=== PATIENT | female | born 1955 | race Caucasian/White ===

== ENCOUNTER → 2018-06-17 | Outpatient (CLI) | payer MEDICARE ==
[~2018-06-17] MED LIST: CHOL10007 PO; ESCI20TA45 PO; HYDR-3820 PO; LITH300T3 PO; PANT40TA3 PO; ROPI2TAB4 PO; TOPI100T11 PO
== END ==
LOC: CARD 09:31
PROVIDERS: ATTEND Internal Medicine Cardiovascular Disease
DX: R00.2 Palpitations (principal); J44.9 Chronic obstructive pulmonary disease, unspecified; G47.33 Obstructive sleep apnea (adult) (pediatric); I25.10 Atherosclerotic heart disease of native coronary artery without angina pectoris; R51 Headache; Z72.0 Tobacco use
CPT/HCPCS: 93225; 93226

== ENCOUNTER 2018-06-29 19:08 | Outpatient (CLI) | payer MEDICARE | END 2018-06-30 06:55 | disposition home or self-care (01) | LOC: SLEEP 19:08 | PROVIDERS: ATTEND Nurse Practitioner Family | DX: G47.33 Obstructive sleep apnea (adult) (pediatric) (principal); G47.10 Hypersomnia, unspecified; J44.9 Chronic obstructive pulmonary disease, unspecified; Z72.0 Tobacco use | CPT/HCPCS: 95810 ==

== ENCOUNTER → 2018-06-30 | Outpatient (CLI) | payer MEDICARE ==
[~2018-06-30] MED LIST changes: +RT-ALBUTEROL SULF 2.5 MG/3 ML PRE-MIX VIAL INH ONE; +RT-ALBUTEROL SULF 2.5 MG/3 ML PRE-MIX VIAL ONE
== END ==
LOC: RT 07:10
PROVIDERS: ATTEND Nurse Practitioner Family
DX: J44.9 Chronic obstructive pulmonary disease, unspecified (principal); G47.33 Obstructive sleep apnea (adult) (pediatric); Z72.0 Tobacco use
CPT/HCPCS: 94060; 94726; 94729

== ENCOUNTER 2018-08-01 21:51 | Emergency (ER) | payer MEDICARE ==
[~2018-08-01] VITALS: Ht 165.1 cm; Wt 60.8 kg
[~2018-08-01 21:51] MED LIST changes: -RT-ALBUTEROL SULF 2.5 MG/3 ML PRE-MIX VIAL INH ONE; -RT-ALBUTEROL SULF 2.5 MG/3 ML PRE-MIX VIAL ONE
--- OUTSIDE RECORDS SUMMARY | 2018-08-01 22:04 | XMS REPORT | Continuity of Care Document ---
Author Author [facility] Organization [facility] Address Unknown Phone Unavailable Allergies Active Description Code Type Severity Reaction Onset Reported/Identified Relationship to Patient Clinical Status Yes aspirin Drug N/A [id number] Yes Chantix Drug N/A [id number] Yes morphine Drug N/A [id number] Yes Ultram Drug N/A [id number] Yes TAPE TAPE Mild N/ A 09/22/2005 Yes aspirin [id number] Drug Allergy Unknown N/A 09/22/2005 Yes tramadol [id number] Drug Allergy Unknown N/A 09/22/2005 Medications There is no data. Problems Date Dx Coded Attending Type Code Diagnosis Diagnosed By 05/14/2018 AGUSTIN RAZA MD, Ot E78.00 PURE HYPERCHOLESTEROLEMIA, UNSPECIFIED 05/14/2018 AGUSTIN RAZA MD Ot E87.2 ACIDOSIS 05/14/2018 AGUSTIN RAZA MD Ot F03.90 UNSPECIFIED DEMENTIA WITHOUT BEHAVIORAL 05/14/2018 AGUSTIN RAZA MD Ot F17.210 NICOTINE DEPENDENCE, CIGARETTES, UNCOMPL 05/14/2018 AGUSTIN RAZA MD Ot F32.9 MAJOR DEPRESSIVE DISORDER, SINGLE EPISOD 05/14/2018 AGUSTIN RAZA MD, Ot F41.9 ANXIETY DISORDER, UNSPECIFIED 05/14/2018 AGUSTIN RAZA MD Ot F79 UNSPECIFIED INTELLECTUAL DISABILITIES 05/14/2018 AGUSTIN RAZA MD Ot G47.33 OBSTRUCTIVE SLEEP APNEA (ADULT) (PEDIATR 05/14/2018 AGUSTIN RAZA MD Ot I10 ESSENTIAL (PRIMARY) HYPERTENSION 05/14/2018 AGUSTIN RAZA MD, Ot I25.10 ATHSCL HEART DISEASE OF [place] CORONARY 05/14/2018 AGUSTIN RAZA MD, Ot J44.9 CHRONIC OBSTRUCTIVE PULMONARY DISEASE, U 05/14/2018 AGUSTIN RAZA MD Ot J98.11 ATELECTASIS 05/14/2018 AGUSTIN RAZA MD Ot K21.9 GASTRO-ESOPHAGEAL REFLUX DISEASE WITHOUT 05/14/2018 AGUSTIN RAZA MD Ot M79.661 PAIN IN RIGHT LOWER LEG 05/14/2018 AGUSTIN RAZA MD Ot M79.662 PAIN IN LEFT LOWER LEG 05/14/2018 AGUSTIN RAZA MD Ot R00.1 BRADYCARDIA, UNSPECIFIED 05/14/2018 AGUSTIN RAZA MD Ot R07.89 OTHER CHEST PAIN 05/14/2018 AGUSTIN RAZA MD Ot Z82.49 FAMILY HX OF ISCHEM HEART DIS AND OTH DI 05/14/2018 AGUSTIN RAZA MD Ot Z85.3 PERSONAL HISTORY OF MALIGNANT NEOPLASM O 05/14/2018 AGUSTIN RAZA MD Ot Z85.41 PERSONAL HISTORY OF MALIGNANT NEOPLASM O 05/14/2018 AGUSTIN RAZA MD Ot Z87.19 PERSONAL HISTORY OF OTHER DISEASES OF TH 05/14/2018 AGUSTIN RAZA MD Ot Z92.21 PERSONAL HISTORY OF ANTINEOPLASTIC CHEMO 06/04/2018 SABI HAN APRN Ot G47.33 OBSTRUCTIVE SLEEP APNEA (ADULT) (PEDIATR 06/16/2018 AGUSTIN RAZA MD Ot J44.9 CHRONIC OBSTRUCTIVE PULMONARY DISEASE, U 06/16/2018 SABI HAN APRN Ot G47.33 OBSTRUCTIVE SLEEP APNEA (ADULT) (PEDIATR 06/16/2018 AGUSTIN RAZA MD Ot J44.9 CHRONIC OBSTRUCTIVE PULMONARY DISEASE, U 06/16/2018 AGUSTIN RAZA MD, Ot J44.9 CHRONIC OBSTRUCTIVE PULMONARY DISEASE, U 06/17/2018 SABI HAN APRN Ot G47.33 OBSTRUCTIVE SLEEP APNEA (ADULT) (PEDIATR 06/17/2018 AGUSTIN RAZA MD Ot R00.2 PALPITATIONS 06/18/2018 AGUSTIN RAZA MD Ot G47.33 OBSTRUCTIVE SLEEP APNEA (ADULT) (PEDIATR 06/18/2018 AGUSTIN RAZA MD Ot I25.10 ATHSCL HEART DISEASE OF [place] CORONARY 06/18/2018 AGUSTIN RAZA MD Ot J44.9 CHRONIC OBSTRUCTIVE PULMONARY DISEASE, U 06/18/2018 AGUSTIN RAZA MD Ot R00.2 PALPITATIONS 06/18/2018 AGUSTIN RAZA MD Ot R51 HEADACHE 06/18/2018 AGUSTIN RAZA MD Ot Z72.0 TOBACCO USE 06/28/2018 SABI HAN APRN Ot G47.33 OBSTRUCTIVE SLEEP APNEA (ADULT) (PEDIATR 06/29/2018 SABI HAN AUDIO EXPERIENCE EXPERT Ot G47.33 OBSTRUCTIVE SLEEP AP[place]A (ADULT) (PEDIATR 06/29/2018 AGUSTIN RAZA MD Ot G47.33 OBSTRUCTIVE SLEEP APNEA (ADULT) (PEDIATR 06/29/2018 AGUSTIN RAZA MD Ot I25.10 ATHSCL HEART DISEASE OF [place] CORONARY 06/29/2018 AGUSTIN RAZA MD Ot J44.9 CHRONIC OBSTRUCTIVE PULMONARY DISEASE, U 06/29/2018 AGUSTIN RAZA MD Ot R00.2 PALPITATIONS 06/29/2018 AGUSTIN RAZA MD Ot R51 HEADACHE 06/29/2018 AGUSTIN RAZA MD Ot Z72.0 TOBACCO USE 06/29/2018 SABI HAN AUDIO EXPERIENCE EXPERT Ot G47.33 OBSTRUCTIVE SLEEP APNEA (ADULT) (PEDIATR 06/29/2018 SABI HAN AUDIO EXPERIENCE EXPERT Ot G47.33 OBSTRUCTIVE SLEEP APNEA (ADULT) (PEDIATR 06/29/2018 SABI HAN AUDIO EXPERIENCE EXPERT Ot G47.33 OBSTRUCTIVE SLEEP APNEA (ADULT) (PEDIATR 06/30/2018 SABI HAN AUDIO EXPERIENCE EXPERT Ot G47.10 HYPERSOMNIA, UNSPECIFIED 06/30/2018 SABI HAN AUDIO EXPERIENCE EXPERT Ot G47.33 OBSTRUCTIVE SLEEP AP[place] (ADULT) (PEDIATR 06/30/2018 SABI HAN AUDIO EXPERIENCE EXPERT Ot J44.9 CHRONIC OBSTRUCTIVE PULMONARY DISEASE, U 06/30/2018 SABI HAN AUDIO EXPERIENCE EXPERT Ot Z72.0 TOBACCO USE 06/30/2018 AGUSTIN RAZA MD Ot G47.33 OBSTRUCTIVE SLEEP APNEA (ADULT) (PEDIATR 06/30/2018 AGUSTIN RAZA MD Ot I25.10 ATHSCL HEART DISEASE OF [place] CORONARY 06/30/2018 AGUSTIN RAZA MD Ot J44.9 CHRONIC OBSTRUCTIVE PULMONARY DISEASE, U 06/30/2018 AGUSTIN RAZA MD Ot R00.2 PALPITATIONS 06/30/2018 AGUSTIN RAZA MD Ot R51 HEADACHE 06/30/2018 AGUSTIN RAZA MD Ot Z72.0 TOBACCO USE 06/30/2018 SABI HAN AUDIO EXPERIENCE EXPERT Ot G47.10 HYPERSOMNIA, UNSPECIFIED 06/30/2018 SABI HAN AUDIO EXPERIENCE EXPERT Ot G47.33 OBSTRUCTIVE SLEEP APNEA (ADULT) (PEDIATR 06/30/2018 SABI HAN AUDIO EXPERIENCE EXPERT Ot J44.9 CHRONIC OBSTRUCTIVE PULMONARY DISEASE, U 06/30/2018 SABI HAN AUDIO EXPERIENCE EXPERT Ot Z72.0 TOBACCO USE 07/01/2018 SABI HAN AUDIO EXPERIENCE EXPERT Ot G47.33 OBSTRUCTIVE SLEEP APNEA (ADULT) (PEDIATR 07/01/2018 SABI HAN AUDIO EXPERIENCE EXPERT Ot J44.9 CHRONIC OBSTRUCTIVE PULMONARY DISEASE, U 07/01/2018 SABI HAN AUDIO EXPERIENCE EXPERT Ot Z72.0 TOBACCO USE 07/06/2018 SABI HAN AUDIO EXPERIENCE EXPERT Ot G47.33 OBSTRUCTIVE SLEEP [place] (ADULT) (PEDIATR 07/06/2018 SABI HAN AUDIO EXPERIENCE EXPERT Ot J44.9 CHRONIC OBSTRUCTIVE PULMONARY DISEASE, U 07/06/2018 SABI HAN AUDIO EXPERIENCE EXPERT Ot Z72.0 TOBACCO USE 07/07/2018 AGUSTIN RAZA MD Ot G47.33 OBSTRUCTIVE SLEEP APNEA (ADULT) (PEDIATR 07/07/2018 AGUSTIN RAZA MD Ot I25.10 ATHSCL HEART DISEASE OF [place] CORONARY 07/07/2018 AGUSTIN RAZA MD Ot J44.9 CHRONIC OBSTRUCTIVE PULMONARY DISEASE, U 07/07/2018 AGUSTIN RAZA MD Ot R00.2 PALPITATIONS 07/07/2018 AGUSTIN RAZA MD Ot R51 HEADACHE 07/07/2018 AGUSTIN RAZA MD Ot Z72.0 TOBACCO USE 07/20/2018 SABI HAN AUDIO EXPERIENCE EXPERT Ot G47.33 OBSTRUCTIVE SLEEP [place]A (ADULT) (PEDIATR 07/20/2018 SABI HAN APRN Ot J44.9 CHRONIC OBSTRUCTIVE PULMONARY DISEASE, U 07/20/2018 SABI HAN APRN Ot Z72.0 TOBACCO USE Procedures Code Description Performed By Performed On [id number] MEASURE OF CARDIAC SAMPL PRESSURE, L H 05/14/2018 [id number] FLUOROSCOPY OF MULT COR ART USING L OSM 05/14/2018 [id number] FLUOROSCOPY OF LEFT HEART USING LOW OSMO 05/14/2018 Results Test Result Range Methicillin resistant Staphylococcus aureus (MRSA) screening culture - 00:00 Methicillin resistant Staphylococcus aureus (MRSA) screening culture NEG NR Automated blood complete blood count (hemogram) panel - 05/14/18 04:11 Blood leukocytes automated count (number/volume) 5.3 10*3/uL 4.3-11.0 Blood erythrocytes automated count (number/volume) 3.68 10*6/uL 4.35-5.85 Venous blood hemoglobin measurement (mass/volume) 11.2 g/dL 11.5-16.0 Blood hematocrit (volume fraction) 35 % 35-52 Automated erythrocyte mean corpuscular volume 95 [foz_us] 80-99 Automated erythrocyte mean corpuscular hemoglobin (mass per erythrocyte) 30 pg 25-34 Automated erythrocyte mean corpuscular hemoglobin concentration measurement ( mass/volume) 32 g/dL 32-36 Automated erythrocyte distribution width ratio 14.3 % 10.0-14.5 Automated blood platelet count (count/volume) 158 10*3/uL 130-400 Automated blood platelet mean volume measurement 10.9 [foz_us] 7.4-10.4 PT panel in platelet poor plasma by coagulation assay - 05/14/18 04:11 Prothrombin time (PT) in platelet poor plasma by coagulation assay 13.8 s 12.2-14.7 INR in platelet poor plasma or blood by coagulation assay 1.1 0.8-1.4 Activated partial thromboplastin time (aPTT) in platelet poor plasma bycoagulation assay - 05/14/18 04:11 Activated partial thromboplastin time (aPTT) in platelet poor plasma bycoagulation assay 34 s 24-35 Comprehensive metabolic panel - 05/14/18 04:11 Serum or plasma sodium measurement (moles/volume) 140 mmol/L 135-145 Serum or plasma potassium measurement (moles/volume) 4.2 mmol/L 3.6-5.0 Serum or plasma chloride measurement (moles/volume) 112 mmol/L 98-107 Carbon dioxide 19 mmol/L 21-32 Serum or plasma anion gap determination (moles/volume) 9 mmol/L 5-14 Serum or plasma urea nitrogen measurement (mass/volume) 21 mg/dL 7-18 Serum or plasma creatinine measurement (mass/volume) 0.78 mg/dL 0.60-1.30 Serum or plasma urea nitrogen/creatinine mass ratio 27 NRG Serum or plasma creatinine measurement with calculation of estimated glomerular filtration rate > NRG Serum or plasma glucose measurement (mass/volume) 92 mg/dL 70-105 Serum or plasma calcium measurement (mass/volume) 8.7 mg/dL 8.5-10.1 Serum or plasma total bilirubin measurement (mass/volume) 0.3 mg/dL 0.1-1.0 Serum or plasma alkaline phosphatase measurement (enzymatic activity/volume) 81 U/L 40-136 Serum or plasma aspartate aminotransferase measurement (enzymatic activity/ volume) 13 U/L 5-34 Serum or plasma alanine aminotransferase measurement (enzymatic activity/volume ) 12 U/L 0-55 Serum or plasma protein measurement (mass/volume) 5.9 g/dL 6.4-8.2 Serum or plasma albumin measurement (mass/volume) 3.7 g/dL 3.2-4.5 CALCIUM CORRECTED 8.9 mg/dL 8.5-10.1 Serum or plasma phosphate measurement (mass/volume) - 05/14/18 04:11 Serum or plasma phosphate measurement (mass/volume) 3.8 mg/dL 2.3-4.7 Magnesium - 05/14/18 04:11 Magnesium 2.4 mg/dL 1.8-2.4 Serum or plasma troponin i.cardiac measurement (mass/volume) - 05/14/18 04:11 Serum or plasma troponin i.cardiac measurement (mass/volume) < ng/ mL <0.30 Serum or plasma lithium measurement (moles/volume) - 05/14/18 04:11 BNP level 22.3 pg/mL <100.0 Lipid 1996 panel - 05/14/18 04:11 Serum or plasma triglyceride measurement (mass/volume) 108 mg/dL <150 Serum or plasma cholesterol measurement (mass/volume) 161 mg/dL < 200 Serum or plasma cholesterol in HDL measurement (mass/volume) 42 mg/ dL 40-60 Cholesterol in LDL [mass/volume] in serum or plasma by direct assay 110 mg/dL 1-129 Serum or plasma cholesterol in VLDL measurement (mass/volume) 22 mg/ dL 5-40 Arterial blood gas measurement - 05/14/18 09:10 Blood pCO2 35 mm[Hg] 35-45 Blood pO2 81 mm[Hg] 79-93 Arterial blood bicarbonate measurement (moles/volume) 21 mmol/L 23-27 Arterial blood base excess by calculation -3.7 mmol/L - 2.5-2.5 Arterial blood oxygen saturation measurement 98 % 94-100 * Inhaled oxygen flow rate RA NRG Arterial blood pH measurement with patient temperature correction 7.38 7.37-7.43 Arterial blood carbon dioxide, total measurement (moles/volume) 21.6 mmol/L 21.0-31.0 Body site RRAD NRG Assessment of wrist artery patency prior to arterial puncture YES- POS NRG Setting of ventilation mode NO NRG Measurement of body temperature 98 NRG Encounters ACCT No. Visit Date/Time Discharge Status Pt. Type Provider Facility Loc./Unit Complaint [id number] 07/28/2017 10:45:01 ACT Unknown [id number] 06/30/2018 07:10:00 06/30/2018 23:59:59 CLS Outpatient SABI HAN APRN [facility] RT COPD [id number] 06/29/2018 19:08:00 06/30/2018 06:55:00 DIS Outpatient SABI HAN APRN [facility] SLEEP EVELYNE G47.33 [id number] 06/17/2018 09:31:00 06/17/2018 23:59:59 CLS Outpatient AGUSTIN RAZA MD [facility] CARD COPD, TOBACCO USER, EVELYNE , CAD, HEADACHE,PALPITATION [id number] 06/15/2018 16:15:00 06/15/2018 23:59:59 CLS Preadmit AGUSTIN RAZA MD [facility] CARD COPD, TOBACCO USER, EVELYNE , CAD [id number] 05/14/2018 01:05:00 05/14/2018 15:45:00 DIS Inpatient AGUSTIN RAZA MD [facility] ICU CHEST PAIN [id number] 10/14/2016 10:34:44 10/14/2016 14:55:00 DIS Outpatient ADRIANE ZHOU [facility] in [facility] 08/08/2017 17:12:55 ACT Document Registration
--- NOTE | 2018-08-01 22:27 | ED Abdominal Pain ---
General Chief Complaint: Abdominal/GI Problems Stated Complaint: NAUSEA--VOMITTING Source of Information: Patient Exam Limitations: No Limitations History of Present Illness Date Seen by Provider: Aug 01, 2018 Time Seen by Provider: 22:24 Initial Comments Patient has bilateral ear infections and is on antibiotics pills and drops. She complains of sinus congestion and pressure type headache for the past 24 hours. She has had dry heaves. PO intake has been decreased. No fevers or chills. She is not wearing her hearing aids and is very hard of hearing. No diarrhea. No abdominal pain. Took hydrocodone without relief. Allergies and Home Medications Allergies Coded Allergies: aspirin (Verified Allergy, Unknown, 09/22/05) morphine (Verified Allergy, Unknown, 08/01/18) tramadol (Verified Allergy, Unknown, 09/22/05) Uncoded Allergies: TAPE (Allergy, Mild, 09/22/05) Home Medications Cholecalciferol (Vitamin D3) 1,000 Unit Capsule, 1,000 UNIT PO DAILY, (Reported) Escitalopram Oxalate 20 Mg Tablet, 20 MG PO HS, (Reported) Hydrocodone/Acetaminophen 1 Each Tablet, 1 TAB PO DAILY PRN for PAIN-MODERATE, ( Reported) [place] Carbonate 300 Mg Tablet, 300 MG PO BID, (Reported) Pantoprazole Sodium 40 Mg Tablet.dr, 40 MG PO BID, (Reported) Ropinirole HCl 2 Mg Tablet, 2 MG PO HS PRN for RESTLESS LEGS, (Reported) Topiramate 100 Mg Tablet, 100 MG PO BID, (Reported) Patient Home Medication List Home Medication List Reviewed: Yes Review of Systems Review of Systems Constitutional: No fever; malaise EENTM: Ear Pain, Nose Congestion Respiratory: Denies Shortness of Air Cardiovascular: No Symptoms Reported Gastrointestinal: Nausea Musculoskeletal: no symptoms reported Psychiatric/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: Headache All Other Systems Reviewed Negative Unless Noted: Yes Past Vgvbass-Fuchvb-Utpskm Hx Patient Social History Alcohol Beverage of Choice: Rum Type Used: Cigarettes Recent Foreign Travel: No Contact w/Someone Who Travel: No Recent Hopitalizations: No Immunizations Up To Date PED Vaccines UTD: No Date of Influenza Vaccine: Jan 19, 2018 Seasonal Allergies Seasonal Allergies: No Past Medical History Surgeries: Yes Respiratory: Yes Chronic Bronchitis, COPD Currently Using CPAP: No Currently Using BIPAP: No Cardiac: Yes High Cholesterol 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: Yes Dementia Genitourinary: Yes Bladder Infection, Renal Failure, UTI-Chronic Gastrointestinal: Yes (1/3 of stomach removed d/t gastritis ) Abdominal Hernia Musculoskeletal: No Endocrine: No HEENT: Yes Cataract Loss of Vision: Denies Hearing Impairment: Bilateral Hearing Aide Cancer: Yes Breast, Cervical What Type of Treatment Did You: Chemotherapy, Surgical Intervention Psychosocial: Yes Anxiety, Depression Integumentary: No Blood Disorders: No Adverse Reaction/Blood Tranf: No Physical Exam Vital Signs Vital Signs - First Documented 08/01/18 22:14 Temp 97.6 Pulse 63 Resp 20 B/P (MAP) 111/94 (100) Pulse Ox 98 O2 Delivery Room Air Capillary Refill : Height/Weight/BMI Height: 5'5.00" Weight: 140lbs. 5.0oz. 63.795302ux; 23.4 BMI Method: General Appearance: WD/WN, no apparent distress HEENT: PERRL/EOMI, pharynx normal, other (very hard of hearing) Neck: supple Respiratory: lungs clear, normal breath sounds, no respiratory distress Cardiovascular: regular rate, rhythm, no edema Gastrointestinal: non tender, soft Extremities: normal inspection Neurologic/Psychiatric: alert, normal mood/affect Skin: normal color, warm/dry Progress/Results/Core Measures Results/Orders Lab Results Laboratory Tests Test 08/01/18 23:32 Range/Units White Blood Count 6.2 4.3-11.0 10^3/uL Red Blood Count 3.92 L 4.35-5.85 10^6/uL Hemoglobin 12.0 11.5-16.0 G/DL Hematocrit 37 35-52 % Mean Corpuscular Volume 94 80-99 FL Mean Corpuscular Hemoglobin 31 25-34 PG Mean Corpuscular Hemoglobin Concent 33 32-36 G/DL Red Cell Distribution Width 13.8 10.0-14.5 % Platelet Count 183 130-400 10^3/uL Mean Platelet Volume 11.0 H 7.4-10.4 FL Neutrophils (%) (Auto) 74 42-75 % Lymphocytes (%) (Auto) 14 12-44 % Monocytes (%) (Auto) 8 0-12 % Eosinophils (%) (Auto) 3 0-10 % Basophils (%) (Auto) 1 0-10 % Neutrophils # (Auto) 4.6 1.8-7.8 X 10^3 Lymphocytes # (Auto) 0.9 L 1.0-4.0 X 10^3 Monocytes # (Auto) 0.5 0.0-1.0 X 10^3 Eosinophils # (Auto) 0.2 0.0-0.3 10^3/uL Basophils # (Auto) 0.0 0.0-0.1 10^3/uL Sodium Level 145 135-145 MMOL/L Potassium Level 3.9 3.6-5.0 MMOL/L Chloride Level 108 H 98-107 MMOL/L Carbon Dioxide Level 28 21-32 MMOL/L Anion Gap 9 5-14 MMOL/L Blood Urea Nitrogen 20 H 7-18 MG/DL Creatinine 0.78 0.60-1.30 MG/DL Estimat Glomerular Filtration Rate > 60 BUN/Creatinine Ratio 26 Glucose Level 112 H 70-105 MG/DL Calcium Level 9.2 8.5-10.1 MG/DL Corrected Calcium 9.2 8.5-10.1 MG/DL Total Bilirubin 0.3 0.1-1.0 MG/DL Aspartate Amino Transf (AST/SGOT) 12 5-34 U/L Alanine Aminotransferase (ALT/SGPT) 8 0-55 U/L Alkaline Phosphatase 97 40-136 U/L Total Protein 6.5 6.4-8.2 GM/DL Albumin 4.0 3.2-4.5 GM/DL My Orders Orders - REYNOLD CORBETT MD Ketorolac Injection (Toradol Injection) (08/01/18 22:30) Ondansetron Oral Dissolve Tab (Zofran (08/01/18 22:28) Ct Head Wo (08/01/18 23:13) Oxycodone/Apap 5/325mg Tablet (Percocet (08/01/18 23:15) Cbc With Automated Diff (08/01/18 23:14) Comprehensive Metabolic Panel (08/01/18 23:14) Medications Given in ED Current Medications Medications Dose Ordered Sig/Renay Route Start Time Stop Time Status Last Admin Dose Admin Ketorolac Tromethamine 60 mg ONCE ONCE IM 08/01/18 22:30 08/01/18 22:31 DC 08/01/18 22:40 60 MG Oxycodone/ Acetaminophen 2 tab ONCE ONCE PO 08/01/18 23:15 08/01/18 23:16 DC 08/01/18 23:40 2 TAB Vital Signs/I&O 08/01/18 22:14 Temp 97.6 Pulse 63 Resp 20 B/P (MAP) 111/94 (100) Pulse Ox 98 O2 Delivery Room Air Progress Progress Note : Time: 23:17 Progress Note No improvement after Toradol. Complains of feeling heart pounding in her head. No vomiting in the ER. Departure Communication (Admissions) CT scan head shows bilateral partial mastoid effusion. Her hair loss and headache may be related to chronic mastoiditis. She is on cefuroxime which is acceptable antibiotic for this. She needs follow-up with ear nose and throat. Impression Primary Impression: Headache Additional Impression: Nausea alone Disposition: HOME, SELF-CARE Condition: Stable Departure-Patient Inst. Decision time for Depature: 00:14 Referrals: SELFCHIQUI MD (PCP) Primary Care Physician NO,LOCAL PHYSICIAN (Family) Primary Care Physician Patient Instructions: Headache, Adult Add. Discharge Instructions: Call your doctor Thursday because you need referral to a ear nose and throat doctor regarding the fluid in your mastoids. All discharge instructions reviewed with patient and/or family. Voiced understanding. Lab results and brain CT were normal. Calm and resting echocardiogram. Take hydrocodone as needed for pain. Continue antibiotics. REYNOLD CORBETT MD Aug 01, 2018 22:26
[2018-08-01] MEDS ORDERED: ONDANSETRON 4 MG (ZOFRAN) ORAL DISSOLVE TAB PO STA (22:28)
[2018-08-01] MEDS ORDERED: KETOROLAC 60 MG/2 ML VIAL IM ONE (22:30)
[2018-08-01] MEDS ORDERED: oxyCODONE/APAP 5/325MG (PERCOCET 5) TABLET PO ONE (23:15)
[2018-08-01 23:48] LABS: BASOPHILS % (AUTO) 1 % (0-10); EOSINOPHILS % (AUTO) 3 % (0-10); HEMATOCRIT 37 % (35-52); LYMPHOCYTES % (AUTO) 14 % (12-44); MEAN CORPUSCULAR HEMOGLOBIN 31 PG (25-34); MEAN CORPUSCULAR HGB CONC 33 G/DL (32-36); MEAN CORPUSCULAR VOLUME 94 FL (80-99); MONOCYTES % (AUTO) 8 % (0-12); NEUTROPHILS % (AUTO) 74 % (42-75); PLATELET COUNT 183 10^3/uL (130-400); RED CELL DISTRIBUTION WIDTH 13.8 % (10.0-14.5); WHITE BLOOD COUNT 6.2 10^3/uL (4.3-11.0)
[2018-08-01 23:49] LABS: EOSINOPHILS # (AUTO) 0.2 10^3/uL (0.0-0.3); LYMPHOCYTES # (AUTO) 0.9 X 10^3 (1.0-4.0); MONOCYTES # (AUTO) 0.5 X 10^3 (0.0-1.0); NEUTROPHILS # (AUTO) 4.6 X 10^3 (1.8-7.8)
[2018-08-02 00:07] LABS: BUN/CREATININE RATIO 26; CARBON DIOXIDE 28 MMOL/L (21-32); CHLORIDE 108 MMOL/L (98-107); CREATININE SERUM 0.78 MG/DL (0.60-1.30); GFR ESTIMATED > 60; POTASSIUM 3.9 MMOL/L (3.6-5.0); SODIUM 145 MMOL/L (135-145)
[2018-08-02 00:08] LABS: ALANINE AMINOTRANSFERASE 8 U/L (0-55); ALKALINE PHOSPHATASE 97 U/L (40-136); BILIRUBIN,TOTAL 0.3 MG/DL (0.1-1.0); CALCIUM 9.2 MG/DL (8.5-10.1); GLUCOSE 112 MG/DL (70-105); TOTAL PROTEIN 6.5 GM/DL (6.4-8.2)
[2018-08-02] MEDS ORDERED: PROMETHAZINE INJ 25 MG/ML (PHENERGAN) AMP IM ONE (00:15)
[2018-08-02 00:30] VITALS: BP 122/51
--- NOTE | 2018-08-02 07:04 | Diagnostic Imaging Report ---
PROCEDURE: CT head without contrast. TECHNIQUE: Multiple contiguous axial images were obtained through the brain without the use of intravenous contrast. INDICATION: Nausea, dizziness and ear infections. CT HEAD: Multiple contiguous axial CT images of the head were obtained. FINDINGS: Ventricles and sulci are within normal limits for size. There is no intracranial hemorrhage identified. There is no abnormal mass effect or shift of midline structures. There is opacification of mastoid air cells, bilaterally. IMPRESSION: Bilateral mastoid opacification could be related to chronic mastoiditis. Otherwise, there is no evidence of acute abnormality in the head. Dictated by: Dictated on workstation # [id number]
== END 2018-08-02 00:30 | disposition home or self-care (01) ==
LOC: EDUNIT# 21:51 → ER FS 21:54
DX: R51 Headache (principal); R11.0 Nausea; E78.00 Pure hypercholesterolemia, unspecified; F03.90 Unspecified dementia, unspecified severity, without behavioral disturbance, psychotic disturbance, mood disturbance, and anxiety; J44.9 Chronic obstructive pulmonary disease, unspecified; F41.9 Anxiety disorder, unspecified; F32.9 Major depressive disorder, single episode, unspecified; Z92.21 Personal history of antineoplastic chemotherapy; Z85.41 Personal history of malignant neoplasm of cervix uteri; Z85.3 Personal history of malignant neoplasm of breast; Z88.6 Allergy status to analgesic agent; Z88.5 Allergy status to narcotic agent; Z87.440 Personal history of urinary (tract) infections; Z87.19 Personal history of other diseases of the digestive system; Z91.048 Other nonmedicinal substance allergy status
CPT/HCPCS: 36415; 70450; 80053; 85025

== ENCOUNTER 2018-11-25 05:51 | Outpatient (CLI) | payer MEDICARE ==
[~2018-11-25] VITALS: Ht 165.1 cm; Wt 63.5 kg
[2018-11-25] MEDS ORDERED: LEVO25TA5 PO (16:23)
[2018-11-25] MEDS ORDERED: ACHD5005 PO (16:23)
[2018-11-25] MEDS ORDERED: METO-387 PO (16:23)
== END 2018-11-25 16:27 | disposition home or self-care (01) ==
LOC: PREOP 05:51
PROVIDERS: ATTEND Otolaryngology Otolaryngology/Facial Plastic Surgery
DX: Z01.818 Encounter for other preprocedural examination (principal)

== ENCOUNTER 2018-12-03 06:55 | Day surgery (SDC) | payer MEDICARE, MEDICAID ==
[2018-12-03] VITALS (11 sets, daily range): BP systolic 117–145; BP diastolic 49–71
[~2018-12-03] VITALS: Ht 165.1 cm; Wt 62.6 kg
[~2018-12-03 06:55] MED LIST changes: +ACHD5005 PO; +LEVO25TA5 PO; +METO-387 PO
--- NOTE | 2018-12-03 07:15 | Progress Note-Pre Operative ---
Pre-Operative Progress Note H&P Reviewed The H&P was reviewed, patient examined and no changes noted. Date Seen by Provider: Dec 03, 2018 Time Seen by Provider: 07:00 Date H&P Reviewed: Dec 03, 2018 Time H&P Reviewed: 07:00 Pre-Operative Diagnosis: ROSINA Cota MD Dec 03, 2018 07:15
[2018-12-03] MEDS ORDERED: LACTATED RINGERS 1,000 ML IV PRN (08:01)
[2018-12-03] MEDS ORDERED: FAMOTIDINE 20MG/2ML IV (PEPCID) ONE (08:05)
[2018-12-03] MEDS ORDERED: FAMOTIDINE 20MG/2ML IV (PEPCID) IVP ONE (08:15)
[2018-12-03] MEDS ORDERED: SEVOFLURANE (ULTANE) 15 ML INHAL SOLN ONE (08:58)
[2018-12-03] MEDS ORDERED: proPOfol 200 MG/20 ML (DIPRIVAN) VIAL IV ONE (08:58)
--- NOTE | 2018-12-03 09:55 | Progress Note-Post Operative ---
Post-Operative Progess Note Surgeon (s)/Coal Drier Operator (s) Surgeon ROSINA KENT MD Coal Drier Operator n/a Pre-Operative Diagnosis Bilat FANNY Post-Operative Diagnosis same Post-Op Procedure Note Date of Procedure: Dec 03, 2018 Name of Procedure Performed: bmt Description & Findings Description and Findings: n/a Anesthesia Type mask Estimated Blood Loss minimal Packing none. Specimen(s) collected/removed none ROSINA KENT MD Dec 03, 2018 09:55
[2018-12-03] MEDS ORDERED: ONDANSETRON 4 MG/2 ML (SDV) Z0FRAN IVP PRN (10:00)
[2018-12-03] MEDS ORDERED: APAP 325 MG/10.15 ML LIQ (TYLENOL) UDC PO PRN (10:00)
[2018-12-03] MEDS ORDERED: MEPERIDINE (DEMEROL) INJ 50 MG/ML IVP ONE (10:00)
[2018-12-03] MEDS ORDERED: OFLO5DRO7 EACH EAR (10:56)
[2018-12-03] MEDS ORDERED: ACETAMINOPHEN 500 MG TAB (TYLENOL) PO PRN (11:15)
--- NOTE | 2018-12-03 12:47 | Anesthesia-General Post-Op ---
General Patient Condition Mental Status/LOC: Same as Preop Cardiovascular: Satisfactory Nausea/Vomiting: Absent Respiratory: Satisfactory Pain: Controlled Complications: Absent Post Op Complications Complications None Follow Up Care/Instructions Patient Instructions None needed. Anesthesia/Patient Condition Patient Condition Patient is doing well, no complaints, stable vital signs, no apparent adverse anesthesia problems. No complications reported per nursing. SULTANA BARRAGAN CRNA Dec 03, 2018 12:46
--- OUTSIDE RECORDS SUMMARY | 2018-12-03 17:53 | XMS REPORT | Continuity of Care Document ---
Author Organization Unknown Address Unknown Allergies Active Description Code Type Severity Reaction Onset Reported/Identified Relationship to Patient Clinical Status Yes aspirin Drug N/A [id number] Yes Chantix Drug N/A [id number] Yes morphine Drug N/A [id number] Yes Ultram Drug N/A [id number] Yes TAPE TAPE Mild N/A 09/22/2005 Yes aspirin [id number] Drug Allergy Unknown N/A 09/22/2005 Yes tramadol [id number] Drug Allergy Unknown N/A 09/22/2005 Yes morphine [id number] Drug Allergy Unknown N/A 08/01/2018 Yes ibuprofen [id number] Drug Allergy Unknown N/A 11/25/2018 Yes varenicline [id number] Drug Allergy Unknown N/A 11/25/2018 Medications There is no data. Problems Date Dx Coded Attending Type Code Diagnosis Diagnosed By 05/14/2018 AGUSTIN RAZA MD Ot E78.00 PURE HYPERCHOLESTEROLEMIA, UNSPECIFIED 05/14/2018 AGUSTIN RAZA MD Ot E87.2 ACIDOSIS 05/14/2018 AGUSTIN RAZA MD Ot F03.90 UNSPECIFIED DEMENTIA WITHOUT BEHAVIORAL 05/14/2018 AGUSTIN RAZA MD Ot F17.210 NICOTINE DEPENDENCE, CIGARETTES, UNCOMPL 05/14/2018 AGUSTIN RAZA MD Ot F32.9 MAJOR DEPRESSIVE DISORDER, SINGLE EPISOD 05/14/2018 AGUSTIN RAZA MD, Ot F41.9 ANXIETY DISORDER, UNSPECIFIED 05/14/2018 AGUSTIN RAZA MD, Ot F79 UNSPECIFIED INTELLECTUAL DISABILITIES 05/14/2018 AGUSTIN RAZA MD, Ot G47.33 OBSTRUCTIVE SLEEP APNEA (ADULT) (PEDIATR 05/14/2018 LUZ MARINA MD, BASHAR J Ot I10 ESSENTIAL (PRIMARY) HYPERTENSION 05/14/2018 AGUSTIN RAZA MD Ot I25.10 ATHSCL HEART DISEASE OF [place] CORONARY 05/14/2018 AGUSTIN RAZA MD Ot J44.9 CHRONIC OBSTRUCTIVE PULMONARY DISEASE, U 05/14/2018 AGUSTIN RAZA MD Ot J98.11 ATELECTASIS 05/14/2018 AGUSTIN RAZA MD Ot K21.9 GASTRO-ESOPHAGEAL REFLUX DISEASE WITHOUT 05/14/2018 AGUSTIN RAZA MD Ot M79.661 PAIN IN RIGHT LOWER LEG 05/14/2018 AGUSTIN RAZA MD, Ot M79.662 PAIN IN LEFT LOWER LEG [...] OTHER DISEASES OF TH 05/14/2018 AGUSTIN RAZA MD, Ot Z92.21 PERSONAL HISTORY OF ANTINEOPLASTIC CHEMO 06/04/2018 SABI HAN APRN Ot G47.33 OBSTRUCTIVE SLEEP APNEA (ADULT) (PEDIATR 06/16/2018 AGUSTIN RAZA MD, Ot J44.9 CHRONIC OBSTRUCTIVE PULMONARY DISEASE, U 06/16/2018 SABI HAN APRN Ot G47.33 OBSTRUCTIVE SLEEP APNEA (ADULT) (PEDIATR 06/16/2018 AGUSTIN RAZA MD, Ot J44.9 CHRONIC OBSTRUCTIVE PULMONARY DISEASE, U 06/16/2018 AGUSTIN RAZA MD, Ot J44.9 CHRONIC OBSTRUCTIVE PULMONARY DISEASE, U 06/17/2018 SABI HAN APRN Ot G47.33 OBSTRUCTIVE SLEEP APNEA (ADULT) (PEDIATR 06/17/2018 AGUSTIN RAZA MD Ot R00.2 PALPITATIONS 06/18/2018 AGUSTIN RAZA MD Ot G47.33 OBSTRUCTIVE SLEEP APNEA (ADULT) (PEDIATR 06/18/2018 LUZ MARINA JUNIOR, AGUSTIN Mai Ot I25.10 ATHSCL HEART DISEASE OF [place] CORONARY 06/18/2018 AGUSTIN RAZA MD Ot J44.9 CHRONIC OBSTRUCTIVE PULMONARY DISEASE, U 06/18/2018 LUZ MARINA JUNIOR, AGUSTIN Mai Ot R00.2 PALPITATIONS 06/18/2018 AGUSTIN RAZA MD J Ot R51 HEADACHE 06/18/2018 AGUSTIN RAZA MD Ot Z72.0 TOBACCO USE 06/28/2018 SABI HAN APRN Ot G47.33 OBSTRUCTIVE SLEEP APNEA (ADULT) (PEDIATR 06/29/2018 SABI HAN APRN Ot G47.33 OBSTRUCTIVE SLEEP APNEA (ADULT) (PEDIATR 06/29/2018 AGUSTIN RAZA MD Ot G47.33 OBSTRUCTIVE SLEEP APNEA (ADULT) (PEDIATR 06/29/2018 LUZ MARINA JUNIOR, AGUSTIN Mai Ot I25.10 ATHSCL HEART DISEASE OF [place] CORONARY 06/29/2018 AGUSTIN RAZA MD Ot J44.9 CHRONIC OBSTRUCTIVE PULMONARY DISEASE, U 06/29/2018 AGUSTIN RAZA MD Ot R00.2 PALPITATIONS 06/29/2018 AGUSTIN RAZA MD Ot R51 HEADACHE 06/29/2018 AGUSTIN RAZA MD Ot Z72.0 TOBACCO USE 06/29/2018 SABI HAN APRN Ot G47.33 OBSTRUCTIVE SLEEP APNEA (ADULT) (PEDIATR 06/29/2018 SABI HAN PUBLIC OPINION SURVEY TAKER Ot G47.33 OBSTRUCTIVE SLEEP APNEA (ADULT) (PEDIATR 06/29/2018 SABI HAN PUBLIC OPINION SURVEY TAKER Ot G47.33 OBSTRUCTIVE SLEEP APNEA (ADULT) (PEDIATR 06/30/2018 SABI HAN PUBLIC OPINION SURVEY TAKER Ot G47.10 HYPERSOMNIA, UNSPECIFIED 06/30/2018 SABI HAN PUBLIC OPINION SURVEY TAKER Ot G47.33 OBSTRUCTIVE SLEEP APNEA (ADULT) (PEDIATR 06/30/2018 SABI HAN APRN Ot J44.9 CHRONIC OBSTRUCTIVE PULMONARY DISEASE, U 06/30/2018 SABI HAN PUBLIC OPINION SURVEY TAKER Ot Z72.0 TOBACCO USE 06/30/2018 AGUSTIN RAZA MD Ot G47.33 OBSTRUCTIVE SLEEP APNEA (ADULT) (PEDIATR 06/30/2018 AGUSTIN RAZA MD Ot I25.10 ATHSCL HEART DISEASE OF [place] CORONARY 06/30/2018 AGUSTIN RAZA MD Ot J44.9 CHRONIC OBSTRUCTIVE PULMONARY DISEASE, U 06/30/2018 AGUSTIN RAZA MD Ot R00.2 PALPITATIONS 06/30/2018 AGUSTIN RAZA MD Ot R51 HEADACHE 06/30/2018 AGUSTIN RAZA MD Ot Z72.0 TOBACCO USE 06/30/2018 GUILLEEMILIA PHILLIPSINE E PUBLIC OPINION SURVEY TAKER Ot G47.10 HYPERSOMNIA, UNSPECIFIED 06/30/2018 GUILLEEMILIA PHILLIPSINE E PUBLIC OPINION SURVEY TAKER Ot G47.33 OBSTRUCTIVE SLEEP APNEA (ADULT) (PEDIATR 06/30/2018 GUILLEEMILIA PHILLIPSINE E PUBLIC OPINION SURVEY TAKER Ot J44.9 CHRONIC OBSTRUCTIVE PULMONARY DISEASE, U 06/30/2018 GUILLEEMILIA PHILLIPSINE E PUBLIC OPINION SURVEY TAKER Ot Z72.0 TOBACCO USE 07/01/2018 GUILLEEMILIA PHILLIPSINE E PUBLIC OPINION SURVEY TAKER Ot G47.33 OBSTRUCTIVE SLEEP APNEA (ADULT) (PEDIATR 07/01/2018 GUILLESABI PHILLIPS E PUBLIC OPINION SURVEY TAKER Ot J44.9 CHRONIC OBSTRUCTIVE PULMONARY DISEASE, U 07/01/2018 GUILLEEMILIA PHILLIPSINE E PUBLIC OPINION SURVEY TAKER Ot Z72.0 TOBACCO USE 07/06/2018 GUILLEEMILIA PHILLIPSINE E PUBLIC OPINION SURVEY TAKER Ot G47.33 OBSTRUCTIVE SLEEP APNEA (ADULT) (PEDIATR 07/06/2018 SABI HAN PUBLIC OPINION SURVEY TAKER Ot J44.9 CHRONIC OBSTRUCTIVE PULMONARY DISEASE, U 07/06/2018 SABI HAN PUBLIC OPINION SURVEY TAKER Ot Z72.0 TOBACCO USE 07/07/2018 AGUSTIN RAZA MD Ot G47.33 OBSTRUCTIVE SLEEP APNEA (ADULT) (PEDIATR 07/07/2018 AGUSTIN RAZA MD Ot I25.10 ATHSCL HEART DISEASE OF [place] CORONARY 07/07/2018 AGUSTIN RAZA MD Ot J44.9 CHRONIC OBSTRUCTIVE PULMONARY DISEASE, U 07/07/2018 AGUSTIN RAZA MD Ot R00.2 PALPITATIONS 07/07/2018 AGUSTIN RAZA MD Ot R51 HEADACHE 07/07/2018 AGUSTIN RAZA MD Ot Z72.0 TOBACCO USE 07/20/2018 SABI HAN PUBLIC OPINION SURVEY TAKER Ot G47.33 OBSTRUCTIVE SLEEP APNEA (ADULT) (PEDIATR 07/20/2018 SABI HAN PUBLIC OPINION SURVEY TAKER Ot J44.9 CHRONIC OBSTRUCTIVE PULMONARY DISEASE, U 07/20/2018 GUILLESABI PHILLIPS APRN Ot Z72.0 TOBACCO USE 08/02/2018 AQUILES CORBETT MDNT A Ot E78.00 PURE HYPERCHOLESTEROLEMIA, UNSPECIFIED 08/02/2018 ARIC JUNIOR ERYNOLD A Ot F03.90 UNSPECIFIED DEMENTIA WITHOUT BEHAVIORAL 08/02/2018 REYNOLD CORBETT MD A Ot F32.9 MAJOR DEPRESSIVE DISORDER, SINGLE EPISOD 08/02/2018 REYNOLD CORBETT MD A Ot F41.9 ANXIETY DISORDER, UNSPECIFIED 08/02/2018 REYNOLD CORBETT MD A Ot J44.9 CHRONIC OBSTRUCTIVE PULMONARY DISEASE, U 08/02/2018 AQUILES CORBETT MDNT A Ot R11.0 NAUSEA 08/02/2018 ARIC JUNIOR REYNOLD A Ot R51 HEADACHE 08/02/2018 AQUILES CORBETT MDNT A Ot Z85.3 PERSONAL HISTORY OF MALIGNANT NEOPLASM O 08/02/2018 AQUILES CORBETT MDNT A Ot Z85.41 PERSONAL HISTORY OF MALIGNANT NEOPLASM O 08/02/2018 AQUILES CORBETT MDNT A Ot Z87.19 PERSONAL HISTORY OF OTHER DISEASES OF TH 08/02/2018 AQUILES CORBETT MDNT A Ot Z87.440 PERSONAL HISTORY OF URINARY (TRACT) INFE 08/02/2018 AQUILES CORBETT MDNT A Ot Z88.5 ALLERGY STATUS TO NARCOTIC AGENT STATUS 08/02/2018 AQUILES CORBETT MDNT A Ot Z88.6 ALLERGY STATUS TO ANALGESIC AGENT STATUS 08/02/2018 AQUILES CORBETT MDNT A Ot Z91.048 OTHER NONMEDICINAL SUBSTANCE ALLERGY STA 08/02/2018 AQUILES CORBETT MDNT A Ot Z92.21 PERSONAL HISTORY OF ANTINEOPLASTIC CHEMO 08/03/2018 REYNOLD CORBETT MD A Ot E78.00 PURE HYPERCHOLESTEROLEMIA, UNSPECIFIED 08/03/2018 REYNOLD CORBETT MD A Ot F03.90 UNSPECIFIED DEMENTIA WITHOUT BEHAVIORAL 08/03/2018 REYNOLD CORBETT MD A Ot F32.9 MAJOR DEPRESSIVE DISORDER, SINGLE EPISOD 08/03/2018 REYNOLD CORBETT MD A Ot F41.9 ANXIETY DISORDER, UNSPECIFIED 08/03/2018 REYNOLD CORBETT MD A Ot J44.9 CHRONIC OBSTRUCTIVE PULMONARY DISEASE, U 08/03/2018 AQUILES CORBETT MDNT A Ot R11.0 NAUSEA 08/03/2018 ARIC JUNIOR REYNOLD A Ot R51 HEADACHE 08/03/2018 AQUILES CORBETT MDNT A Ot Z85.3 PERSONAL HISTORY OF MALIGNANT NEOPLASM O 08/03/2018 REYNOLD CORBETT MD Ot Z85.41 PERSONAL HISTORY OF MALIGNANT NEOPLASM O 08/03/2018 REYNOLD CORBETT MD Ot Z87.19 PERSONAL HISTORY OF OTHER DISEASES OF TH 08/03/2018 REYNOLD CORBETT MD Ot Z87.440 PERSONAL HISTORY OF URINARY (TRACT) INFE 08/03/2018 REYNOLD CORBETT MD Ot Z88.5 ALLERGY STATUS TO NARCOTIC AGENT STATUS 08/03/2018 REYNOLD CORBETT MD Ot Z88.6 ALLERGY STATUS TO ANALGESIC AGENT STATUS 08/03/2018 REYNOLD CORBETT MD Ot Z91.048 OTHER NONMEDICINAL SUBSTANCE ALLERGY STA 08/03/2018 REYNOLD CORBETT MD Ot Z92.21 PERSONAL HISTORY OF ANTINEOPLASTIC CHEMO 11/25/2018 DONTE JUNIOR, ROSINA Vernon Ot Z01.818 ENCOUNTER FOR OTHER PREPROCEDURAL EXAMIN Procedures Code Description Performed By Performed On [id number] MEASURE OF CARDIAC SAMPL PRESSURE, L H 05/14/2018 [id number] FLUOROSCOPY OF MULT COR ART USING L OSM 05/14/2018 [id number] FLUOROSCOPY OF LEFT HEART USING LOW OSMO 05/14/2018 Results Test Result Range Methicillin resistant Staphylococcus aureus (MRSA) screening culture - 05/14/18 00:00 Methicillin resistant Staphylococcus aureus (MRSA) screening culture NEG NRG Automated blood complete blood count (hemogram) panel [...] Automated erythrocyte mean corpuscular hemoglobin concentration measurement (mass/volume) 32 g/dL 32-36 Automated erythrocyte distribution width ratio 14.3 % 10.0- 14.5 Automated blood platelet count (count/volume) 158 10*3/uL [...] Serum or plasma aspartate aminotransferase measurement (enzymatic activity/volume) 13 U/L 5-34 Serum or plasma alanine aminotransferase measurement (enzymatic activity/volume) 12 U/L 0-55 Serum or plasma protein [...] or plasma troponin i.cardiac measurement (mass/volume) < ng/mL <0.30 Serum or plasma lithium measurement (moles/volume) - 05/14/18 04:11 BNP level 22.3 pg/mL <100.0 Lipid 1996 panel - 05/14/18 04:11 Serum or plasma triglyceride measurement (mass/volume) 108 mg/dL <150 Serum or plasma cholesterol measurement (mass/volume) 161 mg/dL < 200 Serum or plasma cholesterol in HDL measurement (mass/volume) 42 mg/dL 40-60 Cholesterol in LDL [mass/volume] in serum or plasma by direct assay 110 mg/dL 1-129 Serum or plasma cholesterol in VLDL measurement (mass/volume) 22 mg/dL 5-40 Arterial blood gas measurement - 05/14/18 09:10 Blood pCO2 35 mm[Hg] 35-45 Blood pO2 81 mm[Hg] 79-93 Arterial blood bicarbonate measurement (moles/volume) 21 mmol/L 23-27 Arterial blood base excess by calculation -3.7 mmol/L -2.5-2.5 Arterial blood oxygen saturation measurement 98 % 94-100 * Inhaled oxygen flow rate RA NRG Arterial blood pH measurement with patient temperature correction 7.38 7.37-7.43 Arterial blood carbon dioxide, total measurement (moles/volume) 21.6 mmol/L 21.0-31.0 Body site RRAD NRG Assessment of wrist artery patency prior to arterial puncture YES-POS NRG Setting of ventilation mode NO NRG Measurement of body temperature 98 NRG Complete blood count (CBC) with automated white blood cell (WBC) differential - 08/01/18 23:32 Blood leukocytes automated count (number/volume) 6.2 10*3/uL 4.3-11.0 Blood erythrocytes automated count (number/volume) 3.92 10*6/uL 4.35-5.85 Venous blood hemoglobin measurement (mass/volume) 12.0 g/dL 11.5-16.0 Blood hematocrit (volume fraction) 37 % 35-52 Automated erythrocyte mean corpuscular volume 94 [foz_us] 80-99 Automated erythrocyte mean corpuscular hemoglobin (mass per erythrocyte) 31 pg 25-34 Automated erythrocyte mean corpuscular hemoglobin concentration measurement (mass/volume) 33 g/dL 32-36 Automated erythrocyte distribution width ratio 13.8 % 10.0- 14.5 Automated blood platelet count (count/volume) 183 10*3/uL 130-400 Automated blood platelet mean volume measurement 11.0 [foz_us] 7.4-10.4 Automated blood neutrophils/100 leukocytes 74 % 42-75 Automated blood lymphocytes/100 leukocytes 14 % 12-44 Blood monocytes/100 leukocytes 8 % 0-12 Automated blood eosinophils/100 leukocytes 3 % 0-10 Automated blood basophils/100 leukocytes 1 % 0-10 Blood neutrophils automated count (number/volume) 4.6 10*3 1.8-7.8 Blood lymphocytes automated count (number/volume) 0.9 10*3 1.0-4.0 Blood monocytes automated count (number/volume) 0.5 10*3 0.0- 1.0 Automated eosinophil count 0.2 10*3/uL 0.0-0.3 Automated blood basophil count (count/volume) 0.0 10*3/uL 0.0-0.1 Comprehensive metabolic panel - 08/01/18 23:32 Serum or plasma sodium measurement (moles/volume) 145 mmol/L 135-145 Serum or plasma potassium measurement (moles/volume) 3.9 mmol/L 3.6-5.0 Serum or plasma chloride measurement (moles/volume) 108 mmol/L 98-107 Carbon dioxide 28 mmol/L 21-32 Serum or plasma anion gap determination (moles/volume) 9 mmol/L 5-14 Serum or plasma urea nitrogen measurement (mass/volume) 20 mg/dL 7-18 Serum or plasma creatinine measurement (mass/volume) 0.78 mg/dL 0.60-1.30 Serum or plasma urea nitrogen/creatinine mass ratio 26 NRG Serum or plasma creatinine measurement with calculation of estimated glomerular filtration rate > NRG Serum or plasma glucose measurement (mass/volume) 112 mg/dL 70-105 Serum or plasma calcium measurement (mass/volume) 9.2 mg/dL 8.5-10.1 Serum or plasma total bilirubin measurement (mass/volume) 0.3 mg/dL 0.1-1.0 Serum or plasma alkaline phosphatase measurement (enzymatic activity/volume) 97 U/L 40-136 Serum or plasma aspartate aminotransferase measurement (enzymatic activity/volume) 12 U/L 5-34 Serum or plasma alanine aminotransferase measurement (enzymatic activity/volume) 8 U/L 0-55 Serum or plasma protein measurement (mass/volume) 6.5 g/dL 6.4-8.2 Serum or plasma albumin measurement (mass/volume) 4.0 g/dL 3.2-4.5 CALCIUM CORRECTED 9.2 mg/dL 8.5-10.1 Encounters ACCT No. Visit Date/Time Discharge Status Pt. Type Provider Facility Loc./Unit Complaint [id number] 07/28/2017 10:45:01 ACT Unknown [id number] 11/25/2018 05:51:00 11/25/2018 16:27:00 DIS Outpatient ROSINA KENT MD [facility] PREOP CHRONIC OTITIS MEDIA [id number] 08/01/2018 21:54:00 08/02/2018 00:30:00 DIS Emergency REYNOLD CORBETT MD [facility] ER FS NAUSEA--VOMITTING [id number] 06/30/2018 07:10:00 06/30/2018 23:59:59 CLS Outpatient SABI HAN APRN [facility] RT COPD [id number] 06/29/2018 19:08:00 06/30/2018 06:55:00 DIS Outpatient SABI HAN APRN [facility] SLEEP EVELYNE G47.33 [id number] 06/17/2018 09:31:00 06/17/2018 23:59:59 CLS Outpatient AGUSTIN RAZA MD [facility] CARD COPD, TOBACCO USER, EVELYNE, CAD, HEADACHE,PALPITATION [id number] 06/15/2018 16:15:00 06/15/2018 23:59:59 CLS Preadmit AGUSTIN RAZA MD [facility] CARD COPD, TOBACCO USER, EVELYNE, CAD [id number] 05/14/2018 01:05:00 05/14/2018 15:45:00 DIS Inpatient AGUSTIN RAZA MD [facility] ICU CHEST PAIN [id number] 12/03/2018 10:15:00 PEN Preadmit ROSINA KENT MD [facility] SDC CHRONIC OTITIS MIEDIA [id number] 10/14/2016 10:34:44 10/14/2016 14:55:00 DIS Outpatient ADRIANE ZHOU [facility] in [facility] 08/08/2017 17:12:55 ACT Document Registration
== END 2018-12-03 11:50 | disposition home or self-care (01) ==
LOC: SDC 06:55
PROVIDERS: ATTEND Otolaryngology Otolaryngology/Facial Plastic Surgery
DX: H65.23 Chronic serous otitis media, bilateral (principal); H90.8 Mixed conductive and sensorineural hearing loss, unspecified; H69.90 Unspecified Eustachian tube disorder, unspecified ear; I11.0 Hypertensive heart disease with heart failure; I50.9 Heart failure, unspecified; J44.9 Chronic obstructive pulmonary disease, unspecified; F32.9 Major depressive disorder, single episode, unspecified; K21.9 Gastro-esophageal reflux disease without esophagitis; G89.29 Other chronic pain; M54.9 Dorsalgia, unspecified; F17.210 Nicotine dependence, cigarettes, uncomplicated; N39.0 Urinary tract infection, site not specified; Z99.81 Dependence on supplemental oxygen; Z85.3 Personal history of malignant neoplasm of breast; Z88.5 Allergy status to narcotic agent; Z88.6 Allergy status to analgesic agent; Z91.048 Other nonmedicinal substance allergy status; Z88.8 Allergy status to other drugs, medicaments and biological substances; Z85.41 Personal history of malignant neoplasm of cervix uteri; Z90.710 Acquired absence of both cervix and uterus; Z90.49 Acquired absence of other specified parts of digestive tract; Z79.899 Other long term (current) drug therapy

== ENCOUNTER 2019-01-06 20:21 | Emergency (ER) | payer MEDICARE, MEDICAID ==
[~2019-01-06] VITALS: Ht 165.1 cm; Wt 60.8 kg
[~2019-01-06 20:21] MED LIST changes: +OFLO5DRO7 EACH EAR
--- NOTE | 2019-01-06 20:40 | ED General ---
General Chief Complaint: Chest Wall Stated Complaint: LT SIDE RIB PAIN Source of Information: Patient Exam Limitations: No Limitations History of Present Illness Date Seen by Provider: Jan 06, 2019 Time Seen by Provider: 20:30 Initial Comments The patient is a 63-year-old female complaining of left chest wall pain. She states that movement of her torso/chest, breathing, and palpation make the pain worse. She states the pain started 3 days ago after she had been moving some trees. She states that a tree fell on her house and they had to cut the tree and move the pieces. She states that after helping her to do this she became sore on the left side of her chest wall. Since that time the pain has continued. She is alert and oriented 4, calm, and appears to be in no distress this time. She denies any shortness of breath, hemoptysis, productive cough, back pain, dizziness, syncope, or any other complaints. Timing/Duration: 2-3 Days Severity: Moderate Modifying Factors: improves with Movement (makes it worse), improves with Rest (makes it better) Allergies and Home Medications Allergies Coded Allergies: aspirin (Verified Allergy, Unknown, 12/03/18) ibuprofen (Verified Allergy, Unknown, 12/03/18) morphine (Verified Allergy, Unknown, 12/03/18) tramadol (Verified Allergy, Unknown, 12/03/18) varenicline (Verified Allergy, Unknown, 12/03/18) Uncoded Allergies: TAPE (Allergy, Mild, 09/22/05) Home Medications Cholecalciferol (Vitamin D3) 1,000 Unit Capsule, 1,000 UNIT PO DAILY, (Reported) Escitalopram Oxalate 20 Mg Tablet, 20 MG PO HS, (Reported) Hydrocodone Bit/Acetaminophen 1 Tab Tab, 1-2 TAB PO BID PRN for PAIN-MODERATE, (Reported) Levothyroxine Sodium 25 Mcg Tablet, 25 MCG PO DAILY, (Reported) [place] Carbonate 300 Mg Tablet, 300 MG PO TID, (Reported) Metoprolol Succinate 25 Mg Tab.er.24h, 12.5 MG PO DAILY, (Reported) take 1/2 of 25mg tab Ofloxacin 5 Ml Drops, 3 DROPS EACH EAR BID Prescribed by: MAC SCOTT on 12/03/18 1056 Pantoprazole Sodium 40 Mg Tablet.dr, 40 MG PO BID, (Reported) Topiramate 100 Mg Tablet, 100 MG PO BID, (Reported) Patient Home Medication List Home Medication List Reviewed: Yes Review of Systems Review of Systems Constitutional: no symptoms reported EENTM: no symptoms reported Respiratory: other (left lateral chest wall pain) Cardiovascular: no symptoms reported Gastrointestinal: no symptoms reported Genitourinary: no symptoms reported Musculoskeletal: no symptoms reported Skin: no symptoms reported Psychiatric/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: No Symptoms Reported Hematologic/Lymphatic: No Symptoms Reported Immunological/Allergic: no symptoms reported All Other Systems Reviewed Negative Unless Noted: Yes Past Bjerwpu-Rxwpdb-Sqdwcu Hx Past Med/Social Hx: Reviewed Nursing Past Med/Soc Hx Patient Social History Alcohol Use: Denies Use Number of Drinks Today: DD Alcohol Beverage of Choice: Rum Recreational Drug Use: No Smoking Status: Current Everyday Smoker Type Used: Cigarettes 2nd Hand Smoke Exposure: Yes Recent Foreign Travel: No Contact w/Someone Who Travel: No Recent Hopitalizations: No Immunizations Up To Date Tetanus Booster (TDap): Unknown PED Vaccines UTD: No Date of Influenza Vaccine: Feb 15, 2018 Seasonal Allergies Seasonal Allergies: No Past Medical History Surgeries: Yes (Gastrectomy, bladder sling, bilat arthroscopy UE, Nerve stimulator removal) Section Respiratory: Yes (wears oxygen at hs) COPD Currently Using CPAP: No Currently Using BIPAP: No Cardiac: Yes (CHF) High Cholesterol 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: No Dementia 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 Genitourinary: Yes (stress incontinence ) Bladder Infection, Renal Failure, UTI-Chronic Gastrointestinal: Yes (1/3 of stomach removed d/t gastritis ) Gastrointestinal Bleed Musculoskeletal: Yes Chronic Back Pain Endocrine: No HEENT: Yes Cataract Loss of Vision: Denies Hearing Impairment: Hard of Hearing, Bilateral Hearing Aide Cancer: No Breast, Cervical What Type of Treatment Did You: Chemotherapy, Surgical Intervention Psychosocial: Yes Depression Integumentary: No Blood Disorders: No Adverse Reaction/Blood Tranf: No Physical Exam Vital Signs Vital Signs - First Documented 01/06/19 20:33 Temp 99.6 Pulse 78 Resp 20 B/P (MAP) 137/50 (79) Pulse Ox 95 O2 Delivery Room Air Capillary Refill : Height, Weight, BMI Height: 5'5.00" Weight: 138lbs. 0.0oz. 62.555669up; 23.0 BMI Method:Stated General Appearance: No Apparent Distress, WD/WN HEENT: PERRL/EOMI, Pharynx Normal Neck: Full Range of Motion, Non Tender Respiratory: Lungs Clear, Normal Breath Sounds, No Accessory Muscle Use, Other (left lateral chest wall ttp at approx rib 5) Cardiovascular: Regular Rate, Rhythm, No Edema Gastrointestinal: Normal Bowel Sounds, No Pulsatile Mass, Soft Back: Normal Inspection, No CVA Tenderness, No Vertebral Tenderness Extremity: Normal Capillary Refill, Normal Inspection, Non Tender Neurologic/Psychiatric: Alert, Oriented x3, No Motor/Sensory Deficits, Normal Mood/Affect, 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 Advised patient to take Tylenol at home for pain relief is needed. Advised patient to follow up with her PCP in the next 2-3 days. Departure Impression Primary Impression: Chest wall pain Disposition: 01 HOME, SELF-CARE Condition: Improved Departure-Patient Inst. Decision time for Depature: 20:58 Referrals: SELFCHIQUI MD (PCP) Primary Care Physician Patient Instructions: Bruised Rib (DC), Muscle Strain Add. Discharge Instructions: Disposition as instructed. Follow-up with your doctor in the next 2-3 days. Return to ER for new or worsening symptoms. Scripts Cyclobenzaprine HCl (Cyclobenzaprine HCl) 10 Mg Tablet 10 MG PO Q8H, #15 TAB Prov: SALVADOR MARAVILLA DO 01/06/19 SALVADOR MARAVILLA DO Jan 06, 2019 20:40
--- NOTE | 2019-01-06 20:51 | Diagnostic Imaging Report ---
INDICATION: Left rib pain COMPARISON: None FINDINGS: 3 views of the left ribs demonstrate a small effusion and atelectasis in the left base. There is no underlying fracture or osseous lesion. There is no pneumothorax. IMPRESSION: 1. Atelectasis, effusion and infiltrate in the left base. 2. No rib injury identified. Dictated by: Dictated on workstation # [id number]
[2019-01-06] MEDS ORDERED: CYCLOBENZAPRINE 10 MG (FLEXERIL) TAB PO PRN (21:00)
[2019-01-06] MEDS ORDERED: ACETAMINOPHEN 500 MG TAB (TYLENOL) PO ONE (21:00)
[2019-01-06] MEDS ORDERED: CYCL10TA9 PO (21:02)
[2019-01-06 21:12] VITALS: BP 137/50
== END 2019-01-06 21:09 | disposition home or self-care (01) ==
LOC: EDUNIT# 20:21 → ER FS 20:23
DX: R07.89 Other chest pain (principal); J44.9 Chronic obstructive pulmonary disease, unspecified; E78.00 Pure hypercholesterolemia, unspecified; F03.90 Unspecified dementia, unspecified severity, without behavioral disturbance, psychotic disturbance, mood disturbance, and anxiety; F32.9 Major depressive disorder, single episode, unspecified; F17.210 Nicotine dependence, cigarettes, uncomplicated; Z85.3 Personal history of malignant neoplasm of breast; Z85.41 Personal history of malignant neoplasm of cervix uteri; Z90.710 Acquired absence of both cervix and uterus; Z87.440 Personal history of urinary (tract) infections; Z99.81 Dependence on supplemental oxygen; Z88.6 Allergy status to analgesic agent; Z88.5 Allergy status to narcotic agent; Z88.8 Allergy status to other drugs, medicaments and biological substances
CPT/HCPCS: 71100

== ENCOUNTER → 2019-02-16 | Outpatient (CLI) | payer MEDICARE, MEDICAID ==
[~2019-02-16] MED LIST changes: +CYCL10TA9 PO
--- NOTE | 2019-02-16 16:04 | Diagnostic Imaging Report ---
INDICATION: Acute pain COMPARISON: Radiograph of the left-sided ribs dated 01/06/2019 TECHNIQUE: Two radiographs of the left shoulder dated 02/16/2019 FINDINGS: The acromioclavicular joint is unremarkable. No acute fracture or dislocation. No destructive osseous process. Subacromial space is well-maintained. The visualized left lung is clear. IMPRESSION: No acute osseous abnormality. Dictated by: Dictated on workstation # [id number]
== END ==
LOC: RAD FS 15:30
PROVIDERS: ATTEND Nurse Practitioner Family
DX: M25.512 Pain in left shoulder (principal)
CPT/HCPCS: 73030

== ENCOUNTER → 2019-04-25 | Outpatient (CLI) | payer MEDICARE, MEDICAID ==
[~2019-04-25] MED LIST changes: +CHOL400T PO; +CLON0.5T PO; +LACT1TAB25 PO; +LEVO5TAB12 PO; -METO-387 PO; +MTP25TSR PO; +MULT-974 PO; +OFLO5DRO33 EACH EAR; -OFLO5DRO7 EACH EAR
== END ==
LOC: CARD 10:21
PROVIDERS: ATTEND Physician Assistant
DX: I25.10 Atherosclerotic heart disease of native coronary artery without angina pectoris (principal); J44.9 Chronic obstructive pulmonary disease, unspecified; K21.9 Gastro-esophageal reflux disease without esophagitis
CPT/HCPCS: 93351

== ENCOUNTER → 2019-05-03 | Outpatient (CLI) | payer MEDICARE, MEDICAID ==
[~2019-05-03] MED LIST changes: +CATHETER FLUSH 10 ML SYR IV PRN; -CHOL400T PO; -CLON0.5T PO; +HOLD METFORMIN - RECEIVED CONTRAST 20 ML VIAL IV SCH; +IOHEXOL 350 MG/ML 100 ML (OMNIPAQUE 350) VIAL IV ONE; -LACT1TAB25 PO; -LEVO5TAB12 PO; +METO-387 PO; -MTP25TSR PO; -MULT-974 PO; +NS 100 ML (IVPB) BAG IV ONE; -OFLO5DRO33 EACH EAR; +OFLO5DRO7 EACH EAR
[2019-05-03 09:23] LABS: BASOPHILS # (AUTO) 0.1 10^3/uL (0.0-0.1); BASOPHILS % (AUTO) 1 % (0-10); EOSINOPHILS # (AUTO) 0.3 10^3/uL (0.0-0.3); EOSINOPHILS % (AUTO) 5 % (0-10); HEMATOCRIT 39 % (35-52); HEMOGLOBIN 12.6 G/DL (11.5-16.0); LYMPHOCYTES # (AUTO) 0.6 X 10^3 (1.0-4.0); LYMPHOCYTES % (AUTO) 10 % (12-44); MEAN CORPUSCULAR HEMOGLOBIN 32 PG (25-34); MEAN CORPUSCULAR HGB CONC 33 G/DL (32-36); MEAN CORPUSCULAR VOLUME 97 FL (80-99); MEAN PLATELET VOLUME 10.7 FL (7.4-10.4); MONOCYTES # (AUTO) 0.4 X 10^3 (0.0-1.0); MONOCYTES % (AUTO) 7 % (0-12); NEUTROPHILS # (AUTO) 4.4 X 10^3 (1.8-7.8); NEUTROPHILS % (AUTO) 76 % (42-75); PLATELET COUNT 169 10^3/uL (130-400); RED CELL DISTRIBUTION WIDTH 13.7 % (10.0-14.5); WHITE BLOOD COUNT 5.8 10^3/uL (4.3-11.0)
[2019-05-03 09:42] LABS: CREATININE SERUM 0.95 MG/DL (0.60-1.30); POTASSIUM 4.4 MMOL/L (3.6-5.0)
[2019-05-03 09:43] LABS: BILIRUBIN,TOTAL 0.3 MG/DL (0.1-1.0); CALCIUM 9.6 MG/DL (8.5-10.1); TOTAL PROTEIN 6.8 GM/DL (6.4-8.2)
--- NOTE | 2019-05-03 10:50 | Diagnostic Imaging Report ---
Clinical indication: Patient with shaking hands and feet. Patient has headache and dizziness and history of falls. Exam: Axial CT scan of the brain performed without and with Omnipaque 300 IV contrast. Comparison: Head CT without contrast dated 08/01/2018. Findings: There is no evidence of acute cerebral infarct, intracranial hemorrhage, or gross mass effect. There is no abnormal IV contrast enhancement. The brain parenchymal volume appears appropriate for patient's age. There is normal lopez-white matter distinction. There is no significant midline shift or herniation. The [place] vascular structures show no gross abnormality as visualized. There is no evidence of hydrocephalus. The basal cisterns are unremarkable. The skull, extracranial soft tissue, and orbits are unremarkable. There is minimal ethmoid sinus mucosal thickening. Temporal bones show no significant abnormality. Impression: There is minimal ethmoid sinus mucosal thickening. Otherwise, unremarkable CT scan of the brain. Dictated by: Dictated on workstation # [id number]
== END ==
LOC: RAD FS 09:06
PROVIDERS: ATTEND Family Medicine
DX: J44.9 Chronic obstructive pulmonary disease, unspecified (principal); R51 Headache; R26.89 Other abnormalities of gait and mobility; Z91.81 History of falling
CPT/HCPCS: 36415; 70470; 80053; 85025

== ENCOUNTER → 2019-05-04 | Outpatient (CLI) | payer MEDICARE, MEDICAID ==
[~2019-05-04] VITALS: Ht 165 cm; Wt 66.0 kg
[~2019-05-04] MED LIST changes: -HOLD METFORMIN - RECEIVED CONTRAST 20 ML VIAL IV SCH; -IOHEXOL 350 MG/ML 100 ML (OMNIPAQUE 350) VIAL IV ONE; -NS 100 ML (IVPB) BAG IV ONE; +REGADENOSON 0.4 MG/5 ML SYR (LEXISCAN) IV ONE
[2019-05-04 12:52] VITALS: BP 136/68
[2019-05-04 12:55] VITALS: BP 134/64
--- NOTE | 2019-05-04 21:09 | STRESS TEST ---
DATE OF SERVICE: 05/04/2019 LEXISCAN MYOVIEW STRESS TEST REFERRING PHYSICIAN: Dr. Ghulam Neal. Baseline heart rate is 50, baseline blood pressure 136/68. Baseline EKG is sinus rhythm with no ischemic changes. In summary, the patient was injected with 10.22 mCi of technetium-99 Myoview and the resting images were obtained. Then, the patient received 0.4 mg of Lexiscan followed by 27.7 mCi of technetium-99 Myoview. The patient tolerated the test well. The resting and stress images were reviewed and compared in the short axis, horizontal long axis, and vertical long axis views. Review of the images showed reversible ischemia involving the whole anterior wall and anterolateral wall. SSS is 16, SDS 15, TID value 1.01. On the gated images, the left ventricle appeared to be in normal size with normal contractility. Calculated ejection fraction 65%. CONCLUSION: 1. The patient tolerated Lexiscan well. 2. Reversible ischemia involving the whole anterior wall and anterolateral wall. 3. Normal left ventricular size with normal contractility. Calculated ejection fraction 65%. Job ID: [id number] DocumentID: [id number] Dictated Date: 05/04/2019 15:46:13 Resident Assistant Date: 05/04/2019 21:08:30 Dictated By: AGUSTIN RAZA MD
== END ==
LOC: CARD 10:09
PROVIDERS: ATTEND Physician Assistant
DX: I25.10 Atherosclerotic heart disease of native coronary artery without angina pectoris (principal); I25.89 Other forms of chronic ischemic heart disease; J44.9 Chronic obstructive pulmonary disease, unspecified; G47.33 Obstructive sleep apnea (adult) (pediatric); Z72.0 Tobacco use
CPT/HCPCS: 78452; 93017

== ENCOUNTER 2019-05-25 08:38 | Day surgery (SDC) | payer MEDICARE, MEDICAID ==
[~2019-05-25] VITALS: Ht 165 cm; Wt 64.5 kg
[2019-05-25] VITALS (9 sets, daily range): BP systolic 103–149; BP diastolic 47–60
[~2019-05-25 08:38] MED LIST changes: -CATHETER FLUSH 10 ML SYR IV PRN; -REGADENOSON 0.4 MG/5 ML SYR (LEXISCAN) IV ONE
[2019-05-25] MEDS ORDERED: LIDOCAINE 1% INJ 20 ML 20 ML VIAL ONE (08:41)
[2019-05-25] MEDS ORDERED: NS IV 1000 ML 3,000 ML ONE (08:41)
[2019-05-25] MEDS ORDERED: HEParin 1000 UNIT/ML (10ML VIAL) FOR BOLUS ONE (08:41)
[2019-05-25] MEDS ORDERED: NS IV 1000 ML 1,000 ML IV SCH ×2 (08:44→13:27)
[2019-05-25 09:16] LABS: HEMOGLOBIN 12.5 G/DL (11.5-16.0); MEAN PLATELET VOLUME 10.5 FL (7.4-10.4); RED CELL DISTRIBUTION WIDTH 14.1 % (10.0-14.5); WHITE BLOOD COUNT 5.2 10^3/uL (4.3-11.0)
[2019-05-25 09:26] LABS: PROTHROMBIN TIME PATIENT 14.1 SEC (12.2-14.7)
--- NOTE | 2019-05-25 09:29 | Diagnostic Imaging Report ---
INDICATION: Coronary artery disease. PA chest dated at 0913 a.m. is compared to 05/14/2018. Heart is top normal in size. There is mild central vascular prominence without beatriz edema. There is no consolidation or pneumothorax or pleural fluid. IMPRESSION: Borderline heart size with mild central vascular prominence. No consolidation or pleural fluid. Dictated by: Dictated on workstation # [id number]
[2019-05-25 09:39] LABS: ALANINE AMINOTRANSFERASE 9 U/L (0-55); ALBUMIN 4.1 GM/DL (3.2-4.5); ALKALINE PHOSPHATASE 82 U/L (40-136); BILIRUBIN,TOTAL 0.3 MG/DL (0.1-1.0); BUN/CREATININE RATIO 15; CALCIUM 9.4 MG/DL (8.5-10.1); CARBON DIOXIDE 25 MMOL/L (21-32); CHLORIDE 110 MMOL/L (98-107); CHOLESTEROL 178 MG/DL (< 200); CREATININE SERUM 0.87 MG/DL (0.60-1.30); GFR ESTIMATED > 60; GLUCOSE 94 MG/DL (70-105); HDL CHOLESTEROL 51 MG/DL (40-60); POTASSIUM 4.1 MMOL/L (3.6-5.0); SODIUM 140 MMOL/L (135-145); TOTAL PROTEIN 6.6 GM/DL (6.4-8.2); TRIGLYCERIDES 120 MG/DL (<150); VLDL CHOLESTEROL 24 MG/DL (5-40)
[2019-05-25] MEDS ORDERED: LEVO5TAB12 PO (09:58)
[2019-05-25] MEDS ORDERED: CHOL400T PO (09:58)
[2019-05-25] MEDS ORDERED: MULT-974 PO (09:59)
[2019-05-25] MEDS ORDERED: LACT1TAB25 PO (10:00)
[2019-05-25] MEDS ORDERED: CLON0.5T PO (10:00)
[2019-05-25] MEDS ORDERED: fentaNYL INJECTION 100 MCG/2 ML AMP ONE (12:59)
[2019-05-25] MEDS ORDERED: MIDAZOLAM 5 MG/5 ML (VERSED) VIAL ONE (12:59)
[2019-05-25] MEDS ORDERED: PATIENT MAY USE OWN MEDS, ALL PO SCH (13:30)
--- NOTE | 2019-05-25 13:30 | Discharge Inst-Post CATH ---
Discharge Inst-CATH/EP Problems Reviewed?: Yes Post Cardiac Cath/EP D/C Inst Follow Up/Plan Appointment with Dr Grijalva in 2-4 weeks <b>CARDIAC CATH/EP PROCEDURE DISCHARGE INSTRUCTIONS</b> ACTIVITY * Go Home directly and rest. * Limit activity of the leg (or wrist if it was used) for 7 days including aerobics, swimming, jogging, bicycling, etc. * Restrict stair-climbing for 7 days if possible, if not, climb up with your non-cath leg, then bring together on the same step. * Avoid lifting, pushing, pulling or excessive movement of the affected extremity for 7 days. * Customary sexual activity may be resumed after 2 days-use caution not to use a position that strains or causes pain to the affected extremity. * No driving for 24 hours. * NO SMOKING. * Avoid straining for bowel movements for 7 days. * Gentle walking on level ground is allowed. * Returning to work will depend on the type of procedure and the results. Your doctor will discuss this with you. CALL YOUR DOCTOR FOR ANY OF THE FOLLOWING: *If bleeding from the puncture site occurs- Apply gentle pressure to site with clean cloth and call your doctor or EMS. * If a knot or lump forms under the skin, increases in size, or causes pain. * If bruising appears to be worsening or moving further down your leg instead of disappearing. * Temperature above 101 F. CARE OF YOUR GROIN INCISION; * Bruising or purple discoloration of the skin near the puncture site is common. * You may shower only, no bathtub bathing for 5 days. Be careful to avoid slipping as your leg may feel stiff. * If a closure device was used on your femoral artery, please see the attached guide regarding care of the device and your leg. * Leave dressing on FOR 24 hours. CARE OF YOUR WRIST INCISION; * Bruising or purple discoloration of the skin near the puncture site is common. * You may shower. * DO NOT submerge wrist. * Leave dressing on FOR 24 hours. AGUSTIN GRIJALVA MD May 25, 2019 13:30
--- NOTE | 2019-05-25 13:35 | Cardiac Cath Report ---
Cardiac Cath Report Physician (s)/Electron Beam Photo Mask Maker (s) Physician AGUSTIN RAZA MD Pre-Procedure Diagnosis Pre-Procedure Diagnosis: coronary artery disease Post-Procedure Note Procedure Start Date: May 25, 2019 Name of Procedure: left heart catheterization Left ventriculogram Aortic arch angiogram Findings/Procedure Note PROCEDURE NOTE: 64-year-old lady with history of hypertension, hyperlipidemia, had an abnormal stress test, underwent cardiac catheterization, during the procedure the aortic arch and ascending aorta appear to be prominent. I decided to evaluate aortic arch angiogram, portion of the ascending aorta were seen during left ventriculogram. After explaining the procedure to the patient, all pros and cons were explained, all questions were answered. The patient signed the consent and then she was placed on the cardiac catheterization laboratory. Groin was prepped SL fashion local anesthesia was used. Sheath placed in the right femoral artery. Félix right and left catheter were used to access the coronary system. Pigtail was used to access the left ventricular cavity. Left ventriculogram was done Aortic arch angiogram was done At the end of the procedure the sheath was removed. Closure device was used FINDINGS: Hemodynamics LV 127/12, end-diastolic pressure of 12 Aorta 131/55 mean of 80 ANATOMY: Left Main is free of obstructive disease Left Anterior Descending is slightly tortuous with mild disease nonobstructive disease Left Circumflex has mild disease nonobstructive disease, dominant artery Right Coronory Artery , small nondominant artery with mild disease LV Gram was done showing normal left ventricular size and systolic function estimated ejection fraction 60 percent Aorta evaluation done with aortic arch angiogram which showed slightly prominent aortic arch, no dissection or aneurysm, normal origin with slight tortuosity at the left subclavian artery, left carotid artery and right innominate artery CONCLUSION: 1. Slightly tortuous coronary system with mild disease nonobstructive disease 2. Normal left ventricular size and systolic function estimated ejection fracti on 60 percent, normal left ventricular end-diastolic pressure 3. Slightly prominent aortic arch, no dissection or aneurysm, normal great vessels of the neck DISCUSSION AND RECOMMENDATION: medical therapy is recommended no intervention is needed Anesthesia Type: Conscious Sedation Estimated blood loss (mL): 15 ml Contrast Amount: 50 ml Total Radiation Dose: 283 mGy Post-Procedure Diagnosis Post-operative diagnosis: Chest pain Coronary artery disease Hypertension Hyperlipidemia AGUSTIN RAZA MD May 25, 2019 13:35
--- NOTE | 2019-05-25 13:58 | NUR ---
SPOKE WITH THE PT (SHE HAD A MEDS LIST) AND CALLED [facility] TO COMPLETE THE MED REC. THE PT WAS ABLE TO TELL ME HOW/WHEN SHE TAKES EACH MED. LITHIUM 300MG: THE DIRECTIONS ARE " 1 TID" HOWEVER THE PT SAYS SHE TAKES 1 BID. THE FOLLOWING ARE FILL DATES: 12-13-2018 LEVOTHYROXINE #90/90DS 03-10-2019 METOPROLOL #45/90DS 03-15-2019 PROTONIX #180/90DS 03-17-2019 LITHIUM #270 03-17-2019 XYZAL #90/90DS 04-13-2019 TOPAMAX #180/90DS 04-22-2019 NORCO #96/28DS 05-02-2019 LEXAPRO#90/90DS OTC MEDS: MTV PROBIOTIC ASPIRIN Addendum: 05/25/19 at 1406 by FELICITAS FISHER stna MERVIN #90 PT SAYS SHE ONLY TAKES 1 TAB EVERY COUPLE MONTHS
== END 2019-05-25 16:05 | disposition home or self-care (01) ==
LOC: CATH 08:38 → SDC 13:49 → CATH 16:05
PROVIDERS: ATTEND Internal Medicine Cardiovascular Disease
DX: I25.10 Atherosclerotic heart disease of native coronary artery without angina pectoris (principal); I10 Essential (primary) hypertension; E78.5 Hyperlipidemia, unspecified; R94.39 Abnormal result of other cardiovascular function study; F17.210 Nicotine dependence, cigarettes, uncomplicated; G47.33 Obstructive sleep apnea (adult) (pediatric); K21.9 Gastro-esophageal reflux disease without esophagitis; Z88.8 Allergy status to other drugs, medicaments and biological substances; Z88.6 Allergy status to analgesic agent; Z91.048 Other nonmedicinal substance allergy status; Z88.5 Allergy status to narcotic agent; Z79.899 Other long term (current) drug therapy; Z83.3 Family history of diabetes mellitus; Z82.49 Family history of ischemic heart disease and other diseases of the circulatory system; Z82.3 Family history of stroke; Z80.9 Family history of malignant neoplasm, unspecified; Z90.710 Acquired absence of both cervix and uterus; Z90.49 Acquired absence of other specified parts of digestive tract
CPT/HCPCS: 36221; 36415; 71045; 80053; 80061; 85027; 85610; 85730; 87081; 93458

== ENCOUNTER → 2019-06-15 | Outpatient (CLI) | payer MEDICARE, MEDICAID ==
[~2019-06-15] MED LIST changes: +CHOL400T PO; +CLON0.5T PO; +LACT1TAB25 PO; +LEVO5TAB12 PO; -METO-387 PO; +MTP25TSR PO; +MULT-974 PO; +OFLO5DRO33 EACH EAR; -OFLO5DRO7 EACH EAR
--- NOTE | 2019-06-15 15:40 | Diagnostic Imaging Report ---
EXAMINATION: CT low-dose lung cancer screening exam. INDICATION: [id number] smoking history. TECHNIQUE: Routine images of the thorax were obtained using the CT low-dose lung cancer screening protocol. All CT scans use one or more of the following dose optimizing techniques: Automated exposure control, MA and/or KvP adjustment based on a patient size and exam type, or iterative reconstruction. FINDINGS: There are no prior CT low-dose lung cancer screening exams available for comparison. The CTA chest exam of 05/14/2018 noted bibasilar subsegmental atelectasis. There was also dilatation of the pulmonary arteries, and this raised the question of pulmonary arterial hypertension. In the interval since the prior exam, the atelectasis/infiltrate involving the lung bases seen previously has essentially cleared. However, there is a small 8.6 x 11.2 mm parenchymal density in this region (Image 174/238). This may be a sequela of the previous atelectasis/infiltrate as opposed to a neoplastic nodule. There is also a 4.8 x 10.3 mm pleural-based nodular density along the periphery of the left lower lobe (image 152/238). I suspect that this is a benign process as well. Even so, a short-term (three-month) follow-up CT low-dose lung cancer screening exam would be recommended for further study. There is no other parenchymal lung mass identified. There is no sign of failure, pneumonia, or pleural effusion to indicate an acute abnormality. The heart is borderline enlarged, and there are coronary artery calcifications evident. The ascending aorta is not abnormally dilated. The pulmonary arteries are prominent and similar in appearance to the prior exam. There is no obvious mediastinal or hilar adenopathy. The thyroid gland is generally unremarkable. There is no definite breast mass noted. The sections through the upper abdomen show that both the liver and spleen are prominent or mildly enlarged. The liver and spleen seem stable when compared to the prior exam, however. The bone windows are unremarkable for a fracture or for a destructive lesion. IMPRESSION: 1. The nodular density in the right lung base and the pleural-based nodule in the left lower lobe are most likely benign. Even so, a short-term (three-month) follow-up CT low-dose screening exam would be recommended for further study. 2. There is no acute cardiopulmonary abnormality. 3. There is borderline cardiomegaly and coronary artery disease. The pulmonary arteries remain prominent. 4. There is mild hepatosplenomegaly. This is of uncertain etiology. Dictated by: Dictated on workstation # [id number]
== END ==
LOC: RAD 13:50
PROVIDERS: ATTEND Nurse Practitioner Family
DX: Z12.2 Encounter for screening for malignant neoplasm of respiratory organs (principal); J44.9 Chronic obstructive pulmonary disease, unspecified; R91.8 Other nonspecific abnormal finding of lung field; I51.7 Cardiomegaly; I25.10 Atherosclerotic heart disease of native coronary artery without angina pectoris; R16.2 Hepatomegaly with splenomegaly, not elsewhere classified; F17.210 Nicotine dependence, cigarettes, uncomplicated

== ENCOUNTER → 2019-08-23 | Outpatient (CLI) | payer MEDICARE, MEDICAID ==
[~2019-08-23] MED LIST changes: +ACHYD1T PO; -HYDR-3820 PO; -ROPI2TAB4 PO; +ROPI2TAB6 PO
--- NOTE | 2019-08-23 15:09 | Diagnostic Imaging Report ---
INDICATION: Right shoulder pain. TIME OF EXAM: 2:51 PM. FINDINGS: Two views of the right shoulder were obtained. The glenohumeral and acromioclavicular alignment is normal. The acromiohumeral space is normal. No fracture or dislocation is identified. IMPRESSION: No acute abnormality is detected. Dictated by: Dictated on workstation # [id number]
== END ==
LOC: RAD FS 14:34
PROVIDERS: ATTEND Family Medicine
DX: M25.511 Pain in right shoulder (principal)
CPT/HCPCS: 73030

== ENCOUNTER → 2019-08-25 | Outpatient (CLI) | payer MEDICARE, MEDICAID | LOC: WOUNDCARE 08:11 | PROVIDERS: ATTEND Surgery | DX: I70.261 Atherosclerosis of native arteries of extremities with gangrene, right leg (principal); I87.331 Chronic venous hypertension (idiopathic) with ulcer and inflammation of right lower extremity; L97.212 Non-pressure chronic ulcer of right calf with fat layer exposed; T65.222A Toxic effect of tobacco cigarettes, intentional self-harm, initial encounter; F17.218 Nicotine dependence, cigarettes, with other nicotine-induced disorders | CPT/HCPCS: 99213 ==

== ENCOUNTER → 2019-09-01 | Outpatient (CLI) | payer MEDICARE, MEDICAID | LOC: WOUNDCARE 10:35 | PROVIDERS: ATTEND Surgery | DX: L97.212 Non-pressure chronic ulcer of right calf with fat layer exposed (principal); I87.331 Chronic venous hypertension (idiopathic) with ulcer and inflammation of right lower extremity; I70.232 Atherosclerosis of native arteries of right leg with ulceration of calf; T65.222A Toxic effect of tobacco cigarettes, intentional self-harm, initial encounter; F17.218 Nicotine dependence, cigarettes, with other nicotine-induced disorders | CPT/HCPCS: 99213 ==

== ENCOUNTER → 2019-09-08 | Outpatient (CLI) | payer MEDICARE, MEDICAID | LOC: WOUNDCARE 09:57 | PROVIDERS: ATTEND Surgery | DX: L97.212 Non-pressure chronic ulcer of right calf with fat layer exposed (principal); I87.331 Chronic venous hypertension (idiopathic) with ulcer and inflammation of right lower extremity; T65.222A Toxic effect of tobacco cigarettes, intentional self-harm, initial encounter; F17.218 Nicotine dependence, cigarettes, with other nicotine-induced disorders | CPT/HCPCS: 11042 ==

== ENCOUNTER → 2019-09-12 | Outpatient (CLI) | payer MEDICARE, MEDICAID ==
[~2019-09-12] MED LIST changes: +CATHETER FLUSH 10 ML SYR IV PRN; +HOLD METFORMIN - RECEIVED CONTRAST 20 ML VIAL IV SCH; +IOHEXOL 350 MG/ML 100 ML (OMNIPAQUE 350) VIAL IV ONE; +NS 100 ML (IVPB) BAG IV ONE
[2019-09-12 09:52] LABS: BUN/CREATININE RATIO 15; CREATININE SERUM 0.84 MG/DL (0.60-1.30); GFR ESTIMATED > 60
--- NOTE | 2019-09-12 10:36 | Diagnostic Imaging Report ---
EXAMINATION: CT Chest with intravenous contrast. TECHNIQUE: Multiple contiguous axial images were obtained through the chest after the uneventful administration of intravenous contrast. All CT scans use one or more of the following dose optimizing techniques: automated exposure control, MA and/or KvP adjustment based on a patient size and exam type, or iterative reconstruction. HISTORY: Dyspnea on exertion. COMPARISON: 05/14/2018. FINDINGS: There is no edema or pneumonia. No pleural effusion. No pneumothorax. There is a near 12 mm ill-defined right lower lobe nodule. There is a pneumatocele in the left lower lobe. Heart size is normal. There are mild coronary artery calcifications. No pericardial effusion. Aorta is normal in caliber. Pulmonary artery is dilated, suggestive of pulmonary hypertension. There is no axillary or supraclavicular lymphadenopathy. There is no mediastinal lymphadenopathy. Limited views of the upper abdomen show the gallbladder to be absent. There is a small left adrenal adenoma measuring 11 mm. There are no suspicious osseus lesions. IMPRESSION: 1. New ill-defined 12 mm right lower lobe pulmonary nodule. According to the Fleischner Society guidelines: Recommend CT at 3 months. 2. Dilated pulmonary artery suggestive of pulmonary hypertension. Dictated by: Dictated on workstation # [id number]
== END ==
LOC: RAD FS 09:03
PROVIDERS: ATTEND Nurse Practitioner Family
DX: J98.4 Other disorders of lung (principal); R91.1 Solitary pulmonary nodule; R06.09 Other forms of dyspnea; G47.36 Sleep related hypoventilation in conditions classified elsewhere; G47.50 Parasomnia, unspecified; J44.9 Chronic obstructive pulmonary disease, unspecified; R09.02 Hypoxemia; Z72.0 Tobacco use
CPT/HCPCS: 36415; 71260; 82565; 84520

== ENCOUNTER 2019-09-21 21:03 | Emergency (ER) | payer MEDICARE, MEDICAID ==
[~2019-09-21] VITALS: Ht 165.1 cm; Wt 73.6 kg
[~2019-09-21 21:03] MED LIST changes: -CATHETER FLUSH 10 ML SYR IV PRN; -HOLD METFORMIN - RECEIVED CONTRAST 20 ML VIAL IV SCH; -IOHEXOL 350 MG/ML 100 ML (OMNIPAQUE 350) VIAL IV ONE; -NS 100 ML (IVPB) BAG IV ONE
[2019-09-21 21:10] VITALS: BP 135/75
--- NOTE | 2019-09-21 21:13 | ED Abdominal Pain ---
General Chief Complaint: Abdominal/GI Problems Stated Complaint: ABD BLOATING Source of Information: Patient, RN/MD, RN Notes Reviewed Exam Limitations: No Limitations History of Present Illness Date Seen by Provider: September 21, 2019 Time Seen by Provider: 21:00 Initial Comments This patient is a 62-year-old female presents to the emergency department for abdominal bloating. Patient denies any pain. Patient states this is logical gas. Patient has normal bowel movements normal breath bowel sounds. States she does have a local physician but what did not follow-up with him yesterday or today today. Patient has no other complaints. Patient does not appear to be acutely in any discomfort or half an acute emergency. Timing/Duration: Intermittent Severity/Quality: Mild Modifying Factors: Worsens With Analgesics, Worsens With Antacids, Worsens With Breathing, Worsens With Coughing, Worsens With Defecating, Worsens With Eating, Worsens With Exercise, Worsens With Lying down, Worsens With Movement, Worsens With Palpation, Worsens With Resting, Worsens With Urinating, Worsens With Vomiting, Worsens With Other Associated Symptoms: No Denies Symptoms, No Back Pain, No Chest Pain, No Diaphoresis, No Fever/Chills, No Fatigue, No Headache, No Heartburn, No Nausea/Vomiting, No Rash, No Shortness of Air, No Swelling/Mass in Abdomen, No Syncope, No Weakness, No Other Allergies and Home Medications Allergies Coded Allergies: aspirin (Verified Allergy, Unknown, 12/03/18) ibuprofen (Verified Allergy, Unknown, 12/03/18) morphine (Verified Allergy, Unknown, 12/03/18) tramadol (Verified Allergy, Unknown, 12/03/18) varenicline (Verified Allergy, Unknown, 12/03/18) Uncoded Allergies: TAPE (Allergy, Mild, 09/22/05) Home Medications Cholecalciferol (Vitamin D3) 1,000 Unit Capsule, 1,000 UNIT PO DAILY, (Reported) Clonazepam 0.5 Mg Tablet, 0.5 MG PO BID PRN for ANXIETY, (Reported) Escitalopram Oxalate 20 Mg Tablet, 20 MG PO HS, (Reported) Hydrocodone Bit/Acetaminophen 1 Tab Tab, 1-2 TAB PO BID PRN for PAIN-MODERATE, (Reported) Lactobacillus Acidophilus 1 Each Tablet, 1 EACH PO DAILY, (Reported) Levocetirizine Dihydrochloride 5 Mg Tablet, 5 MG PO HS, (Reported) Levothyroxine Sodium 25 Mcg Tablet, 25 MCG PO DAILY, (Reported) LAST FILLED 12-13-2018 #90/90 DAY SUPPLY Peconic Carbonate 300 Mg Tablet, 300 MG PO BID, (Reported) Metoprolol Succinate 25 Mg Tab.er.24h, 12.5 MG PO DAILY, (Reported) take 1/2 of 25mg tab Multivitamin 1 Each Tablet, 1 EACH PO DAILY, (Reported) Pantoprazole Sodium 40 Mg Tablet.dr, 40 MG PO BID, (Reported) Topiramate 100 Mg Tablet, 100 MG PO BID, (Reported) Patient Home Medication List Home Medication List Reviewed: Yes Review of Systems Review of Systems Constitutional: No no symptoms reported; see HPI; No chills, No diaphoresis, No dizziness, No fever, No malaise, No weakness, No weight gain, No weight loss, No other EENTM: No No Symptoms Reported, No See HPI, No Blurred Vision, No Double Vision, No Eye Pain, No Eye Tearing, No Ear Drainage, No Ear Pain, No Mouth Pain, No Mouth Swelling, No Nose Congestion, No Nose Pain, No Throat Pain, No Throat Swelling, No Other Respiratory: Denies No Symptoms Reported, Denies See HPI, Denies Cough, Denies Orthopnea, Denies Shortness of Air, Denies SOA With Exertion, Denies SOA at Rest, Denies Stridor, Denies Wheezing, Denies Other Cardiovascular: Denies No Symptoms Reported, Denies See HPI, Denies Chest Pain, Denies Edema, Denies Irregular Heart Rate, Denies Lightheadedness, Denies Palpitations, Denies Syncope, Denies Other Gastrointestinal: Denies No Symptoms Reported; See HPI; Denies Abdomen Distended, Denies Abdominal Pain, Denies Blood Streaked Stools, Denies Constipated, Denies Diarrhea, Denies Difficulty Swallowing, Denies Nausea, Denies Poor Appetite, Denies Poor Fluid Intake, Denies Rectal Bleeding, Denies Vomiting, Denies Other Genitourinary: Denies No Symptoms Reported, Denies See HPI, Denies Burning, De nies Discharge, Denies Drainage, Denies Frequency, Denies Flank Pain, Denies Hematuria, Denies Incontinence, Denies Pain, Denies Urgency, Denies Other Musculoskeletal: No no symptoms reported, No see HPI, No back pain, No gout, No joint pain, No joint swelling, No muscle pain, No muscle stiffness, No muscle cramps, No muscle twitching, No muscle weakness, No neck pain, No other Skin: No no symptoms reported, No see HPI, No change in color, No change in hair/nails, No dryness, No hx of skin cancer, No lesions, No lumps, No pruritus, No rash, No other Psychiatric/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: Denies No Symptoms Reported, Denies See HPI, Denies Anxiety, Denies Depressed, Denies Emotional Problems, Denies Headache, Denies Numbness, Denies Paresthesia, Denies Pre-Existing Deficit, Denies Seizure, Denies Tingling, Denies Tremors, Denies Weakness, Denies Other All Other Systems Reviewed Negative Unless Noted: Yes Past Gvfspth-Nfboww-Yixtdt Hx Patient Social History Alcohol Beverage of Choice: Rum Type Used: Cigarettes 2nd Hand Smoke Exposure: Yes Recent Foreign Travel: No Contact w/Someone Who Travel: No Recent Hopitalizations: No Immunizations Up To Date Tetanus Booster (TDap): Unknown PED Vaccines UTD: No Date of Pneumonia Vaccine: Feb 22, 2019 Date of Influenza Vaccine: Feb 22, 2019 Seasonal Allergies Seasonal Allergies: No Past Medical History Surgeries: Yes (Gastrectomy, bladder sling, bilat arthroscopy UE, Nerve stimulator removal) Bladder Surgery, Section, Gallbladder, Hysterectomy, Orthopedic Respiratory: Yes COPD Currently Using CPAP: No Currently Using BIPAP: No Cardiac: No High Cholesterol 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: 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 Genitourinary: No Bladder Infection, Renal Failure, UTI-Chronic Gastrointestinal: Yes Gastroesophageal Reflux Musculoskeletal: Yes Chronic Back Pain Endocrine: No HEENT: Yes Cataract Loss of Vision: Denies Hearing Impairment: Hard of Hearing, Bilateral Hearing Aide Cancer: No ("PRECANCEROUS CELLS" ON PAP) Breast, Cervical Did You Recieve Any Treatments: No What Type of Treatment Did You: Chemotherapy, Surgical Intervention Psychosocial: Yes Depression Integumentary: No Blood Disorders: No Adverse Reaction/Blood Tranf: No Physical Exam Vital Signs Capillary Refill : Height/Weight/BMI Height: 5'5.00" Weight: 134lbs. 0.0oz. [id number]; 23.69 BMI Method:Stated General Appearance: WD/WN, no apparent distress HEENT: PERRL/EOMI, normal ENT inspection, TMs normal, pharynx normal Neck: non-tender, full range of motion, supple, normal inspection Respiratory: chest non-tender, lungs clear, normal breath sounds, no respiratory distress, no accessory muscle use Cardiovascular: normal peripheral pulses, regular rate, rhythm, no edema, no gallop, no JVD, no murmur Gastrointestinal: normal bowel sounds, non tender, soft, no organomegaly, no pulsatile mass Progress/Results/Core Measures Progress Progress Note : Progress Note Encourage by mouth fluids. Advance diet as tolerated. Follow-up with PCP in 2-3 days as needed. Departure Impression Primary Impression: Encounter for medical screening examination Additional Impression: Abdominal bloating Disposition: HOME, SELF-CARE Condition: Stable Departure-Patient Inst. Referrals: SELF,CHIQUI JUNIOR (PCP/Family) Primary Care Physician Patient Instructions: No Instuctions Given Add. Discharge Instructions: Encourage by mouth fluids. Advance diet as tolerated. Follow-up with PCP in 2-3 days as needed. All discharge instructions reviewed with patient and/or family. Voiced understanding. CHACHO LOPES MD September 21, 2019 21:12
== END 2019-09-21 21:14 | disposition home or self-care (01) ==
LOC: EDUNIT# 21:03 → ER FS 21:04
DX: R14.0 Abdominal distension (gaseous) (principal); J44.9 Chronic obstructive pulmonary disease, unspecified; E78.00 Pure hypercholesterolemia, unspecified; G40.909 Epilepsy, unspecified, not intractable, without status epilepticus; N19 Unspecified kidney failure; K21.9 Gastro-esophageal reflux disease without esophagitis; M54.9 Dorsalgia, unspecified; G89.29 Other chronic pain; F32.9 Major depressive disorder, single episode, unspecified; Z85.3 Personal history of malignant neoplasm of breast; Z92.21 Personal history of antineoplastic chemotherapy; Z85.41 Personal history of malignant neoplasm of cervix uteri; Z79.899 Other long term (current) drug therapy; Z88.5 Allergy status to narcotic agent; Z88.8 Allergy status to other drugs, medicaments and biological substances
CPT/HCPCS: 99282

== ENCOUNTER → 2019-09-22 | Outpatient (CLI) | payer MEDICARE, MEDICAID | LOC: WOUNDCARE 10:12 | PROVIDERS: ATTEND Surgery | DX: L97.212 Non-pressure chronic ulcer of right calf with fat layer exposed (principal); I87.331 Chronic venous hypertension (idiopathic) with ulcer and inflammation of right lower extremity; T65.222A Toxic effect of tobacco cigarettes, intentional self-harm, initial encounter; F17.218 Nicotine dependence, cigarettes, with other nicotine-induced disorders | CPT/HCPCS: 99212 ==

== ENCOUNTER → 2019-09-23 | Outpatient (CLI) | payer MEDICARE, MEDICAID ==
[~2019-09-23] MED LIST changes: +ASPI-999 PO; +CHOL500049 PO; +OMG1KC PO
--- NOTE | 2019-09-23 13:29 | Diagnostic Imaging Report ---
INDICATION: Abdominal pain. COMPARISON: None available. TECHNIQUE: Two radiographs of the abdomen dated September 23, 2019. FINDINGS: Minimally visualized lung bases are grossly clear. Surgical clips are present within the right upper quadrant of the abdomen. Chain sutures are noted within the right upper quadrant in the abdomen. Small amount of gas and stool within the colon. No dilated loops of small bowel. No differential air-fluid levels. Probable chain suture overlying the left upper abdomen. No free air. No acute osseous abnormality. IMPRESSION: Postsurgical changes without acute abnormality. Dictated by: Dictated on workstation # [id number]
== END ==
LOC: RAD FS 12:33
PROVIDERS: ATTEND Nurse Practitioner
DX: R10.9 Unspecified abdominal pain (principal); Z98.890 Other specified postprocedural states
CPT/HCPCS: 74018

== ENCOUNTER 2019-09-26 08:33 | Outpatient (RCR) | payer MEDICARE, MEDICAID ==
[~2019-09-26] VITALS: Ht 165 cm; Wt 70.0 kg
[~2019-09-26 08:33] MED LIST changes: -ASPI-999 PO; -CHOL500049 PO; -OMG1KC PO
[2019-09-26] MEDS ORDERED: ASPI-999 PO (15:17)
[2019-09-26] MEDS ORDERED: CHOL500049 PO (15:17)
[2019-09-26] MEDS ORDERED: OMG1KC PO (15:17)
== END 2019-09-26 16:07 | disposition home or self-care (01) ==
LOC: PREOP 08:33
PROVIDERS: ATTEND Otolaryngology Otolaryngology/Facial Plastic Surgery
DX: Z01.818 Encounter for other preprocedural examination (principal); Z11.59 Encounter for screening for other viral diseases
CPT/HCPCS: 87635

== ENCOUNTER 2019-09-29 06:21 | Day surgery (SDC) | payer MEDICARE, MEDICAID ==
[2019-09-29] VITALS (12 sets, daily range): BP systolic 98–136; BP diastolic 51–87
[~2019-09-29] VITALS: Ht 165 cm; Wt 70.0 kg
[~2019-09-29 06:21] MED LIST changes: +ASPI-999 PO; +CHOL500049 PO; +OMG1KC PO
[2019-09-29] MEDS ORDERED: LACTATED RINGERS 1,000 ML IV PRN (06:30)
--- NOTE | 2019-09-29 07:09 | Progress Note-Pre Operative ---
Pre-Operative Progress Note H&P Reviewed The H&P was reviewed, patient examined and no changes noted. Date Seen by Provider: September 29, 2019 Time Seen by Provider: 06:45 Date H&P Reviewed: September 29, 2019 Time H&P Reviewed: 06:45 Pre-Operative Diagnosis: Left FANNY, Possible Right ROSINA KENT MD September 29, 2019 07:09
[2019-09-29] MEDS ORDERED: SEVOFLURANE (ULTANE) 15 ML INHAL SOLN ONE (07:41)
[2019-09-29] MEDS ORDERED: proPOfol 200 MG/20 ML (DIPRIVAN) VIAL IV ONE (07:41)
[2019-09-29] MEDS ORDERED: ONDANSETRON 4 MG/2 ML (SDV) Z0FRAN ONE (07:41)
[2019-09-29] MEDS ORDERED: DEXAMETHASONE 10 MG/ML (DECADRON) 1 ML VIAL ONE (07:41)
[2019-09-29] MEDS ORDERED: LIDOCAINE PF 2% 5 ML (XYLOCAINE) VIAL ONE (07:41)
[2019-09-29] MEDS ORDERED: fentaNYL INJECTION 100 MCG/2 ML AMP ONE (07:42)
[2019-09-29] MEDS ORDERED: MIDAZOLAM 2 MG/2 ML (VERSED) VIAL ONE (07:42)
[2019-09-29] MEDS ORDERED: ONDANSETRON 4 MG/2 ML (SDV) Z0FRAN IVP PRN (08:45)
[2019-09-29] MEDS ORDERED: HYDROmorphone 2 MG/ML VIAL (DILAUDID) IV ONE (08:45)
[2019-09-29] MEDS ORDERED: OFLO5DRO33 EACH EAR (09:37)
--- NOTE | 2019-09-30 14:51 | Anesthesia-General Post-Op ---
General Patient Condition Mental Status/LOC: Same as Preop Cardiovascular: Satisfactory Nausea/Vomiting: Absent Respiratory: Satisfactory Pain: Controlled Complications: Absent Post Op Complications Complications None Follow Up Care/Instructions Patient Instructions None needed. Anesthesia/Patient Condition Patient Condition Patient is doing well, no complaints, stable vital signs, no apparent adverse anesthesia problems. No complications reported per nursing. D/C home per [facility] [place] Criteria: Yes RALEIGH FISH CRNA September 30, 2019 14:51
== END 2019-09-29 10:35 | disposition home or self-care (01) ==
LOC: SDC 06:21
PROVIDERS: ATTEND Otolaryngology Otolaryngology/Facial Plastic Surgery
DX: H66.93 Otitis media, unspecified, bilateral (principal); H69.90 Unspecified Eustachian tube disorder, unspecified ear; T85.698A Other mechanical complication of other specified internal prosthetic devices, implants and grafts, initial encounter; I10 Essential (primary) hypertension; E78.5 Hyperlipidemia, unspecified; K21.9 Gastro-esophageal reflux disease without esophagitis; F32.9 Major depressive disorder, single episode, unspecified; Z88.6 Allergy status to analgesic agent; Z88.8 Allergy status to other drugs, medicaments and biological substances; Z79.899 Other long term (current) drug therapy; Z88.5 Allergy status to narcotic agent; Z88.0 Allergy status to penicillin; Z88.1 Allergy status to other antibiotic agents; Z91.048 Other nonmedicinal substance allergy status; Z90.710 Acquired absence of both cervix and uterus; Z99.89 Dependence on other enabling machines and devices; Z90.49 Acquired absence of other specified parts of digestive tract
CPT/HCPCS: 87081

== ENCOUNTER → 2019-10-24 | Outpatient (CLI) | payer MEDICARE, MEDICAID ==
--- NOTE | 2019-10-24 14:54 | Diagnostic Imaging Report ---
PROCEDURE: MRI right joint upper extremity without contrast. TECHNIQUE: Multiplanar, multisequence non contrast-enhanced MRI of the right upper extremity was accomplished. INDICATION: Right shoulder pain and paresthesias. COMPARISON: Radiographs from 08/23/2019. FINDINGS: There is motion artifact on multiple sequences, resulting in suboptimal evaluation. No acute fracture is seen. Alignment appears normal. There is a small right shoulder joint effusion. There are moderate degenerative changes in the right acromioclavicular joint. The supraspinatus tendon demonstrates low-grade partial-thickness tears distally with mild tendinosis. The infraspinatus tendon also demonstrates mild tendinosis with low-grade partial-thickness tears at the insertion. Teres minor tendon is intact. The subscapularis tendon is intact. The long head of the biceps tendon is normal in course and signal. The right glenoid labrum is suboptimally evaluated without intra-articular contrast but no paralabral cyst or displacement is seen. The acromion has a curved undersurface without hooking. The coracoclavicular and coracoacromial ligaments are intact. The soft tissues about the right shoulder are otherwise unremarkable. IMPRESSION: 1. Mild tendinosis and low-grade partial-thickness tearing in the right rotator cuff with no full-thickness tears seen. 2. Small right shoulder joint effusion. Dictated by: Dictated on workstation # [id number]
== END ==
LOC: RAD 13:02
PROVIDERS: ATTEND Nurse Practitioner
DX: M75.101 Unspecified rotator cuff tear or rupture of right shoulder, not specified as traumatic (principal); M67.813 Other specified disorders of tendon, right shoulder
CPT/HCPCS: 73221

== ENCOUNTER 2019-11-10 05:36 | Outpatient (RCR) | payer MEDICARE, MEDICAID ==
[~2019-11-10] VITALS: Ht 165.1 cm; Wt 70.9 kg
== END 2019-11-10 11:36 | disposition home or self-care (01) ==
LOC: PREOP 05:36
PROVIDERS: ATTEND Surgery
DX: Z01.812 Encounter for preprocedural laboratory examination (principal); R10.33 Periumbilical pain; Z20.828 Contact with and (suspected) exposure to other viral communicable diseases; Z87.11 Personal history of peptic ulcer disease
CPT/HCPCS: 87635

== ENCOUNTER 2019-11-14 09:03 | Day surgery (SDC) | payer MEDICARE, MEDICAID ==
[~2019-11-14] VITALS: Ht 165 cm; Wt 70.9 kg
[2019-11-14] MEDS ORDERED: LACTATED RINGERS 1,000 ML IV STA (09:13)
[2019-11-14] MEDS ORDERED: HURRICAINE EXT TUBE (BENZOCAINE) XX PRN (09:15)
[2019-11-14] MEDS ORDERED: LACTATED RINGERS 0 ML IV ONE (09:22)
[2019-11-14 09:25] VITALS: BP 126/74
[2019-11-14] MEDS ORDERED: FAMOTIDINE 20MG/2ML IV (PEPCID) ONE (10:47)
[2019-11-14] MEDS ORDERED: PROPOFOL INJECTION 50 ML IV ONE (11:52)
--- NOTE | 2019-11-14 12:07 | Progress Note-Pre Operative ---
Pre-Operative Progress Note H&P Reviewed The H&P was reviewed, patient examined and no changes noted. Date Seen by Provider: Nov 14, 2019 Time Seen by Provider: 12:07 Date H&P Reviewed: Nov 14, 2019 Time H&P Reviewed: 12:07 Pre-Operative Diagnosis: epigastric abd pain, hx ulcers CHARLOTTE VELÁZQUEZ DO Nov 14, 2019 12:07
[2019-11-14] MEDS ORDERED: LACTATED RINGERS 1,000 ML IV ONE (12:09)
[2019-11-14 13:05] VITALS: BP 142/60
[2019-11-14 13:10] VITALS: BP 142/60
[2019-11-14 13:38] VITALS: BP 138/62
--- NOTE | 2019-11-14 14:26 | Anesthesia-General Post-Op ---
MAC Patient Condition Mental Status/LOC: Same as Preop Cardiovascular: Satisfactory Nausea/Vomiting: Absent Respiratory: Satisfactory Pain: Controlled Complications: Absent Post Op Complications Complications None Follow Up Care/Instructions Patient Instructions None needed. Anesthesiology Discharge Order Discharge Order Patient is doing well, no complaints, stable vital signs, no apparent adverse anesthesia problems. No complications reported per nursing. SULTANA BARRAGAN CRNA Nov 14, 2019 14:26
--- NOTE | 2019-11-14 22:00 | Progress Note-Post Operative ---
Post-Operative Progess Note Surgeon (s)/Seasonal Sales Associate (s) Surgeon CHARLOTTE VELÁZQUEZ DO Seasonal Sales Associate: na Pre-Operative Diagnosis epigastric abd pain, hx ulcers Post-Operative Diagnosis questionable healing ulcer transverse colon polyp Procedure & Operative Findings Date of Procedure 11/14/19 Procedure Performed/Findings egd c biopsies colonoscopy with hot bx polypectomy Anesthesia Type per commercial lines manager Estimated Blood Loss Estimated blood loss (mL): na Specimens/Packing Specimens Removed antrum, body at ? healing ulcer, ge, transverse colon polyp CHARLOTTE VELÁZQUEZ DO Nov 14, 2019 22:00
--- NOTE | 2019-11-15 05:14 | OPERATIVE REPORT ---
DATE OF SERVICE: 11/14/2019 PREOPERATIVE DIAGNOSES: Epigastric abdominal pain, history of ulcers. POSTOPERATIVE DIAGNOSES: Questionable healing ulcer in the body of the stomach, transverse colon polyp. PROCEDURE: EGD with biopsies, colonoscopy with hot biopsy polypectomy x1. SURGEON: Charlotte Grimaldo DO ANESTHESIA: Per AUTOMOTIVE SALESPERSON. ESTIMATED BLOOD LOSS: None. COMPLICATIONS: None. SPECIMENS: Antrum and body, a questionable healing ulcer at GE junction and transverse colon polyp. INDICATIONS: The patient is a 64-year-old who has been having epigastric abdominal pain, has history of ulcers. She understands risks and benefits of procedure and wished to proceed with procedures. Consent was signed in the chart. DESCRIPTION OF PROCEDURE: The patient was taken to the endoscopy suite, placed in left lateral recumbent position. Timeout was performed. Scope was inserted in mouth, down the esophagus, stomach and into the duodenum without difficulty. There were no polyps, masses or ulcerations in the duodenum. Scope was slowly retracted back into the stomach where it was further insufflated. Evidence of previous gastrectomy was present at the suture line, evidence of a questionable healing ulcer. Biopsy of this area was obtained. Biopsy of the antrum was obtained. No other polyps, masses or ulcerations. Scope was retroflexed noting no other pathology. Scope was returned to its normal position, slowly withdrawn to distal esophagus. Biopsy of the GE junction was obtained. Scope was then slowly retracted back until completely removed. Digital rectal exam was performed. There were no palpable polyps, masses or ulcerations. Scope was inserted into the rectum as well as cecum with minimal difficulty. The prep was adequate with irrigation and suction. Scope was then slowly retracted back. There were no polyps, masses or ulcerations. Within the cecum, ascending colon and transverse colon, a small polyp was present, which hot biopsy polypectomy was performed. Scope was then continuously retracted back. There were no other polyps, masses or ulcerations within the remainder of the transverse, descending and sigmoid colon. Once in the rectum, scope was retroflexed noting no other pathology. Scope was returned to its normal position, slowly withdrawn until completely removed. The patient tolerated procedure well without any complications and was taken to recovery room in stable condition. RECOMMENDATIONS: The patient to continue on current medications. Depending on pathology, I will consider repeat EGD if symptoms persist with possible biopsy. We would recommend repeat colonoscopy in 3 years due to polyp, but if any issues before that. We would recommend reevaluating at that time. Job ID: [id number] DocumentID: [id number] Dictated Date: 11/14/2019 22:04:19 Service Station Helper Date: 11/15/2019 05:13:54 Dictated By: CHARLOTTE GRIMALDO DO
== END 2019-11-14 13:45 | disposition home or self-care (01) ==
LOC: ENDO 09:03
PROVIDERS: ATTEND Surgery
DX: D12.3 Benign neoplasm of transverse colon (principal); K21.0 Gastro-esophageal reflux disease with esophagitis; G47.33 Obstructive sleep apnea (adult) (pediatric); I25.10 Atherosclerotic heart disease of native coronary artery without angina pectoris; R09.02 Hypoxemia; G25.81 Restless legs syndrome; F41.9 Anxiety disorder, unspecified; F32.9 Major depressive disorder, single episode, unspecified; J44.9 Chronic obstructive pulmonary disease, unspecified; E03.9 Hypothyroidism, unspecified; G89.29 Other chronic pain; I10 Essential (primary) hypertension; Z90.710 Acquired absence of both cervix and uterus; Z88.0 Allergy status to penicillin; Z88.2 Allergy status to sulfonamides; Z88.6 Allergy status to analgesic agent; Z88.5 Allergy status to narcotic agent; Z88.1 Allergy status to other antibiotic agents; Z91.048 Other nonmedicinal substance allergy status; Z79.82 Long term (current) use of aspirin; Z87.891 Personal history of nicotine dependence
CPT/HCPCS: 88305

== ENCOUNTER → 2019-12-12 | Outpatient (CLI) | payer MEDICARE, MEDICAID | LOC: RAD 08:03 | PROVIDERS: ATTEND Surgery | DX: R10.9 Unspecified abdominal pain (principal); Z53.8 Procedure and treatment not carried out for other reasons ==

== ENCOUNTER → 2019-12-12 | Outpatient (CLI) | payer MEDICARE, MEDICAID ==
[~2019-12-12] MED LIST changes: +HOLD METFORMIN - RECEIVED CONTRAST 20 ML VIAL IV SCH; +IOHEXOL 350 MG/ML 100 ML (OMNIPAQUE 350) VIAL IV ONE; +NS 100 ML (IVPB) BAG IV ONE
[2019-12-12 08:38] LABS: CREATININE SERUM 0.91 MG/DL (0.60-1.30); GFR ESTIMATED > 60
[2019-12-12 08:39] LABS: BUN/CREATININE RATIO 18
--- NOTE | 2019-12-12 10:16 | Diagnostic Imaging Report ---
PROCEDURE: CT chest, abdomen, and pelvis with contrast. TECHNIQUE: Multiple contiguous axial images were obtained through the chest, abdomen, and pelvis after the administration of intravenous contrast. Auto Exposure Controls were utilized during the CT exam to meet ALARA standards for radiation dose reduction. INDICATION: Difficulty breathing with anterior chest pain as well as mid abdominal pain and diarrhea. Comparison is made with prior CT chest from 09/12/2019. CT CHEST: No axillary lymphadenopathy is detected. No definite mediastinal or hilar lymphadenopathy is detected. No pericardial or pleural fluid is identified. Pulmonary arterial dilatation is similar to prior exam and again raises question of pulmonary hypertension. A small air cyst in the left lower lobe is stable. Nodular density in the right lower lobe posteriorly is similar at 11 mm compared with 12 mm on prior. Continued close follow-up would be recommended. The remainder of the lung harvey are clear. IMPRESSION: Stable right lower lobe nodular density when compared with 3 months earlier. Continued close follow-up with repeat CT in 3-6 months is recommended to show continued stability. No thoracic lymphadenopathy is detected. CT abdomen and pelvis: Small circumscribed low densities in the liver are noted, too small to characterize but most likely cysts. The largest is in the left lobe measuring 12 mm. The gallbladder is surgically absent. No biliary ductal dilatation is seen. The pancreas is unremarkable. Spleen is enlarged at 15.2 cm. Low-density enlargement left adrenal gland is stable and likely owing to an adenoma. Right adrenal gland is unremarkable. Kidneys are unremarkable. No hydronephrosis is seen. Aorta is calcified but non-aneurysmal. No central retroperitoneal or mesenteric lymphadenopathy is detected. The small and large bowel loops are normal caliber. No free fluid or fluid collection is identified. The bladder is unremarkable. Uterus appears to be surgically absent. No definite pelvic lymphadenopathy is seen. IMPRESSION: 1. Probable hepatic cysts. 2. Stable left adrenal adenoma. 6. Splenomegaly. 4. No other significant abnormality is detected. Dictated by: Dictated on workstation # [id number]
== END ==
LOC: RAD 08:01
PROVIDERS: ATTEND Nurse Practitioner Family
DX: J98.4 Other disorders of lung (principal); K76.89 Other specified diseases of liver; D35.02 Benign neoplasm of left adrenal gland; G47.36 Sleep related hypoventilation in conditions classified elsewhere; J44.9 Chronic obstructive pulmonary disease, unspecified; R16.1 Splenomegaly, not elsewhere classified; R91.8 Other nonspecific abnormal finding of lung field; Z72.0 Tobacco use
CPT/HCPCS: 36415; 71260; 74177; 82565; 84520

== ENCOUNTER 2019-12-30 20:27 | Emergency (ER) | payer MEDICARE, MEDICAID ==
[~2019-12-30 20:27] MED LIST changes: -HOLD METFORMIN - RECEIVED CONTRAST 20 ML VIAL IV SCH; -IOHEXOL 350 MG/ML 100 ML (OMNIPAQUE 350) VIAL IV ONE; -NS 100 ML (IVPB) BAG IV ONE
--- OUTSIDE RECORDS SUMMARY | 2019-12-30 20:38 | XMS REPORT | Continuity of Care Document ---
Author Author [employer] Organization [employer] Address Unknown Phone Unavailable Allergies Active Description Code Type Severity Reaction Onset Reported/Identified Relationship to Patient Clinical Status Yes TAPE TAPE Mild N/A 09/22/2005 Yes aspirin [id number] Drug Allergy Unknown N/A 12/03/2018 Yes ibuprofen [id number] Drug Allergy Unknown N/A 12/03/2018 Yes morphine [id number] Drug Allergy Unknown N/A 12/03/2018 Yes tramadol [id number] Drug Allergy Unknown N/A 12/03/2018 Yes varenicline [id number] Drug Aller gy Unknown N/A 12/03/2018 Yes morphine [id number] Drug Allergy Severe CONFUSION 09/26/2019 Yes tramadol [id number] Drug Allergy Severe CONFUSION 09/26/2019 Yes varenicline [id number] Drug Aller gy Moderate NAUSEA/VOMITTIN 09/26/2019 Yes ibuprofen [id number] Drug Allergy Unknown gi upset 09/29/2019 Yes oseltamivir [id number] Drug Aller gy Unknown N/A 09/29/2019 Yes Sulfa (Sulfonamide Antibiotics) [id number] Drug Allergy Unknown N/A 020 Yes sumatriptan [id number] Drug Aller gy Unknown N/A 09/29/2019 Medications Medication Packaging Start Date St op Date Route Dosage Sig fentaNYL VIAL, 100 MCG/2 ML (SUBLIMAZE) 12/06/2018 12/06/2018 IV PUSH 1 fentaNYL VIAL, 100 MCG/2 ML (SUBLIMAZE) 12/06/2018 12/06/2018 IV PUSH 1 KETOROLAC INJ, 30 MG/ML (TORADOL) 12/06/2018 12/06/2018 IV PUSH 1 Problems Date Dx Coded Attending Type Code Diagnosis Diagnosed By 04/16/1135 CHARLOTTE VELÁZQUEZ DO Ot R10. 33 PERIUMBILICAL PAIN 04/16/1135 CHALROTTE VELÁZQUEZ DO Ot Z01.812 ENCOUNTER FOR PREPROCEDURAL LABORATORY E 04/16/1135 MELANIA KHAN CHARLOTTE Joyce Ot Z20.828 CONTACT W AND EXPOSURE TO OTH VIRAL COMM 04/16/1135 CHARLOTTE VELÁZQUEZ DO Joyce Ot Z87. 11 PERSONAL HISTORY OF PEPTIC ULCER DISEASE 05/14/2018 AGUSTIN RAZA MD Ot E78. 00 PURE HYPERCHOLESTEROLEMIA, UNSPECIFIED 05/14/2018 AGUSTIN RAZA MD Ot E87. 2 ACIDOSIS 05/14/2018 AGUSTIN RAZA MD Ot F03. 90 UNSPECIFIED DEMENTIA WITHOUT BEHAVIORAL 05/14/2018 AGUSTIN RAZA MD Ot F17.210 NICOTINE DEPENDENCE, CIGARETTES, UNCOMPL 05/14/2018 AGUSTIN RAZA MD Ot F32. 9 MAJOR DEPRESSIVE DISORDER, SINGLE EPISOD 05/14/2018 AGUSTIN RAZA MD Ot F41. 9 ANXIETY DISORDER, UNSPECIFIED 05/14/2018 AGUSTIN RAZA MD Ot F79 UNSPECIFIED INTELLECTUAL DISABILITIES 05/14/2018 AGUSTIN RAZA MD Ot G47. 33 OBSTRUCTIVE SLEEP APNEA (ADULT) (PEDIATR 05/14/2018 AGUSTIN RAZA MD Ot I10 ESSENTIAL (PRIMARY) HYPERTENSION 05/14/2018 AGUSTIN RAZA MD Ot I25. 10 ATHSCL HEART DISEASE OF [place] CORONARY 05/14/2018 AGUSTIN RAZA MD Ot J44. 9 CHRONIC OBSTRUCTIVE PULMONARY DISEASE, U 05/14/2018 AGUSTIN RAZA MD Ot J98. 11 ATELECTASIS 05/14/2018 AGUSTIN RAZA MD Ot K21. 9 GASTRO-ESOPHAGEAL REFLUX DISEASE WITHOUT 05/14/2018 AGUSTIN RAZA MD Ot M79.661 PAIN IN RIGHT LOWER LEG 05/14/2018 AGUSTIN RAZA MD Ot M79.662 PAIN IN LEFT LOWER LEG 05/14/2018 AGUSTIN RAZA MD Ot R00. 1 BRADYCARDIA, UNSPECIFIED 05/14/2018 AGUSTIN RAZA MD Ot R07. 89 OTHER CHEST PAIN 05/14/2018 AGUSTIN RAZA MD Ot Z82. 49 FAMILY HX OF ISCHEM HEART DIS AND OTH DI 05/14/2018 AGUSTIN RAZA MD Ot Z85. 3 PERSONAL HISTORY OF MALIGNANT NEOPLASM O 05/14/2018 AGUSTIN RAZA MD Ot Z85. 41 PERSONAL HISTORY OF MALIGNANT NEOPLASM O 05/14/2018 AGUSTIN RAZA MD Ot Z87. 19 PERSONAL HISTORY OF OTHER DISEASES OF TH 05/14/2018 AGUSTIN RAZA MD Ot Z92. 21 PERSONAL HISTORY OF ANTINEOPLASTIC CHEMO 06/04/2018 SABI HAN APRN Ot G47.33 OBSTRUCTIVE SLEEP APNEA (ADULT) (PEDIATR 06/16/2018 AGUSTIN RAZA MD Ot J44. 9 CHRONIC OBSTRUCTIVE PULMONARY DISEASE, U 06/16/2018 SABI HAN APRN Ot G47.33 OBSTRUCTIVE SLEEP APNEA (ADULT) (PEDIATR 06/16/2018 AGUSTIN RAZA MD Ot J44. 9 CHRONIC OBSTRUCTIVE PULMONARY DISEASE, U 06/16/2018 AGUSTIN RAZA MD Ot J44. 9 CHRONIC OBSTRUCTIVE PULMONARY DISEASE, U 06/17/2018 SABI HAN APRN Ot G47.33 OBSTRUCTIVE SLEEP APNEA (ADULT) (PEDIATR 06/17/2018 AGUSTIN RAZA MD Ot R00. 2 PALPITATIONS 06/18/2018 AGUSTIN RAZA MD Ot G47. 33 OBSTRUCTIVE SLEEP APNEA (ADULT) (PEDIATR 06/18/2018 AGUSTIN RAZA MD Ot I25. 10 ATHSCL HEART DISEASE OF [place] CORONARY 06/18/2018 AGUSTIN RAZA MD Ot J44. 9 CHRONIC OBSTRUCTIVE PULMONARY DISEASE, U 06/18/2018 AGUSTIN RAZA MD Ot R00. 2 PALPITATIONS 06/18/2018 AGUSTIN RAZA MD Ot R51 HEADACHE 06/18/2018 AGUSTIN RAZA MD Ot Z72. 0 TOBACCO USE 06/28/2018 SABI HAN APRN Ot G47.33 OBSTRUCTIVE SLEEP APNEA (ADULT) (PEDIATR 06/29/2018 SABI HAN APRN Ot G47.33 OBSTRUCTIVE SLEEP APNEA (ADULT) (PEDIATR 06/29/2018 AGUSTIN RAZA MD Ot G47. 33 OBSTRUCTIVE SLEEP APNEA (ADULT) (PEDIATR 06/29/2018 AGUSTIN RAZA MD Ot I25. 10 ATHSCL HEART DISEASE OF [place] CORONARY 06/29/2018 AGUSTIN RAZA MD Ot J44. 9 CHRONIC OBSTRUCTIVE PULMONARY DISEASE, U 06/29/2018 AGUTSIN RAZA MD Ot R00. 2 PALPITATIONS 06/29/2018 AGUSTIN RAZA MD J Ot R51 HEADACHE 06/29/2018 LUZ MARINA JUNIOR, AGUSTIN J Ot Z72. 0 TOBACCO USE 06/29/2018 EMILIA HANINE E ROOM CLERK Ot G47.33 OBSTRUCTIVE SLEEP APNEA (ADULT) (PEDIATR 06/29/2018 GUILLEEMILIA PHILLIPSINE E ROOM CLERK Ot G47.33 OBSTRUCTIVE SLEEP APNEA (ADULT) (PEDIATR 06/29/2018 GUILLEEMILIA PHILLIPSINE E ROOM CLERK Ot G47.33 OBSTRUCTIVE SLEEP APNEA (ADULT) (PEDIATR 06/30/2018 GUILLEEMILIA PHILLIPSINE E ROOM CLERK Ot G47.10 HYPERSOMNIA, UNSPECIFIED 06/30/2018 GUILLEEMILIASABI E ROOM CLERK Ot G47.33 OBSTRUCTIVE SLEEP APNEA (ADULT) (PEDIATR 06/30/2018 EMILIA HANINE E ROOM CLERK Ot J44.9 CHRONIC OBSTRUCTIVE PULMONARY DISEASE, U 06/30/2018 SABI HAN ROOM CLERK Ot Z72.0 TOBACCO USE 06/30/2018 LUZ MARINA JUNIOR, AGUSTIN J Ot G47. 33 OBSTRUCTIVE SLEEP APNEA (ADULT) (PEDIATR 06/30/2018 LUZ MARINA JUNIOR, AGUSTIN J Ot I25. 10 ATHSCL HEART DISEASE OF [place] CORONARY 06/30/2018 LUZ MARINA JUNIOR, AGUSTIN J Ot J44. 9 CHRONIC OBSTRUCTIVE PULMONARY DISEASE, U 06/30/2018 LUZ MARINA JUNIOR, AGUSTIN J Ot R00. 2 PALPITATIONS 06/30/2018 LUZ MARINA JUNIOR, AGUSTIN J Ot R51 HEADACHE 06/30/2018 AGUSTIN RAZA MD J Ot Z72. 0 TOBACCO USE 06/30/2018 SABI HAN ROOM CLERK Ot G47.10 HYPERSOMNIA, UNSPECIFIED 06/30/2018 EMILIA HANINE E ROOM CLERK Ot G47.33 OBSTRUCTIVE SLEEP APNEA (ADULT) (PEDIATR 06/30/2018 EMILIA HANINE E ROOM CLERK Ot J44.9 CHRONIC OBSTRUCTIVE PULMONARY DISEASE, U 06/30/2018 EMILIA HANINE E ROOM CLERK Ot Z72.0 TOBACCO USE 07/01/2018 EMILIA HANINE E ROOM CLERK Ot G47.33 OBSTRUCTIVE SLEEP APNEA (ADULT) (PEDIATR 07/01/2018 EMILIA HANINE E ROOM CLERK Ot J44.9 CHRONIC OBSTRUCTIVE PULMONARY DISEASE, U 07/01/2018 EMILIA HANINE E ROOM CLERK Ot Z72.0 TOBACCO USE 07/06/2018 GUILLEEMILIA PHILLIPSINE E ROOM CLERK Ot G47.33 OBSTRUCTIVE SLEEP APNEA (ADULT) (PEDIATR 07/06/2018 SABI HAN APRN Ot J44.9 CHRONIC OBSTRUCTIVE PULMONARY DISEASE, U 07/06/2018 SABI HAN APRN Ot Z72.0 TOBACCO USE 07/07/2018 AGUSTIN RAZA MD Ot G47. 33 OBSTRUCTIVE SLEEP APNEA (ADULT) (PEDIATR 07/07/2018 AGUSTIN RAZA MD Ot I25. 10 ATHSCL HEART DISEASE OF [place] CORONARY 07/07/2018 AGUSTIN RAZA MD Ot J44. 9 CHRONIC OBSTRUCTIVE PULMONARY DISEASE, U 07/07/2018 AGUSTIN RAZA MD Ot R00. 2 PALPITATIONS 07/07/2018 AGUSTIN RAZA MD Ot R51 HEADACHE 07/07/2018 AGUSTIN RAZA MD Ot Z72. 0 TOBACCO USE 07/20/2018 SABI HAN APRN Ot G47.33 OBSTRUCTIVE SLEEP APNEA (ADULT) (PEDIATR 07/20/2018 SABI HAN APRN Ot J44.9 CHRONIC OBSTRUCTIVE PULMONARY DISEASE, U 07/20/2018 SABI HAN APRN Ot Z72.0 TOBACCO USE 08/02/2018 REYNOLD CORBETT MD Ot E78. 00 PURE HYPERCHOLESTEROLEMIA, UNSPECIFIED 08/02/2018 REYNOLD CORBETT MD A Ot F03. 90 UNSPECIFIED DEMENTIA WITHOUT BEHAVIORAL 08/02/2018 REYNOLD CORBETT MD Ot F32. 9 MAJOR DEPRESSIVE DISORDER, SINGLE EPISOD 08/02/2018 REYNOLD CORBETT MD A Ot F41. 9 ANXIETY DISORDER, UNSPECIFIED 08/02/2018 REYNOLD CORBETT MD Ot J44. 9 CHRONIC OBSTRUCTIVE PULMONARY DISEASE, U 08/02/2018 REYNOLD CORBETT MD A Ot R11. 0 NAUSEA 08/02/2018 REYNOLD CORBETT MD A Ot R51 HEADACHE 08/02/2018 REYNOLD CORBETT MD A Ot Z85. 3 PERSONAL HISTORY OF MALIGNANT NEOPLASM O 08/02/2018 REYNOLD CORBETT MD A Ot Z85. 41 PERSONAL HISTORY OF MALIGNANT NEOPLASM O 08/02/2018 REYNOLD CORBETT MD A Ot Z87. 19 PERSONAL HISTORY OF OTHER DISEASES OF TH 08/02/2018 REYNOLD CORBETT MD A Ot Z87.440 PERSONAL HISTORY OF URINARY (TRACT) INFE 08/02/2018 REYNOLD CORBETT MD A Ot Z88. 5 ALLERGY STATUS TO NARCOTIC AGENT STATUS 08/02/2018 AQUILES CORBETT MDNT A Ot Z88. 6 ALLERGY STATUS TO ANALGESIC AGENT STATUS 08/02/2018 AQUILES CORBETT MDNT A Ot Z91.048 OTHER NONMEDICINAL SUBSTANCE ALLERGY STA 08/02/2018 AQUILES CORBETT MDNT A Ot Z92. 21 PERSONAL HISTORY OF ANTINEOPLASTIC CHEMO 08/03/2018 REYNOLD CORBETT MD A Ot E78. 00 PURE HYPERCHOLESTEROLEMIA, UNSPECIFIED 08/03/2018 REYNOLD CORBETT MD A Ot F03. 90 UNSPECIFIED DEMENTIA WITHOUT BEHAVIORAL 08/03/2018 REYNOLD CORBETT MD A Ot F32. 9 MAJOR DEPRESSIVE DISORDER, SINGLE EPISOD 08/03/2018 AQUILES CORBETT MDNT A Ot F41. 9 ANXIETY DISORDER, UNSPECIFIED 08/03/2018 REYNOLD CORBETT MD A Ot J44. 9 CHRONIC OBSTRUCTIVE PULMONARY DISEASE, U 08/03/2018 AQUILES CORBETT MDNT A Ot R11. 0 NAUSEA 08/03/2018 REYNOLD CORBETT MD A Ot R51 HEADACHE 08/03/2018 REYNOLD CORBETT MD A Ot Z85. 3 PERSONAL HISTORY OF MALIGNANT NEOPLASM O 08/03/2018 AQUILES CORBETT MDNT A Ot Z85. 41 PERSONAL HISTORY OF MALIGNANT NEOPLASM O 08/03/2018 AQUILES CORBETT MDNT A Ot Z87. 19 PERSONAL HISTORY OF OTHER DISEASES OF TH 08/03/2018 AQUILES CORBETT MDNT A Ot Z87.440 PERSONAL HISTORY OF URINARY (TRACT) INFE 08/03/2018 AQUILES CORBETT MDNT A Ot Z88. 5 ALLERGY STATUS TO NARCOTIC AGENT STATUS 08/03/2018 REYNOLD CORBETT MD A Ot Z88. 6 ALLERGY STATUS TO ANALGESIC AGENT STATUS 08/03/2018 AQUILES CORBETT MDNT A Ot Z91.048 OTHER NONMEDICINAL SUBSTANCE ALLERGY STA 08/03/2018 AQUILES CORBETT MDNT A Ot Z92. 21 PERSONAL HISTORY OF ANTINEOPLASTIC CHEMO 11/25/2018 ROSINA KENT MD P Ot Z01.818 ENCOUNTER FOR OTHER PREPROCEDURAL EXAMIN 12/03/2018 ROSINA KENT MD Ot F17.210 NICOTINE DEPENDENCE, CIGARETTES, UNCOMPL 12/03/2018 ROSINA KENT MD Ot F32 .9 MAJOR DEPRESSIVE DISORDER, SINGLE EPISOD 12/03/2018 ROSINA KENT MD Ot G89.29 OTHER CHRONIC PAIN 12/03/2018 ROSINA KENT MD Ot H65.23 CHRONIC SEROUS OTITIS MEDIA, BILATERAL 12/03/2018 ROSINA KENT MD, Ot H69.90 UNSPECIFIED EUSTACHIAN TUBE DISORDER, UN 12/03/2018 ROSINA KENT MD, Ot H90 .8 MIXED CONDUCTIVE AND SENSORINEURAL HEARI 12/03/2018 ROSINA KENT MD, Ot I11 .0 HYPERTENSIVE HEART DISEASE WITH HEART FA 12/03/2018 ROSINA KENT MD, Ot I50 .9 HEART FAILURE, UNSPECIFIED 12/03/2018 ROSINA KENT MD, Ot J44 .9 CHRONIC OBSTRUCTIVE PULMONARY DISEASE, U 12/03/2018 ROSINA KENT MD, Ot K21 .9 GASTRO-ESOPHAGEAL REFLUX DISEASE WITHOUT 12/03/2018 ROSINA KENT MD, Ot M54 .9 DORSALGIA, UNSPECIFIED 12/03/2018 ROSINA KENT MD, Ot N39 .0 URINARY TRACT INFECTION, SITE NOT SPECIF 12/03/2018 ROSINA KENT MD, Ot Z79.899 OTHER [facility] (CURRENT) DRUG THERAPY 12/03/2018 ROSINA KENT MD, Ot Z85 .3 PERSONAL HISTORY OF MALIGNANT NEOPLASM O 12/03/2018 ROSINA KENT MD, Ot Z85.41 PERSONAL HISTORY OF MALIGNANT NEOPLASM O 12/03/2018 ROSINA KENT MD, Ot Z88 .5 ALLERGY STATUS TO NARCOTIC AGENT STATUS 12/03/2018 ROSINA KENT MD, Ot Z88 .6 ALLERGY STATUS TO ANALGESIC AGENT STATUS 12/03/2018 ROSINA KENT MD, Ot Z88 .8 ALLERGY STATUS TO OTH DRUG/MEDS/BIOL SUB 12/03/2018 ROSINA KENT MD, Ot Z90.49 ACQUIRED ABSENCE OF OTHER SPECIFIED PART 12/03/2018 ROSINA KENT MD, Ot Z90.710 ACQUIRED ABSENCE OF BOTH CERVIX AND UTER 12/03/2018 ROSINA KENT MD Ot Z91.048 OTHER NONMEDICINAL SUBSTANCE ALLERGY STA 12/03/2018 ROSINA KENT MD, Ot Z99.81 DEPENDENCE ON SUPPLEMENTAL OXYGEN 12/06/2018 CALEB FIGUEROA M94 0 Chondrocostal junction syndrome [Tietze] 12/06/2018 CALEB FIGUEROA P R07 89 Other chest pain 12/06/2018 CALEB FIGUEROA R07 9 Chest pain, unspecified 12/13/2018 ROSINA KENT MD, Ot F17.210 NICOTINE DEPENDENCE, CIGARETTES, UNCOMPL 12/13/2018 ROSINA KENT MD, Ot F32 .9 MAJOR DEPRESSIVE DISORDER, SINGLE EPISOD 12/13/2018 ROSINA KENT MD Ot G89.29 OTHER CHRONIC PAIN 12/13/2018 ROSINA KENT MD Ot H65.193 OTHER ACUTE NONSUPPURATIVE OTITIS MEDIA, 12/13/2018 ROSINA KENT MD Ot H69.90 UNSPECIFIED EUSTACHIAN TUBE DISORDER, UN 12/13/2018 ROSINA KENT MD Ot H90 .8 MIXED CONDUCTIVE AND SENSORINEURAL HEARI 12/13/2018 ROSINA KENT MD Ot I11 .0 HYPERTENSIVE HEART DISEASE WITH HEART FA 12/13/2018 ROSINA KENT MD Ot I50 .9 HEART FAILURE, UNSPECIFIED 12/13/2018 ROSINA KENT MD, Ot J44 .9 CHRONIC OBSTRUCTIVE PULMONARY DISEASE, U 12/13/2018 ROSINA KENT MD, Ot K21 .9 GASTRO-ESOPHAGEAL REFLUX DISEASE WITHOUT 12/13/2018 ROSINA KENT MD Ot M54 .9 DORSALGIA, UNSPECIFIED 12/13/2018 ROSINA KENT MD Ot N39 .0 URINARY TRACT INFECTION, SITE NOT SPECIF 12/13/2018 ROSINA KENT MD Ot Z79.899 OTHER [facility] (CURRENT) DRUG THERAPY 12/13/2018 ROSINA KENT MD Ot Z85 .3 PERSONAL HISTORY OF MALIGNANT NEOPLASM O 12/13/2018 ROSINA KENT MD Ot Z85.41 PERSONAL HISTORY OF MALIGNANT NEOPLASM O 12/13/2018 ROSINA KENT MD Ot Z88 .5 ALLERGY STATUS TO NARCOTIC AGENT STATUS 12/13/2018 ROSINA KENT MD Ot Z88 .6 ALLERGY STATUS TO ANALGESIC AGENT STATUS 12/13/2018 ROSINA KENT MD Ot Z88 .8 ALLERGY STATUS TO OTH DRUG/MEDS/BIOL SUB 12/13/2018 ROSINA KENT MD Ot Z90.49 ACQUIRED ABSENCE OF OTHER SPECIFIED PART 12/13/2018 ROSINA KENT MD Ot Z90.710 ACQUIRED ABSENCE OF BOTH CERVIX AND UTER 12/13/2018 ROSINA KENT MD Ot Z91.048 OTHER NONMEDICINAL SUBSTANCE ALLERGY STA 12/13/2018 ROSINA KENT MD Ot Z99.81 DEPENDENCE ON SUPPLEMENTAL OXYGEN 12/13/2018 ROSINA KENT MD Ot F17.210 NICOTINE DEPENDENCE, CIGARETTES, UNCOMPL 12/13/2018 ROSINA KENT MD Ot F32 .9 MAJOR DEPRESSIVE DISORDER, SINGLE EPISOD 12/13/2018 ROSINA KENT MD Ot G89.29 OTHER CHRONIC PAIN 12/13/2018 ROSINA KENT MD Ot H65.23 CHRONIC SEROUS OTITIS MEDIA, BILATERAL 12/13/2018 ROSINA KENT MD, Ot H69.90 UNSPECIFIED EUSTACHIAN TUBE DISORDER, UN 12/13/2018 ROSINA KENT MD, Ot H90 .8 MIXED CONDUCTIVE AND SENSORINEURAL HEARI 12/13/2018 ROSINA KENT MD Ot I11 .0 HYPERTENSIVE HEART DISEASE WITH HEART FA 12/13/2018 ROSINA KENT MD Ot I50 .9 HEART FAILURE, UNSPECIFIED 12/13/2018 ROSINA KENT MD, Ot J44 .9 CHRONIC OBSTRUCTIVE PULMONARY DISEASE, U 12/13/2018 ROSINA KENT MD, Ot K21 .9 GASTRO-ESOPHAGEAL REFLUX DISEASE WITHOUT 12/13/2018 ROSINA KENT MD Ot M54 .9 DORSALGIA, UNSPECIFIED 12/13/2018 ROSINA KENT MD, Ot N39 .0 URINARY TRACT INFECTION, SITE NOT SPECIF 12/13/2018 ROSINA KENT MD Ot Z79.899 OTHER [facility] (CURRENT) DRUG THERAPY 12/13/2018 ROSINA KENT MD Ot Z85 .3 PERSONAL HISTORY OF MALIGNANT NEOPLASM O 12/13/2018 ROSINA KENT MD Ot Z85.41 PERSONAL HISTORY OF MALIGNANT NEOPLASM O 12/13/2018 ROSINA KENT MD Ot Z88 .5 ALLERGY STATUS TO NARCOTIC AGENT STATUS 12/13/2018 ROSINA KENT MD Ot Z88 .6 ALLERGY STATUS TO ANALGESIC AGENT STATUS 12/13/2018 ROSINA KENT MD Ot Z88 .8 ALLERGY STATUS TO OTH DRUG/MEDS/BIOL SUB 12/13/2018 ROSINA KENT MD Ot Z90.49 ACQUIRED ABSENCE OF OTHER SPECIFIED PART 12/13/2018 ROSINA KENT MD Ot Z90.710 ACQUIRED ABSENCE OF BOTH CERVIX AND UTER 12/13/2018 ROSINA KENT MD Ot Z91.048 OTHER NONMEDICINAL SUBSTANCE ALLERGY STA 12/13/2018 ROSINA KENT MD Ot Z99.81 DEPENDENCE ON SUPPLEMENTAL OXYGEN 01/06/2019 TAIWO FRANCO DO Ot E78. 00 PURE HYPERCHOLESTEROLEMIA, UNSPECIFIED 01/06/2019 TAIWO FRANCO DO Ot F03. 90 UNSPECIFIED DEMENTIA WITHOUT BEHAVIORAL 01/06/2019 TAIWO FRANCO DO Ot F17.210 NICOTINE DEPENDENCE, CIGARETTES, UNCOMPL 01/06/2019 TAIWO FRANCO DO Ot F32. 9 MAJOR DEPRESSIVE DISORDER, SINGLE EPISOD 01/06/2019 TAIWO FRANCO DO Ot J44. 9 CHRONIC OBSTRUCTIVE PULMONARY DISEASE, U 01/06/2019 TAIWO FRANCO DO Ot R07. 89 OTHER CHEST PAIN 01/06/2019 TAIWO FRANCO DO Ot Z85. 3 PERSONAL HISTORY OF MALIGNANT NEOPLASM O 01/06/2019 TAIWO FRANCO DO Ot Z85. 41 PERSONAL HISTORY OF MALIGNANT NEOPLASM O 01/06/2019 TAIWO FRANCO DO Ot Z87.440 PERSONAL HISTORY OF URINARY (TRACT) INFE 01/06/2019 TAIWO FRANCO DO Ot Z88. 5 ALLERGY STATUS TO NARCOTIC AGENT STATUS 01/06/2019 TAIWO FRANCO DO Ot Z88. 6 ALLERGY STATUS TO ANALGESIC AGENT STATUS 01/06/2019 TAIWO FRANCO DO Ot Z88. 8 ALLERGY STATUS TO OTH DRUG/MEDS/BIOL SUB 01/06/2019 TAIWO FRANCO DO Ot Z90.710 ACQUIRED ABSENCE OF BOTH CERVIX AND UTER 01/06/2019 TAIWO FRANCO DO Ot Z99. 81 DEPENDENCE ON SUPPLEMENTAL OXYGEN 02/18/2019 DAKOTAH KING Ot M25.51 2 PAIN IN LEFT SHOULDER 03/17/2019 DAKOTAH KING Ot M25.51 2 PAIN IN LEFT SHOULDER 04/27/2019 SIRI FLANNERY Ot I25.10 ATHSCL HEART DISEASE OF [place] CORONARY 04/27/2019 SIRI FLANNERY Ot J44.9 CHRONIC OBSTRUCTIVE PULMONARY DISEASE, U 04/27/2019 SIRI FLANNERY Ot K21.9 GASTRO-ESOPHAGEAL REFLUX DISEASE WITHOUT 05/04/2019 CHIQUI BERMAN MD Ot J44.9 CHRONIC OBSTRUCTIVE PULMONARY DISEASE, U 05/04/2019 CHIQUI BERMAN MD Ot R26.89 OTHER ABNORMALITIES OF GAIT AND MOBILITY 05/04/2019 CHIQUI BERMAN MD Ot R51 HEADACHE 05/04/2019 CHIQUI BERMAN MD Ot Z91.81 HISTORY OF FALLING 05/09/2019 SIRI FLANNERY Ot G47.33 OBSTRUCTIVE SLEEP APNEA (ADULT) (PEDIATR 05/09/2019 SIRI FLANNERY Ot I25.10 ATHSCL HEART DISEASE OF [place] CORONARY 05/09/2019 SIRI FLANNERY Ot 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 05/09/2019 SIRI FLANNERY Ot J44.9 CHRONIC OBSTRUCTIVE PULMONARY DISEASE, U 05/09/2019 SIRI FLANNERY Ot Z72.0 TOBACCO USE 05/17/2019 SIRI FLANNERY Ot I25.10 ATHSCL HEART DISEASE OF [place] CORONARY 05/17/2019 SIRI FLANNERY Ot J44.9 CHRONIC OBSTRUCTIVE PULMONARY DISEASE, U 05/17/2019 SIRI FLANNERY Ot K21.9 GASTRO-ESOPHAGEAL REFLUX DISEASE WITHOUT 05/24/2019 SELF CHIQUI JUNIOR Ot J44.9 CHRONIC OBSTRUCTIVE PULMONARY DISEASE, U 05/24/2019 SELF CHIQUI JUNIOR Ot R26.89 OTHER ABNORMALITIES OF GAIT AND MOBILITY 05/24/2019 SELF CHIQUI JUNIOR Ot R51 HEADACHE 05/24/2019 SELF CHIQUI JUNIOR Ot Z91.81 HISTORY OF FALLING 05/24/2019 SIRI FLANNERY Ot G47.33 OBSTRUCTIVE SLEEP APNEA (ADULT) (PEDIATR 05/24/2019 SIRI FLANNERY Ot I25.10 ATHSCL HEART DISEASE OF [place] CORONARY 05/24/2019 SIRI FLANNERY Ot 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 05/24/2019 SIRI FLANNERY Ot J44.9 CHRONIC OBSTRUCTIVE PULMONARY DISEASE, U 05/24/2019 SIRI FLANNERY Ot Z72.0 TOBACCO USE 05/25/2019 AGUSTIN RAZA MD Ot E78. 5 HYPERLIPIDEMIA, UNSPECIFIED 05/25/2019 AGUSTIN RAZA MD Ot F17.210 NICOTINE DEPENDENCE, CIGARETTES, UNCOMPL 05/25/2019 AGUSTIN RAZA MD Ot G47. 33 OBSTRUCTIVE SLEEP APNEA (ADULT) (PEDIATR 05/25/2019 AGUSTIN RAZA MD Ot I10 ESSENTIAL (PRIMARY) HYPERTENSION 05/25/2019 AGUSTIN RAZA MD Ot I25. 10 ATHSCL HEART DISEASE OF [place] CORONARY 05/25/2019 AGUSTIN RAZA MD Ot K21. 9 GASTRO-ESOPHAGEAL REFLUX DISEASE WITHOUT 05/25/2019 AGUSTIN RAZA MD Ot R94. 39 ABNORMAL RESULT OF OTHER CARDIOVASCULAR 05/25/2019 AGUSTIN RAZA MD Ot Z79.899 OTHER [facility] (CURRENT) DRUG THERAPY 05/25/2019 AGUSTIN RAZA MD Ot Z80. 9 FAMILY HISTORY OF MALIGNANT NEOPLASM, UN 05/25/2019 AGUSTIN RAZA MD Ot Z82. 3 FAMILY HISTORY OF STROKE 05/25/2019 AGUSTIN RAZA MD Ot Z82. 49 FAMILY HX OF ISCHEM HEART DIS AND OTH DI 05/25/2019 AGUSTIN RAZA MD Ot Z83. 3 FAMILY HISTORY OF DIABETES MELLITUS 05/25/2019 AGUSTIN RAZA MD, Ot Z88. 5 ALLERGY STATUS TO NARCOTIC AGENT STATUS 05/25/2019 AGUSTIN RAZA MD Ot Z88. 6 ALLERGY STATUS TO ANALGESIC AGENT STATUS 05/25/2019 AGUSTIN RAZA MD Ot Z88. 8 ALLERGY STATUS TO OTH DRUG/MEDS/BIOL SUB 05/25/2019 AGUSTIN RAZA MD Ot Z90. 49 ACQUIRED ABSENCE OF OTHER SPECIFIED PART 05/25/2019 AGUSTIN RAZA MD Ot Z90.710 ACQUIRED ABSENCE OF BOTH CERVIX AND UTER 05/25/2019 AGUSTIN RAZA MD Ot Z91.048 OTHER NONMEDICINAL SUBSTANCE ALLERGY STA 05/27/2019 AGUSTIN RAZA MD Ot E78. 5 HYPERLIPIDEMIA, UNSPECIFIED 05/27/2019 AGUSTIN RAZA MD Ot F17.210 NICOTINE DEPENDENCE, CIGARETTES, UNCOMPL 05/27/2019 GAUSTIN RAZA MD Ot G47. 33 OBSTRUCTIVE SLEEP APNEA (ADULT) (PEDIATR 05/27/2019 AGUSTIN RAZA MD Ot I10 ESSENTIAL (PRIMARY) HYPERTENSION 05/27/2019 AGUSTIN RAZA MD Ot I25. 10 ATHSCL HEART DISEASE OF [place] CORONARY 05/27/2019 AGUSTIN RAZA MD Ot K21. 9 GASTRO-ESOPHAGEAL REFLUX DISEASE WITHOUT 05/27/2019 AGUSTIN RAZA MD Ot R94. 39 ABNORMAL RESULT OF OTHER CARDIOVASCULAR 05/27/2019 AGUSTIN RAZA MD Ot Z79.899 OTHER [facility] (CURRENT) DRUG THERAPY 05/27/2019 AGUSTIN RAZA MD Ot Z80. 9 FAMILY HISTORY OF MALIGNANT NEOPLASM, UN 05/27/2019 AGUSTIN RAZA MD Ot Z82. 3 FAMILY HISTORY OF STROKE 05/27/2019 AGUSTIN RAZA MD Ot Z82. 49 FAMILY HX OF ISCHEM HEART DIS AND OTH DI 05/27/2019 AGUSTIN RAZA MD Ot Z83. 3 FAMILY HISTORY OF DIABETES MELLITUS 05/27/2019 AGUSTIN RAZA MD Ot Z88. 5 ALLERGY STATUS TO NARCOTIC AGENT STATUS 05/27/2019 AGUSTIN RAZA MD Ot Z88. 6 ALLERGY STATUS TO ANALGESIC AGENT STATUS 05/27/2019 AGUSTIN RAZA MD Ot Z88. 8 ALLERGY STATUS TO OTH DRUG/MEDS/BIOL SUB 05/27/2019 AGUSTIN RAZA MD Ot Z90. 49 ACQUIRED ABSENCE OF OTHER SPECIFIED PART 05/27/2019 AGUSTIN RAZA MD Ot Z90.710 ACQUIRED ABSENCE OF BOTH CERVIX AND UTER 05/27/2019 AGUSTIN RAZA MD Ot Z91.048 OTHER NONMEDICINAL SUBSTANCE ALLERGY STA 05/27/2019 AGUSTIN RAZA MD Ot E78. 5 HYPERLIPIDEMIA, UNSPECIFIED 05/27/2019 AGUSTIN RAZA MD Ot F17.210 NICOTINE DEPENDENCE, CIGARETTES, UNCOMPL 05/27/2019 AGUSTIN RAZA MD Ot G47. 33 OBSTRUCTIVE SLEEP APNEA (ADULT) (PEDIATR 05/27/2019 AGUSTIN RAZA MD Ot I10 ESSENTIAL (PRIMARY) HYPERTENSION 05/27/2019 AGUSTIN RAZA MD Ot I25. 10 ATHSCL HEART DISEASE OF [place] CORONARY 05/27/2019 AGUSTIN RAZA MD Ot K21. 9 GASTRO-ESOPHAGEAL REFLUX DISEASE WITHOUT 05/27/2019 AGUSTIN RAZA MD Ot R94. 39 ABNORMAL RESULT OF OTHER CARDIOVASCULAR 05/27/2019 AGUSTIN RAZA MD Ot Z79.899 OTHER [facility] (CURRENT) DRUG THERAPY 05/27/2019 AGUSTIN RAZA MD Ot Z80. 9 FAMILY HISTORY OF MALIGNANT NEOPLASM, UN 05/27/2019 AGUSTIN RAZA MD Ot Z82. 3 FAMILY HISTORY OF STROKE 05/27/2019 AGUSTIN RAZA MD Ot Z82. 49 FAMILY HX OF ISCHEM HEART DIS AND OTH DI 05/27/2019 AGUSTIN RAZA MD Ot Z83. 3 FAMILY HISTORY OF DIABETES MELLITUS 05/27/2019 AGUSTIN RAZA MD Ot Z88. 5 ALLERGY STATUS TO NARCOTIC AGENT STATUS 05/27/2019 AGUSTIN RAZA MD, Ot Z88. 6 ALLERGY STATUS TO ANALGESIC AGENT STATUS 05/27/2019 AGUSTIN RAZA MD, Ot Z88. 8 ALLERGY STATUS TO OTH DRUG/MEDS/BIOL SUB 05/27/2019 AGUSTIN RAZA MD, Ot Z90. 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 06/01/2019 SIRI FLANNERY Ot J44.9 CHRONIC OBSTRUCTIVE PULMONARY DISEASE, U 06/01/2019 SIRI FLANNERY Ot Z72.0 TOBACCO USE 06/08/2019 CHIQUI BERMAN MD Ot J44.9 CHRONIC OBSTRUCTIVE PULMONARY DISEASE, U 06/08/2019 CHIQUI BERMAN MD Ot R26.89 OTHER ABNORMALITIES OF GAIT AND MOBILITY 06/08/2019 CHIQUI BERMAN MD Ot R51 HEADACHE 06/08/2019 CHIQUI BERMAN MD Ot Z91.81 HISTORY OF FALLING 06/16/2019 SABI HAN APRN Ot F17.210 NICOTINE DEPENDENCE, CIGARETTES, UNCOMPL 06/16/2019 SABI HAN APRN Ot I25.10 ATHSCL HEART DISEASE OF [place] CORONARY 06/16/2019 SABI HAN APRN Ot I51.7 CARDIOMEGALY 06/16/2019 SABI HAN APRN Ot J44.9 CHRONIC OBSTRUCTIVE PULMONARY DISEASE, U 06/16/2019 SABI HAN APRN Ot R16.2 HEPATOMEGALY WITH SPLENOMEGALY, NOT ELSE 06/16/2019 SABI HAN APRN Ot R91.8 OTHER NONSPECIFIC ABNORMAL FINDING OF [place] 06/16/2019 SABI HAN APRN Ot Z12.2 ENCNTR SCREEN FOR MALIGNANT NEOPLASM OF 07/12/2019 GUILLE, SABI E ROOM CLERK Ot F17.210 NICOTINE DEPENDENCE, CIGARETTES, UNCOMPL 07/12/2019 GUILLE, SABI E ROOM CLERK Ot I25.10 ATHSCL HEART DISEASE OF [place] CORONARY 07/12/2019 GUILLE, SABI E ROOM CLERK Ot I51.7 CARDIOMEGALY 07/12/2019 GUILLE, SABI E ROOM CLERK Ot J44.9 CHRONIC OBSTRUCTIVE PULMONARY DISEASE, U 07/12/2019 GUILLE, SABI E ROOM CLERK Ot R16.2 HEPATOMEGALY WITH SPLENOMEGALY, NOT ELSE 07/12/2019 GUILLE, SABI E ROOM CLERK Ot R91.8 OTHER NONSPECIFIC ABNORMAL FINDING OF [place] 07/12/2019 GUILLE, SABI E ROOM CLERK Ot Z12.2 ENCNTR SCREEN FOR MALIGNANT NEOPLASM OF 07/25/2019 GUILLE, SABI E ROOM CLERK Ot F17.210 NICOTINE DEPENDENCE, CIGARETTES, UNCOMPL 07/25/2019 GUILLE, SABI E ROOM CLERK Ot I25.10 ATHSCL HEART DISEASE OF [place] CORONARY 07/25/2019 GUILLE, SABI E ROOM CLERK Ot I51.7 CARDIOMEGALY 07/25/2019 GUILLE, SABI E ROOM CLERK Ot J44.9 CHRONIC OBSTRUCTIVE PULMONARY DISEASE, U 07/25/2019 GUILLE, SABI E ROOM CLERK Ot R16.2 HEPATOMEGALY WITH SPLENOMEGALY, NOT ELSE 07/25/2019 GUILLE, SABI E ROOM CLERK Ot R91.8 OTHER NONSPECIFIC ABNORMAL FINDING OF [place] 07/25/2019 GUILLE, SABI E ROOM CLERK Ot Z12.2 ENCNTR SCREEN FOR MALIGNANT NEOPLASM OF 08/24/2019 CHIQUI BERMAN MD Ot M25.51 1 PAIN IN RIGHT SHOULDER 08/25/2019 GUILLE SABI E ROOM CLERK Ot G47.33 OBSTRUCTIVE SLEEP APNEA (ADULT) (PEDIATR 08/25/2019 GUILLE, SABI E ROOM CLERK Ot J44.9 CHRONIC OBSTRUCTIVE PULMONARY DISEASE, U 08/25/2019 GUILLE SABI E ROOM CLERK Ot Z72.0 TOBACCO USE 08/25/2019 AGUSTIN RAZA MD Ot G47. 33 OBSTRUCTIVE SLEEP APNEA (ADULT) (PEDIATR 08/25/2019 AGUSTIN RAZA MD Ot I25. 10 ATHSCL HEART DISEASE OF [place] CORONARY 08/25/2019 AGUSTIN RAZA MD Ot J44. 9 CHRONIC OBSTRUCTIVE PULMONARY DISEASE, U 08/25/2019 AGUSTIN RAZA MD Ot R00. 2 PALPITATIONS 08/25/2019 AGUSTIN RAZA MD Ot R51 HEADACHE 08/25/2019 AGUSTIN RAZA MD Ot Z72. 0 TOBACCO USE 08/25/2019 DAKOTAH KING SHAMEKA Ot M25.51 2 PAIN IN LEFT SHOULDER 08/25/2019 SIRI FLANNERY Ot I25.10 ATHSCL HEART DISEASE OF [place] CORONARY 08/25/2019 SIRI FLANNERY Ot J44.9 CHRONIC OBSTRUCTIVE PULMONARY DISEASE, U 08/25/2019 SIRI FLANNERY Ot K21.9 GASTRO-ESOPHAGEAL REFLUX DISEASE WITHOUT 08/25/2019 SELF CHIQUI JUNIOR Ot J44.9 CHRONIC OBSTRUCTIVE PULMONARY DISEASE, U 08/25/2019 SELF CHIQUI JUNIOR Ot R26.89 OTHER ABNORMALITIES OF GAIT AND MOBILITY 08/25/2019 SELF CHIQUI JUNIOR Ot R51 HEADACHE 08/25/2019 SELF CHIQUI JUNIOR Ot Z91.81 HISTORY OF FALLING 08/25/2019 SIRI FLANNERY Ot G47.33 OBSTRUCTIVE SLEEP APNEA (ADULT) (PEDIATR 08/25/2019 SIRI FLANNERY Ot I25.10 ATHSCL HEART DISEASE OF [place] CORONARY 08/25/2019 SIRI FLANNERY Ot 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 08/25/2019 SIRI FLANNERY Ot J44.9 CHRONIC OBSTRUCTIVE PULMONARY DISEASE, U 08/25/2019 SIRI FLANNERY Ot Z72.0 TOBACCO USE 08/25/2019 SABI HAN APRN Ot F17.210 NICOTINE DEPENDENCE, CIGARETTES, UNCOMPL 08/25/2019 SABI HAN APRN Ot I25.10 ATHSCL HEART DISEASE OF [place] CORONARY 08/25/2019 SABI HAN APRN Ot I51.7 CARDIOMEGALY 08/25/2019 SABI HAN APRN Ot J44.9 CHRONIC OBSTRUCTIVE PULMONARY DISEASE, U 08/25/2019 SABI HAN APRN Ot R16.2 HEPATOMEGALY WITH SPLENOMEGALY, NOT ELSE 08/25/2019 SABI HAN APRN Ot R91.8 OTHER NONSPECIFIC ABNORMAL FINDING OF [place] 08/25/2019 SABI HAN APRN Ot Z12.2 ENCNTR SCREEN FOR MALIGNANT NEOPLASM OF 08/25/2019 CHIQUI BERMAN MD Ot M25.51 1 PAIN IN RIGHT SHOULDER 08/29/2019 SABI HAN APRN Ot G47.33 OBSTRUCTIVE SLEEP APNEA (ADULT) (PEDIATR 08/29/2019 SABI HAN APRN Ot J44.9 CHRONIC OBSTRUCTIVE PULMONARY DISEASE, U 08/29/2019 SABI HAN ROOM CLERK Ot Z72.0 TOBACCO USE 08/29/2019 AGUSTIN RAZA MD Ot G47. 33 OBSTRUCTIVE SLEEP APNEA (ADULT) (PEDIATR 08/29/2019 AGUSTIN RAZA MD Ot I25. 10 ATHSCL HEART DISEASE OF [place] CORONARY 08/29/2019 AGUSTIN RAZA MD Ot J44. 9 CHRONIC OBSTRUCTIVE PULMONARY DISEASE, U 08/29/2019 AGUSTIN RAZA MD Ot R00. 2 PALPITATIONS 08/29/2019 AGUSTIN RAZA MD Ot R51 HEADACHE 08/29/2019 AGUSTIN RAZA MD Ot Z72. 0 TOBACCO USE 08/29/2019 DAKOTAH KING Ot M25.51 2 PAIN IN LEFT SHOULDER 08/29/2019 SIRI FLANNERY Ot I25.10 ATHSCL HEART DISEASE OF [place] CORONARY 08/29/2019 SIRI FLANNERY Ot J44.9 CHRONIC OBSTRUCTIVE PULMONARY DISEASE, U 08/29/2019 SIRI FLANNERY Ot K21.9 GASTRO-ESOPHAGEAL REFLUX DISEASE WITHOUT 08/29/2019 CHIQUI BERMAN MD Ot J44.9 CHRONIC OBSTRUCTIVE PULMONARY DISEASE, U 08/29/2019 CHIQUI BERMAN MD Ot R26.89 OTHER ABNORMALITIES OF GAIT AND MOBILITY 08/29/2019 CHIQUI BERMAN MD Ot R51 HEADACHE 08/29/2019 CHIQUI BERMAN MD Ot Z91.81 HISTORY OF FALLING 08/29/2019 SIRI FLANNERY Ot G47.33 OBSTRUCTIVE SLEEP APNEA (ADULT) (PEDIATR 08/29/2019 SIRI FLANNERY Ot I25.10 ATHSCL HEART DISEASE OF [place] CORONARY 08/29/2019 SIRI FLANNERY Ot 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 08/29/2019 SIRI FLANNERY Ot J44.9 CHRONIC OBSTRUCTIVE PULMONARY DISEASE, U 08/29/2019 SIRI FLANNERY Ot Z72.0 TOBACCO USE 08/29/2019 SABI HAN APRN Ot F17.210 NICOTINE DEPENDENCE, CIGARETTES, UNCOMPL 08/29/2019 SABI HAN APRN Ot I25.10 ATHSCL HEART DISEASE OF [place] CORONARY 08/29/2019 SABI HAN APRN Ot I51.7 CARDIOMEGALY 08/29/2019 SABI HAN APRN Ot J44.9 CHRONIC OBSTRUCTIVE PULMONARY DISEASE, U 08/29/2019 SABI HAN APRN Ot R16.2 HEPATOMEGALY WITH SPLENOMEGALY, NOT ELSE 08/29/2019 SABI HAN APRN Ot R91.8 OTHER NONSPECIFIC ABNORMAL FINDING OF [place] 08/29/2019 SABI HAN APRN Ot Z12.2 ENCNTR SCREEN FOR MALIGNANT NEOPLASM OF 08/29/2019 CHIQUI BERMAN MD Ot M25.51 1 PAIN IN RIGHT SHOULDER 08/29/2019 SABI HAN APRN Ot G47.33 OBSTRUCTIVE SLEEP APNEA (ADULT) (PEDIATR 08/29/2019 SABI HAN APRN Ot J44.9 CHRONIC OBSTRUCTIVE PULMONARY DISEASE, U 08/29/2019 SABI HAN APRN Ot Z72.0 TOBACCO USE 08/29/2019 AGUSTIN RAZA MD Ot G47. 33 OBSTRUCTIVE SLEEP APNEA (ADULT) (PEDIATR 08/29/2019 AGUSTIN RAZA MD Ot I25. 10 ATHSCL HEART DISEASE OF [place] CORONARY 08/29/2019 AGUSTIN RAZA MD Ot J44. 9 CHRONIC OBSTRUCTIVE PULMONARY DISEASE, U 08/29/2019 AGUSTIN RAZA MD Ot R00. 2 PALPITATIONS 08/29/2019 AGUSTIN RAZA MD Ot R51 HEADACHE 08/29/2019 AGUSTIN RAZA MD Ot Z72. 0 TOBACCO USE 08/29/2019 DAKOTAH KING Ot M25.51 2 PAIN IN LEFT SHOULDER 08/29/2019 SIRI FLANNERY Ot I25.10 ATHSCL HEART DISEASE OF [place] CORONARY 08/29/2019 TEODORO VAIL, SIRI Mccoy Ot J44.9 CHRONIC OBSTRUCTIVE PULMONARY DISEASE, U 08/29/2019 SIRI FLANNERY Ot K21.9 GASTRO-ESOPHAGEAL REFLUX DISEASE WITHOUT 08/29/2019 SELF CHIQUI JUNIOR Ot J44.9 CHRONIC OBSTRUCTIVE PULMONARY DISEASE, U 08/29/2019 SELF CHIQUI JUNIOR Ot R26.89 OTHER ABNORMALITIES OF GAIT AND MOBILITY 08/29/2019 SELF CHIQUI JUNIOR Ot R51 HEADACHE 08/29/2019 SELF CHIQUI JUNIOR Ot Z91.81 HISTORY OF FALLING 08/29/2019 SIRI FLANNERY Ot G47.33 OBSTRUCTIVE SLEEP APNEA (ADULT) (PEDIATR 08/29/2019 SIRI FLANNERY Ot I25.10 ATHSCL HEART DISEASE OF [place] CORONARY 08/29/2019 SIRI FLANNERY Ot 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 08/29/2019 SIRI FLANNERY Ot J44.9 CHRONIC OBSTRUCTIVE PULMONARY DISEASE, U 08/29/2019 SIRI FLANNERY Ot Z72.0 TOBACCO USE 08/29/2019 SABI HAN APRN Ot F17.210 NICOTINE DEPENDENCE, CIGARETTES, UNCOMPL 08/29/2019 SABI HAN APRN Ot I25.10 ATHSCL HEART DISEASE OF [place] CORONARY 08/29/2019 SABI HAN APRN Ot I51.7 CARDIOMEGALY 08/29/2019 SABI HAN APRN Ot J44.9 CHRONIC OBSTRUCTIVE PULMONARY DISEASE, U 08/29/2019 SABI HAN APRN Ot R16.2 HEPATOMEGALY WITH SPLENOMEGALY, NOT ELSE 08/29/2019 SABI HAN APRN Ot R91.8 OTHER NONSPECIFIC ABNORMAL FINDING OF [place] 08/29/2019 SABI HAN APRN Ot Z12.2 ENCNTR SCREEN FOR MALIGNANT NEOPLASM OF 08/29/2019 SELF CHIQUI JUNIOR Ot M25.51 1 PAIN IN RIGHT SHOULDER 08/29/2019 ROSINA ZURITA MD Ot 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, CIGARETTES, W OTH D 08/29/2019 ROSINA ZURITA MD Ot I70.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 08/29/2019 ROSINA ZURITA MD Ot 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 08/29/2019 ROSINA ZURITA MD Ot L97.212 NON-PRESSURE CHRONIC ULCER OF RIGHT CALF 08/29/2019 ROSINA ZURITA MD Ot T65.222A TOXIC EFFECT OF TOBACCO CIGARETTES, SELF 08/29/2019 SELF CHIQUI JUNIOR Ot M25.51 1 PAIN IN RIGHT SHOULDER 08/29/2019 SABI HAN APRN Ot G47.33 OBSTRUCTIVE SLEEP [place]NE[place] (ADULT) (PEDIATR 08/29/2019 SABI HAN APRN Ot J44.9 CHRONIC OBSTRUCTIVE PULMONARY DISEASE, U 08/29/2019 SABI HAN APRN Ot Z72.0 TOBACCO USE 08/29/2019 AGUSTIN RAZA MD, Ot G47. 33 OBSTRUCTIVE SLEEP APNEA (ADULT) (PEDIATR 08/29/2019 AGUSTIN RAZA MD Ot I25. 10 ATHSCL HEART DISEASE OF [place] CORONARY 08/29/2019 AGUSTIN RAZA MD, Ot J44. 9 CHRONIC OBSTRUCTIVE PULMONARY DISEASE, U 08/29/2019 AGUSTIN RAZA MD Ot R00. 2 PALPITATIONS 08/29/2019 AGUSTIN RAZA MD Ot R51 HEADACHE 08/29/2019 AGUSTIN RAZA MD Ot Z72. 0 TOBACCO USE 08/29/2019 DAKOTAH KING Ot M25.51 2 PAIN IN LEFT SHOULDER 08/29/2019 SIRI FLANNERY Ot I25.10 ATHSCL HEART DISEASE OF [place] CORONARY 08/29/2019 SIRI FLANNERY Ot J44.9 CHRONIC OBSTRUCTIVE PULMONARY DISEASE, U 08/29/2019 SIRI FLANNERY Ot K21.9 GASTRO-ESOPHAGEAL REFLUX DISEASE WITHOUT 08/29/2019 CHIQUI BERMAN MD, Ot J44.9 CHRONIC OBSTRUCTIVE PULMONARY DISEASE, U 08/29/2019 CHIQUI BERMAN MD Ot R26.89 OTHER ABNORMALITIES OF GAIT AND MOBILITY 08/29/2019 CHIQUI BERMAN MD Ot R51 HEADACHE 08/29/2019 CHIQUI BERMAN MD Ot Z91.81 HISTORY OF FALLING 08/29/2019 SIRI FLANNERY Ot G47.33 OBSTRUCTIVE SLEEP APNEA (ADULT) (PEDIATR 08/29/2019 SIRI FLANNERY Ot I25.10 ATHSCL HEART DISEASE OF [place] CORONARY 08/29/2019 SIRI FLANNERY Ot 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 08/29/2019 SIRI FLANNERY Ot J44.9 CHRONIC OBSTRUCTIVE PULMONARY DISEASE, U 08/29/2019 SIRI FLANNERY Ot Z72.0 TOBACCO USE 08/29/2019 SABI HAN APRN Ot F17.210 NICOTINE DEPENDENCE, CIGARETTES, UNCOMPL 08/29/2019 SABI HAN APRN Ot I25.10 ATHSCL HEART DISEASE OF [place] CORONARY 08/29/2019 SABI HAN APRN Ot I51.7 CARDIOMEGALY 08/29/2019 SABI HAN APRN Ot J44.9 CHRONIC OBSTRUCTIVE PULMONARY DISEASE, U 08/29/2019 SABI HAN APRN Ot R16.2 HEPATOMEGALY WITH SPLENOMEGALY, NOT ELSE 08/29/2019 SABI HAN APRN Ot R91.8 OTHER NONSPECIFIC ABNORMAL FINDING OF [place] 08/29/2019 SABI HAN APRN Ot Z12.2 ENCNTR SCREEN FOR MALIGNANT NEOPLASM OF 08/29/2019 CHIQUI BERMAN MD Ot M25.51 1 PAIN IN RIGHT SHOULDER 08/29/2019 ROSINA ZURITA MD Ot 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, CIGARETTES, W OTH D 08/29/2019 ROSINA ZURITA MD Ot I70.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 08/29/2019 ROSINA ZURITA MD Ot 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 08/29/2019 ROSINA ZURITA MD Ot L97.212 NON-PRESSURE CHRONIC ULCER OF RIGHT CALF 08/29/2019 ROSINA ZURITA MD Ot T65.222A TOXIC EFFECT OF TOBACCO CIGARETTES, SELF 08/30/2019 CHIQUI BERMAN MD Ot M25.51 1 PAIN IN RIGHT SHOULDER 08/31/2019 SABI HAN APRN Ot G47.33 OBSTRUCTIVE SLEEP [place]NE[place] (ADULT) (PEDIATR 08/31/2019 SABI HAN APRN Ot J44.9 CHRONIC OBSTRUCTIVE PULMONARY DISEASE, U 08/31/2019 SABI HAN APRN Ot Z72.0 TOBACCO USE 08/31/2019 AGUSTIN RAZA MD Ot G47. 33 OBSTRUCTIVE SLEEP APNEA (ADULT) (PEDIATR 08/31/2019 LUZ MARINA JUNIOR, AGUSTIN Mai Ot I25. 10 ATHSCL HEART DISEASE OF [place] CORONARY 08/31/2019 AGUSTIN RAZA MD Ot J44. 9 CHRONIC OBSTRUCTIVE PULMONARY DISEASE, U 08/31/2019 AGUSTIN RAZA MD Ot R00. 2 PALPITATIONS 08/31/2019 AGUSTIN RAZA MD Ot R51 HEADACHE 08/31/2019 AGUSTIN RAZA MD Ot Z72. 0 TOBACCO USE 08/31/2019 DAKOTAH KING Ot M25.51 2 PAIN IN LEFT SHOULDER 08/31/2019 SIRI FLANNERY Ot I25.10 ATHSCL HEART DISEASE OF [place] CORONARY 08/31/2019 SIRI FLANNERY Ot J44.9 CHRONIC OBSTRUCTIVE PULMONARY DISEASE, U 08/31/2019 SIRI FLANNERY Ot K21.9 GASTRO-ESOPHAGEAL REFLUX DISEASE WITHOUT 08/31/2019 CHIQUI BERMAN MD Ot J44.9 CHRONIC OBSTRUCTIVE PULMONARY DISEASE, U 08/31/2019 CHIQUI BERMAN MD Ot R26.89 OTHER ABNORMALITIES OF GAIT AND MOBILITY 08/31/2019 CHIQUI BERMAN MD Ot R51 HEADACHE 08/31/2019 CHIQUI BERMAN MD Ot Z91.81 HISTORY OF FALLING 08/31/2019 SIRI FLANNERY Ot G47.33 OBSTRUCTIVE SLEEP APNEA (ADULT) (PEDIATR 08/31/2019 TEODORO VAIL, SIRI Mccoy Ot I25.10 ATHSCL HEART DISEASE OF [place] CORONARY 08/31/2019 SIRI FLANNERY Ot 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 08/31/2019 SIRI FLANNERY Ot J44.9 CHRONIC OBSTRUCTIVE PULMONARY DISEASE, U 08/31/2019 SIRI FLANNERY Ot Z72.0 TOBACCO USE 08/31/2019 SABI HAN APRN Ot F17.210 NICOTINE DEPENDENCE, CIGARETTES, UNCOMPL 08/31/2019 SABI HAN APRN Ot I25.10 ATHSCL HEART DISEASE OF [place] CORONARY 08/31/2019 SABI HAN APRN Ot I51.7 CARDIOMEGALY 08/31/2019 SABI HAN APRN Ot J44.9 CHRONIC OBSTRUCTIVE PULMONARY DISEASE, U 08/31/2019 SABI HAN APRN Ot R16.2 HEPATOMEGALY WITH SPLENOMEGALY, NOT ELSE 08/31/2019 SABI HAN APRN Ot R91.8 OTHER NONSPECIFIC ABNORMAL FINDING OF [place] 08/31/2019 SABI HAN APRN Ot Z12.2 ENCNTR SCREEN FOR MALIGNANT NEOPLASM OF 08/31/2019 SELF CHIQUI JUNIOR Ot M25.51 1 PAIN IN RIGHT SHOULDER 08/31/2019 ROSINA ZURITA MD Ot 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, CIGARETTES, W OTH D 08/31/2019 ROSINA ZURITA MD Ot I70.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 08/31/2019 ROSINA ZURITA MD Ot 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 08/31/2019 ROSINA ZURITA MD Ot L97.212 NON-PRESSURE CHRONIC ULCER OF RIGHT CALF 08/31/2019 ROSINA ZURITA MD Ot T65.222A TOXIC EFFECT OF TOBACCO CIGARETTES, SELF 09/01/2019 SABI HAN APRN Ot G47.33 OBSTRUCTIVE SLEEP APNEA (ADULT) (PEDIATR 09/01/2019 SABI HAN APRN Ot J44.9 CHRONIC OBSTRUCTIVE PULMONARY DISEASE, U 09/01/2019 SABI HAN APRN Ot Z72.0 TOBACCO USE 09/01/2019 AGUSTIN RAZA MD Ot G47. 33 OBSTRUCTIVE SLEEP APNEA (ADULT) (PEDIATR 09/01/2019 AGUSTIN RAZA MD Ot I25. 10 ATHSCL HEART DISEASE OF [place] CORONARY 09/01/2019 AGUSTIN RAZA MD Ot J44. 9 CHRONIC OBSTRUCTIVE PULMONARY DISEASE, U 09/01/2019 AGUSTIN RAZA MD Ot R00. 2 PALPITATIONS 09/01/2019 AGUSTIN RAZA MD Ot R51 HEADACHE 09/01/2019 AGUSTIN RAZA MD Ot Z72. 0 TOBACCO USE 09/01/2019 DAKOTAH KING Ot M25.51 2 PAIN IN LEFT SHOULDER 09/01/2019 SIRI FLANNERY Ot I25.10 ATHSCL HEART DISEASE OF [place] CORONARY 09/01/2019 SIRI FLANNERY Ot J44.9 CHRONIC OBSTRUCTIVE PULMONARY DISEASE, U 09/01/2019 SIRI FLANNERY Ot K21.9 GASTRO-ESOPHAGEAL REFLUX DISEASE WITHOUT 09/01/2019 CHIQUI BERMAN MD Ot J44.9 CHRONIC OBSTRUCTIVE PULMONARY DISEASE, U 09/01/2019 SELF CHIQUI JUNIOR Ot R26.89 OTHER ABNORMALITIES OF GAIT AND MOBILITY 09/01/2019 SELF CHIQUI JUNIOR Ot R51 HEADACHE 09/01/2019 SELF CHIQUI JUNIOR Ot Z91.81 HISTORY OF FALLING 09/01/2019 SIRI FLANNERY Ot G47.33 OBSTRUCTIVE SLEEP APNEA (ADULT) (PEDIATR 09/01/2019 SIRI FLANNERY Ot I25.10 ATHSCL HEART DISEASE OF [place] CORONARY 09/01/2019 SIRI FLANNERY Ot 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 09/01/2019 SIRI FLANNERY Ot J44.9 CHRONIC OBSTRUCTIVE PULMONARY DISEASE, U 09/01/2019 SIRI FLANNERY Ot Z72.0 TOBACCO USE 09/01/2019 SABI HAN APRN Ot F17.210 NICOTINE DEPENDENCE, CIGARETTES, UNCOMPL 09/01/2019 SABI HAN APRN Ot I25.10 ATHSCL HEART DISEASE OF [place] CORONARY 09/01/2019 SABI HAN APRN Ot I51.7 CARDIOMEGALY 09/01/2019 SABI HAN APRN Ot J44.9 CHRONIC OBSTRUCTIVE PULMONARY DISEASE, U 09/01/2019 SABI HAN APRN Ot R16.2 HEPATOMEGALY WITH SPLENOMEGALY, NOT ELSE 09/01/2019 SABI HAN APRN Ot R91.8 OTHER NONSPECIFIC ABNORMAL FINDING OF [place] 09/01/2019 SABI HAN APRN Ot Z12.2 ENCNTR SCREEN FOR MALIGNANT NEOPLASM OF 09/01/2019 CHIQUI BERMAN MD Ot M25.51 1 PAIN IN RIGHT SHOULDER 09/01/2019 PARMINDER JUNIOR, ROSINA Yin Ot 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, CIGARETTES, W OTH D 09/01/2019 ROSINA ZURITA MD Ot I70.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 09/01/2019 ROSINA ZURITA MD, Ot 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 09/01/2019 ROSINA ZURITA MD, Ot L97.212 NON-PRESSURE CHRONIC ULCER OF RIGHT CALF 09/01/2019 ROSINA ZURITA MD, Ot T65.222A TOXIC EFFECT OF TOBACCO CIGARETTES, SELF 09/02/2019 ROSINA ZURITA MD, Ot 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, CIGARETTES, W OTH D 09/02/2019 ROSINA ZURITA MD, Ot 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 09/02/2019 ROSINA ZURITA MD, Ot 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 09/02/2019 ROSINA ZURITA MD, Ot L97.212 NON-PRESSURE CHRONIC ULCER OF RIGHT CALF 09/02/2019 ROSINA ZURITA MD, Ot T65.222A TOXIC EFFECT OF TOBACCO CIGARETTES, SELF 09/07/2019 SABI HAN APRN Ot G47.33 OBSTRUCTIVE SLEEP APNEA (ADULT) (PEDIATR 09/07/2019 SABI HAN APRN Ot J44.9 CHRONIC OBSTRUCTIVE PULMONARY DISEASE, U 09/07/2019 SABI HAN APRN Ot Z72.0 TOBACCO USE 09/07/2019 AGUSTIN RAZA MD Ot G47. 33 OBSTRUCTIVE SLEEP APNEA (ADULT) (PEDIATR 09/07/2019 AGUSTIN RAZA MD Ot I25. 10 ATHSCL HEART DISEASE OF [place] CORONARY 09/07/2019 AGUSTIN RAZA MD Ot J44. 9 CHRONIC OBSTRUCTIVE PULMONARY DISEASE, U 09/07/2019 AGUSTIN RAZA MD Ot R00. 2 PALPITATIONS 09/07/2019 AGUSTIN RAZA MD Ot R51 HEADACHE 09/07/2019 AGUSTIN RAZA MD Ot Z72. 0 TOBACCO USE 09/07/2019 DAKOTAH KING Ot M25.51 2 PAIN IN LEFT SHOULDER 09/07/2019 SIRI FLANNERY Ot I25.10 ATHSCL HEART DISEASE OF [place] CORONARY 09/07/2019 SIRI FLANNERY Ot J44.9 CHRONIC OBSTRUCTIVE PULMONARY DISEASE, U 09/07/2019 SIRI FLANNERY Ot K21.9 GASTRO-ESOPHAGEAL REFLUX DISEASE WITHOUT 09/07/2019 CHIQUI BERMAN MD Ot J44.9 CHRONIC OBSTRUCTIVE PULMONARY DISEASE, U 09/07/2019 CHIQUI BERMAN MD Ot R26.89 OTHER ABNORMALITIES OF GAIT AND MOBILITY 09/07/2019 CHIQUI BERMAN MD Ot R51 HEADACHE 09/07/2019 CHIQUI BERMAN MD Ot Z91.81 HISTORY OF FALLING 09/07/2019 SIRI FLANNERY Ot G47.33 OBSTRUCTIVE SLEEP APNEA (ADULT) (PEDIATR 09/07/2019 SIRI FLANNERY Ot I25.10 ATHSCL HEART DISEASE OF [place] CORONARY 09/07/2019 SIRI FLANNERY Ot 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 09/07/2019 SIRI FLANNERY Ot J44.9 CHRONIC OBSTRUCTIVE PULMONARY DISEASE, U 09/07/2019 SIRI FLANNERY Ot Z72.0 TOBACCO USE 09/07/2019 SABI HAN APRN Ot F17.210 NICOTINE DEPENDENCE, CIGARETTES, UNCOMPL 09/07/2019 SABI HAN APRN Ot I25.10 ATHSCL HEART DISEASE OF [place] CORONARY 09/07/2019 SABI HAN APRN Ot I51.7 CARDIOMEGALY 09/07/2019 SABI HAN APRN Ot J44.9 CHRONIC OBSTRUCTIVE PULMONARY DISEASE, U 09/07/2019 SABI HAN APRN Ot R16.2 HEPATOMEGALY WITH SPLENOMEGALY, NOT ELSE 09/07/2019 SABI HAN APRN Ot R91.8 OTHER NONSPECIFIC ABNORMAL FINDING OF [place] 09/07/2019 SABI HAN APRN Ot Z12.2 ENCNTR SCREEN FOR MALIGNANT NEOPLASM OF 09/07/2019 CHIQUI BERMAN MD Ot M25.51 1 PAIN IN RIGHT SHOULDER 09/07/2019 ROSINA ZURITA MD Ot 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, CIGARETTES, W OTH D 09/07/2019 ROSINA ZURITA MD Ot I70.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 09/07/2019 ROSINA ZURITA MD Ot 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 09/07/2019 ROSINA ZURITA MD Ot L97.212 NON-PRESSURE CHRONIC ULCER OF RIGHT CALF 09/07/2019 ROSINA ZURITA MD Ot T65.222A TOXIC EFFECT OF TOBACCO CIGARETTES, SELF 09/07/2019 ROSINA ZURITA MD, Ot 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, CIGARETTES, W OTH D 09/07/2019 ROSINA ZURITA MD, Ot 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 09/07/2019 ROSINA ZURITA MD, Ot 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 09/07/2019 ROSINA ZURITA MD, Ot L97.212 NON-PRESSURE CHRONIC ULCER OF RIGHT CALF 09/07/2019 ROSINA ZURITA MD, Ot T65.222A TOXIC EFFECT OF TOBACCO CIGARETTES, SELF 09/08/2019 SABI HAN APRN Ot G47.33 OBSTRUCTIVE SLEEP APNEA (ADULT) (PEDIATR 09/08/2019 SABI HAN APRN Ot J44.9 CHRONIC OBSTRUCTIVE PULMONARY DISEASE, U 09/08/2019 SABI HAN APRN Ot Z72.0 TOBACCO USE 09/08/2019 AGUSTIN RAZA MD, Ot G47. 33 OBSTRUCTIVE SLEEP APNEA (ADULT) (PEDIATR 09/08/2019 AGUSTIN RAZA MD Ot I25. 10 ATHSCL HEART DISEASE OF [place] CORONARY 09/08/2019 AGUSTIN RAZA MD, Ot J44. 9 CHRONIC OBSTRUCTIVE PULMONARY DISEASE, U 09/08/2019 AGUSTIN RAZA MD Ot R00. 2 PALPITATIONS 09/08/2019 AGUSTIN RAZA MD Ot R51 HEADACHE 09/08/2019 AGUSTIN RAZA MD Ot Z72. 0 TOBACCO USE 09/08/2019 DAKOTAH KING Ot M25.51 2 PAIN IN LEFT SHOULDER 09/08/2019 SIRI FLANNERY Ot I25.10 ATHSCL HEART DISEASE OF [place] CORONARY 09/08/2019 SIRI FLANNERY Ot J44.9 CHRONIC OBSTRUCTIVE PULMONARY DISEASE, U 09/08/2019 SIRI FLANNERY Ot K21.9 GASTRO-ESOPHAGEAL REFLUX DISEASE WITHOUT 09/08/2019 CHIQUI BERMAN MD, Ot J44.9 CHRONIC OBSTRUCTIVE PULMONARY DISEASE, U 09/08/2019 CHIQUI BERMAN MD Ot R26.89 OTHER ABNORMALITIES OF GAIT AND MOBILITY 09/08/2019 CHIQUI BERMAN MD Ot R51 HEADACHE 09/08/2019 CHIQUI BERMAN MD Ot Z91.81 HISTORY OF FALLING 09/08/2019 SIRI FLANNERY Ot G47.33 OBSTRUCTIVE SLEEP APNEA (ADULT) (PEDIATR 09/08/2019 SIRI FLANNERY Ot I25.10 ATHSCL HEART DISEASE OF [place] CORONARY 09/08/2019 SIRI FLANNERY Ot 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 09/08/2019 SIRI FLANNERY Ot J44.9 CHRONIC OBSTRUCTIVE PULMONARY DISEASE, U 09/08/2019 SIRI FLANNERY Ot Z72.0 TOBACCO USE 09/08/2019 SABI HAN APRN Ot F17.210 NICOTINE DEPENDENCE, CIGARETTES, UNCOMPL 09/08/2019 SABI HAN APRN Ot I25.10 ATHSCL HEART DISEASE OF [place] CORONARY 09/08/2019 SABI HAN APRN Ot I51.7 CARDIOMEGALY 09/08/2019 SABI HAN APRN Ot J44.9 CHRONIC OBSTRUCTIVE PULMONARY DISEASE, U 09/08/2019 SABI HAN APRN Ot R16.2 HEPATOMEGALY WITH SPLENOMEGALY, NOT ELSE 09/08/2019 SABI HAN APRN Ot R91.8 OTHER NONSPECIFIC ABNORMAL FINDING OF [place] 09/08/2019 SABI HAN APRN Ot Z12.2 ENCNTR SCREEN FOR MALIGNANT NEOPLASM OF 09/08/2019 CHIQUI BERMAN MD Ot M25.51 1 PAIN IN RIGHT SHOULDER 09/08/2019 ROSINA ZURITA MD Ot 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, CIGARETTES, W OTH D 09/08/2019 ROSINA ZURITA MD Ot I70.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 09/08/2019 ROSINA ZURITA MD Ot 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 09/08/2019 ROSINA ZURITA MD Ot L97.212 NON-PRESSURE CHRONIC ULCER OF RIGHT CALF 09/08/2019 ROSINA ZURITA MD Ot T65.222A TOXIC EFFECT OF TOBACCO CIGARETTES, SELF 09/08/2019 ROSINA ZURITA MD Ot 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, CIGARETTES, W OTH D 09/08/2019 ROSINA ZURITA MD Ot 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 09/08/2019 ROSINA ZURITA MD Ot 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 09/08/2019 ROSINA ZURITA MD Ot L97.212 NON-PRESSURE CHRONIC ULCER OF RIGHT CALF 09/08/2019 ROSINA ZURITA MD Ot T65.222A TOXIC EFFECT OF TOBACCO CIGARETTES, SELF 09/09/2019 ROSINA ZURITA MD Ot 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, CIGARETTES, W OTH D 09/09/2019 ROSINA ZURITA MD, Ot 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 09/09/2019 ROSINA ZURITA MD, Ot L97.212 NON-PRESSURE CHRONIC ULCER OF RIGHT CALF 09/09/2019 ROSINA ZURITA MD, Ot T65.222A TOXIC EFFECT OF TOBACCO CIGARETTES, SELF 09/12/2019 SABI HAN APRN Ot G47.33 OBSTRUCTIVE SLEEP APNEA (ADULT) (PEDIATR 09/12/2019 SABI HAN APRN Ot J44.9 CHRONIC OBSTRUCTIVE PULMONARY DISEASE, U 09/12/2019 SABI HNA APRN Ot Z72.0 TOBACCO USE 09/12/2019 AGUSTIN RAZA MD, Ot G47. 33 OBSTRUCTIVE SLEEP APNEA (ADULT) (PEDIATR 09/12/2019 AGUSTIN RAZA MD Ot I25. 10 ATHSCL HEART DISEASE OF [place] CORONARY 09/12/2019 AGUSTIN RAZA MD, Ot J44. 9 CHRONIC OBSTRUCTIVE PULMONARY DISEASE, U 09/12/2019 AGUSTIN RAZA MD Ot R00. 2 PALPITATIONS 09/12/2019 AGUSTIN RAZA MD Ot R51 HEADACHE 09/12/2019 AGUSTIN RAZA MD Ot Z72. 0 TOBACCO USE 09/12/2019 DAKOTAH KING Ot M25.51 2 PAIN IN LEFT SHOULDER 09/12/2019 SIRI FLANNERY Ot I25.10 ATHSCL HEART DISEASE OF [place] CORONARY 09/12/2019 SIRI FLANNERY Ot J44.9 CHRONIC OBSTRUCTIVE PULMONARY DISEASE, U 09/12/2019 SIRI FLANNERY Ot K21.9 GASTRO-ESOPHAGEAL REFLUX DISEASE WITHOUT 09/12/2019 CHIQUI BERMAN MD, Ot J44.9 CHRONIC OBSTRUCTIVE PULMONARY DISEASE, U 09/12/2019 CHIQUI BERMAN MD Ot R26.89 OTHER ABNORMALITIES OF GAIT AND MOBILITY 09/12/2019 SELF CHIQUI JUNIOR Ot R51 HEADACHE 09/12/2019 SELF CHIQUI JUNIOR Ot Z91.81 HISTORY OF FALLING 09/12/2019 SIRI FLANNERY Ot G47.33 OBSTRUCTIVE SLEEP APNEA (ADULT) (PEDIATR 09/12/2019 SIRI FLANNERY Ot I25.10 ATHSCL HEART DISEASE OF [place] CORONARY 09/12/2019 SIRI FLANNERY Ot 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 09/12/2019 SIRI FLANNERY Ot J44.9 CHRONIC OBSTRUCTIVE PULMONARY DISEASE, U 09/12/2019 SIRI FLANNERY Ot Z72.0 TOBACCO USE 09/12/2019 SABI HAN APRN Ot F17.210 NICOTINE DEPENDENCE, CIGARETTES, UNCOMPL 09/12/2019 SABI HAN APRN Ot I25.10 ATHSCL HEART DISEASE OF [place] CORONARY 09/12/2019 SABI HAN APRN Ot I51.7 CARDIOMEGALY 09/12/2019 SABI HAN APRN Ot J44.9 CHRONIC OBSTRUCTIVE PULMONARY DISEASE, U 09/12/2019 SABI HAN APRN Ot R16.2 HEPATOMEGALY WITH SPLENOMEGALY, NOT ELSE 09/12/2019 SABI HAN APRN Ot R91.8 OTHER NONSPECIFIC ABNORMAL FINDING OF [place] 09/12/2019 SABI HAN APRN Ot Z12.2 ENCNTR SCREEN FOR MALIGNANT NEOPLASM OF 09/12/2019 CHIQUI BERMAN MD Ot M25.51 1 PAIN IN RIGHT SHOULDER 09/12/2019 ROSINA ZURITA MD Ot 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, CIGARETTES, W OTH D 09/12/2019 ROSINA ZURITA MD Ot I70.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 09/12/2019 ROSINA ZURITA MD Ot 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 09/12/2019 ROSINA ZURITA MD Ot L97.212 NON-PRESSURE CHRONIC ULCER OF RIGHT CALF 09/12/2019 ROSINA ZURITA MD Ot T65.222A TOXIC EFFECT OF TOBACCO CIGARETTES, SELF 09/12/2019 ROSINA ZURITA MD Ot 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, CIGARETTES, W OTH D 09/12/2019 ROSINA ZURITA MD, Ot 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 09/12/2019 ROSINA ZURITA MD, Ot 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 09/12/2019 ROSINA ZURITA MD, Ot L97.212 NON-PRESSURE CHRONIC ULCER OF RIGHT CALF 09/12/2019 ROSINA ZURITA MD, Ot T65.222A TOXIC EFFECT OF TOBACCO CIGARETTES, SELF 09/12/2019 ROSINA ZURITA MD, Ot 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, CIGARETTES, W OTH D 09/12/2019 ROSINA ZURITA MD, Ot 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 09/12/2019 ROSINA ZURITA MD, Ot L97.212 NON-PRESSURE CHRONIC ULCER OF RIGHT CALF 09/12/2019 ROSINA ZURITA MD, Ot T65.222A TOXIC EFFECT OF TOBACCO CIGARETTES, SELF 09/12/2019 SABI HAN APRN Ot G47.33 OBSTRUCTIVE SLEEP APNEA (ADULT) (PEDIATR 09/12/2019 SABI HAN APRN Ot J44.9 CHRONIC OBSTRUCTIVE PULMONARY DISEASE, U 09/12/2019 SABI HAN APRN Ot Z72.0 TOBACCO USE 09/12/2019 AGUSTIN RAZA MD, Ot G47. 33 OBSTRUCTIVE SLEEP APNEA (ADULT) (PEDIATR 09/12/2019 AGUSTIN RAZA MD Ot I25. 10 ATHSCL HEART DISEASE OF [place] CORONARY 09/12/2019 AGUSTIN RAZA MD Ot J44. 9 CHRONIC OBSTRUCTIVE PULMONARY DISEASE, U 09/12/2019 AGUSTIN RAZA MD Ot R00. 2 PALPITATIONS 09/12/2019 AGUSTIN RAZA MD Ot R51 HEADACHE 09/12/2019 AGUSTIN RAZA MD Ot Z72. 0 TOBACCO USE 09/12/2019 DAKOTAH KING Ot M25.51 2 PAIN IN LEFT SHOULDER 09/12/2019 SIRI FLANNERY Ot I25.10 ATHSCL HEART DISEASE OF [place] CORONARY 09/12/2019 SIRI FLANNERY Ot J44.9 CHRONIC OBSTRUCTIVE PULMONARY DISEASE, U 09/12/2019 SIRI FLANNERY Ot K21.9 GASTRO-ESOPHAGEAL REFLUX DISEASE WITHOUT 09/12/2019 SELF CHIQUI JUNIOR Ot J44.9 CHRONIC OBSTRUCTIVE PULMONARY DISEASE, U 09/12/2019 SELF CHIQUI JUNIOR Ot R26.89 OTHER ABNORMALITIES OF GAIT AND MOBILITY 09/12/2019 SELF CHIQUI JUNIOR Ot R51 HEADACHE 09/12/2019 SELF CHIQUI JUNIOR Ot Z91.81 HISTORY OF FALLING 09/12/2019 SIRI FLANNERY Ot G47.33 OBSTRUCTIVE SLEEP APNEA (ADULT) (PEDIATR 09/12/2019 SIRI FLANNERY Ot I25.10 ATHSCL HEART DISEASE OF [place] CORONARY 09/12/2019 SIRI FLANNERY Ot 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 09/12/2019 SIRI FLANNERY Ot J44.9 CHRONIC OBSTRUCTIVE PULMONARY DISEASE, U 09/12/2019 SIRI FLANNERY Ot Z72.0 TOBACCO USE 09/12/2019 SABI HAN APRN Ot F17.210 NICOTINE DEPENDENCE, CIGARETTES, UNCOMPL 09/12/2019 SABI HAN APRN Ot I25.10 ATHSCL HEART DISEASE OF [place] CORONARY 09/12/2019 SABI HAN APRN Ot I51.7 CARDIOMEGALY 09/12/2019 SABI HAN APRN Ot J44.9 CHRONIC OBSTRUCTIVE PULMONARY DISEASE, U 09/12/2019 SABI HAN APRN Ot R16.2 HEPATOMEGALY WITH SPLENOMEGALY, NOT ELSE 09/12/2019 SABI HAN APRN Ot R91.8 OTHER NONSPECIFIC ABNORMAL FINDING OF [place] 09/12/2019 SABI HAN APRN Ot Z12.2 ENCNTR SCREEN FOR MALIGNANT NEOPLASM OF 09/12/2019 SELF CHIQUI JUNIOR Ot M25.51 1 PAIN IN RIGHT SHOULDER 09/12/2019 ROSINA ZURITA MD Ot 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, CIGARETTES, W OTH D 09/12/2019 ROSINA ZURITA MD Ot I70.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 09/12/2019 ROSINA ZURITA MD Ot 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 09/12/2019 ROSINA ZURITA MD Ot L97.212 NON-PRESSURE CHRONIC ULCER OF RIGHT CALF 09/12/2019 ROSINA ZURITA MD, Ot T65.222A TOXIC EFFECT OF TOBACCO CIGARETTES, SELF 09/12/2019 ROSINA ZURITA MD, Ot 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, CIGARETTES, W OTH D 09/12/2019 ROSINA ZURITA MD Ot 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 09/12/2019 ROSINA ZURITA MD Ot 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 09/12/2019 ROSINA ZURITA MD, Ot L97.212 NON-PRESSURE CHRONIC ULCER OF RIGHT CALF 09/12/2019 ROSINA ZURITA MD, Ot T65.222A TOXIC EFFECT OF TOBACCO CIGARETTES, SELF 09/12/2019 ROSINA ZURITA MD, Ot 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, CIGARETTES, W OTH D 09/12/2019 ROSINA ZURITA MD, Ot 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 09/12/2019 ROSINA ZURITA MD, Ot L97.212 NON-PRESSURE CHRONIC ULCER OF RIGHT CALF 09/12/2019 ROSINA ZURITA MD, Ot T65.222A TOXIC EFFECT OF TOBACCO CIGARETTES, SELF 09/13/2019 SABI HAN ROOM CLERK Ot G47.36 SLEEP RELATED HYPOVENTILATION IN CONDITI 09/13/2019 SABI HAN ROOM CLERK Ot G47.50 PARASOMNIA, UNSPECIFIED 09/13/2019 SABI HAN ROOM CLERK Ot J44.9 CHRONIC OBSTRUCTIVE PULMONARY DISEASE, U 09/13/2019 SABI HAN ROOM CLERK Ot J98.4 OTHER DISORDERS OF LUNG 09/13/2019 SABI HAN ROOM CLERK Ot R06.09 OTHER FORMS OF DYSPNEA 09/13/2019 SABI HAN ROOM CLERK Ot R09.02 HYPOXEMIA 09/13/2019 SABI HAN ROOM CLERK Ot R91.1 SOLITARY PULMONARY NODULE 09/13/2019 SABI HAN ROOM CLERK Ot Z72.0 TOBACCO USE 09/14/2019 ROSINA ZURITA MD, Ot 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, CIGARETTES, W OTH D 09/14/2019 ROSINA ZURITA MD Ot 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 09/14/2019 ROSINA ZURITA MD Ot L97.212 NON-PRESSURE CHRONIC ULCER OF RIGHT CALF 09/14/2019 ROSINA ZURITA MD, Ot T65.222A TOXIC EFFECT OF TOBACCO CIGARETTES, SELF 09/20/2019 CHIQUI BERMAN MD Ot M25.51 1 PAIN IN RIGHT SHOULDER 09/21/2019 SABI HAN APRN Ot G47.33 OBSTRUCTIVE SLEEP [place] (ADULT) (PEDIATR 09/21/2019 SABI HAN APRN Ot J44.9 CHRONIC OBSTRUCTIVE PULMONARY DISEASE, U 09/21/2019 SABI HAN APRN Ot Z72.0 TOBACCO USE 09/21/2019 AGUSTIN RAZA MD, Ot G47. 33 OBSTRUCTIVE SLEEP APNEA (ADULT) (PEDIATR 09/21/2019 AGUSTIN RAZA MD Ot I25. 10 ATHSCL HEART DISEASE OF [place] CORONARY 09/21/2019 AGUSTIN RAZA MD, Ot J44. 9 CHRONIC OBSTRUCTIVE PULMONARY DISEASE, U 09/21/2019 AGUSTIN RAZA MD Ot R00. 2 PALPITATIONS 09/21/2019 AGUSTIN RAZA MD Ot R51 HEADACHE 09/21/2019 AGUSTIN RAZA MD Ot Z72. 0 TOBACCO USE 09/21/2019 DAKOTAH KING Ot M25.51 2 PAIN IN LEFT SHOULDER 09/21/2019 SIRI FLANNERY Ot I25.10 ATHSCL HEART DISEASE OF [place] CORONARY 09/21/2019 SIRI FLANNERY Ot J44.9 CHRONIC OBSTRUCTIVE PULMONARY DISEASE, U 09/21/2019 SIRI FLANNERY Ot K21.9 GASTRO-ESOPHAGEAL REFLUX DISEASE WITHOUT 09/21/2019 CHIQUI BERMAN MD, Ot J44.9 CHRONIC OBSTRUCTIVE PULMONARY DISEASE, U 09/21/2019 CHIQUI BERMAN MD Ot R26.89 OTHER ABNORMALITIES OF GAIT AND MOBILITY 09/21/2019 CHIQUI BERMAN MD Ot R51 HEADACHE 09/21/2019 CHIQUI BERMAN MD Ot Z91.81 HISTORY OF FALLING 09/21/2019 SIRI FLANNERY Ot G47.33 OBSTRUCTIVE SLEEP APNEA (ADULT) (PEDIATR 09/21/2019 SIRI FLANNERY Ot I25.10 ATHSCL HEART DISEASE OF [place] CORONARY 09/21/2019 SIRI FLANNERY Ot 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 09/21/2019 SIRI FLANNERY Ot J44.9 CHRONIC OBSTRUCTIVE PULMONARY DISEASE, U 09/21/2019 SIRI FLANNERY Ot Z72.0 TOBACCO USE 09/21/2019 SABI HAN APRN Ot F17.210 NICOTINE DEPENDENCE, CIGARETTES, UNCOMPL 09/21/2019 SABI HAN APRN Ot I25.10 ATHSCL HEART DISEASE OF [place] CORONARY 09/21/2019 SABI HAN ROOM CLERK Ot I51.7 CARDIOMEGALY 09/21/2019 SABI HAN ROOM CLERK Ot J44.9 CHRONIC OBSTRUCTIVE PULMONARY DISEASE, U 09/21/2019 SABI HAN APRN Ot R16.2 HEPATOMEGALY WITH SPLENOMEGALY, NOT ELSE 09/21/2019 SABI HAN APRN Ot R91.8 OTHER NONSPECIFIC ABNORMAL FINDING OF [place] 09/21/2019 SABI HAN APRN Ot Z12.2 ENCNTR SCREEN FOR MALIGNANT NEOPLASM OF 09/21/2019 SABI HAN APRN Ot G47.36 SLEEP RELATED HYPOVENTILATION IN CONDITI 09/21/2019 SABI HAN ROOM CLERK Ot G47.50 PARASOMNIA, UNSPECIFIED 09/21/2019 SABI HAN APRN Ot J44.9 CHRONIC OBSTRUCTIVE PULMONARY DISEASE, U 09/21/2019 SABI HAN APRN Ot J98.4 OTHER DISORDERS OF LUNG 09/21/2019 SABI HAN ROOM CLERK Ot R06.09 OTHER FORMS OF DYSPNEA 09/21/2019 SABI HAN APRN Ot R09.02 HYPOXEMIA 09/21/2019 SABI HAN APRN Ot R91.1 SOLITARY PULMONARY NODULE 09/21/2019 SABI HAN APRN Ot Z72.0 TOBACCO USE 09/21/2019 CHIQUI BERMAN MD Ot M25.51 1 PAIN IN RIGHT SHOULDER 09/21/2019 ROSINA ZURITA MD Ot 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, CIGARETTES, W OTH D 09/21/2019 ROSINA ZURITA MD Ot I70.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 09/21/2019 ROSINA ZURITA MD Ot 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 09/21/2019 ROSINA ZURITA MD Ot L97.212 NON-PRESSURE CHRONIC ULCER OF RIGHT CALF 09/21/2019 ROSINA ZURITA MD, Ot T65.222A TOXIC EFFECT OF TOBACCO CIGARETTES, SELF 09/21/2019 ROSINA ZURITA MD, Ot 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, CIGARETTES, W OTH D 09/21/2019 ROSINA ZURITA MD, Ot 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 09/21/2019 ROSINA ZURITA MD, Ot 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 09/21/2019 ROSINA ZURITA MD, Ot L97.212 NON-PRESSURE CHRONIC ULCER OF RIGHT CALF 09/21/2019 ROSINA ZURITA MD, Ot T65.222A TOXIC EFFECT OF TOBACCO CIGARETTES, SELF 09/21/2019 ROSINA ZURITA MD, Ot 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, CIGARETTES, W OTH D 09/21/2019 ROSINA ZURITA MD, Ot 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 09/21/2019 ROSINA ZURITA MD, Ot L97.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 33 OBSTRUCTIVE SLEEP APNEA (ADULT) (PEDIATR 09/21/2019 AGUSTIN RAZA MD Ot I25. 10 ATHSCL HEART DISEASE OF [place] CORONARY 09/21/2019 AGUSTIN RAZA MD, Ot J44. 9 CHRONIC OBSTRUCTIVE PULMONARY DISEASE, U 09/21/2019 AGUSTIN RAZA MD Ot R00. 2 PALPITATIONS 09/21/2019 AGUSTIN RAZA MD Ot R51 HEADACHE 09/21/2019 AGUSTIN RAZA MD Ot Z72. 0 TOBACCO USE 09/21/2019 DAKOTAH KING Ot M25.51 2 PAIN IN LEFT SHOULDER 09/21/2019 SIRI FLANNERY Ot I25.10 ATHSCL HEART DISEASE OF [place] CORONARY 09/21/2019 SIRI FLANNERY Ot J44.9 CHRONIC OBSTRUCTIVE PULMONARY DISEASE, U 09/21/2019 SIRI FLANNERY Ot K21.9 GASTRO-ESOPHAGEAL REFLUX DISEASE WITHOUT 09/21/2019 SELF CHIQUI JUNIOR Ot J44.9 CHRONIC OBSTRUCTIVE PULMONARY DISEASE, U 09/21/2019 SELF CHIQUI JUNIOR Ot R26.89 OTHER ABNORMALITIES OF GAIT AND MOBILITY 09/21/2019 SELF CHIQUI JUNIOR Ot R51 HEADACHE 09/21/2019 SELF CHIQUI JUNIOR Ot Z91.81 HISTORY OF FALLING 09/21/2019 SIRI FLANNERY Ot G47.33 OBSTRUCTIVE SLEEP APNEA (ADULT) (PEDIATR 09/21/2019 SIRI FLANNERY Ot I25.10 ATHSCL HEART DISEASE OF [place] CORONARY 09/21/2019 SIRI FLANNERY Ot 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 09/21/2019 SIRI FLANNERY Ot J44.9 CHRONIC OBSTRUCTIVE PULMONARY DISEASE, U 09/21/2019 SIRI FLANNERY Ot Z72.0 TOBACCO USE 09/21/2019 SABI HAN APRN Ot F17.210 NICOTINE DEPENDENCE, CIGARETTES, UNCOMPL 09/21/2019 SABI HAN APRN Ot I25.10 ATHSCL HEART DISEASE OF [place] CORONARY 09/21/2019 SABI HAN APRN Ot I51.7 CARDIOMEGALY 09/21/2019 SABI HAN APRN Ot J44.9 CHRONIC OBSTRUCTIVE PULMONARY DISEASE, U 09/21/2019 SABI HAN APRN Ot R16.2 HEPATOMEGALY WITH SPLENOMEGALY, NOT ELSE 09/21/2019 SABI HAN APRN Ot R91.8 OTHER NONSPECIFIC ABNORMAL FINDING OF [place] 09/21/2019 SABI HAN APRN Ot Z12.2 ENCNTR SCREEN FOR MALIGNANT NEOPLASM OF 09/21/2019 SABI HAN APRN Ot G47.36 SLEEP RELATED HYPOVENTILATION IN CONDITI 09/21/2019 SABI HAN ROOM CLERK Ot G47.50 PARASOMNIA, UNSPECIFIED 09/21/2019 SABI HAN APRN Ot J44.9 CHRONIC OBSTRUCTIVE PULMONARY DISEASE, U 09/21/2019 SABI HAN APRN Ot J98.4 OTHER DISORDERS OF LUNG 09/21/2019 SABI HAN APRN Ot R06.09 OTHER FORMS OF DYSPNEA 09/21/2019 SABI HAN APRN Ot R09.02 HYPOXEMIA 09/21/2019 SABI HAN APRN Ot R91.1 SOLITARY PULMONARY NODULE 09/21/2019 SABI HAN APRN Ot Z72.0 TOBACCO USE 09/21/2019 CHIQUI BERMAN MD Ot M25.51 1 PAIN IN RIGHT SHOULDER 09/21/2019 ROSINA ZURITA MD, Ot 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, CIGARETTES, W OTH D 09/21/2019 ROSINA ZURITA MD, Ot I70.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 09/21/2019 ROSINA ZURITA MD, Ot 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 09/21/2019 ROSINA ZURITA MD, Ot L97.212 NON-PRESSURE CHRONIC ULCER OF RIGHT CALF 09/21/2019 ROSINA ZURITA MD, Ot T65.222A TOXIC EFFECT OF TOBACCO CIGARETTES, SELF 09/21/2019 ROSINA ZURITA MD, Ot 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, CIGARETTES, W OTH D 09/21/2019 ROSINA ZURITA MD Ot 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 09/21/2019 ROSINA ZURITA MD Ot 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 09/21/2019 ROSINA ZURITA MD, Ot L97.212 NON-PRESSURE CHRONIC ULCER OF RIGHT CALF 09/21/2019 ROSINA ZURITA MD, Ot T65.222A TOXIC EFFECT OF TOBACCO CIGARETTES, SELF 09/21/2019 ROSINA ZURITA MD, Ot 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, CIGARETTES, W OTH D 09/21/2019 ROSINA ZURITA MD Ot 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 09/21/2019 ROSINA ZURITA MD, Ot L97.212 NON-PRESSURE CHRONIC ULCER OF RIGHT CALF 09/21/2019 ROSINA ZURITA MD, Ot T65.222A TOXIC EFFECT OF TOBACCO CIGARETTES, SELF 09/21/2019 CHACHO LOPES MD Ot E78.00 PURE HYPERCHOLESTEROLEMIA, UNSPECIFIED 09/21/2019 CHACHO LOPES MD Ot F32.9 MAJOR DEPRESSIVE DISORDER, SINGLE EPISOD 09/21/2019 CHACHO LOPES MD, Ot G40.909 EPILEPSY, UNSP, NOT INTRACTABLE, WITHOUT 09/21/2019 CHACHO LOPES MD, Ot G89.29 OTHER CHRONIC PAIN 09/21/2019 CHACHO LOPES MD, Ot J44.9 CHRONIC OBSTRUCTIVE PULMONARY DISEASE, U 09/21/2019 CHACHO LOPES MD Ot K21.9 GASTRO-ESOPHAGEAL REFLUX DISEASE WITHOUT 09/21/2019 CHACHO LOPES MD, Ot M54.9 DORSALGIA, UNSPECIFIED 09/21/2019 CHACHO LOPES MD, Ot N1 9 UNSPECIFIED KIDNEY FAILURE 09/21/2019 CHACHO LOPES MD, Ot R14.0 ABDOMINAL DISTENSION (GASEOUS) 09/21/2019 CHACHO LOPES MD, Ot Z79.899 OTHER [facility] (CURRENT) DRUG THERAPY 09/21/2019 CHACHO LOPES MD, Ot Z85.3 PERSONAL HISTORY OF MALIGNANT NEOPLASM O 09/21/2019 CHACHO LOPES MD, Ot Z85.41 PERSONAL HISTORY OF MALIGNANT NEOPLASM O 09/21/2019 CHACHO LOPES MD, Ot Z88.5 ALLERGY STATUS TO NARCOTIC AGENT STATUS 09/21/2019 CHACHO LOPES MD, Ot Z88.8 ALLERGY STATUS TO OTH DRUG/MEDS/BIOL SUB 09/21/2019 CHACHO LOPES MD, Ot Z92.21 PERSONAL HISTORY OF ANTINEOPLASTIC CHEMO 09/21/2019 SABI HAN APRN Ot G47.33 OBSTRUCTIVE SLEEP APNEA (ADULT) (PEDIATR 09/21/2019 SABI HAN APRN Ot J44.9 CHRONIC OBSTRUCTIVE PULMONARY DISEASE, U 09/21/2019 SABI HAN APRN Ot Z72.0 TOBACCO USE 09/21/2019 AGUSTIN RAZA MD, Ot G47. 33 OBSTRUCTIVE SLEEP APNEA (ADULT) (PEDIATR 09/21/2019 AGUSTIN RAZA MD Ot I25. 10 ATHSCL HEART DISEASE OF [place] CORONARY 09/21/2019 AGUSTIN RAZA MD, Ot J44. 9 CHRONIC OBSTRUCTIVE PULMONARY DISEASE, U 09/21/2019 AGUSTIN RAZA MD Ot R00. 2 PALPITATIONS 09/21/2019 AGUSTIN RAZA MD Ot R51 HEADACHE 09/21/2019 AGUSTIN RAZA MD Ot Z72. 0 TOBACCO USE 09/21/2019 FERNANDODAKOTAH Ot M25.51 2 PAIN IN LEFT SHOULDER 09/21/2019 SIRI FLANNERY Ot I25.10 ATHSCL HEART DISEASE OF [place] CORONARY 09/21/2019 SIRI FLANNERY Ot J44.9 CHRONIC OBSTRUCTIVE PULMONARY DISEASE, U 09/21/2019 SIRI FLANNERY Ot K21.9 GASTRO-ESOPHAGEAL REFLUX DISEASE WITHOUT 09/21/2019 SELF CHIQUI JUNIOR Ot J44.9 CHRONIC OBSTRUCTIVE PULMONARY DISEASE, U 09/21/2019 SELF CHIQUI JUNIOR Ot R26.89 OTHER ABNORMALITIES OF GAIT AND MOBILITY 09/21/2019 SELF CHIQUI JUNIOR Ot R51 HEADACHE 09/21/2019 SELF CHIQUI JUNIOR Ot Z91.81 HISTORY OF FALLING 09/21/2019 SIRI FLANNERY Ot G47.33 OBSTRUCTIVE SLEEP APNEA (ADULT) (PEDIATR 09/21/2019 SIRI FLANNERY Ot I25.10 ATHSCL HEART DISEASE OF [place] CORONARY 09/21/2019 SIRI FLANNERY Ot 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 09/21/2019 SIRI FLANNERY Ot J44.9 CHRONIC OBSTRUCTIVE PULMONARY DISEASE, U 09/21/2019 SIRI FLANNERY Ot Z72.0 TOBACCO USE 09/21/2019 SABI HAN APRN Ot F17.210 NICOTINE DEPENDENCE, CIGARETTES, UNCOMPL 09/21/2019 SABI HAN APRN Ot I25.10 ATHSCL HEART DISEASE OF [place] CORONARY 09/21/2019 SABI HAN APRN Ot I51.7 CARDIOMEGALY 09/21/2019 SABI HAN APRN Ot J44.9 CHRONIC OBSTRUCTIVE PULMONARY DISEASE, U 09/21/2019 SABI HAN APRN Ot R16.2 HEPATOMEGALY WITH SPLENOMEGALY, NOT ELSE 09/21/2019 SABI HAN APRN Ot R91.8 OTHER NONSPECIFIC ABNORMAL FINDING OF [place] 09/21/2019 SABI HAN APRN Ot Z12.2 ENCNTR SCREEN FOR MALIGNANT NEOPLASM OF 09/21/2019 SABI HAN ROOM CLERK Ot G47.36 SLEEP RELATED HYPOVENTILATION IN CONDITI 09/21/2019 SABI HAN Sandra ROOM CLERK Ot G47.50 PARASOMNIA, UNSPECIFIED 09/21/2019 SABI HAN Sandra ROOM CLERK Ot J44.9 CHRONIC OBSTRUCTIVE PULMONARY DISEASE, U 09/21/2019 SABI HAN ROOM CLERK Ot J98.4 OTHER DISORDERS OF LUNG 09/21/2019 SABI HAN ROOM CLERK Ot R06.09 OTHER FORMS OF DYSPNEA 09/21/2019 SABI HAN ROOM CLERK Ot R09.02 HYPOXEMIA 09/21/2019 SABI HAN ROOM CLERK Ot R91.1 SOLITARY PULMONARY NODULE 09/21/2019 SABI HAN ROOM CLERK Ot Z72.0 TOBACCO USE 09/21/2019 CHIQUI BERMAN MD Ot M25.51 1 PAIN IN RIGHT SHOULDER 09/21/2019 ROSINA ZURITA MD Ot 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, CIGARETTES, W OTH D 09/21/2019 ROSINA ZURITA MD Ot I70.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 09/21/2019 ROSINA ZURITA MD Ot 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 09/21/2019 ROSINA ZURITA MD Ot L97.212 NON-PRESSURE CHRONIC ULCER OF RIGHT CALF 09/21/2019 ROSINA ZURITA MD Ot T65.222A TOXIC EFFECT OF TOBACCO CIGARETTES, SELF 09/21/2019 ROSINA ZURITA MD Ot 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, CIGARETTES, W OTH D 09/21/2019 ROSINA ZURITA MD Ot 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 09/21/2019 ROSINA ZURITA MD Ot 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 09/21/2019 ROSINA ZURITA MD Ot L97.212 NON-PRESSURE CHRONIC ULCER OF RIGHT CALF 09/21/2019 ROSINA ZURITA MD Ot T65.222A TOXIC EFFECT OF TOBACCO CIGARETTES, SELF 09/21/2019 ROSINA ZURITA MD Ot 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, CIGARETTES, W OTH D 09/21/2019 ROSINA ZURITA MD Ot 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 09/21/2019 ROSINA ZURITA MD Ot L97.212 NON-PRESSURE CHRONIC ULCER OF RIGHT CALF 09/21/2019 PARMINDER JUNIOR, ROSINA Yin Ot T65.222A TOXIC EFFECT OF TOBACCO CIGARETTES, SELF 09/22/2019 SABI HAN APRN Ot G47.33 OBSTRUCTIVE SLEEP APNEA (ADULT) (PEDIATR 09/22/2019 SABI HAN APRN Ot J44.9 CHRONIC OBSTRUCTIVE PULMONARY DISEASE, U 09/22/2019 SABI HAN APRN Ot Z72.0 TOBACCO USE 09/22/2019 AGUSTIN RAZA MD, Ot G47. 33 OBSTRUCTIVE SLEEP APNEA (ADULT) (PEDIATR 09/22/2019 AGUSTIN RAZA MD Ot I25. 10 ATHSCL HEART DISEASE OF [place] CORONARY 09/22/2019 AGUSTIN RAZA MD, Ot J44. 9 CHRONIC OBSTRUCTIVE PULMONARY DISEASE, U 09/22/2019 AGUSTIN RAZA MD Ot R00. 2 PALPITATIONS 09/22/2019 AGUSTIN RAZA MD Ot R51 HEADACHE 09/22/2019 AGUSTIN RAZA MD Ot Z72. 0 TOBACCO USE 09/22/2019 DAKOTAH KING Ot M25.51 2 PAIN IN LEFT SHOULDER 09/22/2019 SIRI FLANNERY Ot I25.10 ATHSCL HEART DISEASE OF [place] CORONARY 09/22/2019 SIRI FLANNERY Ot J44.9 CHRONIC OBSTRUCTIVE PULMONARY DISEASE, U 09/22/2019 SIRI FLANNERY Ot K21.9 GASTRO-ESOPHAGEAL REFLUX DISEASE WITHOUT 09/22/2019 CHIQUI BERMAN MD Ot J44.9 CHRONIC OBSTRUCTIVE PULMONARY DISEASE, U 09/22/2019 CHIQUI BERMAN MD Ot R26.89 OTHER ABNORMALITIES OF GAIT AND MOBILITY 09/22/2019 CHIQUI BERMAN MD Ot R51 HEADACHE 09/22/2019 CHIQUI BERMAN MD Ot Z91.81 HISTORY OF FALLING 09/22/2019 SIRI FLANNERY Ot G47.33 OBSTRUCTIVE SLEEP APNEA (ADULT) (PEDIATR 09/22/2019 SIRI FLANNERY Ot I25.10 ATHSCL HEART DISEASE OF [place] CORONARY 09/22/2019 SIRI FLANNERY Ot 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 09/22/2019 CASTILLO-MARCOS PA, SIRI K Ot J44.9 CHRONIC OBSTRUCTIVE PULMONARY DISEASE, U 09/22/2019 SIRI FLANNERY Ot Z72.0 TOBACCO USE 09/22/2019 SABI HAN ROOM CLERK Ot F17.210 NICOTINE DEPENDENCE, CIGARETTES, UNCOMPL 09/22/2019 SABI HAN ROOM CLERK Ot I25.10 ATHSCL HEART DISEASE OF [place] CORONARY 09/22/2019 SABI HAN ROOM CLERK Ot I51.7 CARDIOMEGALY 09/22/2019 SABI HAN ROOM CLERK Ot J44.9 CHRONIC OBSTRUCTIVE PULMONARY DISEASE, U 09/22/2019 SABI HAN ROOM CLERK Ot R16.2 HEPATOMEGALY WITH SPLENOMEGALY, NOT ELSE 09/22/2019 SABI HAN ROOM CLERK Ot R91.8 OTHER NONSPECIFIC ABNORMAL FINDING OF [place]AV[place] 09/22/2019 SABI HAN ROOM CLERK Ot Z12.2 ENCNTR SCREEN FOR MALIGNANT NEOPLASM OF 09/22/2019 SABI HAN APRN Ot G47.36 SLEEP RELATED HYPOVENTILATION IN CONDITI 09/22/2019 SABI HAN ROOM CLERK Ot G47.50 PARASOMNIA, UNSPECIFIED 09/22/2019 SABI HAN ROOM CLERK Ot J44.9 CHRONIC OBSTRUCTIVE PULMONARY DISEASE, U 09/22/2019 SABI HAN ROOM CLERK Ot J98.4 OTHER DISORDERS OF LUNG 09/22/2019 SABI HAN ROOM CLERK Ot R06.09 OTHER FORMS OF DYSPNEA 09/22/2019 SABI HAN ROOM CLERK Ot R09.02 HYPOXEMIA 09/22/2019 SABI HAN ROOM CLERK Ot R91.1 SOLITARY PULMONARY NODULE 09/22/2019 SABI HAN ROOM CLERK Ot Z72.0 TOBACCO USE 09/22/2019 CHIQUI BERMAN MD Ot M25.51 1 PAIN IN RIGHT SHOULDER 09/22/2019 ROSINA ZURITA MD Ot 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, CIGARETTES, W OTH D 09/22/2019 ROSINA ZURITA MD Ot I70.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 09/22/2019 ROSINA ZURITA MD Ot 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 09/22/2019 ROSINA ZURITA MD Ot L97.212 NON-PRESSURE CHRONIC ULCER OF RIGHT CALF 09/22/2019 ROSINA ZURITA MD, Ot T65.222A TOXIC EFFECT OF TOBACCO CIGARETTES, SELF 09/22/2019 ROSINA ZURITA MD, Ot 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, CIGARETTES, W OTH D 09/22/2019 ROSINA ZURITA MD, Ot 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 09/22/2019 ROSINA ZURITA MD, Ot 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 09/22/2019 ROSINA ZURITA MD, Ot L97.212 NON-PRESSURE CHRONIC ULCER OF RIGHT CALF 09/22/2019 ROSINA ZURITA MD, Ot T65.222A TOXIC EFFECT OF TOBACCO CIGARETTES, SELF 09/22/2019 ROSINA ZURITA MD, Ot 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, CIGARETTES, W OTH D 09/22/2019 ROSINA ZURITA MD, Ot 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 09/22/2019 ROSINA ZURITA MD, Ot L97.212 NON-PRESSURE CHRONIC ULCER OF RIGHT CALF 09/22/2019 ROSINA ZURITA MD, Ot T65.222A TOXIC EFFECT OF TOBACCO CIGARETTES, SELF 09/22/2019 CHACHO LOPES MD, Ot E78.00 PURE HYPERCHOLESTEROLEMIA, UNSPECIFIED 09/22/2019 CHACHO LOPES MD, Ot F32.9 MAJOR DEPRESSIVE DISORDER, SINGLE EPISOD 09/22/2019 CHACHO LOPES MD, Ot G40.909 EPILEPSY, UNSP, NOT INTRACTABLE, WITHOUT 09/22/2019 CHACHO LOPES MD, Ot G89.29 OTHER CHRONIC PAIN 09/22/2019 CHAHCO LOPES MD, Ot J44.9 CHRONIC OBSTRUCTIVE PULMONARY DISEASE, U 09/22/2019 CHACHO LOPES MD, Ot K21.9 GASTRO-ESOPHAGEAL REFLUX DISEASE WITHOUT 09/22/2019 CHACHO LOPES MD, Ot M54.9 DORSALGIA, UNSPECIFIED 09/22/2019 CHACHO LOPES MD, Ot N1 9 UNSPECIFIED KIDNEY FAILURE 09/22/2019 CHACHO LOPES MD, Ot R14.0 ABDOMINAL DISTENSION (GASEOUS) 09/22/2019 CHACHO LOPES MD, Ot Z79.899 OTHER ACTIVITIES ASSISTANT (CURRENT) DRUG THERAPY 09/22/2019 CHACHO LOPES MD, Ot Z85.3 PERSONAL HISTORY OF MALIGNANT NEOPLASM O 09/22/2019 CHACHO LOPES MD Ot Z85.41 PERSONAL HISTORY OF MALIGNANT NEOPLASM O 09/22/2019 CHACHO LOPES MD Ot Z88.5 ALLERGY STATUS TO NARCOTIC AGENT STATUS 09/22/2019 CHACHO LOPES MD Ot Z88.8 ALLERGY STATUS TO OTH DRUG/MEDS/BIOL SUB 09/22/2019 CHACHO LOPES MD Ot Z92.21 PERSONAL HISTORY OF ANTINEOPLASTIC CHEMO 09/23/2019 SABI HAN APRN Ot G47.33 OBSTRUCTIVE SLEEP APNEA (ADULT) (PEDIATR 09/23/2019 SABI HAN APRN Ot J44.9 CHRONIC OBSTRUCTIVE PULMONARY DISEASE, U 09/23/2019 SABI HAN APRN Ot Z72.0 TOBACCO USE 09/23/2019 AGUSTIN RAZA MD, Ot G47. 33 OBSTRUCTIVE SLEEP APNEA (ADULT) (PEDIATR 09/23/2019 AGUSTIN RAZA MD Ot I25. 10 ATHSCL HEART DISEASE OF [place] CORONARY 09/23/2019 AGUSTIN RAZA MD, Ot J44. 9 CHRONIC OBSTRUCTIVE PULMONARY DISEASE, U 09/23/2019 AGUSTIN RAZA MD Ot R00. 2 PALPITATIONS 09/23/2019 AGUSTIN RAZA MD Ot R51 HEADACHE 09/23/2019 AGUSTIN RAZA MD Ot Z72. 0 TOBACCO USE 09/23/2019 DAKOTAH KING Ot M25.51 2 PAIN IN LEFT SHOULDER 09/23/2019 SIRI FLANNERY Ot I25.10 ATHSCL HEART DISEASE OF [place] CORONARY 09/23/2019 SIRI FLANNERY Ot J44.9 CHRONIC OBSTRUCTIVE PULMONARY DISEASE, U 09/23/2019 SIRI FLANNERY Ot K21.9 GASTRO-ESOPHAGEAL REFLUX DISEASE WITHOUT 09/23/2019 CHIQUI BERMAN MD Ot J44.9 CHRONIC OBSTRUCTIVE PULMONARY DISEASE, U 09/23/2019 CHIQUI BERMAN MD Ot R26.89 OTHER ABNORMALITIES OF GAIT AND MOBILITY 09/23/2019 CHIQUI BERMAN MD Ot R51 HEADACHE 09/23/2019 CHIQUI BERMAN MD Ot Z91.81 HISTORY OF FALLING 09/23/2019 SIRI FLANNERY Ot G47.33 OBSTRUCTIVE SLEEP APNEA (ADULT) (PEDIATR 09/23/2019 SIRI FLANNERY Ot I25.10 ATHSCL HEART DISEASE OF [place] CORONARY 09/23/2019 SIRI FLANNERY Ot 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 09/23/2019 SIRI FLANNERY Ot J44.9 CHRONIC OBSTRUCTIVE PULMONARY DISEASE, U 09/23/2019 SIRI FLANNERY Ot Z72.0 TOBACCO USE 09/23/2019 SABI HAN APRN Ot F17.210 NICOTINE DEPENDENCE, CIGARETTES, UNCOMPL 09/23/2019 SABI HAN APRN Ot I25.10 ATHSCL HEART DISEASE OF [place] CORONARY 09/23/2019 SABI HAN ROOM CLERK Ot I51.7 CARDIOMEGALY 09/23/2019 SABI HAN ROOM CLERK Ot J44.9 CHRONIC OBSTRUCTIVE PULMONARY DISEASE, U 09/23/2019 SABI HAN ROOM CLERK Ot R16.2 HEPATOMEGALY WITH SPLENOMEGALY, NOT ELSE 09/23/2019 SABI HAN ROOM CLERK Ot R91.8 OTHER NONSPECIFIC ABNORMAL FINDING OF [place]AV[place] 09/23/2019 SABI HAN APRN Ot Z12.2 ENCNTR SCREEN FOR MALIGNANT NEOPLASM OF 09/23/2019 SABI HAN APRN Ot G47.36 SLEEP RELATED HYPOVENTILATION IN CONDITI 09/23/2019 SABI HAN ROOM CLERK Ot G47.50 PARASOMNIA, UNSPECIFIED 09/23/2019 SABI HAN ROOM CLERK Ot J44.9 CHRONIC OBSTRUCTIVE PULMONARY DISEASE, U 09/23/2019 SABI HAN ROOM CLERK Ot J98.4 OTHER DISORDERS OF LUNG 09/23/2019 SABI HAN ROOM CLERK Ot R06.09 OTHER FORMS OF DYSPNEA 09/23/2019 SABI HAN ROOM CLERK Ot R09.02 HYPOXEMIA 09/23/2019 SABI HAN ROOM CLERK Ot R91.1 SOLITARY PULMONARY NODULE 09/23/2019 SABI HAN ROOM CLERK Ot Z72.0 TOBACCO USE 09/23/2019 CHIQUI BERMAN MD Ot M25.51 1 PAIN IN RIGHT SHOULDER 09/23/2019 PARMINDER JUNIOR, ROSINA Yin Ot 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, CIGARETTES, W OTH D 09/23/2019 ROSINA ZURITA MD, Ot I70.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 09/23/2019 ROSINA ZURITA MD, Ot 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 09/23/2019 ROSINA ZURITA MD, Ot L97.212 NON-PRESSURE CHRONIC ULCER OF RIGHT CALF 09/23/2019 ROSINA ZURITA MD, Ot T65.222A TOXIC EFFECT OF TOBACCO CIGARETTES, SELF 09/23/2019 ROSINA ZURITA MD, Ot 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, CIGARETTES, W OTH D 09/23/2019 ROSINA ZURITA MD Ot 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 09/23/2019 ROSINA ZURITA MD, Ot 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 09/23/2019 ROSINA ZURITA MD, Ot L97.212 NON-PRESSURE CHRONIC ULCER OF RIGHT CALF 09/23/2019 ROSINA ZURITA MD, Ot T65.222A TOXIC EFFECT OF TOBACCO CIGARETTES, SELF 09/23/2019 ROSINA ZURITA MD, Ot 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, CIGARETTES, W OTH D 09/23/2019 ROSINA ZURITA MD Ot 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 09/23/2019 ROSINA ZURITA MD, Ot L97.212 NON-PRESSURE CHRONIC ULCER OF RIGHT CALF 09/23/2019 ROSINA ZURITA MD, Ot T65.222A TOXIC EFFECT OF TOBACCO CIGARETTES, SELF 09/23/2019 ROSINA ZURITA MD, Ot 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, CIGARETTES, W OTH D 09/23/2019 ROSINA ZURITA MD Ot 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 09/23/2019 ROSINA ZURITA MD, Ot L97.212 NON-PRESSURE CHRONIC ULCER OF RIGHT CALF 09/23/2019 ROSINA ZURITA MD, Ot T65.222A TOXIC EFFECT OF TOBACCO CIGARETTES, SELF 09/26/2019 ROSINA KENT MD Ot Z01.818 ENCOUNTER FOR OTHER PREPROCEDURAL EXAMIN 09/26/2019 ROSINA KENT MD Ot Z11.59 ENCOUNTER FOR SCREENING FOR OTHER VIRAL 09/27/2019 ONELIA MENDOZA APRN Ot R10.9 UNSPECIFIED ABDOMINAL PAIN 09/27/2019 ONELIA MENDOZA APRN Ot Z98.890 OTHER SPECIFIED POSTPROCEDURAL STATES 09/29/2019 SABI HAN APRN Ot G47.33 OBSTRUCTIVE SLEEP APNEA (ADULT) (PEDIATR 09/29/2019 SABI HAN APRN Ot J44.9 CHRONIC OBSTRUCTIVE PULMONARY DISEASE, U 09/29/2019 SABI HAN APRN Ot Z72.0 TOBACCO USE 09/29/2019 AGUSTIN RAZA MD, Ot G47. 33 OBSTRUCTIVE SLEEP APNEA (ADULT) (PEDIATR 09/29/2019 AGUSTIN RAZA MD Ot I25. 10 ATHSCL HEART DISEASE OF [place] CORONARY 09/29/2019 AGUSTIN RAZA MD Ot J44. 9 CHRONIC OBSTRUCTIVE PULMONARY DISEASE, U 09/29/2019 AGUSTIN RAZA MD Ot R00. 2 PALPITATIONS 09/29/2019 AGUSTIN RAZA MD Ot R51 HEADACHE 09/29/2019 AGUSTIN RAZA MD Ot Z72. 0 TOBACCO USE 09/29/2019 DAKOTAH KING Ot M25.51 2 PAIN IN LEFT SHOULDER 09/29/2019 SIRI FLANNERY Ot I25.10 ATHSCL HEART DISEASE OF [place] CORONARY 09/29/2019 SIRI FLANNERY Ot J44.9 CHRONIC OBSTRUCTIVE PULMONARY DISEASE, U 09/29/2019 SIRI FLANNERY Ot K21.9 GASTRO-ESOPHAGEAL REFLUX DISEASE WITHOUT 09/29/2019 CHIQUI BERMAN MD, Ot J44.9 CHRONIC OBSTRUCTIVE PULMONARY DISEASE, U 09/29/2019 CHIQUI BERMAN MD Ot R26.89 OTHER ABNORMALITIES OF GAIT AND MOBILITY 09/29/2019 CHIQUI BERMAN MD Ot R51 HEADACHE 09/29/2019 CHIQUI BERMAN MD Ot Z91.81 HISTORY OF FALLING 09/29/2019 SIRI FLANNERY Ot G47.33 OBSTRUCTIVE SLEEP APNEA (ADULT) (PEDIATR 09/29/2019 SIRI FLANNERY Ot I25.10 ATHSCL HEART DISEASE OF [place] CORONARY 09/29/2019 SIRI FLANNERY Ot 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 09/29/2019 SIRI FLANNERY Ot J44.9 CHRONIC OBSTRUCTIVE PULMONARY DISEASE, U 09/29/2019 SIRI FLANNERY Ot Z72.0 TOBACCO USE 09/29/2019 GUILLESABI ROOM CLERK Ot F17.210 NICOTINE DEPENDENCE, CIGARETTES, UNCOMPL 09/29/2019 GUILLESABI ROOM CLERK Ot I25.10 ATHSCL HEART DISEASE OF [place] CORONARY 09/29/2019 GUILLESABI ROOM CLERK Ot I51.7 CARDIOMEGALY 09/29/2019 SABI HAN ROOM CLERK Ot J44.9 CHRONIC OBSTRUCTIVE PULMONARY DISEASE, U 09/29/2019 SABI HAN ROOM CLERK Ot R16.2 HEPATOMEGALY WITH SPLENOMEGALY, NOT ELSE 09/29/2019 SABI HAN ROOM CLERK Ot R91.8 OTHER NONSPECIFIC ABNORMAL FINDING OF PRAVIN 09/29/2019 SABI HAN ROOM CLERK Ot Z12.2 ENCNTR SCREEN FOR MALIGNANT NEOPLASM OF 09/29/2019 SABI HAN ROOM CLERK Ot G47.36 SLEEP RELATED HYPOVENTILATION IN CONDITI 09/29/2019 SABI HAN ROOM CLERK Ot G47.50 PARASOMNIA, UNSPECIFIED 09/29/2019 SABI HAN ROOM CLERK Ot J44.9 CHRONIC OBSTRUCTIVE PULMONARY DISEASE, U 09/29/2019 SABI HAN ROOM CLERK Ot J98.4 OTHER DISORDERS OF LUNG 09/29/2019 SABI HAN APRN Ot R06.09 OTHER FORMS OF DYSPNEA 09/29/2019 SABI HAN ROOM CLERK Ot R09.02 HYPOXEMIA 09/29/2019 SABI HAN APRN Ot R91.1 SOLITARY PULMONARY NODULE 09/29/2019 SABI HAN APRN Ot Z72.0 TOBACCO USE 09/29/2019 CHIQUI BERMAN MD Ot M25.51 1 PAIN IN RIGHT SHOULDER 09/29/2019 ROSINA ZURITA MD Ot 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, CIGARETTES, W OTH D 09/29/2019 ROSINA ZURITA MD Ot I70.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 09/29/2019 ROSINA ZURITA MD Ot 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 09/29/2019 ROSINA ZURITA MD Ot L97.212 NON-PRESSURE CHRONIC ULCER OF RIGHT CALF 09/29/2019 ROSINA ZURITA MD Ot T65.222A TOXIC EFFECT OF TOBACCO CIGARETTES, SELF 09/29/2019 ROSINA ZURITA MD, Ot 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, CIGARETTES, W OTH D 09/29/2019 ROSINA ZURITA MD Ot 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 09/29/2019 ROSINA ZURITA MD Ot 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 09/29/2019 ROSINA ZURITA MD, Ot L97.212 NON-PRESSURE CHRONIC ULCER OF RIGHT CALF 09/29/2019 ROSINA ZURITA MD, Ot T65.222A TOXIC EFFECT OF TOBACCO CIGARETTES, SELF 09/29/2019 ROSINA ZURITA MD Ot 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, CIGARETTES, W OTH D 09/29/2019 ROSINA ZURITA MD, Ot 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 09/29/2019 ROSINA ZURITA MD, Ot L97.212 NON-PRESSURE CHRONIC ULCER OF RIGHT CALF 09/29/2019 ROSINA ZURITA MD, Ot T65.222A TOXIC EFFECT OF TOBACCO CIGARETTES, SELF 09/29/2019 ROSINA ZURITA MD, Ot 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, CIGARETTES, W OTH D 09/29/2019 ROSINA ZURITA MD Ot 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 09/29/2019 ROSINA ZURITA MD, Ot L97.212 NON-PRESSURE CHRONIC ULCER OF RIGHT CALF 09/29/2019 ROSINA ZURITA MD, Ot T65.222A TOXIC EFFECT OF TOBACCO CIGARETTES, SELF 09/29/2019 ONELIA MENDOZA ROOM CLERK Ot R10.9 UNSPECIFIED ABDOMINAL PAIN 09/29/2019 ONELIA MENDOZA ROOM CLERK Ot Z98.890 OTHER SPECIFIED POSTPROCEDURAL STATES 09/29/2019 ROSINA ZURITA MD, Ot 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, CIGARETTES, W OTH D 09/29/2019 ROSINA ZURITA MD Ot 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 09/29/2019 ROSINA ZURITA MD, Ot L97.212 NON-PRESSURE CHRONIC ULCER OF RIGHT CALF 09/29/2019 ROSINA ZURITA MD, Ot T65.222A TOXIC EFFECT OF TOBACCO CIGARETTES, SELF 09/29/2019 ROSINA KENT MD Ot E78 .5 HYPERLIPIDEMIA, UNSPECIFIED 09/29/2019 ROSINA KENT MD Ot F32 .9 MAJOR DEPRESSIVE DISORDER, SINGLE EPISOD 09/29/2019 ROSINA KENT MD Ot H66.93 OTITIS MEDIA, UNSPECIFIED, BILATERAL 09/29/2019 ROSINA KENT MD, Ot H69.90 UNSPECIFIED EUSTACHIAN TUBE DISORDER, UN 09/29/2019 ROSINA KENT MD, Ot I10 ESSENTIAL (PRIMARY) HYPERTENSION 09/29/2019 ROSINA KENT MD Ot K21 .9 GASTRO-ESOPHAGEAL REFLUX DISEASE WITHOUT 09/29/2019 ROSINA KENT MD Ot T85.698A [facility] COMPL OF INTERNAL PROSTH DEV/GRFT, 09/29/2019 ROSINA KENT MD Ot Z79.899 OTHER [facility] (CURRENT) DRUG THERAPY 09/29/2019 ROSINA KENT MD Ot Z88 .0 ALLERGY STATUS TO PENICILLIN 09/29/2019 ROSINA KENT MD Ot Z88 .1 ALLERGY STATUS TO OTHER ANTIBIOTIC AGENT 09/29/2019 ROSINA KENT MD Ot Z88 .5 ALLERGY STATUS TO NARCOTIC AGENT STATUS 09/29/2019 ROSINA KENT MD Ot Z88 .6 ALLERGY STATUS TO ANALGESIC AGENT STATUS 09/29/2019 ROSINA KENT MD Ot Z88 .8 ALLERGY STATUS TO OT DRUG/MEDS/BIOL SUB 09/29/2019 ROSINA KENT MD Ot Z90.49 ACQUIRED ABSENCE OF OTHER SPECIFIED PART 09/29/2019 ROSINA KENT MD Ot Z90.710 ACQUIRED ABSENCE OF BOTH CERVIX AND UTER 09/29/2019 ROSINA KENT MD Ot Z91.048 OTHER NONMEDICINAL SUBSTANCE ALLERGY STA 09/29/2019 ROSINA KENT MD Ot Z99.89 DEPENDENCE ON OTHER ENABLING MACHINES AN 10/03/2019 SABI HAN APRN Ot G47.36 SLEEP RELATED HYPOVENTILATION IN CONDITI 10/03/2019 SABI HAN APRN Ot G47.50 PARASOMNIA, UNSPECIFIED 10/03/2019 SABI HAN APRN Ot J44.9 CHRONIC OBSTRUCTIVE PULMONARY DISEASE, U 10/03/2019 SABI HAN APRN Ot J98.4 OTHER DISORDERS OF LUNG 10/03/2019 SABI HAN APRN Ot R06.09 OTHER FORMS OF DYSPNEA 10/03/2019 SABI HAN APRN Ot R09.02 HYPOXEMIA 10/03/2019 SABI HAN APRN Ot R91.1 SOLITARY PULMONARY NODULE 10/03/2019 GUILLE, SABI E ROOM CLERK Ot Z72.0 TOBACCO USE 10/03/2019 ROSINA KENT MD Ot E78 .5 HYPERLIPIDEMIA, UNSPECIFIED 10/03/2019 ROSINA KENT MD, Ot F32 .9 MAJOR DEPRESSIVE DISORDER, SINGLE EPISOD 10/03/2019 ROSINA KENT MD Ot H66.93 OTITIS MEDIA, UNSPECIFIED, BILATERAL 10/03/2019 ROSINA KENT MD, Ot H69.90 UNSPECIFIED EUSTACHIAN TUBE DISORDER, UN 10/03/2019 ROSINA KENT MD, Ot I10 ESSENTIAL (PRIMARY) HYPERTENSION 10/03/2019 ROSINA KENT MD, Ot K21 .9 GASTRO-ESOPHAGEAL REFLUX DISEASE WITHOUT 10/03/2019 ROSINA KENT MD Ot T85.698A [facility] COMPL OF INTERNAL PROSTH DEV/GRFT, 10/03/2019 ROSINA KENT MD Ot Z79.899 OTHER [facility] (CURRENT) DRUG THERAPY 10/03/2019 ROSINA KENT MD Ot Z88 .0 ALLERGY STATUS TO PENICILLIN 10/03/2019 ROSINA KENT MD Ot Z88 .1 ALLERGY STATUS TO OTHER ANTIBIOTIC AGENT 10/03/2019 ROSINA KENT MD Ot Z88 .5 ALLERGY STATUS TO NARCOTIC AGENT STATUS 10/03/2019 ROSINA KENT MD, Ot Z88 .6 ALLERGY STATUS TO ANALGESIC AGENT STATUS 10/03/2019 ROSINA KENT MD Ot Z88 .8 ALLERGY STATUS TO OT DRUG/MEDS/BIOL SUB 10/03/2019 ROSINA KENT MD Ot Z90.49 ACQUIRED ABSENCE OF OTHER SPECIFIED PART 10/03/2019 ROSINA KENT MD Ot Z90.710 ACQUIRED ABSENCE OF BOTH CERVIX AND UTER 10/03/2019 ROSINA KENT MD Ot Z91.048 OTHER NONMEDICINAL SUBSTANCE ALLERGY STA 10/03/2019 ROSINA KENT MD Ot Z99.89 DEPENDENCE ON OTHER ENABLING MACHINES AN 10/11/2019 ROSINA ZURITA MD Ot 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, CIGARETTES, W OTH D 10/11/2019 ROSINA ZURITA MD Ot 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 10/11/2019 ROSINA ZUIRTA MD Ot L97.212 NON-PRESSURE CHRONIC ULCER OF RIGHT CALF 10/11/2019 ROSINA ZURITA MD Ot T65.222A TOXIC EFFECT OF TOBACCO CIGARETTES, SELF 10/12/2019 ROSINA ZURITA MD Ot 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, CIGARETTES, W OTH D 10/12/2019 ROSINA ZURITA MD Ot 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 10/12/2019 ROSINA ZURITA MD Ot L97.212 NON-PRESSURE CHRONIC ULCER OF RIGHT CALF 10/12/2019 ROSINA ZURITA MD Ot T65.222A TOXIC EFFECT OF TOBACCO CIGARETTES, SELF 10/13/2019 ONELIA MENDOZA ROOM CLERK Ot R10.9 UNSPECIFIED ABDOMINAL PAIN 10/13/2019 ONELIA MENDOZA ROOM CLERK Ot Z98.890 OTHER SPECIFIED POSTPROCEDURAL STATES 10/13/2019 SABI HAN ROOM CLERK Ot G47.36 SLEEP RELATED HYPOVENTILATION IN CONDITI 10/13/2019 SABI HAN ROOM CLERK Ot G47.50 PARASOMNIA, UNSPECIFIED 10/13/2019 SABI HAN ROOM CLERK Ot J44.9 CHRONIC OBSTRUCTIVE PULMONARY DISEASE, U 10/13/2019 SABI HAN ROOM CLERK Ot J98.4 OTHER DISORDERS OF LUNG 10/13/2019 SABI HAN ROOM CLERK Ot R06.09 OTHER FORMS OF DYSPNEA 10/13/2019 SABI HAN ROOM CLERK Ot R09.02 HYPOXEMIA 10/13/2019 GUILLE SABI E ROOM CLERK Ot R91.1 SOLITARY PULMONARY NODULE 10/13/2019 SABI HAN ROOM CLERK Ot Z72.0 TOBACCO USE 10/13/2019 ROSINA ZURITA MD Ot 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, CIGARETTES, W OTH D 10/13/2019 ROSINA ZURITA MD Ot I70.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 10/13/2019 ROSINA ZURITA MD Ot 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 10/13/2019 ROSINA ZURITA MD Ot L97.212 NON-PRESSURE CHRONIC ULCER OF RIGHT CALF 10/13/2019 ROSINA ZURITA MD Ot T65.222A TOXIC EFFECT OF TOBACCO CIGARETTES, SELF 10/24/2019 ROSINA ZURITA MD Ot 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, CIGARETTES, W OTH D 10/24/2019 ROSINA ZURITA MD Ot 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 10/24/2019 ROSINA ZURITA MD Ot L97.212 NON-PRESSURE CHRONIC ULCER OF RIGHT CALF 10/24/2019 ROSINA ZURITA MD Ot T65.222A TOXIC EFFECT OF TOBACCO CIGARETTES, SELF 10/24/2019 ONELIA MENDOZA ELYSIA Ot R10.9 UNSPECIFIED ABDOMINAL PAIN 10/24/2019 ONELIA MENDOZA ELYSAI Ot Z98.890 OTHER SPECIFIED POSTPROCEDURAL STATES 10/27/2019 ONELIA MENDOZA ELYSIA Ot M67.813 OTHER SPECIFIED DISORDERS OF TENDON, RIG 10/27/2019 ONELIA MENDOZA ELYSIA Ot M75.101 UNSP ROTATR-CUFF TEAR/RUPTR OF RIGHT FELIPE 11/10/2019 [facility] [place] KHAN Ot R10. 33 PERIUMBILICAL PAIN 11/10/2019 [facility] Ot Z01.812 ENCOUNTER FOR PREPROCEDURAL LABORATORY E 11/10/2019 [facility] Ot Z20.828 CONTACT W AND EXPOSURE TO OTH VIRAL COMM 11/10/2019 [facility] Ot Z87. 11 PERSONAL HISTORY OF PEPTIC ULCER DISEASE 11/14/2019 SABI HAN APRN Ot G47.33 OBSTRUCTIVE SLEEP APNEA (ADULT) (PEDIATR 11/14/2019 SABI HAN APRN Ot J44.9 CHRONIC OBSTRUCTIVE PULMONARY DISEASE, U 11/14/2019 SABI HAN APRN Ot Z72.0 TOBACCO USE 11/14/2019 AGUSTIN RAZA MD, Ot G47. 33 OBSTRUCTIVE SLEEP APNEA (ADULT) (PEDIATR 11/14/2019 AGUSTIN RAZA MD Ot I25. 10 ATHSCL HEART DISEASE OF [place] CORONARY 11/14/2019 AGUSTIN RAZA MD, Ot J44. 9 CHRONIC OBSTRUCTIVE PULMONARY DISEASE, U 11/14/2019 AGUSTIN RAZA MD Ot R00. 2 PALPITATIONS 11/14/2019 AGUSTIN RAZA MD Ot R51 HEADACHE 11/14/2019 AGUSTIN RAZA MD Ot Z72. 0 TOBACCO USE 11/14/2019 DAKOTAH KING Ot M25.51 2 PAIN IN LEFT SHOULDER 11/14/2019 SIRI FLANNERY Ot I25.10 ATHSCL HEART DISEASE OF [place] CORONARY 11/14/2019 SIRI FLANNERY Ot J44.9 CHRONIC OBSTRUCTIVE PULMONARY DISEASE, U 11/14/2019 TY FLANNERYTH K Ot K21.9 GASTRO-ESOPHAGEAL REFLUX DISEASE WITHOUT 11/14/2019 SELF CHIQUI JUNIOR Ot J44.9 CHRONIC OBSTRUCTIVE PULMONARY DISEASE, U 11/14/2019 SELF CHIQUI JUNIOR Ot R26.89 OTHER ABNORMALITIES OF GAIT AND MOBILITY 11/14/2019 SELF CHIQUI JUNIOR Ot R51 HEADACHE 11/14/2019 SELF CHIQUI JUNIOR Ot Z91.81 HISTORY OF FALLING 11/14/2019 SIRI FLANNERY Ot G47.33 OBSTRUCTIVE SLEEP APNEA (ADULT) (PEDIATR 11/14/2019 TEODORO VAIL, SIRI Mccoy Ot I25.10 ATHSCL HEART DISEASE OF [place] CORONARY 11/14/2019 TEODORO VAIL, SIRI Mccoy Ot 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 11/14/2019 SIRI FLANNERY Ot J44.9 CHRONIC OBSTRUCTIVE PULMONARY DISEASE, U 11/14/2019 SIRI FLANNERY Ot Z72.0 TOBACCO USE 11/14/2019 SABI HAN APRN Ot F17.210 NICOTINE DEPENDENCE, CIGARETTES, UNCOMPL 11/14/2019 SABI HAN APRN Ot I25.10 ATHSCL HEART DISEASE OF [place] CORONARY 11/14/2019 SABI HAN APRN Ot I51.7 CARDIOMEGALY 11/14/2019 SABI HAN APRN Ot J44.9 CHRONIC OBSTRUCTIVE PULMONARY DISEASE, U 11/14/2019 SABI HAN APRN Ot R16.2 HEPATOMEGALY WITH SPLENOMEGALY, NOT ELSE 11/14/2019 SABI HAN APRN Ot R91.8 OTHER NONSPECIFIC ABNORMAL FINDING OF PRAVIN 11/14/2019 SABI HAN APRN Ot Z12.2 ENCNTR SCREEN FOR MALIGNANT NEOPLASM OF 11/14/2019 SABI HAN APRN Ot G47.36 SLEEP RELATED HYPOVENTILATION IN CONDITI 11/14/2019 SABI HAN APRN Ot G47.50 PARASOMNIA, UNSPECIFIED 11/14/2019 SABI HAN APRN Ot J44.9 CHRONIC OBSTRUCTIVE PULMONARY DISEASE, U 11/14/2019 SABI HAN APRN Ot J98.4 OTHER DISORDERS OF LUNG 11/14/2019 SABI HAN ROOM CLERK Ot R06.09 OTHER FORMS OF DYSPNEA 11/14/2019 SABI HAN ROOM CLERK Ot R09.02 HYPOXEMIA 11/14/2019 SABI HAN ROOM CLERK Ot R91.1 SOLITARY PULMONARY NODULE 11/14/2019 SABI HAN ROOM CLERK Ot Z72.0 TOBACCO USE 11/14/2019 CHIQUI BERMAN MD Ot M25.51 1 PAIN IN RIGHT SHOULDER 11/14/2019 ROSINA ZURITA MD, Ot 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, CIGARETTES, W OTH D 11/14/2019 ROSINA ZURITA MD Ot I70.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 11/14/2019 ROSINA ZURITA MD Ot 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 11/14/2019 ROSINA ZURITA MD, Ot L97.212 NON-PRESSURE CHRONIC ULCER OF RIGHT CALF 11/14/2019 ROSINA ZURITA MD Ot T65.222A TOXIC EFFECT OF TOBACCO CIGARETTES, SELF 11/14/2019 ROSINA ZURITA MD Ot 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, CIGARETTES, W OTH D 11/14/2019 ROSINA ZURITA MD Ot 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 11/14/2019 ROSINA ZURITA MD Ot 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 11/14/2019 ROSINA ZURITA MD Ot L97.212 NON-PRESSURE CHRONIC ULCER OF RIGHT CALF 11/14/2019 ROSINA ZURITA MD Ot T65.222A TOXIC EFFECT OF TOBACCO CIGARETTES, SELF 11/14/2019 ROSINA ZURITA MD Ot 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, CIGARETTES, W OTH D 11/14/2019 ROSINA ZURITA MD Ot 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 11/14/2019 ROSINA ZURITA MD Ot L97.212 NON-PRESSURE CHRONIC ULCER OF RIGHT CALF 11/14/2019 ROSINA ZURITA MD Ot T65.222A TOXIC EFFECT OF TOBACCO CIGARETTES, SELF 11/14/2019 ROSINA ZURITA MD Ot 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, CIGARETTES, W OTH D 11/14/2019 ROSINA ZURITA MD Ot 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 11/14/2019 ROSINA ZURITA MD Ot L97.212 NON-PRESSURE CHRONIC ULCER OF RIGHT CALF 11/14/2019 PARMINDER JUNIOR, ROSINA Yin Ot T65.222A TOXIC EFFECT OF TOBACCO CIGARETTES, SELF 11/14/2019 ONELIA MENDOZA ELYSIA Ot R10.9 UNSPECIFIED ABDOMINAL PAIN 11/14/2019 ONELIA MENDOZA ELYSIA Ot Z98.890 OTHER SPECIFIED POSTPROCEDURAL STATES 11/14/2019 ONELIA MENDOZA ROOM CLERK Ot M67.813 OTHER SPECIFIED DISORDERS OF TENDON, RIG 11/14/2019 ONELIA MENDOZA ROOM CLERK Ot M75.101 UNSP ROTATR-CUFF TEAR/RUPTR OF RIGHT FELIPE 11/14/2019 SABI HAN APRN Ot G47.33 OBSTRUCTIVE SLEEP APNEA (ADULT) (PEDIATR 11/14/2019 SABI HAN APRN Ot J44.9 CHRONIC OBSTRUCTIVE PULMONARY DISEASE, U 11/14/2019 SABI HAN APRN Ot Z72.0 TOBACCO USE 11/14/2019 AGUSTIN RAZA MD, Ot G47. 33 OBSTRUCTIVE SLEEP APNEA (ADULT) (PEDIATR 11/14/2019 AGUSTIN RAZA MD Ot I25. 10 ATHSCL HEART DISEASE OF [place] CORONARY 11/14/2019 AGUSTIN RAZA MD, Ot J44. 9 CHRONIC OBSTRUCTIVE PULMONARY DISEASE, U 11/14/2019 AGUSTIN RAZA MD Ot R00. 2 PALPITATIONS 11/14/2019 AGUSTIN RAZA MD Ot R51 HEADACHE 11/14/2019 AGUSTIN RAZA MD Ot Z72. 0 TOBACCO USE 11/14/2019 DAKOTAH KING Ot M25.51 2 PAIN IN LEFT SHOULDER 11/14/2019 SIRI FLANNERY Ot I25.10 ATHSCL HEART DISEASE OF [place] CORONARY 11/14/2019 SIRI FLANNERY Ot J44.9 CHRONIC OBSTRUCTIVE PULMONARY DISEASE, U 11/14/2019 SIRI FLANNERY Ot K21.9 GASTRO-ESOPHAGEAL REFLUX DISEASE WITHOUT 11/14/2019 CHIQUI BERMAN MD, Ot J44.9 CHRONIC OBSTRUCTIVE PULMONARY DISEASE, U 11/14/2019 CHIQUI BERMAN MD Ot R26.89 OTHER ABNORMALITIES OF GAIT AND MOBILITY 11/14/2019 CHIQUI BERMAN MD Ot R51 HEADACHE 11/14/2019 CHIQUI BERMAN MD Ot Z91.81 HISTORY OF FALLING 11/14/2019 SIRI FLANNERY Ot G47.33 OBSTRUCTIVE SLEEP APNEA (ADULT) (PEDIATR 11/14/2019 SIRI FLANNERY Ot I25.10 ATHSCL HEART DISEASE OF [place] CORONARY 11/14/2019 SIRI FLANNERY Ot 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 11/14/2019 SIRI FLANNERY Ot J44.9 CHRONIC OBSTRUCTIVE PULMONARY DISEASE, U 11/14/2019 SIRI FLANNERY Ot Z72.0 TOBACCO USE 11/14/2019 SABI HAN APRN Ot F17.210 NICOTINE DEPENDENCE, CIGARETTES, UNCOMPL 11/14/2019 SABI HAN APRN Ot I25.10 ATHSCL HEART DISEASE OF [place] CORONARY 11/14/2019 SABI HAN APRN Ot I51.7 CARDIOMEGALY 11/14/2019 SABI HAN APRN Ot J44.9 CHRONIC OBSTRUCTIVE PULMONARY DISEASE, U 11/14/2019 SABI HAN ROOM CLERK Ot R16.2 HEPATOMEGALY WITH SPLENOMEGALY, NOT ELSE 11/14/2019 SABI HAN APRN Ot R91.8 OTHER NONSPECIFIC ABNORMAL FINDING OF PRAVIN 11/14/2019 SABI HAN APRN Ot Z12.2 ENCNTR SCREEN FOR MALIGNANT NEOPLASM OF 11/14/2019 SABI HAN APRN Ot G47.36 SLEEP RELATED HYPOVENTILATION IN CONDITI 11/14/2019 SABI HAN APRN Ot G47.50 PARASOMNIA, UNSPECIFIED 11/14/2019 SABI HAN ROOM CLERK Ot J44.9 CHRONIC OBSTRUCTIVE PULMONARY DISEASE, U 11/14/2019 SABI HAN ROOM CLERK Ot J98.4 OTHER DISORDERS OF LUNG 11/14/2019 SABI HAN ROOM CLERK Ot R06.09 OTHER FORMS OF DYSPNEA 11/14/2019 SABI HAN ROOM CLERK Ot R09.02 HYPOXEMIA 11/14/2019 SABI HAN APRN Ot R91.1 SOLITARY PULMONARY NODULE 11/14/2019 SABI HAN APRN Ot Z72.0 TOBACCO USE 11/14/2019 CHIQUI BERMAN MD Ot M25.51 1 PAIN IN RIGHT SHOULDER 11/14/2019 ROSINA ZURITA MD, Ot 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, CIGARETTES, W OTH D 11/14/2019 ROSINA ZURITA MD Ot I70.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 11/14/2019 ROSINA ZURITA MD Ot 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 11/14/2019 ROSINA ZURITA MD Ot L97.212 NON-PRESSURE CHRONIC ULCER OF RIGHT CALF 11/14/2019 ROSINA ZURITA MD Ot T65.222A TOXIC EFFECT OF TOBACCO CIGARETTES, SELF 11/14/2019 ROSINA ZURITA MD Ot 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, CIGARETTES, W OTH D 11/14/2019 ROSINA ZURITA MD Ot 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 11/14/2019 ROSINA ZURITA MD Ot 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 11/14/2019 ROSINA ZURITA MD Ot L97.212 NON-PRESSURE CHRONIC ULCER OF RIGHT CALF 11/14/2019 ROSINA ZURITA MD Ot T65.222A TOXIC EFFECT OF TOBACCO CIGARETTES, SELF 11/14/2019 ROSINA ZURITA MD Ot 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, CIGARETTES, W OTH D 11/14/2019 ROSINA ZURITA MD Ot 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 11/14/2019 ROSINA ZURITA MD Ot L97.212 NON-PRESSURE CHRONIC ULCER OF RIGHT CALF 11/14/2019 ROSINA ZURITA MD Ot T65.222A TOXIC EFFECT OF TOBACCO CIGARETTES, SELF 11/14/2019 ROSINA ZURITA MD Ot 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, CIGARETTES, W OTH D 11/14/2019 ROSINA ZURITA MD Ot 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 11/14/2019 ROSINA ZURITA MD Ot L97.212 NON-PRESSURE CHRONIC ULCER OF RIGHT CALF 11/14/2019 ROSINA ZURITA MD Ot T65.222A TOXIC EFFECT OF TOBACCO CIGARETTES, SELF 11/14/2019 ONELIA MENDOZA APRN Ot R10.9 UNSPECIFIED ABDOMINAL PAIN 11/14/2019 ONELIA MENDOZA APRN Ot Z98.890 OTHER SPECIFIED POSTPROCEDURAL STATES 11/14/2019 ONELIA MENDOZA ELYSIA Ot M67.813 OTHER SPECIFIED DISORDERS OF TENDON, RIG 11/14/2019 ONELIA MENDOZA ELYSIA Ot M75.101 UNSP ROTATR-CUFF TEAR/RUPTR OF RIGHT FELIPE 11/14/2019 CHARLOTTE VELÁZQUEZ DO Ot D12. 3 BENIGN NEOPLASM OF TRANSVERSE COLON 11/14/2019 CHARLOTTE VELÁZQUEZ DO Ot E03. 9 HYPOTHYROIDISM, UNSPECIFIED 11/14/2019 CHARLOTTE VELÁZQUEZ DO Ot F32. 9 MAJOR DEPRESSIVE DISORDER, SINGLE EPISOD 11/14/2019 CHARLOTTE VELÁZQUEZ DO Ot F41. 9 ANXIETY DISORDER, UNSPECIFIED 11/14/2019 CHARLOTTE VELÁZQUEZ DO Ot G25. 81 RESTLESS LEGS SYNDROME 11/14/2019 CHARLOTTE VELÁZQUEZ DO Ot G47. 33 OBSTRUCTIVE SLEEP APNEA (ADULT) (PEDIATR 11/14/2019 CHARLOTTE VELÁZQUEZ DO Ot G89. 29 OTHER CHRONIC PAIN 11/14/2019 CHARLOTTE VELÁZQUEZ DO Ot I10 ESSENTIAL (PRIMARY) HYPERTENSION 11/14/2019 CHARLOTTE VELÁZQUEZ DO Ot I25. 10 ATHSCL HEART DISEASE OF [place] CORONARY 11/14/2019 CHARLOTTE VELÁZQUEZ DO Ot J44. 9 CHRONIC OBSTRUCTIVE PULMONARY DISEASE, U 11/14/2019 CHARLOTTE VELÁZQUEZ DO Ot K21. 0 GASTRO-ESOPHAGEAL REFLUX DISEASE WITH ES 11/14/2019 CHARLOTTE VELÁZQUEZ DO Ot R09. 02 HYPOXEMIA 11/14/2019 CHARLOTTE VELÁZQUEZ DO Ot R10. 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 0 ALLERGY STATUS TO PENICILLIN 11/14/2019 CHARLOTTE VELÁZQUEZ DO Ot Z88. 1 ALLERGY STATUS TO OTHER ANTIBIOTIC AGENT 11/14/2019 CHARLOTTE VELÁZQUEZ DO Ot Z88. 2 ALLERGY STATUS TO SULFONAMIDES STATUS 11/14/2019 CHARLOTTE VELÁZQUEZ DO Ot Z88. 5 ALLERGY STATUS TO NARCOTIC AGENT STATUS 11/14/2019 CHARLOTTE VELÁZQUEZ DO Ot Z88. 6 ALLERGY STATUS TO ANALGESIC AGENT STATUS 11/14/2019 [facility] Z90.710 ACQUIRED ABSENCE OF BOTH CERVIX AND UTER 11/14/2019 VELÁZQUEZ CHARLOTTE KHAN Ot Z91.048 OTHER NONMEDICINAL SUBSTANCE ALLERGY STA 11/22/2019 VELÁZQUEZ CHARLOTTE KHAN Ot D12. 3 BENIGN NEOPLASM OF TRANSVERSE COLON 11/22/2019 [facility] [place]OTTE KHAN Ot E03. 9 HYPOTHYROIDISM, UNSPECIFIED 11/22/2019 [facility] Ot F32. 9 MAJOR DEPRESSIVE DISORDER, SINGLE EPISOD 11/22/2019 [facility]Z DOCHARLOTTE Ot F41. 9 ANXIETY DISORDER, UNSPECIFIED 11/22/2019 [facility] Ot G25. 81 RESTLESS LEGS SYNDROME 11/22/2019 VELÁZQUEZ DOCHARLOTTE Ot G47. 33 OBSTRUCTIVE SLEEP APNEA (ADULT) (PEDIATR 11/22/2019 [facility] Ot G89. 29 OTHER CHRONIC PAIN 11/22/2019 [facility]QUEZ DOCHARLOTTE Ot I10 ESSENTIAL (PRIMARY) HYPERTENSION 11/22/2019 VELÁZQUEZ DOCHARLOTTE Ot I25. 10 ATHSCL HEART DISEASE OF [place] CORONARY 11/22/2019 VELÁZQUEZ CHARLOTTE KHAN Ot J44. 9 CHRONIC OBSTRUCTIVE PULMONARY DISEASE, U 11/22/2019 VELÁZQUEZ CHARLOTTE KHAN Ot K21. 0 GASTRO-ESOPHAGEAL REFLUX DISEASE WITH ES 11/22/2019 VELÁZQUEZ CHARLOTTE KHAN Ot R09. 02 HYPOXEMIA 11/22/2019 VELÁZQUEZ CHARLOTTE KHAN Ot Z79. 82 [facility] (CURRENT) USE OF ASPIRIN 11/22/2019 VELÁZQUEZ DOCHARLOTTE Ot Z87.891 PERSONAL HISTORY OF NICOTINE DEPENDENCE 11/22/2019 [facility] DOCHARLOTTE Ot Z88. 0 ALLERGY STATUS TO PENICILLIN 11/22/2019 [facility] Z88. 1 ALLERGY STATUS TO OTHER ANTIBIOTIC AGENT 11/22/2019 VELÁZQUEZ CHARLOTTE KHAN Ot Z88. 2 ALLERGY STATUS TO SULFONAMIDES STATUS 11/22/2019 [facility] Z88. 5 ALLERGY STATUS TO NARCOTIC AGENT STATUS [facility] 6 ALLERGY STATUS TO ANALGESIC AGENT STATUS 11/22/2019 [facility] Ot Z90.710 ACQUIRED ABSENCE OF BOTH CERVIX AND UTER 11/22/2019 [place] [facility] DO Ot Z91.048 OTHER NONMEDICINAL SUBSTANCE ALLERGY STA 12/01/2019 SABI HAN APRN Ot G47.33 OBSTRUCTIVE SLEEP APNEA (ADULT) (PEDIATR 12/01/2019 SABI HAN APRN Ot J44.9 CHRONIC OBSTRUCTIVE PULMONARY DISEASE, U 12/01/2019 SABI HAN APRN Ot Z72.0 TOBACCO USE 12/01/2019 AGUSTIN RAZA MD, Ot G47. 33 OBSTRUCTIVE SLEEP APNEA (ADULT) (PEDIATR 12/01/2019 AGUSTIN RAZA MD Ot I25. 10 ATHSCL HEART DISEASE OF [place] CORONARY 12/01/2019 AGUSTIN RAZA MD Ot J44. 9 CHRONIC OBSTRUCTIVE PULMONARY DISEASE, U 12/01/2019 AGUSTIN RAZA MD Ot R00. 2 PALPITATIONS 12/01/2019 AGUSTIN RAZA MD Ot R51 HEADACHE 12/01/2019 AGUSTIN RAZA MD Ot Z72. 0 TOBACCO USE 12/01/2019 DAKOTAH KING Ot M25.51 2 PAIN IN LEFT SHOULDER 12/01/2019 SIRI FLANNERY Ot I25.10 ATHSCL HEART DISEASE OF [place] CORONARY 12/01/2019 SIRI FLANNERY Ot J44.9 CHRONIC OBSTRUCTIVE PULMONARY DISEASE, U 12/01/2019 SIRI FLANNERY Ot K21.9 GASTRO-ESOPHAGEAL REFLUX DISEASE WITHOUT 12/01/2019 CHIQUI BERMAN MD, Ot J44.9 CHRONIC OBSTRUCTIVE PULMONARY DISEASE, U 12/01/2019 CHIQUI BERMAN MD Ot R26.89 OTHER ABNORMALITIES OF GAIT AND MOBILITY 12/01/2019 CHIQUI BERMAN MD Ot R51 HEADACHE 12/01/2019 CHIQUI BERMAN MD Ot Z91.81 HISTORY OF FALLING 12/01/2019 SIRI FLANNERY Ot G47.33 OBSTRUCTIVE SLEEP APNEA (ADULT) (PEDIATR 12/01/2019 SIRI FLANNERY Ot I25.10 ATHSCL HEART DISEASE OF [place] CORONARY 12/01/2019 SIRI FLANNERY Ot 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 12/01/2019 SIRI FLANNERY Ot J44.9 CHRONIC OBSTRUCTIVE PULMONARY DISEASE, U 12/01/2019 TEODORO VAIL, SIRI Mccoy Ot Z72.0 TOBACCO USE 12/01/2019 GUILLESABI ROOM CLERK Ot F17.210 NICOTINE DEPENDENCE, CIGARETTES, UNCOMPL 12/01/2019 SABI HAN ROOM CLERK Ot I25.10 ATHSCL HEART DISEASE OF [place] CORONARY 12/01/2019 SABI HAN ROOM CLERK Ot I51.7 CARDIOMEGALY 12/01/2019 EMILIA HANINE E ROOM CLERK Ot J44.9 CHRONIC OBSTRUCTIVE PULMONARY DISEASE, U 12/01/2019 GUILLE SABI Flores ROOM CLERK Ot R16.2 HEPATOMEGALY WITH SPLENOMEGALY, NOT ELSE 12/01/2019 SABI HAN ROOM CLERK Ot R91.8 OTHER NONSPECIFIC ABNORMAL FINDING OF [place]AV[place] 12/01/2019 SABI HAN ROOM CLERK Ot Z12.2 ENCNTR SCREEN FOR MALIGNANT NEOPLASM OF 12/01/2019 SABI HAN ROOM CLERK Ot G47.36 SLEEP RELATED HYPOVENTILATION IN CONDITI 12/01/2019 SABI HAN ROOM CLERK Ot G47.50 PARASOMNIA, UNSPECIFIED 12/01/2019 SABI HAN ROOM CLERK Ot J44.9 CHRONIC OBSTRUCTIVE PULMONARY DISEASE, U 12/01/2019 SABI HAN ROOM CLERK Ot J98.4 OTHER DISORDERS OF LUNG 12/01/2019 SABI HAN ROOM CLERK Ot R06.09 OTHER FORMS OF DYSPNEA 12/01/2019 SABI HAN ROOM CLERK Ot R09.02 HYPOXEMIA 12/01/2019 SABI HAN ROOM CLERK Ot R91.1 SOLITARY PULMONARY NODULE 12/01/2019 SABI HAN ROOM CLERK Ot Z72.0 TOBACCO USE 12/01/2019 CHIQUI BERMAN MD Ot M25.51 1 PAIN IN RIGHT SHOULDER 12/01/2019 ROSINA ZURITA MD Ot 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, CIGARETTES, W OTH D 12/01/2019 ROSINA ZURITA MD Ot I70.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 12/01/2019 ROSINA ZURITA MD Ot 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 12/01/2019 ROSINA ZURITA MD Ot L97.212 NON-PRESSURE CHRONIC ULCER OF RIGHT CALF 12/01/2019 ROSINA ZURITA MD, Ot T65.222A TOXIC EFFECT OF TOBACCO CIGARETTES, SELF 12/01/2019 ROSINA ZURITA MD, Ot 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, CIGARETTES, W OTH D 12/01/2019 ROSINA ZURITA MD Ot 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 12/01/2019 ROSINA ZURITA MD Ot 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 12/01/2019 ROSINA ZURITA MD, Ot L97.212 NON-PRESSURE CHRONIC ULCER OF RIGHT CALF 12/01/2019 ROSINA ZURITA MD, Ot T65.222A TOXIC EFFECT OF TOBACCO CIGARETTES, SELF 12/01/2019 ROSINA ZURITA MD Ot 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, CIGARETTES, W OTH D 12/01/2019 ROSINA ZURITA MD Ot 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 12/01/2019 ROSINA ZURITA MD, Ot L97.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-PRESSURE CHRONIC ULCER OF RIGHT CALF 12/01/2019 ROSINA ZURITA MD, Ot T65.222A TOXIC EFFECT OF TOBACCO CIGARETTES, SELF 12/01/2019 ROSINA ZURITA MD Ot 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, CIGARETTES, W OTH D 12/01/2019 ROSINA ZURITA MD Ot 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 12/01/2019 ROSINA ZURITA MD, Ot L97.212 NON-PRESSURE CHRONIC ULCER OF RIGHT CALF 12/01/2019 ROSINA ZURITA MD, Ot T65.222A TOXIC EFFECT OF TOBACCO CIGARETTES, SELF 12/01/2019 ONELIA MENDOZA APRN Ot R10.9 UNSPECIFIED ABDOMINAL PAIN 12/01/2019 ONELIA MENDOZA APRN Ot Z98.890 OTHER SPECIFIED POSTPROCEDURAL STATES 12/01/2019 ONELIA MENDOZA APRN Ot M67.813 OTHER SPECIFIED DISORDERS OF TENDON, RIG 12/01/2019 ONELIA MENDOZA APRN Ot M75.101 UNSP ROTATR-CUFF TEAR/RUPTR OF RIGHT FELIPE 12/01/2019 SABI HAN APRN Ot G47.33 OBSTRUCTIVE SLEEP APNEA (ADULT) (PEDIATR 12/01/2019 SABI HAN APRN Ot J44.9 CHRONIC OBSTRUCTIVE PULMONARY DISEASE, U 12/01/2019 SABI HAN APRN Ot Z72.0 TOBACCO USE 12/01/2019 AGUSTIN RAZA MD Ot G47. 33 OBSTRUCTIVE SLEEP APNEA (ADULT) (PEDIATR 12/01/2019 LUZ MARINA JNUIOR, AGUSTIN Mai Ot I25. 10 ATHSCL HEART DISEASE OF [place] CORONARY 12/01/2019 AGUSTIN RAZA MD Ot J44. 9 CHRONIC OBSTRUCTIVE PULMONARY DISEASE, U 12/01/2019 AGUSTIN RAZA MD Ot R00. 2 PALPITATIONS 12/01/2019 AGUSTIN RAZA MD Ot R51 HEADACHE 12/01/2019 AGUSTIN RAZA MD Ot Z72. 0 TOBACCO USE 12/01/2019 DAKOTAH KING Ot M25.51 2 PAIN IN LEFT SHOULDER 12/01/2019 SIRI FLANNERY Ot I25.10 ATHSCL HEART DISEASE OF [place] CORONARY 12/01/2019 TEODORO VAIL, SIRI Mccoy Ot J44.9 CHRONIC OBSTRUCTIVE PULMONARY DISEASE, U 12/01/2019 TEODORO VAIL, SIRI Mccoy Ot K21.9 GASTRO-ESOPHAGEAL REFLUX DISEASE WITHOUT 12/01/2019 CHIQUI BERMAN MD Ot J44.9 CHRONIC OBSTRUCTIVE PULMONARY DISEASE, U 12/01/2019 CHIQUI BERMAN MD Ot R26.89 OTHER ABNORMALITIES OF GAIT AND MOBILITY 12/01/2019 CHIQUI BERMAN MD Ot R51 HEADACHE 12/01/2019 CHIQUI BERMAN MD Ot Z91.81 HISTORY OF FALLING 12/01/2019 SIRI FLANNERY Ot G47.33 OBSTRUCTIVE SLEEP APNEA (ADULT) (PEDIATR 12/01/2019 TEODORO VAIL, SIRI Mccoy Ot I25.10 ATHSCL HEART DISEASE OF [place] CORONARY 12/01/2019 SIRI FLANNERY Ot 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 12/01/2019 SIRI FLANNERY Ot J44.9 CHRONIC OBSTRUCTIVE PULMONARY DISEASE, U 12/01/2019 SIRI FLANNERY Ot Z72.0 TOBACCO USE 12/01/2019 SABI HAN APRN Ot F17.210 NICOTINE DEPENDENCE, CIGARETTES, UNCOMPL 12/01/2019 SABI HAN APRN Ot I25.10 ATHSCL HEART DISEASE OF [place] CORONARY 12/01/2019 GUILLE, SABI E ROOM CLERK Ot I51.7 CARDIOMEGALY 12/01/2019 GUILLEEMILIA PHILLIPSINE Sandra ROOM CLERK Ot J44.9 CHRONIC OBSTRUCTIVE PULMONARY DISEASE, U 12/01/2019 GUILLESABI PHILLIPS ROOM CLERK Ot R16.2 HEPATOMEGALY WITH SPLENOMEGALY, NOT ELSE 12/01/2019 EMILIA HANINE Sandra ROOM CLERK Ot R91.8 OTHER NONSPECIFIC ABNORMAL FINDING OF [place] 12/01/2019 SABI HAN ROOM CLERK Ot Z12.2 ENCNTR SCREEN FOR MALIGNANT NEOPLASM OF 12/01/2019 GUILLE, SABI E ROOM CLERK Ot G47.36 SLEEP RELATED HYPOVENTILATION IN CONDITI 12/01/2019 GUILLE SABI E ROOM CLERK Ot G47.50 PARASOMNIA, UNSPECIFIED 12/01/2019 GUILLE SABI Sandra ROOM CLERK Ot J44.9 CHRONIC OBSTRUCTIVE PULMONARY DISEASE, U 12/01/2019 GUILLEEMILIA PHILLIPSDEMIAN Flores ROOM CLERK Ot J98.4 OTHER DISORDERS OF LUNG 12/01/2019 GUILLE SABI E ROOM CLERK Ot R06.09 OTHER FORMS OF DYSPNEA 12/01/2019 GUILLE SABI Sandra ROOM CLERK Ot R09.02 HYPOXEMIA 12/01/2019 GUILLE SABI Flores ROOM CLERK Ot R91.1 SOLITARY PULMONARY NODULE 12/01/2019 GUILLE SABI Flores ROOM CLERK Ot Z72.0 TOBACCO USE 12/01/2019 SELF CHIQUI JUNIOR Ot M25.51 1 PAIN IN RIGHT SHOULDER 12/01/2019 ROSINA ZURITA MD Ot 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, CIGARETTES, W OTH D 12/01/2019 ROSINA ZURITA MD Ot I70.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 12/01/2019 ROSINA ZURITA MD Ot 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 12/01/2019 ROSINA ZURITA MD Ot L97.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-PRESSURE CHRONIC ULCER OF RIGHT CALF 12/01/2019 ROSINA ZURITA MD Ot T65.222A TOXIC EFFECT OF TOBACCO CIGARETTES, SELF 12/01/2019 ROSINA ZURITA MD Ot 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, CIGARETTES, W OTH D 12/01/2019 ROSINA ZURITA MD Ot 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 12/01/2019 ROSINA ZURITA MD Ot 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 12/01/2019 ROSINA ZURITA MD Ot L97.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-PRESSURE CHRONIC ULCER OF RIGHT CALF 12/01/2019 ROSINA ZURITA MD, Ot T65.222A TOXIC EFFECT OF TOBACCO CIGARETTES, SELF 12/01/2019 ROSINA ZURITA MD, Ot 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, CIGARETTES, W OTH D 12/01/2019 ROSINA ZURITA MD Ot 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 12/01/2019 ROSINA ZURITA MD Ot L97.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-PRESSURE CHRONIC ULCER OF RIGHT CALF 12/01/2019 ROSINA ZURITA MD, Ot T65.222A TOXIC EFFECT OF TOBACCO CIGARETTES, SELF 12/01/2019 ROSINA ZURITA MD, Ot 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, CIGARETTES, W OTH D 12/01/2019 ROSINA ZURITA MD Ot 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 12/01/2019 ROSINA ZURITA MD, Ot L97.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-PRESSURE CHRONIC ULCER OF RIGHT CALF 12/01/2019 ROSINA ZURITA MD, Ot T65.222A TOXIC EFFECT OF TOBACCO CIGARETTES, SELF 12/01/2019 ONELIA MENDOZA APRN Ot R10.9 UNSPECIFIED ABDOMINAL PAIN 12/01/2019 ONELIA MENDOZA APRN Ot Z98.890 OTHER SPECIFIED POSTPROCEDURAL STATES 12/01/2019 ONELIA MENDOZA APRN Ot M67.813 OTHER SPECIFIED DISORDERS OF TENDON, RIG 12/01/2019 ONELIA MENDOZA APRN Ot M75.101 UNSP ROTATR-CUFF TEAR/RUPTR OF RIGHT FELIPE 12/12/2019 SABI HAN APRN Ot G47.33 OBSTRUCTIVE SLEEP APNEA (ADULT) (PEDIATR 12/12/2019 SABI HAN APRN Ot J44.9 CHRONIC OBSTRUCTIVE PULMONARY DISEASE, U 12/12/2019 SABI HAN APRN Ot Z72.0 TOBACCO USE 12/12/2019 AGUSTIN RAZA MD, Ot G47. 33 OBSTRUCTIVE SLEEP APNEA (ADULT) (PEDIATR 12/12/2019 AGUSTIN RAZA MD Ot I25. 10 ATHSCL HEART DISEASE OF [place] CORONARY 12/12/2019 AGUSTIN RAZA MD Ot J44. 9 CHRONIC OBSTRUCTIVE PULMONARY DISEASE, U 12/12/2019 AGUSTIN RAZA MD Ot R00. 2 PALPITATIONS 12/12/2019 AGUSTIN RAZA MD Ot R51 HEADACHE 12/12/2019 AGUSTIN RAZA MD Ot Z72. 0 TOBACCO USE 12/12/2019 DAKOTAH KING SHAMEKA Ot M25.51 2 PAIN IN LEFT SHOULDER 12/12/2019 SIRI FLANNERY Ot I25.10 ATHSCL HEART DISEASE OF [place] CORONARY 12/12/2019 TEODORO VAIL, SIRI Mccoy Ot J44.9 CHRONIC OBSTRUCTIVE PULMONARY DISEASE, U 12/12/2019 SIRI FLANNERY Ot K21.9 GASTRO-ESOPHAGEAL REFLUX DISEASE WITHOUT 12/12/2019 SELF CHIQUI JUNIOR Ot J44.9 CHRONIC OBSTRUCTIVE PULMONARY DISEASE, U 12/12/2019 SELF CHIQUI JUNIOR Ot R26.89 OTHER ABNORMALITIES OF GAIT AND MOBILITY 12/12/2019 SELF CHIQUI JUNIOR Ot R51 HEADACHE 12/12/2019 SELF CHIQUI JUNIOR Ot Z91.81 HISTORY OF FALLING 12/12/2019 SIRI FLANNERY Ot G47.33 OBSTRUCTIVE SLEEP APNEA (ADULT) (PEDIATR 12/12/2019 SIRI FLANNERY Ot I25.10 ATHSCL HEART DISEASE OF [place] CORONARY 12/12/2019 SIRI FLANNERY Ot 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 12/12/2019 SIRI FLANNERY Ot J44.9 CHRONIC OBSTRUCTIVE PULMONARY DISEASE, U 12/12/2019 SIRI FLANNERY Ot Z72.0 TOBACCO USE 12/12/2019 SABI HAN APRN Ot F17.210 NICOTINE DEPENDENCE, CIGARETTES, UNCOMPL 12/12/2019 SABI HAN APRN Ot I25.10 ATHSCL HEART DISEASE OF [place] CORONARY 12/12/2019 SABI HAN APRN Ot I51.7 CARDIOMEGALY 12/12/2019 SABI HAN APRN Ot J44.9 CHRONIC OBSTRUCTIVE PULMONARY DISEASE, U 12/12/2019 SABI HAN APRN Ot R16.2 HEPATOMEGALY WITH SPLENOMEGALY, NOT ELSE 12/12/2019 SABI HAN APRN Ot R91.8 OTHER NONSPECIFIC ABNORMAL FINDING OF [place] 12/12/2019 SABI HAN ROOM CLERK Ot Z12.2 ENCNTR SCREEN FOR MALIGNANT NEOPLASM OF 12/12/2019 SABI HAN ROOM CLERK Ot G47.36 SLEEP RELATED HYPOVENTILATION IN CONDITI 12/12/2019 EMILIA HANINE E ROOM CLERK Ot G47.50 PARASOMNIA, UNSPECIFIED 12/12/2019 EMILIA HANINE E ROOM CLERK Ot J44.9 CHRONIC OBSTRUCTIVE PULMONARY DISEASE, U 12/12/2019 SABI HAN ROOM CLERK Ot J98.4 OTHER DISORDERS OF LUNG 12/12/2019 SABI HAN ROOM CLERK Ot R06.09 OTHER FORMS OF DYSPNEA 12/12/2019 SABI HAN ROOM CLERK Ot R09.02 HYPOXEMIA 12/12/2019 SABI HAN ROOM CLERK Ot R91.1 SOLITARY PULMONARY NODULE 12/12/2019 SABI HAN ROOM CLERK Ot Z72.0 TOBACCO USE 12/12/2019 CHIQUI BERMAN MD Ot M25.51 1 PAIN IN RIGHT SHOULDER 12/12/2019 ROSINA UZRITA MD Ot 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, CIGARETTES, W OTH D 12/12/2019 ROSINA ZURITA MD Ot I70.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 12/12/2019 ROSINA ZURITA MD Ot 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 12/12/2019 ROSINA ZURITA MD Ot L97.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-PRESSURE CHRONIC ULCER OF RIGHT CALF 12/12/2019 ROSINA ZURITA MD Ot T65.222A TOXIC EFFECT OF TOBACCO CIGARETTES, SELF 12/12/2019 ROSINA ZURITA MD Ot 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, CIGARETTES, W OTH D 12/12/2019 ROSINA ZURITA MD Ot 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 12/12/2019 ROSINA ZURITA MD Ot 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 12/12/2019 ROSINA ZURITA MD Ot L97.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-PRESSURE CHRONIC ULCER OF RIGHT CALF 12/12/2019 ROSINA ZURITA MD Ot T65.222A TOXIC EFFECT OF TOBACCO CIGARETTES, SELF 12/12/2019 ROSINA ZURITA MD Ot 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, CIGARETTES, W OTH D 12/12/2019 ROSINA ZURITA MD Ot 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 12/12/2019 ROSINA ZURITA MD Ot L97.212 NON-PRESSURE CHRONIC ULCER OF RIGHT CALF 12/12/2019 ROSINA ZURITA MD Ot T65.222A TOXIC EFFECT OF TOBACCO CIGARETTES, SELF 12/12/2019 ROSINA ZURITA MD Ot 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, CIGARETTES, W OTH D 12/12/2019 ROSINA ZURITA MD, Ot 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 12/12/2019 ROSINA ZURITA MD, Ot L97.212 NON-PRESSURE CHRONIC ULCER OF RIGHT CALF 12/12/2019 ROSINA ZURITA MD, Ot T65.222A TOXIC EFFECT OF TOBACCO CIGARETTES, SELF 12/12/2019 ONELIA MENDOZA APRN Ot R10.9 UNSPECIFIED ABDOMINAL PAIN 12/12/2019 ONELIA MENDOZA APRN Ot Z98.890 OTHER SPECIFIED POSTPROCEDURAL STATES 12/12/2019 ONELIA MENDOZA APRN Ot M67.813 OTHER SPECIFIED DISORDERS OF TENDON, RIG 12/12/2019 ONELIA MENDOZA APRN Ot M75.101 UNSP ROTATR-CUFF TEAR/RUPTR OF RIGHT FELIPE 12/12/2019 SABI HAN APRN Ot G47.33 OBSTRUCTIVE SLEEP APNEA (ADULT) (PEDIATR 12/12/2019 SABI HAN APRN Ot J44.9 CHRONIC OBSTRUCTIVE PULMONARY DISEASE, U 12/12/2019 SABI HAN APRN Ot Z72.0 TOBACCO USE 12/12/2019 AGUSTIN RAZA MD Ot G47. 33 OBSTRUCTIVE SLEEP APNEA (ADULT) (PEDIATR 12/12/2019 AGUSTIN RAZA MD Ot I25. 10 ATHSCL HEART DISEASE OF [place] CORONARY 12/12/2019 AGUSTIN RAZA MD Ot J44. 9 CHRONIC OBSTRUCTIVE PULMONARY DISEASE, U 12/12/2019 AGUSTIN RAZA MD Ot R00. 2 PALPITATIONS 12/12/2019 AGUSTIN RAZA MD Ot R51 HEADACHE 12/12/2019 AGUSTIN RAZA MD Ot Z72. 0 TOBACCO USE 12/12/2019 DAKOTAH KING Ot M25.51 2 PAIN IN LEFT SHOULDER 12/12/2019 SIRI FLANNERY Ot I25.10 ATHSCL HEART DISEASE OF [place] CORONARY 12/12/2019 TEODORO VAIL, SIRI Mccoy Ot J44.9 CHRONIC OBSTRUCTIVE PULMONARY DISEASE, U 12/12/2019 SIRI FLANNERY Ot K21.9 GASTRO-ESOPHAGEAL REFLUX DISEASE WITHOUT 12/12/2019 SELF CHIQUI JUNIOR Ot J44.9 CHRONIC OBSTRUCTIVE PULMONARY DISEASE, U 12/12/2019 SELF CHIQUI JUNIOR Ot R26.89 OTHER ABNORMALITIES OF GAIT AND MOBILITY 12/12/2019 SELF CHIQUI JUNIOR Ot R51 HEADACHE 12/12/2019 SELF CHIQUI JUNIOR Ot Z91.81 HISTORY OF FALLING 12/12/2019 SIRI FLANNERY Ot G47.33 OBSTRUCTIVE SLEEP APNEA (ADULT) (PEDIATR 12/12/2019 SIRI FLANNERY Ot I25.10 ATHSCL HEART DISEASE OF [place] CORONARY 12/12/2019 SIRI FLANNERY Ot 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 12/12/2019 SIRI FLANNERY Ot J44.9 CHRONIC OBSTRUCTIVE PULMONARY DISEASE, U 12/12/2019 SIRI FLANNERY Ot Z72.0 TOBACCO USE 12/12/2019 SABI HAN APRN Ot F17.210 NICOTINE DEPENDENCE, CIGARETTES, UNCOMPL 12/12/2019 SABI HAN APRN Ot I25.10 ATHSCL HEART DISEASE OF [place] CORONARY 12/12/2019 SABI HAN APRN Ot I51.7 CARDIOMEGALY 12/12/2019 SABI HAN APRN Ot J44.9 CHRONIC OBSTRUCTIVE PULMONARY DISEASE, U 12/12/2019 SABI HAN APRN Ot R16.2 HEPATOMEGALY WITH SPLENOMEGALY, NOT ELSE 12/12/2019 SABI HAN APRN Ot R91.8 OTHER NONSPECIFIC ABNORMAL FINDING OF PRAVIN 12/12/2019 SABI HAN APRN Ot Z12.2 ENCNTR SCREEN FOR MALIGNANT NEOPLASM OF 12/12/2019 SABI HAN APRN Ot G47.36 SLEEP RELATED HYPOVENTILATION IN CONDITI 12/12/2019 SABI HAN APRN Ot G47.50 PARASOMNIA, UNSPECIFIED 12/12/2019 SABI HAN ROOM CLERK Ot J44.9 CHRONIC OBSTRUCTIVE PULMONARY DISEASE, U 12/12/2019 SABI HAN ROOM CLERK Ot J98.4 OTHER DISORDERS OF LUNG 12/12/2019 SABI HAN ROOM CLERK Ot R06.09 OTHER FORMS OF DYSPNEA 12/12/2019 SABI HAN ROOM CLERK Ot R09.02 HYPOXEMIA 12/12/2019 SABI HAN ROOM CLERK Ot R91.1 SOLITARY PULMONARY NODULE 12/12/2019 SABI HAN ROOM CLERK Ot Z72.0 TOBACCO USE 12/12/2019 CHIQUI BERMAN MD Ot M25.51 1 PAIN IN RIGHT SHOULDER 12/12/2019 ROSINA ZURITA MD, Ot 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, CIGARETTES, W OTH D 12/12/2019 ROSINA ZURITA MD Ot I70.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 12/12/2019 ROSINA ZURITA MD Ot 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 12/12/2019 ROSINA ZURITA MD Ot L97.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-PRESSURE CHRONIC ULCER OF RIGHT CALF 12/12/2019 ROSINA ZURITA MD Ot T65.222A TOXIC EFFECT OF TOBACCO CIGARETTES, SELF 12/12/2019 ROSINA ZURITA MD Ot 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, CIGARETTES, W OTH D 12/12/2019 ROSINA ZURITA MD Ot 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 12/12/2019 ROSINA ZURITA MD Ot 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 12/12/2019 ROSINA ZURITA MD Ot L97.212 NON-PRESSURE CHRONIC ULCER OF RIGHT CALF 12/12/2019 ROSINA ZURITA MD Ot T65.222A TOXIC EFFECT OF TOBACCO CIGARETTES, SELF 12/12/2019 ROSINA ZURITA MD Ot 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, CIGARETTES, W OTH D 12/12/2019 ROSINA ZURITA MD Ot 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 12/12/2019 ROSINA ZURITA MD Ot L97.212 NON-PRESSURE CHRONIC ULCER OF RIGHT CALF 12/12/2019 ROSINA ZURITA MD Ot T65.222A TOXIC EFFECT OF TOBACCO CIGARETTES, SELF 12/12/2019 ROSINA ZURITA MD Ot 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, CIGARETTES, W OTH D 12/12/2019 ROSINA ZURITA MD Ot 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 12/12/2019 ROSINA ZURITA MD Ot L97.212 NON-PRESSURE CHRONIC ULCER OF RIGHT CALF 12/12/2019 ROSINA ZURITA MD Ot T65.222A TOXIC EFFECT OF TOBACCO CIGARETTES, SELF 12/12/2019 ONELIA MENDOZA APRN Ot R10.9 UNSPECIFIED ABDOMINAL PAIN 12/12/2019 ONELIA MENDOZA ROOM CLERK Ot Z98.890 OTHER SPECIFIED POSTPROCEDURAL STATES 12/12/2019 ONELIA MENDOZA ROOM CLERK Ot M67.813 OTHER SPECIFIED DISORDERS OF TENDON, RIG 12/12/2019 ONELIA MENDOZA ROOM CLERK Ot M75.101 UNSP ROTATR-CUFF TEAR/RUPTR OF RIGHT FELIPE 12/14/2019 SABI HAN ROOM CLERK Ot D35.02 BENIGN NEOPLASM OF LEFT ADRENAL GLAND 12/14/2019 SABI HAN ROOM CLERK Ot G47.36 SLEEP RELATED HYPOVENTILATION IN CONDITI 12/14/2019 SABI HAN ROOM CLERK Ot J44.9 CHRONIC OBSTRUCTIVE PULMONARY DISEASE, U 12/14/2019 SABI HAN ROOM CLERK Ot J98.4 OTHER DISORDERS OF LUNG 12/14/2019 SABI HAN ROOM CLERK Ot K76.89 OTHER SPECIFIED DISEASES OF LIVER 12/14/2019 SABI HAN ROOM CLERK Ot R16.1 SPLENOMEGALY, NOT ELSEWHERE CLASSIFIED 12/14/2019 SABI HAN ROOM CLERK Ot R91.8 OTHER NONSPECIFIC ABNORMAL FINDING OF PRAVIN 12/14/2019 SABI HAN ROOM CLERK Ot Z72.0 TOBACCO USE 12/18/2019 SABI HAN ROOM CLERK Ot D35.02 BENIGN NEOPLASM OF LEFT ADRENAL GLAND 12/18/2019 SABI HAN ROOM CLERK Ot G47.36 SLEEP RELATED HYPOVENTILATION IN CONDITI 12/18/2019 SABI HAN ROOM CLERK Ot J44.9 CHRONIC OBSTRUCTIVE PULMONARY DISEASE, U 12/18/2019 SABI HAN ROOM CLERK Ot J98.4 OTHER DISORDERS OF LUNG 12/18/2019 SABI HAN ROOM CLERK Ot K76.89 OTHER SPECIFIED DISEASES OF LIVER 12/18/2019 SABI HAN ROOM CLERK Ot R16.1 SPLENOMEGALY, NOT ELSEWHERE CLASSIFIED 12/18/2019 SABI HAN ROOM CLERK Ot R91.8 OTHER NONSPECIFIC ABNORMAL FINDING OF PRAV[place] 12/18/2019 SABI HAN ROOM CLERK Ot Z72.0 TOBACCO USE 12/30/2019 SABI HAN ROOM CLERK Ot G47.33 OBSTRUCTIVE SLEEP APNEA (ADULT) (PEDIATR 12/30/2019 SABI HAN ROOM CLERK Ot J44.9 CHRONIC OBSTRUCTIVE PULMONARY DISEASE, U 12/30/2019 SABI HAN ROOM CLERK Ot Z72.0 TOBACCO USE 12/30/2019 AGUSTIN RAZA MD Ot G47. 33 OBSTRUCTIVE SLEEP APNEA (ADULT) (PEDIATR 12/30/2019 LUZ MARINA JUNIOR, AGUSTIN Mai Ot I25. 10 ATHSCL HEART DISEASE OF [place] CORONARY 12/30/2019 AGUSTIN RAZA MD Ot J44. 9 CHRONIC OBSTRUCTIVE PULMONARY DISEASE, U 12/30/2019 AGUSTIN RAZA MD Ot R00. 2 PALPITATIONS 12/30/2019 AGUSTIN RAZA MD Ot R51 HEADACHE 12/30/2019 AGUSTIN RAZA MD Ot Z72. 0 TOBACCO USE 12/30/2019 DAKOTAH KING Ot M25.51 2 PAIN IN LEFT SHOULDER 12/30/2019 SIRI FLANNERY Ot I25.10 ATHSCL HEART DISEASE OF [place] CORONARY 12/30/2019 SIRI FLANNERY Ot J44.9 CHRONIC OBSTRUCTIVE PULMONARY DISEASE, U 12/30/2019 SIRI FLANNERY Ot K21.9 GASTRO-ESOPHAGEAL REFLUX DISEASE WITHOUT 12/30/2019 CHIQUI BERMAN MD Ot J44.9 CHRONIC OBSTRUCTIVE PULMONARY DISEASE, U 12/30/2019 CHIQUI BERMAN MD Ot R26.89 OTHER ABNORMALITIES OF GAIT AND MOBILITY 12/30/2019 CHIQUI BERMAN MD Ot R51 HEADACHE 12/30/2019 CHIQUI BERMAN MD Ot Z91.81 HISTORY OF FALLING 12/30/2019 SIRI FLANNERY Ot G47.33 OBSTRUCTIVE SLEEP APNEA (ADULT) (PEDIATR 12/30/2019 SIRI FLANNERY Ot I25.10 ATHSCL HEART DISEASE OF [place] CORONARY 12/30/2019 SIRI FLANNERY Ot 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 12/30/2019 SIRI FLANNERY Ot J44.9 CHRONIC OBSTRUCTIVE PULMONARY DISEASE, U 12/30/2019 SIRI FLANNERY Ot Z72.0 TOBACCO USE 12/30/2019 SABI HAN ROOM CLERK Ot F17.210 NICOTINE DEPENDENCE, CIGARETTES, UNCOMPL 12/30/2019 SABI HAN ROOM CLERK Ot I25.10 ATHSCL HEART DISEASE OF [place] CORONARY 12/30/2019 SABI HAN ROOM CLERK Ot I51.7 CARDIOMEGALY 12/30/2019 SABI HAN ROOM CLERK Ot J44.9 CHRONIC OBSTRUCTIVE PULMONARY DISEASE, U 12/30/2019 SABI HAN ROOM CLERK Ot R16.2 HEPATOMEGALY WITH SPLENOMEGALY, NOT ELSE 12/30/2019 SABI HAN ROOM CLERK Ot R91.8 OTHER NONSPECIFIC ABNORMAL FINDING OF [place] 12/30/2019 SABI HAN ROOM CLERK Ot Z12.2 ENCNTR SCREEN FOR MALIGNANT NEOPLASM OF 12/30/2019 SABI HAN ROOM CLERK Ot G47.36 SLEEP RELATED HYPOVENTILATION IN CONDITI 12/30/2019 SABI HAN ROOM CLERK Ot G47.50 PARASOMNIA, UNSPECIFIED 12/30/2019 SABI HAN ROOM CLERK Ot J44.9 CHRONIC OBSTRUCTIVE PULMONARY DISEASE, U 12/30/2019 SABI HAN ROOM CLERK Ot J98.4 OTHER DISORDERS OF LUNG 12/30/2019 SABI HAN ROOM CLERK Ot R06.09 OTHER FORMS OF DYSPNEA 12/30/2019 SABI HAN ROOM CLERK Ot R09.02 HYPOXEMIA 12/30/2019 SABI HAN ROOM CLERK Ot R91.1 SOLITARY PULMONARY NODULE 12/30/2019 SABI HAN ROOM CLERK Ot Z72.0 TOBACCO USE 12/30/2019 CHIQUI BERMAN MD Ot M25.51 1 PAIN IN RIGHT SHOULDER 12/30/2019 PARMINDER JUNIOR, ROSINA Yin Ot 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, CIGARETTES, W OTH D 12/30/2019 ROSINA ZURITA MD Ot I70.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 12/30/2019 ROSINA ZURITA MD Ot 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 12/30/2019 ROSINA ZURITA MD Ot L97.212 NON-PRESSURE CHRONIC ULCER OF RIGHT CALF 12/30/2019 ROSINA ZURITA MD, Ot T65.222A TOXIC EFFECT OF TOBACCO CIGARETTES, SELF 12/30/2019 ROSINA ZURITA MD, Ot 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, CIGARETTES, W OTH D 12/30/2019 ROSINA ZURITA MD Ot 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 12/30/2019 ROSINA ZURITA MD Ot 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 12/30/2019 ROSINA ZURITA MD Ot L97.212 NON-PRESSURE CHRONIC ULCER OF RIGHT CALF 12/30/2019 ROSINA ZURITA MD, Ot T65.222A TOXIC EFFECT OF TOBACCO CIGARETTES, SELF 12/30/2019 ROSINA ZURITA MD Ot 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, CIGARETTES, W OTH D 12/30/2019 ROSINA ZURITA MD Ot 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 12/30/2019 ROSINA ZURITA MD Ot L97.212 NON-PRESSURE CHRONIC ULCER OF RIGHT CALF 12/30/2019 ROSINA ZURITA MD Ot T65.222A TOXIC EFFECT OF TOBACCO CIGARETTES, SELF 12/30/2019 RSOINA ZURITA MD Ot 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, CIGARETTES, W OTH D 12/30/2019 ROSINA ZURITA MD Ot 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 12/30/2019 ROSINA ZURITA MD, Ot L97.212 NON-PRESSURE CHRONIC ULCER OF RIGHT CALF 12/30/2019 ROSINA ZURITA MD, Ot T65.222A TOXIC EFFECT OF TOBACCO CIGARETTES, SELF 12/30/2019 ONELIA MENDOZA APRN Ot R10.9 UNSPECIFIED ABDOMINAL PAIN 12/30/2019 ONELIA MENDOZA APRN Ot Z98.890 OTHER SPECIFIED POSTPROCEDURAL STATES 12/30/2019 ONELIA MENDOZA APRN Ot M67.813 OTHER SPECIFIED DISORDERS OF TENDON, RIG 12/30/2019 ONELIA MENDOZA APRN Ot M75.101 UNSP ROTATR-CUFF TEAR/RUPTR OF RIGHT FELIPE 12/30/2019 SABI HAN APRN Ot D35.02 BENIGN NEOPLASM OF LEFT ADRENAL GLAND 12/30/2019 SABI HAN APRN Ot G47.36 SLEEP RELATED HYPOVENTILATION IN CONDITI 12/30/2019 SABI HAN APRN Ot J44.9 CHRONIC OBSTRUCTIVE PULMONARY DISEASE, U 12/30/2019 SABI HAN APRN Ot J98.4 OTHER DISORDERS OF LUNG 12/30/2019 SABI HAN APRN Ot K76.89 OTHER SPECIFIED DISEASES OF LIVER 12/30/2019 SABI HAN APRN Ot R16.1 SPLENOMEGALY, NOT ELSEWHERE CLASSIFIED 12/30/2019 SABI HAN APRN Ot R91.8 OTHER NONSPECIFIC ABNORMAL FINDING OF PRAVIN 12/30/2019 SABI HNA APRN Ot Z72.0 TOBACCO USE 12/30/2019 [facility]10. 9 UNSPECIFIED ABDOMINAL PAIN 12/30/2019 [facility] Ot Z53. 8 PROCEDURE AND TREATMENT NOT CARRIED OUT Procedures Code Description Performed By Per formed On [id number] ME ASURE OF CARDIAC SAMPL PRESSURE, L H 05/14/2018 [id number] FL UOROSCOPY OF MULT COR ART USING L OSM 05/14/2018 [id number] FL UOROSCOPY OF LEFT HEART USING LOW OSMO 05/14/2018 Results Test Result Range Methicillin resistant Staphylococcus aur eus (MRSA) screening culture - 05/14/18 00:00 Methicillin resistant Staphylococcus aureus (MRSA) scr eening culture NEG NRG Automated blood complete blood count (he mogram) panel - 05/14/18 04:11 Blood leukocytes automated count (number/volume) 5.3 10*3/uL 4.3-11.0 Blood erythrocytes automated count (number/volume) 3.68 10*6/uL 4.35-5.85 Venous blood hemoglobin measurement (mass/volume) 11.2 g/dL 11.5-16.0 Blood hematocrit (volume fraction) 35 % 35-52 Automated erythrocyte mean corpuscular volume 95 [ foz_us] 80-99 Automated erythrocyte mean corpuscular h emoglobin (mass per erythrocyte) 30 pg 25-34 Automated erythrocyte mean corpuscular h emoglobin concentration measurement (mass/volume) 32 g/dL 32-36 Automated erythrocyte distribution width ratio 14. 3 % 10.0- 14.5 Automated blood platelet count (count/volume) 158 10*3/uL 130-400 Automated blood platelet mean volume measurement 10.9 [foz_us] 7.4-10.4 PT panel in platelet poor plasma by coag ulation assay - 05/14/18 04:11 Prothrombin time (PT) in platelet poor plasma by coagu lation assay 13.8 s 12.2-14.7 INR in platelet poor plasma or blood by coagulation as say 1.1 0.8-1.4 Activated partial thromboplastin time (a PTT) in platelet poor plasma bycoagulation assay - 05/14/18 04:11 Activated partial thromboplastin time (a PTT) in platelet poor plasma bycoagulation assay 34 s 24-35 Comprehensive metabolic panel - 05/14/18 04:11 Serum or plasma sodium measurement (moles/volume) 140 mmol/L 135-145 Serum or plasma potassium measurement (moles/volume) 4.2 mmol/L 3.6-5.0 Serum or plasma chloride measurement (moles/volume) 112 mmol/L 98-107 Carbon dioxide 19 mmol/L 21-32 Serum or plasma anion gap determination (moles/volume) 9 mmol/L 5-14 Serum or plasma urea nitrogen measurement (mass/volume ) 21 mg/dL 7-18 Serum or plasma creatinine measurement (mass/volume) 0.78 mg/dL 0.60-1.30 Serum or plasma urea nitrogen/creatinine mass ratio 27 NRG Serum or plasma creatinine measurement w ith calculation of estimated glomerular filtration rate > NRG Serum or plasma glucose measurement (mass/volume) 92 mg/dL 70-105 Serum or plasma calcium measurement (mass/volume) 8.7 mg/dL 8.5-10.1 Serum or plasma total bilirubin measurement (mass/volu me) 0.3 mg/dL 0.1-1.0 Serum or plasma alkaline phosphatase antelmo surement (enzymatic activity/volume) 81 U/L 40-136 Serum or plasma aspartate aminotransfera se measurement (enzymatic activity/volume) 13 U/L 5-34 Serum or plasma alanine aminotransferase measurement (enzymatic activity/volume) 12 U/L 0-55 Serum or plasma protein measurement (mass/volume) 5.9 g/dL 6.4-8.2 Serum or plasma albumin measurement (mass/volume) 3.7 g/dL 3.2-4.5 CALCIUM CORRECTED 8.9 mg/dL 8.5-10.1 Serum or plasma phosphate measurement (m ass/volume) - 05/14/18 04:11 Serum or plasma phosphate measurement (mass/volume) 3.8 mg/dL 2.3-4.7 Magnesium - 05/14/18 04:11 Magnesium 2.4 mg/dL 1.8-2.4 Serum or plasma troponin i.cardiac measu rement (mass/volume) - 05/14/18 04:11 Serum or plasma troponin i.cardiac measurement (mass/v olume) < ng/mL <0.30 Serum or plasma lithium measurement (mol es/volume) - 05/14/18 04:11 BNP level 22.3 pg/mL <100.0 Lipid 1996 panel - 05/14/18 04:11 Serum or plasma triglyceride measurement (mass/volume) 108 mg/dL <150 Serum or plasma cholesterol measurement (mass/volume) 161 mg/dL < 200 Serum or plasma cholesterol in HDL measurement (mass/v olume) 42 mg/dL 40-60 Cholesterol in LDL [mass/volume] in serum or plasma by direct assay 110 mg/dL 1-129 Serum or plasma cholesterol in VLDL measurement (mass/ volume) 22 mg/dL 5-40 Arterial blood gas measurement - 8 09:10 Blood pCO2 35 mm[Hg] 35-45 Blood pO2 81 mm[Hg] 79-93 Arterial blood bicarbonate measurement (moles/volume) 21 mmol/L 23-27 Arterial blood base excess by calculation -3.7 mmo l/L -2.5-2.5 Arterial blood oxygen saturation measurement 98 % 94-100 * Inhaled oxygen flow rate RA NRG Arterial blood pH measurement with patient temperature correction 7.38 7.37-7.43 Arterial blood carbon dioxide, total measurement (mole s/volume) 21.6 mmol/L 21.0-31.0 Body site RRAD NRG Assessment of wrist artery patency prior to arterial p uncture YES-POS NRG Setting of ventilation mode NO NR G Measurement of body temperature 98 NRG Complete blood count (CBC) with automate d white blood cell (WBC) differential - 08/01/18 23:32 Blood leukocytes automated count (number/volume) 6.2 10*3/uL 4.3-11.0 Blood erythrocytes automated count (number/volume) 3.92 10*6/uL 4.35-5.85 Venous blood hemoglobin measurement (mass/volume) 12.0 g/dL 11.5-16.0 Blood hematocrit (volume fraction) 37 % 35-52 Automated erythrocyte mean corpuscular volume 94 [ foz_us] 80-99 Automated erythrocyte mean corpuscular h emoglobin (mass per erythrocyte) 31 pg 25-34 Automated erythrocyte mean corpuscular h emoglobin concentration measurement (mass/volume) 33 g/dL 32-36 Automated erythrocyte distribution width ratio 13. 8 % 10.0- 14.5 Automated blood platelet count [...] 10*3 1.0-4.0 Blood monocytes automated count (number/volume) 0. 5 10*3 0.0-1.0 Automated eosinophil count 0.2 10*3/uL 0 .0-0.3 Automated blood basophil count (count/volume) 0.0 10*3/uL 0.0-0.1 Comprehensive metabolic panel - 08/01/18 23:32 Serum or plasma sodium measurement (moles/volume) 145 mmol/L 135-145 Serum or plasma potassium measurement (moles/volume) 3.9 mmol/L 3.6-5.0 Serum or plasma chloride measurement (moles/volume) 108 mmol/L 98-107 Carbon dioxide 28 mmol/L 21-32 Serum or plasma anion gap determination (moles/volume) 9 mmol/L 5-14 Serum or plasma urea nitrogen measurement (mass/volume ) 20 mg/dL 7-18 Serum or plasma creatinine measurement (mass/volume) 0.78 mg/dL 0.60-1.30 Serum or plasma urea nitrogen/creatinine mass ratio 26 NRG Serum or plasma creatinine measurement w ith calculation of estimated glomerular filtration rate > NRG Serum or plasma glucose measurement (mass/volume) 112 mg/dL 70-105 Serum or plasma calcium measurement (mass/volume) 9.2 mg/dL 8.5-10.1 Serum or plasma total bilirubin measurement (mass/volu me) 0.3 mg/dL 0.1-1.0 Serum or plasma alkaline phosphatase antelmo surement (enzymatic activity/volume) 97 U/L 40-136 Serum or plasma aspartate aminotransfera se measurement (enzymatic activity/volume) 12 U/L 5-34 Serum or plasma alanine aminotransferase measurement (enzymatic activity/volume) 8 U/L 0-55 Serum or plasma protein measurement (mass/volume) 6.5 g/dL 6.4-8.2 Serum or plasma albumin measurement (mass/volume) 4.0 g/dL 3.2-4.5 CALCIUM CORRECTED 9.2 mg/dL 8.5-10.1 CBCD (AUTO DIFF) - 12/06/18 17:09 WBC 6.6 x10 3UL 4.0 - 10.0 NEUTROPHIL % 75.3 % 30.0 - 75.0 LYMPHOCYTES % 12.0 % 18.0 - 40.0 MONOCYTES % 8.0 % 1.0 - 8.0 EOSINOPHILS % 3.5 % 0.0 - 3.0 BASOPHILS % 0.6 % 0.0 - 2.0 IMMAT GRAN % 0.6 % 0.0 - 1.0 RBC 4.17 MIL/UL 4.20 - 5.00 HGB 13.0 g/dL 12.0 - 15.0 HCT 39.2 % 37.0 - 47.0 MCV 94 FL 80 - 100 MCH 31.2 PG 26.0 - 35.0 MCHC 33.2 % 28.0 - 37.3 RDW 14.2 %CV 10.5 - 14.5 PLATELETS 156 X10 3UL 150 - 400 NRBC 0 % 0 - 0 DIFFERENTIAL AUTOMATED NRG COMP METAB PANEL - 12/06/18 17:09 GLUCOSE 88 MG/DL 65 - 110 BUN 19 MG/DL 7 - 21 CREATININE 1.0 mg/dl 0.7 - 1.5 BUN/CRE RATIO 19.0 7.0 - 25.0 SODIUM 141 MMOL/L 137 - 145 POTASSIUM 4.2 MMOL/L 3.6 - 5.0 CHLORIDE 108 MMOL/L 98 - 107 CO2 24 mmol/L 22 - 30 SGOT 20 U/L 8 - 39 SGPT <6 U/L 9 - 52 ALKALINE PHOS 75 U/L 20 - 155 TOTAL BILI 0.50 MG/DL 0.20 - 1.20 TOTAL PROTEIN 7.3 G/DL 6.3 - 8.2 ALBUMIN 4.7 G/DL 3.5 - 5.0 CALCIUM 10.3 MG/DL 8.4 - 10.2 AGE 63 YEARS NRG gfr 60 NRG eGFR 60 mL/min/BSA NRG TROPONIN I - 12/06/18 17:09 TROPONIN I 0.014 NG/ML 0.000 - 0.030 TROPONIN I - 12/06/18 19:11 TROPONIN I 0.020 NG/ML 0.000 - 0.030 Complete blood count (CBC) with automate d white blood cell (WBC) differential - 05/03/19 09:15 Blood leukocytes automated count (number/volume) 5.8 10*3/uL 4.3-11.0 Blood erythrocytes automated count (number/volume) 3.99 10*6/uL 4.35-5.85 Venous blood hemoglobin measurement (mass/volume) 12.6 g/dL 11.5-16.0 Blood hematocrit (volume fraction) 39 % 35-52 Automated erythrocyte mean corpuscular volume 97 [ foz_us] 80-99 Automated erythrocyte mean corpuscular h emoglobin (mass per erythrocyte) 32 pg 25-34 Automated erythrocyte mean corpuscular h emoglobin concentration measurement (mass/volume) 33 g/dL 32-36 Automated erythrocyte distribution width ratio 13. 7 % 10.0- 14.5 Automated blood platelet count (count/volume) 169 10*3/uL 130-400 Automated blood platelet mean volume measurement 10.7 [foz_us] 7.4-10.4 Automated blood neutrophils/100 leukocytes 76 % 42-75 Automated blood lymphocytes/100 leukocytes 10 % 12-44 Blood monocytes/100 leukocytes 7 % 0-12 Automated blood eosinophils/100 leukocytes 5 % 0-10 Automated blood basophils/100 leukocytes 1 % 0-10 Blood neutrophils automated count (number/volume) 4.4 10*3 1.8-7.8 Blood lymphocytes automated count (number/volume) 0.6 10*3 1.0-4.0 Blood monocytes automated count (number/volume) 0. 4 10*3 0.0-1.0 Automated eosinophil count 0.3 10*3/uL 0 .0-0.3 Automated blood basophil count (count/volume) 0.1 10*3/uL 0.0-0.1 Comprehensive metabolic panel - 05/03/19 09:15 Serum or plasma sodium measurement (moles/volume) 141 mmol/L 135-145 Serum or plasma potassium measurement (moles/volume) 4.4 mmol/L 3.6-5.0 Serum or plasma chloride measurement (moles/volume) 107 mmol/L 98-107 Carbon dioxide 25 mmol/L 21-32 Serum or plasma anion gap determination (moles/volume) 9 mmol/L 5-14 Serum or plasma urea nitrogen measurement (mass/volume ) 13 mg/dL 7-18 Serum or plasma creatinine measurement (mass/volume) 0.95 mg/dL 0.60-1.30 Serum or plasma urea nitrogen/creatinine mass ratio 14 NRG Serum or plasma creatinine measurement w ith calculation of estimated glomerular filtration rate 60 NRG Serum or plasma glucose measurement (mass/volume) 101 mg/dL 70-105 Serum or plasma calcium measurement (mass/volume) 9.6 mg/dL 8.5-10.1 Serum or plasma total bilirubin measurement (mass/volu me) 0.3 mg/dL 0.1-1.0 Serum or plasma alkaline phosphatase antelmo surement (enzymatic activity/volume) 86 U/L 40-136 Serum or plasma aspartate aminotransfera se measurement (enzymatic activity/volume) 13 U/L 5-34 Serum or plasma alanine aminotransferase measurement (enzymatic activity/volume) 7 U/L 0-55 Serum or plasma protein measurement (mass/volume) 6.8 g/dL 6.4-8.2 Serum or plasma albumin measurement (mass/volume) 4.0 g/dL 3.2-4.5 CALCIUM CORRECTED 9.6 mg/dL 8.5-10.1 Automated blood complete blood count (he mogram) panel - 05/25/19 09:06 Blood leukocytes automated count (number/volume) 5.2 10*3/uL 4.3-11.0 Blood erythrocytes automated count (number/volume) 4.01 10*6/uL 4.35-5.85 Venous blood hemoglobin measurement (mass/volume) 12.5 g/dL 11.5-16.0 Blood hematocrit (volume fraction) 38 % 35-52 Automated erythrocyte mean corpuscular volume 94 [ foz_us] 80-99 Automated erythrocyte mean corpuscular h emoglobin (mass per erythrocyte) 31 pg 25-34 Automated erythrocyte mean corpuscular h emoglobin concentration measurement (mass/volume) 33 g/dL 32-36 Automated erythrocyte distribution width ratio 14. 1 % 10.0- 14.5 Automated blood platelet count (count/volume) 143 10*3/uL 130-400 Automated blood platelet mean volume measurement 10.5 [foz_us] 7.4-10.4 PT panel in platelet poor plasma by coag ulation assay - 05/25/19 09:06 Prothrombin time (PT) in platelet poor plasma by coagu lation assay 14.1 s 12.2-14.7 INR in platelet poor plasma or blood by coagulation as say 1.0 0.8-1.4 Activated partial thromboplastin time (a PTT) in platelet poor plasma bycoagulation assay - 05/25/19 09:06 Activated partial thromboplastin time (a PTT) in platelet poor plasma bycoagulation assay 30 s 24-35 Comprehensive metabolic panel - 05/25/19 09:06 Serum or plasma sodium measurement (moles/volume) 140 mmol/L 135-145 Serum or plasma potassium measurement (moles/volume) 4.1 mmol/L 3.6-5.0 Serum or plasma chloride measurement (moles/volume) 110 mmol/L 98-107 Carbon dioxide 25 mmol/L 21-32 Serum or plasma anion gap determination (moles/volume) 5 mmol/L 5-14 Serum or plasma urea nitrogen measurement (mass/volume ) 13 mg/dL 7-18 Serum or plasma creatinine measurement (mass/volume) 0.87 mg/dL 0.60-1.30 Serum or plasma urea nitrogen/creatinine mass ratio 15 NRG Serum or plasma creatinine measurement w ith calculation of estimated glomerular filtration rate > NRG Serum or plasma glucose measurement (mass/volume) 94 mg/dL 70-105 Serum or plasma calcium measurement (mass/volume) 9.4 mg/dL 8.5-10.1 Serum or plasma total bilirubin measurement (mass/volu me) 0.3 mg/dL 0.1-1.0 Serum or plasma alkaline phosphatase antelmo surement (enzymatic activity/volume) 82 U/L 40-136 Serum or plasma aspartate aminotransfera se measurement (enzymatic activity/volume) 15 U/L 5-34 Serum or plasma alanine aminotransferase measurement (enzymatic activity/volume) 9 U/L 0-55 Serum or plasma protein measurement (mass/volume) 6.6 g/dL 6.4-8.2 Serum or plasma albumin measurement (mass/volume) 4.1 g/dL 3.2-4.5 CALCIUM CORRECTED 9.3 mg/dL 8.5-10.1 Lipid 1996 panel - 05/25/19 09:06 Serum or plasma triglyceride measurement (mass/volume) 120 mg/dL <150 Serum or plasma cholesterol measurement (mass/volume) 178 mg/dL < 200 Serum or plasma cholesterol in HDL measurement (mass/v olume) 51 mg/dL 40-60 Cholesterol in LDL [mass/volume] in serum or plasma by direct assay 122 mg/dL 1-129 Serum or plasma cholesterol in VLDL measurement (mass/ volume) 24 mg/dL 5-40 Methicillin resistant Staphylococcus aur eus (MRSA) screening culture - 05/25/19 09:06 Methicillin resistant Staphylococcus aureus (MRSA) scr eening culture NEG NRG [id number] - 09/12/19 09:25 Serum or plasma urea nitrogen measurement (mass/volume ) 13 mg/dL 7-18 Serum or plasma creatinine measurement (mass/volume) 0.84 mg/dL 0.60-1.30 Serum or plasma urea nitrogen/creatinine mass ratio 15 NRG Serum or plasma creatinine measurement w ith calculation of estimated glomerular filtration rate > NRG Coronavirus SARS-CoV-2 SO 2018 0 13:02 Coronavirus Ab [Units/volume] in Serum Negative Negative Methicillin resistant Staphylococcus aur eus (MRSA) screening culture - 09/29/19 06:45 Methicillin resistant Staphylococcus aureus (MRSA) scr eening culture NEG NRG Coronavirus SARS-CoV-2 SO 2018 - 0 08:00 Coronavirus Ab [Units/volume] in Serum Negative Negative [id number] - 12/12/19 08:09 Serum or plasma urea nitrogen measurement (mass/volume ) 16 mg/dL 7-18 Serum or plasma creatinine measurement (mass/volume) 0.91 mg/dL 0.60-1.30 Serum or plasma urea nitrogen/creatinine mass ratio 18 NRG Serum or plasma creatinine measurement w ith calculation of estimated glomerular filtration rate > NRG Encounters ACCT No. Visit Date/Time Discharge Status Pt. Type Provider Facility Loc./Unit Complaint [id number] 12/06/2018 16:48:00 12/06/2018 20:34: 00 DIS Emergency CALEB FIGUEROA 014 CHEST PAINS RIGHT SIDE [id number] 12/12/2019 08:03:00 23:59:59 CLS Outpatient CHARLOTTE VELÁZQUEZ DO [facility] RAD ABD PAIN [id number] 12/12/2019 08:01:00 23:59:59 CLS Outpatient SABI HAN APRN [facility] RAD DYSPNEA ON EXERTION,COPD,TOBACCO USER [id number] 11/14/2019 09:03:00 13:45:00 DIS Outpatient VELÁZQUEZ CHARLOTTE KHAN [facility] ENDO ABD PAIN/HX ULCERS [id number] 11/10/2019 05:36:00 11:36:00 DIS Outpatient CHARLOTTE VELÁZQUEZ DO [facility] PREOP COLONOSCOPY/EGD [id number] 10/24/2019 13:02:00 23:59:59 CLS Outpatient ONELIA MENDOZA APRN [facility] RAD RT SHOULDER ROSA N [id number] 09/29/2019 06:21:00 10:35:00 DIS Outpatient ROSINA KENT MD [facility] SDC EXTRUDED LEFT TUBE [id number] 09/26/2019 08:33:00 16:07:00 DIS Outpatient ROSINA KENT MD [facility] PREOP EXTRUDED LEFT TUBE [id number] 09/23/2019 12:33:00 23:59:59 CLS Outpatient ONELIA MENDOZA APRN [facility] RAD FS ABD PAIN [id number] 09/22/2019 10:12:00 23:59:59 CLS Outpatient ROSINA ZURITA MD [facility] WOUNDCARE [id number] 09/21/2019 21:04:00 21:14:00 DIS Emergency MARIANNE JUNIOR, CHACHO Mart [facility] ER FS ABD BLOATING [id number] 09/12/2019 09:03:00 23:59:59 CLS Outpatient SABI HAN APRN [facility] RAD FS R06.09 G47.36 J 98.4 G47.34 G47.50 J44.9 Z72.0 [id number] 09/08/2019 09:57:00 23:59:59 CLS Outpatient ROSINA ZURITA MD [facility] WOUNDCARE [id number] 09/01/2019 10:35:00 23:59:59 CLS Outpatient ROSINA ZURITA MD [facility] WOUNDCARE [id number] 08/25/2019 08:11:00 23:59:59 CLS Outpatient ROSINA ZURITA MD [facility] WOUNDCARE [id number] 08/23/2019 14:34:00 23:59:59 CLS Outpatient CHIQUI BERMAN MD [facility] RAD FS ACUTE PAIN OF RT SHOULD ER [id number] 06/15/2019 13:50:00 23:59:59 CLS Outpatient SABI HAN APRN [facility] RAD COPD,SMOKING HX [id number] 05/25/2019 08:38:00 16:05:00 DIS Outpatient LUZ MARINA JUNIOR, AGUSTIN Mai [facility] CATH ABN STRESS TEST,CHEST PAIN,CAD,SOB,COPD,HLP [id number] 05/04/2019 10:09:00 23:59:59 CLS Outpatient YESSICA FLANNERY [facility] CARD CAD [id number] 05/03/2019 09:06:00 23:59:59 CLS Outpatient CHIQUI BERMAN MD [facility] RAD FS BALANCE DISORDER J44.9 [id number] 04/25/2019 10:21:00 23:59:59 CLS Outpatient YESSICA FLANNERY [facility] CARD ANTERIOR CH EST WALL PAIN [id number] 02/16/2019 15:30:00 23:59:59 CLS Outpatient FERNANDO DAKOTAH SMITHP [facility] RAD FS M25.512 [id number] 01/06/2019 20:23:00 21:09:00 DIS Emergency TAIWO FRANCO DO [facility] ER FS LT SIDE RIB PAIN [id number] 12/03/2018 06:55:00 11:50:00 [facility] MIED[facility] [id number] 11/25/2018 05:51:00 16:27:00 DIS Outpatient ROSINA KENT MD [facility] PREOP CHRONIC OTITIS MEDIA [id number] 08/01/2018 21:54:00 00:30:00 DIS Emergency REYNOLD CORBETT MD [facility] ER FS NAUSEA--VOMITTING [id number] 06/30/2018 07:10:00 23:59:59 CLS Outpatient SABI HAN APRN [facility] RT COPD [id number] 06/29/2018 19:08:00 06:55:00 DIS Outpatient SABI HAN APRN [facility] SLEEP EVELYNE G47.33 [id number] 06/17/2018 09:31:00 23:59:59 CLS Outpatient AGUSTIN RAZA MD [facility] CARD COPD, TOBACCO USER, EVELYNE , CAD, HEADACHE,PALPITATION [id number] 06/15/2018 16:15:00 23:59:59 CLS Preadmit AGUSTIN RAZA MD [facility] COPD, TOBACCO USER, EVELYNE , CAD [id number] 05/14/2018 01:05:00 15:45:00 DIS Inpatient LUZ MARINA JUNIOR, AGUSTIN Mai [facility] ICU CHEST PAIN [id number] 12/30/2019 20:28:[address] Emergency MARIBELL JUNIOR, MED [facility] ER FS ABD PAIN,HEADACHE,NAUSEA [id number] 12/06/2018 16:48:00 Document Registration [id number] 08/08/2017 17:12:55 ACT Document Registration [id number] 07/28/2017 10:45:01 ACT Unknown
--- NOTE | 2019-12-30 21:04 | ED Abdominal Pain ---
General Chief Complaint: Abdominal/GI Problems Stated Complaint: ABD PAIN,HEADACHE,NAUSEA Nursing Triage Note: Pt complaining of mid abd pain and nausea. Pt states this started after eating pizza around 1700 last night Sepsis Screen: No Definite Risk History of Present Illness Date Seen by Provider: Dec 30, 2019 Time Seen by Provider: 20:45 Initial Comments Patient is here following eating pizza 2 days ago and started having some abdominal pain as had part of her stomach removed in the past and has intermittent abdominal pain she's passing stools she is slightly nauseated she has had no fever no chills was not thrown has noted a headache which she also has headaches as well did try hydrocodone today and didn't seem to help much. Timing/Duration: 1-2 Days Severity/Quality: Mild Location: Generalized Abdomen Radiation: No Radiation Activities at Onset: None Modifying Factors: Worsens With Eating, Worsens With Urinating, Worsens With Vomiting Associated Symptoms: No Chest Pain, No Fever/Chills, No Headache; Nausea/Vomiting; No Weakness Allergies and Home Medications Allergies Coded Allergies: morphine (Verified Allergy, Severe, CONFUSION, 09/26/19) tramadol (Verified Allergy, Severe, CONFUSION, 09/26/19) varenicline (Verified Allergy, Intermediate, NAUSEA/VOMITTING, 09/26/19) Sulfa (Sulfonamide Antibiotics) (Unverified Adverse Reaction, Unknown, 09/29/19) ibuprofen (Unverified Adverse Reaction, Unknown, gi upset, 09/29/19) oseltamivir (Unverified Adverse Reaction, Unknown, 09/29/19) sumatriptan (Unverified Adverse Reaction, Unknown, 09/29/19) Uncoded Allergies: TAPE (Allergy, Mild, 09/22/05) Home Medications Aspirin 81 Mg Tab.chew, 81 MG PO DAILY, (Reported) Cholecalciferol (Vitamin D3) 1,250 Mcg Capsule, 1,250 MCG PO DAILY, (Reported) Clonazepam 0.5 Mg Tablet, 0.5 MG PO BID PRN for ANXIETY, (Reported) Escitalopram Oxalate 20 Mg Tablet, 20 MG PO HS, (Reported) Lactobacillus Acidophilus 1 Each Tablet, 1 EACH PO DAILY, (Reported) Levocetirizine Dihydrochloride 5 Mg Tablet, 5 MG PO HS, (Reported) Levothyroxine Sodium 25 Mcg Tablet, 25 MCG PO DAILY, (Reported) [place] Carbonate 300 Mg Tablet, 300 MG PO TID, (Reported) Metoprolol Succinate 25 Mg Tab.er.24h, 12.5 MG PO DAILY, (Reported) take 1/2 of 25mg tab [place] 3 Polyunsat Fatty Acids 1,000 Mg Cap, 1,000 MG PO DAILY, (Reported) Pantoprazole Sodium 40 Mg Tablet.dr, 40 MG PO BID, (Reported) Topiramate 100 Mg Tablet, 100 MG PO BID, (Reported) Patient Home Medication List Home Medication List Reviewed: Yes Review of Systems Review of Systems Constitutional: No chills, No dizziness, No fever, No malaise EENTM: No Blurred Vision, No Double Vision Respiratory: Cough; Denies Shortness of Air Cardiovascular: Denies Chest Pain (chronic), Denies Lightheadedness Gastrointestinal: Abdominal Pain, Diarrhea, Nausea; Denies Vomiting Genitourinary: Denies Burning, Denies Frequency Musculoskeletal: No joint pain, No joint swelling, No muscle pain Skin: no symptoms reported Psychiatric/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: Headache; Denies Numbness, Denies Tingling Past Ojgfhsa-Yzjvvi-Uojxhx Hx Past Med/Social Hx: Reviewed Nursing Past Med/Soc Hx Patient Social History Alcohol Use: Denies Use Number of Drinks Today: DD Alcohol Beverage of Choice: Rum Recreational Drug Use: No Type Used: Cigarettes 2nd Hand Smoke Exposure: Yes Recent Foreign Travel: No Contact w/Someone Who Travel: No Recent Infectious Disease Expo: No Recent Hopitalizations: No Physical Abuse: No Sexual Abuse: No Immunizations Up To Date Tetanus Booster (TDap): Unknown PED Vaccines UTD: No Date of Pneumonia Vaccine: Feb 22, 2019 Date of Influenza Vaccine: Feb 22, 2019 Seasonal Allergies Seasonal Allergies: No Past Medical History Surgeries: Yes (Gastrectomy, bladder sling, Nerve stimulator removal, DEBRA ELBOW, BMT) Bladder Surgery, Section, Gallbladder, Hysterectomy, Orthopedic Respiratory: Yes COPD Currently Using CPAP: No Currently Using BIPAP: No Cardiac: Yes High Cholesterol, Hypertension 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: Yes Seizure Disorder [employer] History: Hysterectomy Sexually Transmitted Disease: No HIV/AIDS: No Genitourinary: Yes Bladder Infection, Renal Failure, UTI-Chronic Gastrointestinal: Yes Gastroesophageal Reflux Musculoskeletal: Yes Chronic Back Pain Endocrine: Yes Hypothyroidsim HEENT: Yes Cataract Loss of Vision: Denies Hearing Impairment: Hard of Hearing, Bilateral Hearing Aide Cancer: No ("PRECANCEROUS CELLS" ON PAP) Breast, Cervical Did You Recieve Any Treatments: No What Type of Treatment Did You: Chemotherapy, Surgical Intervention Psychosocial: Yes Anxiety, Bipolar, Depression Integumentary: No Blood Disorders: No Adverse Reaction/Blood Tranf: No (N/A) Physical Exam Vital Signs Vital Signs - First Documented 12/30/19 20:32 Temp 36.8 Pulse 70 Resp 16 Pulse Ox 100 O2 Delivery Room Air Capillary Refill : Less Than 3 Seconds Height/Weight/BMI Height: 5'5.00" Weight: 134lbs. 0.0oz. [id number]; 26.04 BMI Method:Stated General Appearance: WD/WN, no apparent distress HEENT: TMs normal, pharynx normal Respiratory: chest non-tender; No decreased breath sounds; rhonchi (mild) Cardiovascular: regular rate, rhythm, no murmur Gastrointestinal: normal bowel sounds; No guarding, No rebound; tenderness (mild generalized) Extremities: normal inspection, no pedal edema Neurologic/Psychiatric: alert, normal mood/affect, oriented x 3 Skin: normal color, warm/dry Progress/Results/Core Measures Results/Orders Lab Results Laboratory Tests Test 12/30/19 21:05 Range/Units White Blood Count 5.4 4.3-11.0 10^3/uL Red Blood Count 3.84 L 4.35-5.85 10^6/uL Hemoglobin 11.9 11.5-16.0 G/DL Hematocrit 37 35-52 % Mean Corpuscular Volume 96 80-99 FL Mean Corpuscular Hemoglobin 31 25-34 PG Mean Corpuscular Hemoglobin Concent 32 32-36 G/DL Red Cell Distribution Width 14.6 H 10.0-14.5 % Platelet Count 153 130-400 10^3/uL Mean Platelet Volume 10.7 H 7.4-10.4 FL Neutrophils (%) (Auto) 80 H 42-75 % Lymphocytes (%) (Auto) 10 L 12-44 % Monocytes (%) (Auto) 7 0-12 % Eosinophils (%) (Auto) 2 0-10 % Basophils (%) (Auto) 1 0-10 % Neutrophils # (Auto) 4.3 1.8-7.8 X 10^3 Lymphocytes # (Auto) 0.5 L 1.0-4.0 X 10^3 Monocytes # (Auto) 0.4 0.0-1.0 X 10^3 Eosinophils # (Auto) 0.1 0.0-0.3 10^3/uL Basophils # (Auto) 0.0 0.0-0.1 10^3/uL Sodium Level 142 135-145 MMOL/L Potassium Level 4.2 3.6-5.0 MMOL/L Chloride Level 111 H 98-107 MMOL/L Carbon Dioxide Level 19 L 21-32 MMOL/L Anion Gap 12 5-14 MMOL/L Blood Urea Nitrogen 18 7-18 MG/DL Creatinine 0.66 0.60-1.30 MG/DL Estimat Glomerular Filtration Rate > 60 BUN/Creatinine Ratio 27 Glucose Level 82 70-105 MG/DL Calcium Level 9.2 8.5-10.1 MG/DL Corrected Calcium 9.3 8.5-10.1 MG/DL Total Bilirubin 0.2 0.1-1.0 MG/DL Aspartate Amino Transf (AST/SGOT) 19 5-34 U/L Alanine Aminotransferase (ALT/SGPT) 7 0-55 U/L Alkaline Phosphatase 79 40-136 U/L Total Protein 6.4 6.4-8.2 GM/DL Albumin 3.9 3.2-4.5 GM/DL Lipase 39 8-78 U/L Serum Alcohol < 10 <10 MG/DL My Orders Orders - MED REYNA JR, MD Cbc With Automated Diff (12/30/19 21:00) Comprehensive Metabolic Panel (12/30/19 21:00) Lipase (12/30/19 21:00) Ua Culture If Indicated (12/30/19 21:00) Alcohol (12/30/19 21:05) Ns Iv 1000 Ml (Sodium Chloride 0.9%) (12/30/19 21:15) Ondansetron Injection (Zofran Injectio (12/30/19 21:15) Pantoprazole Injection (Protonix Injecti (12/30/19 22:15) Acetaminophen Tablet (Tylenol Tablet) (12/30/19 22:15) Medications Given in ED Current Medications Medications Dose Ordered Sig/Renay Route Start Time Stop Time Status Last Admin Dose Admin Acetaminophen 500 mg ONCE ONCE PO 12/30/19 22:15 12/30/19 22:16 DC 12/30/19 22:12 500 MG Ondansetron HCl 4 mg ONCE ONCE IVP 12/30/19 21:15 12/30/19 21:16 DC 12/30/19 21:31 4 MG Pantoprazole 40 mg ONCE ONCE IV 12/30/19 22:15 12/30/19 22:16 DC 12/30/19 22:12 40 MG Vital Signs/I&O 12/30/19 20:32 Temp 36.8 Pulse 70 Resp 16 B/P (MAP) Pulse Ox 100 O2 Delivery Room Air Departure Communication (Admissions) Sitting up on exam table with little or no pain freely converses does not complain of anything abdominally at this time we'll have her follow up with her PCP for further workup. Impression Primary Impression: Abdominal pain Qualified Codes: R10.84 - Generalized abdominal pain Disposition: HOME, SELF-CARE Condition: Stable Departure-Patient Inst. Referrals: SELF,CHIQUI JUNIOR (PCP/Family) Primary Care Physician Add. Discharge Instructions: Follow-up with PCP first the week for further workup All discharge instructions reviewed with patient and/or family. Voiced understanding. MED REYNA JR, MD Dec 30, 2019 21:04
[2019-12-30] MEDS ORDERED: ONDANSETRON 4 MG/2 ML (SDV) Z0FRAN IVP ONE (21:15)
[2019-12-30] MEDS ORDERED: NS IV 1000 ML 1,000 ML IV SCH (21:15)
[2019-12-30 21:37] LABS: HEMATOCRIT 37 % (35-52); HEMOGLOBIN 11.9 G/DL (11.5-16.0); MEAN CORPUSCULAR HEMOGLOBIN 31 PG (25-34); MEAN CORPUSCULAR HGB CONC 32 G/DL (32-36); MEAN CORPUSCULAR VOLUME 96 FL (80-99); MEAN PLATELET VOLUME 10.7 FL (7.4-10.4); PLATELET COUNT 153 10^3/uL (130-400); RED CELL DISTRIBUTION WIDTH 14.6 % (10.0-14.5); WHITE BLOOD COUNT 5.4 10^3/uL (4.3-11.0)
[2019-12-30 21:38] LABS: BASOPHILS % (AUTO) 1 % (0-10); EOSINOPHILS # (AUTO) 0.1 10^3/uL (0.0-0.3); EOSINOPHILS % (AUTO) 2 % (0-10); LYMPHOCYTES # (AUTO) 0.5 X 10^3 (1.0-4.0); LYMPHOCYTES % (AUTO) 10 % (12-44); MONOCYTES # (AUTO) 0.4 X 10^3 (0.0-1.0); MONOCYTES % (AUTO) 7 % (0-12); NEUTROPHILS # (AUTO) 4.3 X 10^3 (1.8-7.8); NEUTROPHILS % (AUTO) 80 % (42-75)
[2019-12-30 22:04] LABS: ALANINE AMINOTRANSFERASE 7 U/L (0-55); ALKALINE PHOSPHATASE 79 U/L (40-136); BILIRUBIN,TOTAL 0.2 MG/DL (0.1-1.0); BUN/CREATININE RATIO 27; CALCIUM 9.2 MG/DL (8.5-10.1); CARBON DIOXIDE 19 MMOL/L (21-32); CHLORIDE 111 MMOL/L (98-107); CREATININE SERUM 0.66 MG/DL (0.60-1.30); GFR ESTIMATED > 60; GLUCOSE 82 MG/DL (70-105); POTASSIUM 4.2 MMOL/L (3.6-5.0); SODIUM 142 MMOL/L (135-145); TOTAL PROTEIN 6.4 GM/DL (6.4-8.2)
[2019-12-30 22:05] LABS: ALBUMIN 3.9 GM/DL (3.2-4.5); LIPASE 39 U/L (8-78)
[2019-12-30] MEDS ORDERED: ACETAMINOPHEN 500 MG TAB (TYLENOL) PO ONE (22:15)
[2019-12-30] MEDS ORDERED: PANTOPRAZOLE 40 MG (PROTONIX) VIAL IV ONE (22:15)
[2019-12-30 22:36] VITALS: BP 164/61
== END 2019-12-30 22:36 | disposition home or self-care (01) ==
LOC: EDUNIT# 20:27 → ER FS 20:28
DX: R10.84 Generalized abdominal pain (principal); E03.9 Hypothyroidism, unspecified; K21.9 Gastro-esophageal reflux disease without esophagitis; N19 Unspecified kidney failure; G40.909 Epilepsy, unspecified, not intractable, without status epilepticus; F41.9 Anxiety disorder, unspecified; F31.9 Bipolar disorder, unspecified; I10 Essential (primary) hypertension; Z79.890 Hormone replacement therapy; Z77.22 Contact with and (suspected) exposure to environmental tobacco smoke (acute) (chronic); Z88.6 Allergy status to analgesic agent; Z88.5 Allergy status to narcotic agent; Z88.2 Allergy status to sulfonamides; Z88.8 Allergy status to other drugs, medicaments and biological substances; Z85.3 Personal history of malignant neoplasm of breast; Z85.41 Personal history of malignant neoplasm of cervix uteri; Z79.82 Long term (current) use of aspirin
CPT/HCPCS: 36415; 80053; 83690; 85025; 99283; G0480; 80320

== ENCOUNTER 2020-01-31 14:00 | Emergency (ER) | payer MEDICARE, MEDICAID ==
[~2020-01-31] VITALS: Ht 165.1 cm; Wt 64.0 kg
[2020-01-31 14:32] LABS: HEMATOCRIT 36 % (35-52); HEMOGLOBIN 12.2 G/DL (11.5-16.0); MEAN CORPUSCULAR HEMOGLOBIN 31 PG (25-34); MEAN CORPUSCULAR HGB CONC 34 G/DL (32-36); MEAN CORPUSCULAR VOLUME 91 FL (80-99); PLATELET COUNT 235 10^3/uL (130-400); WHITE BLOOD COUNT 10.7 10^3/uL (4.3-11.0)
[2020-01-31 14:33] LABS: BASOPHILS % (AUTO) 0 % (0-10); EOSINOPHILS % (AUTO) 0 % (0-10); LYMPHOCYTES # (AUTO) 0.4 X 10^3 (1.0-4.0); LYMPHOCYTES % (AUTO) 4 % (12-44); MONOCYTES # (AUTO) 0.6 X 10^3 (0.0-1.0); MONOCYTES % (AUTO) 6 % (0-12); NEUTROPHILS # (AUTO) 9.5 X 10^3 (1.8-7.8); NEUTROPHILS % (AUTO) 90 % (42-75)
--- NOTE | 2020-01-31 14:56 | Diagnostic Imaging Report ---
HISTORY: Cough and vomiting with chest pain COMPARISON: 05/25/2019 TECHNIQUE: Single frontal view of the chest FINDINGS: There are new airspace opacities at the left lung base. No pleural effusion or pneumothorax is seen. The cardiac silhouette is normal in size. There is aortic atherosclerosis. IMPRESSION: 1. New left basilar airspace opacities, may represent infection in the appropriate clinical setting. Dictated by: Dictated on workstation # [id number]
[2020-01-31 14:58] LABS: BAND NEUTROPHILS 7 %; BASOPHILS % (MANUAL) 0 %; EOSINOPHILS % (MANUAL) 0 %; LYMPHOCYTES % (MANUAL) 6 %; MONOCYTES % (MANUAL) 7 %; NEUTROPHILS % (MANUAL) 80 %
[2020-01-31 15:12] LABS: POTASSIUM 3.6 MMOL/L (3.6-5.0); SODIUM 138 MMOL/L (135-145)
[2020-01-31 15:13] LABS: ALANINE AMINOTRANSFERASE 25 U/L (0-55); ALKALINE PHOSPHATASE 122 U/L (40-136); BILIRUBIN,TOTAL 0.5 MG/DL (0.1-1.0); BUN/CREATININE RATIO 25; CALCIUM 10.1 MG/DL (8.5-10.1); CARBON DIOXIDE 23 MMOL/L (21-32); CHLORIDE 101 MMOL/L (98-107); CREATININE SERUM 0.81 MG/DL (0.60-1.30); GFR ESTIMATED > 60; GLUCOSE 125 MG/DL (70-105); LIPASE 19 U/L (8-78); TOTAL PROTEIN 7.2 GM/DL (6.4-8.2)
--- NOTE | 2020-01-31 15:18 | ED General ---
General Chief Complaint: Cough/Cold/Flu Symptoms Stated Complaint: COUGH; VOMITING; LOSS OF APPETITE, LETHARGY Nursing Triage Note: Patient reports cough, nausea/vomiting, and epigastric abdominal pain when coughing for 2 days. Nursing Sepsis Screen: No Definite Risk History of Present Illness Date Seen by Provider: Jan 31, 2020 Time Seen by Provider: 15:00 Initial Comments Patient is a 64-year-old female presents with cough, nausea vomiting and epigastric, pain after coughing for the past 2 days. No fever chills, sweats. No flank pain. No leg pain or swelling. No other acute symptoms or complaints. History is limited in part due to the patient's chronic hearing loss. Timing/Duration: 1-3 Hours Severity: Moderate Associated Systoms: Cough, Nausea/Vomiting, Shortness of Air Allergies and Home Medications Allergies Coded Allergies: morphine (Verified Allergy, Severe, CONFUSION, 09/26/19) tramadol (Verified Allergy, Severe, CONFUSION, 09/26/19) varenicline (Verified Allergy, Intermediate, NAUSEA/VOMITTING, 09/26/19) Sulfa (Sulfonamide Antibiotics) (Unverified Adverse Reaction, Unknown, 09/29/19) ibuprofen (Unverified Adverse Reaction, Unknown, gi upset, 09/29/19) oseltamivir (Unverified Adverse Reaction, Unknown, 09/29/19) sumatriptan (Unverified Adverse Reaction, Unknown, 09/29/19) Uncoded Allergies: TAPE (Allergy, Mild, 09/22/05) Home Medications Aspirin 81 Mg Tab.chew, 81 MG PO DAILY, (Reported) Cholecalciferol (Vitamin D3) 1,250 Mcg Capsule, 1,250 MCG PO DAILY, (Reported) Clonazepam 0.5 Mg Tablet, 0.5 MG PO BID PRN for ANXIETY, (Reported) Escitalopram Oxalate 20 Mg Tablet, 20 MG PO HS, (Reported) Lactobacillus Acidophilus 1 Each Tablet, 1 EACH PO DAILY, (Reported) Levocetirizine Dihydrochloride 5 Mg Tablet, 5 MG PO HS, (Reported) Levothyroxine Sodium 25 Mcg Tablet, 25 MCG PO DAILY, (Reported) [place] Carbonate 300 Mg Tablet, 300 MG PO TID, (Reported) Metoprolol Succinate 25 Mg Tab.er.24h, 12.5 MG PO DAILY, (Reported) take 1/2 of 25mg tab [place] 3 Polyunsat Fatty Acids 1,000 Mg Cap, 1,000 MG PO DAILY, (Reported) Pantoprazole Sodium 40 Mg Tablet.dr, 40 MG PO BID, (Reported) Topiramate 100 Mg Tablet, 100 MG PO BID, (Reported) Patient Home Medication List Home Medication List Reviewed: Yes Review of Systems Review of Systems Constitutional: see HPI EENTM: see HPI Respiratory: see HPI Cardiovascular: see HPI Gastrointestinal: see HPI Genitourinary: see HPI Musculoskeletal: see HPI Skin: see HPI Psychiatric/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: See HPI Hematologic/Lymphatic: See HPI Immunological/Allergic: see HPI All Other Systems Reviewed Negative Unless Noted: Yes Past Qciwzzh-Tcmbtf-Cvkdyi Hx Past Med/Social Hx: Reviewed Nursing Past Med/Soc Hx Patient Social History Alcohol Use: Denies Use Number of Drinks Today: DD Alcohol Beverage of Choice: Rum Recreational Drug Use: No Smoking Status: Former Smoker Type Used: Cigarettes Former Smoker, Quit: Jan 29, 2020 2nd Hand Smoke Exposure: Yes Recent Foreign Travel: No Contact w/Someone Who Travel: No Recent Infectious Disease Expo: No Recent Hopitalizations: No Physical Abuse: No Sexual Abuse: No Mistreated: No Fear: No Immunizations Up To Date Tetanus Booster (TDap): Unknown PED Vaccines UTD: No Date of Pneumonia Vaccine: Feb 22, 2019 Date of Influenza Vaccine: Feb 22, 2019 Seasonal Allergies Seasonal Allergies: No Past Medical History Surgeries: Yes (Gastrectomy, bladder sling, Nerve stimulator removal, DEBRA ELBOW, BMT) Bladder Surgery, Section, Gallbladder, Hysterectomy, Orthopedic Respiratory: Yes COPD Currently Using CPAP: No Currently Using BIPAP: No Cardiac: Yes High Cholesterol, Hypertension 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: Yes Seizure Disorder [employer] History: Hysterectomy Sexually Transmitted Disease: No HIV/AIDS: No Genitourinary: Yes Bladder Infection, Renal Failure, UTI-Chronic Gastrointestinal: Yes Gastroesophageal Reflux Musculoskeletal: Yes Chronic Back Pain Endocrine: Yes Hypothyroidsim HEENT: Yes Cataract Loss of Vision: Denies Hearing Impairment: Hard of Hearing, Bilateral Hearing Aide Cancer: No ("PRECANCEROUS CELLS" ON PAP) Breast, Cervical Did You Recieve Any Treatments: No What Type of Treatment Did You: Chemotherapy, Surgical Intervention Psychosocial: Yes Anxiety, Bipolar, Depression Integumentary: No Blood Disorders: No Adverse Reaction/Blood Tranf: No (N/A) Physical Exam Vital Signs Vital Signs - First Documented 01/31/20 14:11 Temp 36.9 Pulse 72 Resp 18 B/P (MAP) 138/81 (100) Pulse Ox 97 O2 Delivery Room Air Capillary Refill : Less Than 3 Seconds Height, Weight, BMI Height: 5'5.00" Weight: 134lbs. 0.0oz. 60.597424pw; 23.00 BMI Method:Stated General Appearance: No Apparent Distress, Anxious Eyes: Bilateral Eye Normal Inspection HEENT: PERRL/EOMI Neck: Full Range of Motion, Supple Respiratory: Decreased Breath Sounds (rhonchi in bases) Cardiovascular: Regular Rate, Rhythm, No Edema Gastrointestinal: Normal Bowel Sounds, Non Tender, Soft Back: Normal Inspection, No CVA Tenderness Neurologic/Psychiatric: Alert, Oriented x3, Normal Mood/Affect Skin: Normal Color Focused Exam Sepsis Stage: Ruled Out Progress/Results/Core Measures Suspected Sepsis Recent Fever Within 48 Hours: No Infection Criteria Present: Suspected New Infection New/Unexplained Altered Menta: No Sepsis Screen: No Definite Risk SIRS Temperature: Pulse: 72 Respiratory Rate: 18 Laboratory Tests 01/31/20 14:20: White Blood Count 10.7 Blood Pressure 138 /81 Mean: 100 Laboratory Tests 01/31/20 14:20: Platelet Count 235 Results/Orders Lab Results Laboratory Tests Test 01/31/20 14:20 Range/Units White Blood Count 10.7 4.3-11.0 10^3/uL Red Blood Count 3.92 L 4.35-5.85 10^6/uL Hemoglobin 12.2 11.5-16.0 G/DL Hematocrit 36 35-52 % Mean Corpuscular Volume 91 80-99 FL Mean Corpuscular Hemoglobin 31 25-34 PG Mean Corpuscular Hemoglobin Concent 34 32-36 G/DL Red Cell Distribution Width 14.3 10.0-14.5 % Platelet Count 235 130-400 10^3/uL Mean Platelet Volume 11.0 H 7.4-10.4 FL Neutrophils (%) (Auto) 90 H 42-75 % Lymphocytes (%) (Auto) 4 L 12-44 % Monocytes (%) (Auto) 6 0-12 % Eosinophils (%) (Auto) 0 0-10 % Basophils (%) (Auto) 0 0-10 % Neutrophils # (Auto) 9.5 H 1.8-7.8 X 10^3 Lymphocytes # (Auto) 0.4 L 1.0-4.0 X 10^3 Monocytes # (Auto) 0.6 0.0-1.0 X 10^3 Eosinophils # (Auto) 0.0 0.0-0.3 10^3/uL Basophils # (Auto) 0.0 0.0-0.1 10^3/uL Neutrophils % (Manual) 80 % Lymphocytes % (Manual) 6 % Monocytes % (Manual) 7 % Eosinophils % (Manual) 0 % Basophils % (Manual) 0 % Band Neutrophils 7 % My Orders Orders - GEORGINA MEYERS DO Cbc With Automated Diff (01/31/20 14:21) Comprehensive Metabolic Panel (01/31/20 14:21) Chest 1 View Ap/Pa Only (01/31/20 14:) Ekg Tracing (01/31/20 14:) Troponin I Fs (01/31/20 14:21) Lipase (01/31/20 14:21) Manual Differential (01/31/20 14:) Vital Signs/I&O 01/31/20 01/31/20 14:11 14:13 Temp 36.9 Pulse 72 Resp 18 B/P (MAP) 138/81 (100) Pulse Ox 97 O2 Delivery Room Air Room Air Capillary Refill : Less Than 3 Seconds Blood Pressure Mean: 100 Departure Communication (Admissions) Chest x-ray: Left basilar opacity/infiltrate. On imaging EKG reviewed. Possible pneumonia. Able to tolerate oral fluids. Her buttocks prescribed and supportive care recommended with PCP follow-up. Return precautions reviewed. Impression Primary Impression: COPD (chronic obstructive pulmonary disease) Additional Impressions: Acute bronchitis Nausea Disposition: 01 HOME, SELF-CARE Condition: Stable Departure-Patient Inst. Referrals: SELFCHIQUI MD (PCP/Family) Primary Care Physician Patient Instructions: Acute Bronchitis, Adult (DC), Chronic Obstructive Pulmonary Disease (COPD) (DC) Add. Discharge Instructions: You were evaluated emergency department for cough, fatigue and nausea. Please take newly prescribed medications as directed and follow-up with your PCP. Retur n to the ED if new or worsening symptoms. All discharge instructions reviewed with patient and/or family. Voiced understanding. Scripts Ondansetron (Ondansetron Odt) 4 Mg Tab.rapdis 4 MG PO Q6H, #10 TAB Prov: GEORGINA MEYERS DO 01/31/20 Cephalexin (Keflex) 500 Mg Capsule 500 MG PO TID, #30 CAP Prov: GEORGINA MYEERS DO 01/31/20 GEORGINA MEYERS DO Jan 31, 2020 15:18
[2020-01-31] MEDS ORDERED: ONDA4TAB11 PO (15:20)
[2020-01-31] MEDS ORDERED: CEPH-507 PO (15:20)
[2020-01-31] MEDS ORDERED: HYDROcodone/APAP 5 MG/325 MG (LORTAB) TAB PO ONE (15:30)
[2020-01-31 16:40] VITALS: BP 120/57
== END 2020-01-31 16:40 | disposition home or self-care (01) ==
LOC: EDUNIT# 14:00 → ER FS 14:02
DX: R11.2 Nausea with vomiting, unspecified (principal); F41.9 Anxiety disorder, unspecified; F32.9 Major depressive disorder, single episode, unspecified; G40.909 Epilepsy, unspecified, not intractable, without status epilepticus; K21.9 Gastro-esophageal reflux disease without esophagitis; I10 Essential (primary) hypertension; Z88.2 Allergy status to sulfonamides; Z88.5 Allergy status to narcotic agent; Z88.6 Allergy status to analgesic agent; Z88.8 Allergy status to other drugs, medicaments and biological substances; Z87.891 Personal history of nicotine dependence; Z85.3 Personal history of malignant neoplasm of breast; Z85.41 Personal history of malignant neoplasm of cervix uteri; Z79.82 Long term (current) use of aspirin
CPT/HCPCS: 36415; 71045; 80053; 80178; 83690; 84484; 85007; 85025; 85027

== ENCOUNTER → 2020-02-15 | Outpatient (CLI) | payer MEDICARE, MEDICAID ==
[~2020-02-15] MED LIST changes: +CEPH-507 PO; +ONDA4TAB11 PO; -PANT40TA3 PO; +PANT40TA52 PO
== END ==
LOC: LAB FS 10:10
PROVIDERS: ATTEND Nurse Practitioner Family
DX: R05 Cough (principal); R50.9 Fever, unspecified; Z20.828 Contact with and (suspected) exposure to other viral communicable diseases
CPT/HCPCS: 87804 ×2; U0002; 87635

== ENCOUNTER 2020-03-31 14:04 | Emergency (ER) | payer MEDICARE, MEDICAID ==
[2020-03-31 14:08] VITALS: BP 163/77
[2020-03-31] MEDS ORDERED: LIDO700A45 TP (14:21)
--- NOTE | 2020-03-31 14:21 | ED Neck-Back Pain/Injury ---
General Chief Complaint: Head/Cervical Problems Stated Complaint: NECK PAIN Nursing Triage Note: Saw Dr Neal in office yesterday for neck pain and was given prednisone and flexeril. States pain is worse today. Neck has been hurting x 4 days. States pain is radiating down both arms. No previous hx of neck problems. Has hydrocodone at home but has not helped pain either. Nursing Sepsis Screen: No Definite Risk Source of Information: Patient History of Present Illness Date Seen by Provider: Mar 31, 2020 Time Seen by Provider: 14:18 Initial Comments 64-year-old female presents with 4 days of upper back pain. Saw her PCP 2 days ago and is given prescription for Flexeril. Patient states she's not had any improvement having difficulty sleeping due to pain. Denies any paresthesia or weakness. Denies any recent injury or repetitive work that would'veprecipitated this pain Allergies and Home Medications Allergies Coded Allergies: morphine (Verified Allergy, Severe, CONFUSION, 09/26/19) tramadol (Verified Allergy, Severe, CONFUSION, 09/26/19) varenicline (Verified Allergy, Intermediate, NAUSEA/VOMITTING, 09/26/19) Sulfa (Sulfonamide Antibiotics) (Unverified Adverse Reaction, Unknown, 09/29/19) ibuprofen (Unverified Adverse Reaction, Unknown, gi upset, 09/29/19) oseltamivir (Unverified Adverse Reaction, Unknown, 09/29/19) sumatriptan (Unverified Adverse Reaction, Unknown, 09/29/19) Uncoded Allergies: TAPE (Allergy, Mild, 09/22/05) Home Medications Aspirin 81 Mg Tab.chew, 81 MG PO DAILY, (Reported) Cephalexin 500 Mg Capsule, 500 MG PO TID Prescribed by: GEORGINA MEYERS on 01/31/20 1520 Cholecalciferol (Vitamin D3) 1,250 Mcg Capsule, 1,250 MCG PO DAILY, (Reported) Clonazepam 0.5 Mg Tablet, 0.5 MG PO BID PRN for ANXIETY, (Reported) Escitalopram Oxalate 20 Mg Tablet, 20 MG PO HS, (Reported) Lactobacillus Acidophilus 1 Each Tablet, 1 EACH PO DAILY, (Reported) Levocetirizine Dihydrochloride 5 Mg Tablet, 5 MG PO HS, (Reported) Levothyroxine Sodium 25 Mcg Tablet, 25 MCG PO DAILY, (Reported) Lidocaine 1 Each Adh..patch, 1 EACH TP Q12H PRN for Neuropathic pain 2 patches max for 12 hours, then 12 hours patch-free period. Prescribed by: CELESTINE PEREZ on 03/31/[address] [place] Carbonate 300 Mg Tablet, 300 MG PO TID, (Reported) Metoprolol Succinate 25 Mg Tab.er.24h, 12.5 MG PO DAILY, (Reported) take 1/2 of 25mg tab [place] 3 Polyunsat Fatty Acids 1,000 Mg Cap, 1,000 MG PO DAILY, (Reported) Ondansetron 4 Mg Tab.rapdis, 4 MG PO Q6H Prescribed by: GEORGINA MEYERS on 01/31/20 1520 Pantoprazole Sodium 40 Mg Tablet.dr, 40 MG PO BID, (Reported) Topiramate 100 Mg Tablet, 100 MG PO BID, (Reported) Patient Home Medication List Home Medication List Reviewed: Yes Review of Systems Constitutional: no symptoms reported; No chills, No fever, No malaise, No weakness EENTM: no symptoms reported Respiratory: no symptoms reported; No cough, No short of breath Cardiovascular: No chest pain, No edema Gastrointestinal: No abdominal pain, No loss of appetite, No nausea, No vomiting Musculoskeletal: see HPI, back pain, muscle pain, neck pain Skin: No change in color, No rash Past Nxygati-Xkjemb-Exjnta Hx Past Med/Social Hx: Reviewed Nursing Past Med/Soc Hx Patient Social History Alcohol Use: Denies Use Number of Drinks Today: DD Alcohol Beverage of Choice: Rum Recreational Drug Use: No Smoking Status: Current Everyday Smoker Type Used: Cigarettes Former Smoker, Quit: Jan 29, 2020 2nd Hand Smoke Exposure: Yes Recent Foreign Travel: No Contact w/Someone Who Travel: No Recent Infectious Disease Expo: No Recent Hopitalizations: No Immunizations Up To Date Tetanus Booster (TDap): Unknown PED Vaccines UTD: No Date of Pneumonia Vaccine: Feb 22, 2019 Date of Influenza Vaccine: Feb 22, 2019 Seasonal Allergies Seasonal Allergies: No Past Medical History Surgeries: Yes (Gastrectomy, bladder sling, Nerve stimulator removal, DEBRA ELBOW, BMT) Bladder Surgery, Section, Gallbladder, Hysterectomy, Orthopedic Respiratory: Yes COPD Currently Using CPAP: No Currently Using BIPAP: No Cardiac: Yes High Cholesterol, Hypertension 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 Sexually Transmitted Disease: No HIV/AIDS: No Genitourinary: Yes Bladder Infection, Renal Failure, UTI-Chronic Gastrointestinal: Yes Gastroesophageal Reflux Musculoskeletal: Yes Chronic Back Pain Endocrine: Yes Hypothyroidsim HEENT: Yes Cataract Loss of Vision: Denies Hearing Impairment: Hard of Hearing, Bilateral Hearing Aide Cancer: No ("PRECANCEROUS CELLS" ON PAP) Breast, Cervical Did You Recieve Any Treatments: No What Type of Treatment Did You: Chemotherapy, Surgical Intervention Psychosocial: Yes Anxiety, Bipolar, Depression Integumentary: No Blood Disorders: No Adverse Reaction/Blood Tranf: No (N/A) Physical Exam Vital Signs Vital Signs - First Documented 03/31/20 14:08 Temp 37.3 Pulse 83 Resp 16 B/P (MAP) 163/77 (105) Pulse Ox 100 Capillary Refill : Less Than 3 Seconds Height, Weight, BMI Height: 5'5.00" Weight: 134lbs. 0.0oz. 60.598326wd; 23.00 BMI Method:Stated General Appearance: No Apparent Distress, WD/WN HEENT: PERRL/EOMI, Normal ENT Inspection Neck: Full Range of Motion, Normal Inspection, Supple; No Limited Range of Mot ion; Tender Lateral (mild TTP lower cervical paraspinal ms) Back: Normal Inspection, No CVA Tenderness, No Vertebral Tenderness, Muscle Spasm (b/l upper thoracic paraspinal ms and upper trapez. ms b/l) Extremity: Normal Capillary Refill, Normal Inspection, Non Tender Neurologic/Psychiatric: Alert, Oriented x3, No Motor/Sensory Deficits, Normal Mood/Affect Skin: Normal Color, Warm/Dry Progress/Results/Core Measures Results/Orders Vital Signs/I&O 03/31/20 14:08 Temp 37.3 Pulse 83 Resp 16 B/P (MAP) 163/77 (105) Pulse Ox 100 Blood Pressure Mean: 105 Departure Impression Primary Impression: Acute thoracic myofascial strain Qualified Codes: S29.019D - Strain of muscle and tendon of unspecified wall of thorax, subsequent encounter Disposition: 01 HOME, SELF-CARE Condition: Stable Departure-Patient Inst. Decision time for Depature: 14:18 Referrals: CHIQUI NEAL MD (PCP/Family) Primary Care Physician Patient Instructions: Upper Back Pain (DC) Add. Discharge Instructions: Follow up with Dr Neal in 1 week if not improving All discharge instructions reviewed with patient and/or family. Voiced understanding. Scripts Lidocaine (Lidocaine 5% Patch) 1 Each Adh..patch 1 EACH TP Q12H PRN for Neuropathic pain MDD 2 for 5 Days, #10 PATCH 2 patches max for 12 hours, then 12 hours patch-free period. Prov: CELESTINE PEREZ DO 03/31/20 CELESTINE PEREZ DO Mar 31, 2020 14:21
== END 2020-03-31 14:26 | disposition home or self-care (01) ==
LOC: EDUNIT# 14:04 → ER FS 14:06
DX: S29.012A Strain of muscle and tendon of back wall of thorax, initial encounter (principal); I10 Essential (primary) hypertension; K21.9 Gastro-esophageal reflux disease without esophagitis; E03.9 Hypothyroidism, unspecified; F41.9 Anxiety disorder, unspecified; F32.9 Major depressive disorder, single episode, unspecified; G40.909 Epilepsy, unspecified, not intractable, without status epilepticus; F17.210 Nicotine dependence, cigarettes, uncomplicated; Z20.828 Contact with and (suspected) exposure to other viral communicable diseases; Z88.5 Allergy status to narcotic agent; Z88.2 Allergy status to sulfonamides; Z88.6 Allergy status to analgesic agent; Z88.8 Allergy status to other drugs, medicaments and biological substances; Z79.890 Hormone replacement therapy; Z85.3 Personal history of malignant neoplasm of breast; Z85.41 Personal history of malignant neoplasm of cervix uteri; Z79.82 Long term (current) use of aspirin; X58.XXXA Exposure to other specified factors, initial encounter
CPT/HCPCS: 99282

== ENCOUNTER 2020-04-12 23:34 | Emergency (ER) | payer MEDICARE, MEDICAID ==
[~2020-04-12 23:34] MED LIST changes: +LIDO700A45 TP
[2020-04-12] MEDS ORDERED: fentaNYL INJECTION 100 MCG/2 ML AMP IVP STA (23:51)
[2020-04-12] MEDS ORDERED: PANTOPRAZOLE 40 MG (PROTONIX) VIAL IV STA (23:51)
[2020-04-12] MEDS ORDERED: ONDANSETRON 4 MG/2 ML (SDV) Z0FRAN IVP STA (23:51)
--- NOTE | 2020-04-12 23:53 | ED Abdominal Pain ---
General Stated Complaint: ABD PAIN Source of Information: Patient History of Present Illness Date Seen by Provider: Apr 12, 2020 Time Seen by Provider: 23:41 Initial Comments 65-year-old female presenting with sudden onset of left-sided abdominal pain. She states that she had a sudden sharp pain on the left side her abdomen that woke her up. She has some mild nausea with this but no vomiting. She denies any bloody stools or diarrhea. She has no dark tarry stools. She denies any burning with urination or blood in her urine. She denies having pain like this in the past. She has had multiple hernia surgeries and as well as a partial gastrectomy for overactive stomach and acid production. She states the pain started about an hour prior to arrival in the ED. She did not take anything for the sudden sharp pain but it is improved on arrival to the ED. Allergies and Home Medications Allergies Coded Allergies: morphine (Verified Allergy, Severe, CONFUSION, 09/26/19) tramadol (Verified Allergy, Severe, CONFUSION, 09/26/19) varenicline (Verified Allergy, Intermediate, NAUSEA/VOMITTING, 09/26/19) Sulfa (Sulfonamide Antibiotics) (Unverified Adverse Reaction, Unknown, 09/29/19) ibuprofen (Unverified Adverse Reaction, Unknown, gi upset, 09/29/19) oseltamivir (Unverified Adverse Reaction, Unknown, 09/29/19) sumatriptan (Unverified Adverse Reaction, Unknown, 09/29/19) Uncoded Allergies: TAPE (Allergy, Mild, 09/22/05) Home Medications Aspirin 81 Mg Tab.chew, 81 MG PO DAILY, (Reported) Cephalexin 500 Mg Capsule, 500 MG PO TID Prescribed by: GEORGINA MEYERS on 01/31/20 1520 Cholecalciferol (Vitamin D3) 1,250 Mcg Capsule, 1,250 MCG PO DAILY, (Reported) Clonazepam 0.5 Mg Tablet, 0.5 MG PO BID PRN for ANXIETY, (Reported) Dicyclomine HCl 20 Mg Tablet, 20 MG PO QID PRN for abdominal cramping Prescribed by: MARIO CHAN on 04/13/20 0114 Escitalopram Oxalate 20 Mg Tablet, 20 MG PO HS, (Reported) Lactobacillus Acidophilus 1 Each Tablet, 1 EACH PO DAILY, (Reported) Levocetirizine Dihydrochloride 5 Mg Tablet, 5 MG PO HS, (Reported) Levofloxacin 500 Mg Tablet, 500 MG PO DAILY Prescribed by: MARIO CHAN on 04/13/20 010 Levothyroxine Sodium 25 Mcg Tablet, 25 MCG PO DAILY, (Reported) Lidocaine 1 Each Adh..patch, 1 EACH TP Q12H PRN for Neuropathic pain 2 patches max for 12 hours, then 12 hours patch-free period. Prescribed by: CELESTINE PEREZ on 03/31/20 1421 [place] Carbonate 300 Mg Tablet, 300 MG PO TID, (Reported) Metoprolol Succinate 25 Mg Tab.er.24h, 12.5 MG PO DAILY, (Reported) take 1/2 of 25mg tab [place] 3 Polyunsat Fatty Acids 1,000 Mg Cap, 1,000 MG PO DAILY, (Reported) Ondansetron 4 Mg Tab.rapdis, 4 MG PO Q6H Prescribed by: GEORGINA MEYERS on 01/31/20 1520 Pantoprazole Sodium 40 Mg Tablet.dr, 40 MG PO BID, (Reported) Polyethylene Glycol 3350 119 Gm Powder, 17 GM PO DAILY Mix with 8 ounces of water or juice and drink daily for constipation Prescribed by: MARIO CHAN on 04/13/20 010 Topiramate 100 Mg Tablet, 100 MG PO BID, (Reported) Patient Home Medication List Home Medication List Reviewed: Yes Review of Systems Review of Systems Constitutional: No chills, No fever EENTM: No Symptoms Reported Respiratory: Cough (chronic smoker cough); Denies Stridor Cardiovascular: No Symptoms Reported Gastrointestinal: See HPI Genitourinary: Frequency Musculoskeletal: no symptoms reported Skin: no symptoms reported Psychiatric/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: No Symptoms Reported Past Dfiglzg-[id number]-[id number] Hx Past Med/Social Hx: Reviewed Nursing Past Med/Soc Hx Patient Social History Alcohol Beverage of Choice: Rum Type Used: Cigarettes Former Smoker, Quit: Jan 29, 2020 2nd Hand Smoke Exposure: Yes Recent Foreign Travel: No Contact w/Someone Who Travel: No Recent Hopitalizations: No Immunizations Up To Date Tetanus Booster (TDap): Unknown PED Vaccines UTD: No Date of Pneumonia Vaccine: Feb 22, 2019 Date of Influenza Vaccine: Feb 22, 2019 Seasonal Allergies Seasonal Allergies: No Past Medical History Surgeries: Yes (Gastrectomy, bladder sling, Nerve stimulator removal, DEBRA ELBOW, BMT) Bladder Surgery, Section, Gallbladder, Hysterectomy, Orthopedic Respiratory: Yes COPD Currently Using CPAP: No Currently Using BIPAP: No Cardiac: Yes High Cholesterol, Hypertension 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: Yes Seizure Disorder [employer] History: Hysterectomy Sexually Transmitted Disease: No HIV/AIDS: No Genitourinary: Yes Bladder Infection, Renal Failure, UTI-Chronic Gastrointestinal: Yes Gastroesophageal Reflux Musculoskeletal: Yes Chronic Back Pain Endocrine: Yes Hypothyroidsim HEENT: Yes Cataract Loss of Vision: Denies Hearing Impairment: Hard of Hearing, Bilateral Hearing Aide Cancer: No ("PRECANCEROUS CELLS" ON PAP) Breast, Cervical Did You Recieve Any Treatments: No What Type of Treatment Did You: Chemotherapy, Surgical Intervention Psychosocial: Yes Anxiety, Bipolar, Depression Integumentary: No Blood Disorders: No Adverse Reaction/Blood Tranf: No (N/A) Physical Exam Vital Signs Vital Signs - First Documented 04/12/20 23:38 Temp 37.4 Pulse 83 Resp 18 B/P (MAP) 159/63 (95) Pulse Ox 98 O2 Delivery Room Air Capillary Refill : Height/Weight/BMI Height: 5'5.00" Weight: 134lbs. 0.0oz. 60.687109pw; 23.00 BMI Method:Stated General Appearance: mild distress HEENT: pharynx normal Neck: non-tender, supple, normal inspection Respiratory: chest non-tender, no respiratory distress, no accessory muscle use, decreased breath sounds Cardiovascular: normal peripheral pulses, regular rate, rhythm Gastrointestinal: normal bowel sounds, soft, no pulsatile mass; No guarding, No rebound; tenderness (LLQ and suprapubic); No mass Rectal: deferred Extremities: normal range of motion, non-tender, normal capillary refill Neurologic/Psychiatric: alert, oriented x 3 Skin: normal color, warm/dry Images 1 - LLQ and suprapubic abdominal pain with palpation. no rebound or guarding Progress/Results/Core Measures Results/Orders Lab Results Laboratory Tests Test 04/12/20 23:45 04/12/20 23:50 Range/Units Urine Color YELLOW Urine Clarity SLIGHTLY CLOUDY Urine pH 6.0 5-9 Urine Specific [place] 1.025 H 1.016-1.022 Urine Protein NEGATIVE NEGATIVE Urine Glucose (UA) NEGATIVE NEGATIVE Urine Ketones NEGATIVE NEGATIVE Urine Nitrite POSITIVE H NEGATIVE Urine Bilirubin 1+ H NEGATIVE Urine Urobilinogen 0.2 < = 1.0 MG/DL Urine Leukocyte Esterase NEGATIVE NEGATIVE Urine RBC (Auto) TRACE-I NEGATIVE Urine RBC 0-2 /HPF Urine WBC 5-10 H /HPF Urine Squamous Epithelial Cells 5-10 /HPF Urine Crystals NONE /LPF Urine Bacteria LARGE H /HPF Urine Casts NONE /LPF Urine Mucus NEGATIVE /LPF Urine Culture Indicated YES White Blood Count 9.5 4.3-11.0 10^3/uL Red Blood Count 4.17 L 4.35-5.85 10^6/uL Hemoglobin 12.3 11.5-16.0 G/DL Hematocrit 39 35-52 % Mean Corpuscular Volume 92 80-99 FL Mean Corpuscular Hemoglobin 29 25-34 PG Mean Corpuscular Hemoglobin Concent 32 32-36 G/DL Red Cell Distribution Width 14.9 H 10.0-14.5 % Platelet Count 214 130-400 10^3/uL Mean Platelet Volume 10.8 H 7.4-10.4 FL Immature Granulocyte % (Auto) 0 % Neutrophils (%) (Auto) 86 H 42-75 % Lymphocytes (%) (Auto) 6 L 12-44 % Monocytes (%) (Auto) 6 0-12 % Eosinophils (%) (Auto) 2 0-10 % Basophils (%) (Auto) 0 0-10 % Neutrophils # (Auto) 8.2 H 1.8-7.8 X 10^3 Lymphocytes # (Auto) 0.5 L 1.0-4.0 X 10^3 Monocytes # (Auto) 0.5 0.0-1.0 X 10^3 Eosinophils # (Auto) 0.2 0.0-0.3 10^3/uL Basophils # (Auto) 0.0 0.0-0.1 10^3/uL Immature Granulocyte # (Auto) 0.0 0.0-0.1 10^3/uL Neutrophils % (Manual) 89 % Lymphocytes % (Manual) 4 % Monocytes % (Manual) 4 % Eosinophils % (Manual) 2 % Band Neutrophils 1 % Sodium Level 139 135-145 MMOL/L Potassium Level 4.0 3.6-5.0 MMOL/L Chloride Level 107 98-107 MMOL/L Carbon Dioxide Level 22 21-32 MMOL/L Anion Gap 10 5-14 MMOL/L Blood Urea Nitrogen 16 7-18 MG/DL Creatinine 0.89 0.60-1.30 MG/DL Estimat Glomerular Filtration Rate > 60 BUN/Creatinine Ratio 18 Glucose Level 115 H 70-105 MG/DL Calcium Level 9.5 8.5-10.1 MG/DL Corrected Calcium 9.1 8.5-10.1 MG/DL Total Bilirubin 0.4 0.1-1.0 MG/DL Aspartate Amino Transf (AST/SGOT) 14 5-34 U/L Alanine Aminotransferase (ALT/SGPT) 7 0-55 U/L Alkaline Phosphatase 127 40-136 U/L Total Protein 7.4 6.4-8.2 GM/DL Albumin 4.5 3.2-4.5 GM/DL Lipase 27 8-78 U/L My Orders Orders - MARIO CHAN MD Comprehensive Metabolic Panel (04/12/20 23:50) Lipase (04/12/20 23:50) Ua Culture If Indicated (04/12/20 23:50) Ed Iv/Invasive Line Start (04/12/20 23:50) Cbc With Automated Diff (04/12/20 23:50) Ns Iv 1000 Ml (Sodium Chloride 0.9%) (04/13/20 00:00) Fentanyl Injection (Sublimaze Injection (04/12/20 23:51) Pantoprazole Injection (Protonix Injecti (04/12/20 23:51) Ondansetron Injection (Zofran Injectio (04/12/20 23:51) Ct Abdomen/Pelvis Wo (04/13/20 00:01) Urine Culture (04/12/20 23:45) Manual Differential (04/12/20 23:50) Levofloxacin Tablet (Levaquin Tablet) (04/13/20 01:03) Dicyclomine Injection (Bentyl Injection) (04/13/20 01:13) Vital Signs/I&O 04/12/20 04/13/20 23:38 01:22 Temp 37.4 Pulse 83 76 Resp 18 18 B/P (MAP) 159/63 (95) 130/54 Pulse Ox 98 98 O2 Delivery Room Air Room Air Progress Progress Note #1: Progress Note check labs and CT scan to evaluate her abdominal pain. Give IVF for hydration. Fentanyl for pain, Protonix for pain, Zofran for nausea. Progress Note #2: Time: 00:44 Progress Note Labs show no elevation of WBC count. Chemistry stable. UA shows UTI with bacteria and nit positive. CT scan shows increased about of stool, no obstruction or free air, no kidney stone. Mild hiatal hernia. 5 mm nodule in lingula with patchy opacity in left lower lobe. Treat for UTI and constipation. Encourage fluids and have her follow up with clinic for continued concerns. Use Levofloxacin for UTI and this will also cover for possible pneumonia in LLL. Progress Note #3: Time: 00:59 Progress Note pt updated about results and she requested something more for abdominal cramping so will add on dicyclomine since she already has hydrocodone at home. Give first shot here and then pills to pharmacy. Advised to take antibiotic and laxative to help with treatment. Diagnostic Imaging Diagonstic Imaging: CT Plain Films/CT/US/NM/MRI: abdomen, pelvis Comments Impression 1. 5 mm nodule in the lingula. Patchy opacity in the left lower lobe. Correlate with pneumonia/aspiration. 2. Mild hiatal hernia. 3. Mildly impacted stool throughout the left colon. Read by radiologist Jessica Sanchez MD at 0032 and faxed at [id number]. Departure Impression Primary Impression: Cystitis without hematuria Additional Impression: Constipation Qualified Codes: K59.03 - Drug induced constipation Disposition: HOME, SELF-CARE Condition: Stable Departure-Patient Inst. Decision time for Depature: 01:13 Referrals: CHIQUI BERMAN MD (PCP/Family) Primary Care Physician Patient Instructions: Constipation, Adult (DC), Urinary Tract Infection, Adult (DC) Add. Discharge Instructions: Stay well hydrated and drink plenty of water. Take the full course of antibiotics. Take laxative to help with constipation. Follow up with clinic for continued concerns/problems. Scripts Dicyclomine HCl (Dicyclomine HCl) 20 Mg Tablet 20 MG PO QID PRN for abdominal cramping for 5 Days, #20 TAB 0 Refills Prov: MARIO CHAN MD 04/13/20 Polyethylene Glycol 3350 (Miralax) 119 Gm Powder 17 GM PO DAILY for constipation for 30 Days, #510 GM 0 Refills Mix with 8 ounces of water or juice and drink daily for constipation Prov: MARIO CHAN MD 04/13/20 Levofloxacin (Levofloxacin) 500 Mg Tablet 500 MG PO DAILY for UTI for 7 Days, #7 TAB 0 Refills Prov: MARIO CHAN MD 04/13/20 MARIO CHAN MD Apr 12, 2020 23:53
[2020-04-12 23:56] LABS: BILIRUBIN,URINE 1+ (NEGATIVE); CLARITY,URINE SLIGHTLY CLOUDY; COLOR,URINE YELLOW; GLUCOSE, URINE (UA) NEGATIVE (NEGATIVE); KETONES,URINE NEGATIVE (NEGATIVE); LEUKOCYTE ESTERASE ,URINE NEGATIVE (NEGATIVE); NITRITE,URINE POSITIVE (NEGATIVE); PROTEIN,URINE NEGATIVE (NEGATIVE)
[2020-04-12 23:57] LABS: BACTERIA,URINE LARGE /HPF; RBC,URINE 0-2 /HPF
[2020-04-13] MEDS ORDERED: NS IV 1000 ML 1,000 ML IV SCH
[2020-04-13 00:03] LABS: BASOPHILS % (AUTO) 0 % (0-10); EOSINOPHILS # (AUTO) 0.2 10^3/uL (0.0-0.3); EOSINOPHILS % (AUTO) 2 % (0-10); HEMATOCRIT 39 % (35-52); HEMOGLOBIN 12.3 G/DL (11.5-16.0); LYMPHOCYTES # (AUTO) 0.5 X 10^3 (1.0-4.0); LYMPHOCYTES % (AUTO) 6 % (12-44); MEAN CORPUSCULAR HEMOGLOBIN 29 PG (25-34); MEAN CORPUSCULAR HGB CONC 32 G/DL (32-36); MEAN CORPUSCULAR VOLUME 92 FL (80-99); MEAN PLATELET VOLUME 10.8 FL (7.4-10.4); MONOCYTES # (AUTO) 0.5 X 10^3 (0.0-1.0); MONOCYTES % (AUTO) 6 % (0-12); NEUTROPHILS # (AUTO) 8.2 X 10^3 (1.8-7.8); NEUTROPHILS % (AUTO) 86 % (42-75); PLATELET COUNT 214 10^3/uL (130-400); WHITE BLOOD COUNT 9.5 10^3/uL (4.3-11.0)
[2020-04-13 00:29] LABS: SODIUM 139 MMOL/L (135-145)
[2020-04-13 00:30] LABS: ALANINE AMINOTRANSFERASE 7 U/L (0-55); ALBUMIN 4.5 GM/DL (3.2-4.5); ALKALINE PHOSPHATASE 127 U/L (40-136); BAND NEUTROPHILS 1 %; BILIRUBIN,TOTAL 0.4 MG/DL (0.1-1.0); BUN/CREATININE RATIO 18; CALCIUM 9.5 MG/DL (8.5-10.1); CARBON DIOXIDE 22 MMOL/L (21-32); CHLORIDE 107 MMOL/L (98-107); CREATININE SERUM 0.89 MG/DL (0.60-1.30); EOSINOPHILS % (MANUAL) 2 %; GFR ESTIMATED > 60; GLUCOSE 115 MG/DL (70-105); LIPASE 27 U/L (8-78); LYMPHOCYTES % (MANUAL) 4 %; MONOCYTES % (MANUAL) 4 %; NEUTROPHILS % (MANUAL) 89 %; TOTAL PROTEIN 7.4 GM/DL (6.4-8.2)
[2020-04-13] MEDS ORDERED: POLY119P5 PO (01:03)
[2020-04-13] MEDS ORDERED: LEVO500T80 PO (01:03)
[2020-04-13] MEDS ORDERED: LEVOFLOXACIN 500 MG TAB (LEVAQUIN) PO STA (01:03)
[2020-04-13] MEDS ORDERED: DICYCLOMINE 10 MG/ML (BENTYL) 2 ML AMP IM STA (01:13)
[2020-04-13] MEDS ORDERED: DICY20TA10 PO (01:14)
[2020-04-13 01:22] VITALS: BP 130/54
--- NOTE | 2020-04-13 07:35 | Diagnostic Imaging Report ---
PROCEDURE: CT abdomen and pelvis without contrast. TECHNIQUE: Multiple contiguous axial images were obtained through the abdomen and pelvis without the use of intravenous contrast. Auto Exposure Controls were utilized during the CT exam to meet ALARA standards for radiation dose reduction. INDICATION: Left abdominal pain. COMPARISON: Multiple priors, most recent performed on 12/12/2019. FINDINGS: Absence of intravenous contrast decreases sensitivity for detection of lymphadenopathy, focal lesions and vascular pathology. Multiple images are degraded by patient motion which diminishes detail, and interpretation was made in light of this technical confine. Groundglass opacity is demonstrated in the left lower lobe, with more dense consolidation noted inferiorly. A lesser degree of consolidation is demonstrated in the lingula. The right lung base is clear at site of mild dependent atelectasis in the right lower lobe. Visualized heart is normal in size. Coronary artery calcifications are demonstrated. Incidental note is made of a cyst in the left hepatic lobe adjacent to falciform ligament. The liver is otherwise unremarkable. The gallbladder is surgically absent. There is mild prominence of the common bile duct, physiologic postcholecystectomy. The spleen and pancreas are unremarkable. There is an unchanged left adrenal nodule which measures less than 10 Hounsfield units, compatible with a benign adenoma. This is unchanged compared to prior CT and is of doubtful clinical significance. The right adrenal gland is normal. The kidneys are symmetric in size, without evidence of hydronephrosis on either side. There is a nonobstructing calyceal calculus in the interpolar region collecting system of the left kidney this is difficult to measure given motion artifact at this level. There is an unchanged cyst in the anterior aspect of the interpolar region of the left kidney. No abnormality in the visualized ureters. There is an unchanged small hiatal hernia. The patient is status post gastric bypass. Small bowel and colon are normal in course and caliber, without evidence of wall thickening or obstruction. The appendix is normal. There is no pneumoperitoneum, abdominal free fluid or loculated collection. The bladder is normal. Uterus is surgically absent. There is no adnexal mass or pelvic free fluid. There is severe calcified atherosclerotic plaque involving the abdominal aorta, without aneurysmal dilatation. The abdominal wall is unremarkable. No acute osseous abnormality is identified. Degenerative changes involve the spine. IMPRESSION: No acute abdominal or pelvic pathology. No findings to account for the patient's abdominal symptoms. There is focal consolidation in the left lower lobe, and to a lesser degree in the lingula, felt to reflect pneumonia. Findings are in agreement with initial teleradiology report. Dictated by: Dictated on workstation # [id number]
[2020-04-14] MEDS ORDERED: CYCL10TA9 PO (16:47)
== END 2020-04-13 01:22 | disposition home or self-care (01) ==
LOC: EDUNIT# 23:34 → ER FS 23:37
DX: N30.90 Cystitis, unspecified without hematuria (principal); K59.00 Constipation, unspecified; I10 Essential (primary) hypertension; K21.9 Gastro-esophageal reflux disease without esophagitis; G40.909 Epilepsy, unspecified, not intractable, without status epilepticus; F41.9 Anxiety disorder, unspecified; F32.9 Major depressive disorder, single episode, unspecified; E03.9 Hypothyroidism, unspecified; Z85.3 Personal history of malignant neoplasm of breast; Z85.41 Personal history of malignant neoplasm of cervix uteri; Z87.891 Personal history of nicotine dependence; Z88.5 Allergy status to narcotic agent; Z88.6 Allergy status to analgesic agent; Z88.2 Allergy status to sulfonamides; Z88.8 Allergy status to other drugs, medicaments and biological substances; Z79.82 Long term (current) use of aspirin; Z79.890 Hormone replacement therapy
CPT/HCPCS: 36415; 74176; 80053; 81000; 83690; 85007; 85027; 87077; 87088; 87184; 87186

== ENCOUNTER 2020-04-14 15:41 | Emergency (ER) | payer MEDICARE, MEDICAID ==
[~2020-04-14 15:41] MED LIST changes: +DICY20TA10 PO; +LEVO500T80 PO; +POLY119P5 PO
--- NOTE | 2020-04-14 16:07 | ED Upper Extremity ---
General Chief Complaint: Upper Extremity Stated Complaint: LT SHOULDER PAIN/NUMBNESS Nursing Triage Note: Has had neck/shoulder/left arm pain that started at 0830. Now the left arm is numb. Hurts to raise arm past the level of the shoulder. No known injury. Pain is rated at 7/10. Has taken a hydrocodone for pain. Nursing Sepsis Screen: No Definite Risk Source: patient Exam Limitations: no limitations History of Present Illness Date Seen by Provider: Apr 14, 2020 Time Seen by Provider: 15:55 Initial Comments 65 y/o female presents w onset of numbness without weakness left upper extremity....onset upon awakening @ 0800 today. Constant numbness since then w pain left side of her neck w stiffness of movement. Denies previous occurrence, chest pain, palpitations, cough, soa. Denies abdominal pain, nausea or vomiting. Allergies and Home Medications Allergies Coded Allergies: morphine (Verified Allergy, Severe, CONFUSION, 09/26/19) tramadol (Verified Allergy, Severe, CONFUSION, 09/26/19) varenicline (Verified Allergy, Intermediate, NAUSEA/VOMITTING, 09/26/19) Sulfa (Sulfonamide Antibiotics) (Unverified Adverse Reaction, Unknown, 09/29/19) ibuprofen (Unverified Adverse Reaction, Unknown, gi upset, 09/29/19) oseltamivir (Unverified Adverse Reaction, Unknown, 09/29/19) sumatriptan (Unverified Adverse Reaction, Unknown, 09/29/19) Uncoded Allergies: TAPE (Allergy, Mild, 09/22/05) Home Medications Aspirin 81 Mg Tab.chew, 81 MG PO DAILY, (Reported) Cephalexin 500 Mg Capsule, 500 MG PO TID Prescribed by: GEORGINA MEYERS on 01/31/20 1520 Cholecalciferol (Vitamin D3) 1,250 Mcg Capsule, 1,250 MCG PO DAILY, (Reported) Clonazepam 0.5 Mg Tablet, 0.5 MG PO BID PRN for ANXIETY, (Reported) Dicyclomine HCl 20 Mg Tablet, 20 MG PO QID PRN for abdominal cramping Prescribed by: MARIO CHAN on 04/13/20 0114 Escitalopram Oxalate 20 Mg Tablet, 20 MG PO HS, (Reported) Lactobacillus Acidophilus 1 Each Tablet, 1 EACH PO DAILY, (Reported) Levocetirizine Dihydrochloride 5 Mg Tablet, 5 MG PO HS, (Reported) Levofloxacin 500 Mg Tablet, 500 MG PO DAILY Prescribed by: MARIO CHAN on 04/13/20 010 Levothyroxine Sodium 25 Mcg Tablet, 25 MCG PO DAILY, (Reported) Lidocaine 1 Each Adh..patch, 1 EACH TP Q12H PRN for Neuropathic pain 2 patches max for 12 hours, then 12 hours patch-free period. Prescribed by: CELESTINE SOLARESSTDEMIAN on 03/31/20 1421 [place] Carbonate 300 Mg Tablet, 300 MG PO TID, (Reported) Metoprolol Succinate 25 Mg Tab.er.24h, 12.5 MG PO DAILY, (Reported) take 1/2 of 25mg tab [place] 3 Polyunsat Fatty Acids 1,000 Mg Cap, 1,000 MG PO DAILY, (Reported) Ondansetron 4 Mg Tab.rapdis, 4 MG PO Q6H Prescribed by: GEORGINA MEYERS on 01/31/20 1520 Pantoprazole Sodium 40 Mg Tablet.dr, 40 MG PO BID, (Reported) Polyethylene Glycol 3350 119 Gm Powder, 17 GM PO DAILY Mix with 8 ounces of water or juice and drink daily for constipation Prescribed by: AMRIO CHAN on 04/13/20 010 Topiramate 100 Mg Tablet, 100 MG PO BID, (Reported) Patient Home Medication List Home Medication List Reviewed: Yes Review of Systems Constitutional: No chills, No dizziness, No fever, No malaise, No weakness EENTM: see HPI, other (left neck pain); No hearing loss, No ear pain, No eye pain, No vision loss, No hoarseness, No mouth pain, No mouth swelling, No nose pain, No throat pain, No throat swelling Respiratory: no symptoms reported; No cough, No short of breath, No wheezing Cardiovascular: No chest pain, No edema, No palpitations, No syncope Gastrointestinal: No abdominal pain, No loss of appetite, No nausea, No vomit ing Musculoskeletal: No back pain, No joint pain; muscle pain (left side of neck), muscle stiffness; No muscle weakness; neck pain Skin: No change in color, No rash Psychiatric/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: Numbness; Denies Pre-Existing Deficit, Denies Tremors, Denies Weakness Past Nrcnrqr-Hqwbsf-Mbttvr Hx Past Med/Social Hx: Reviewed Nursing Past Med/Soc Hx Patient Social History Alcohol Use: Denies Use Number of Drinks Today: DD Alcohol Beverage of Choice: Rum Recreational Drug Use: No Smoking Status: Current Everyday Smoker Type Used: Cigarettes Former Smoker, Quit: Jan 29, 2020 2nd Hand Smoke Exposure: Yes Recent Foreign Travel: No Contact w/Someone Who Travel: No Recent Infectious Disease Expo: No Recent Hopitalizations: No Physical Abuse: No Sexual Abuse: No Mistreated: No Fear: No Immunizations Up To Date Tetanus Booster (TDap): Unknown PED Vaccines UTD: No Date of Pneumonia Vaccine: Feb 22, 2019 Date of Influenza Vaccine: Feb 22, 2019 Seasonal Allergies Seasonal Allergies: No Past Medical History Surgeries: Yes (Gastrectomy, bladder sling, Nerve stimulator removal, DEBRA ELBOW, BMT) Bladder Surgery, Section, Gallbladder, Hysterectomy, Orthopedic Respiratory: Yes COPD Currently Using CPAP: No Currently Using BIPAP: No Cardiac: Yes High Cholesterol, Hypertension 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: Yes Seizure Disorder [employer]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 Sexually Transmitted Disease: No HIV/AIDS: No Genitourinary: Yes Bladder Infection, Renal Failure, UTI-Chronic Gastrointestinal: Yes Gastroesophageal Reflux Musculoskeletal: Yes Chronic Back Pain Endocrine: Yes Hypothyroidsim HEENT: Yes Cataract Loss of Vision: Denies Hearing Impairment: Hard of Hearing, Bilateral Hearing Aide Cancer: No ("PRECANCEROUS CELLS" ON PAP) Breast, Cervical Did You Recieve Any Treatments: No What Type of Treatment Did You: Chemotherapy, Surgical Intervention Psychosocial: Yes Anxiety, Bipolar, Depression Integumentary: No Blood Disorders: No Adverse Reaction/Blood Tranf: No (N/A) Physical Exam Vital Signs Vital Signs - First Documented 04/14/20 15:50 Temp 36.8 Pulse 80 Resp 16 B/P (MAP) 148/75 (99) Pulse Ox 100 Capillary Refill : Less Than 3 Seconds Height, Weight, BMI Height: 5'5.00" Weight: 134lbs. 0.0oz. 60.527955wo; 23.00 BMI Method:Stated General Appearance: WD/WN, no apparent distress HEENT: PERRL/EOMI, normal ENT inspection, TMs normal, pharynx normal Neck: supple, limited range of motion (2 to pain when turning to her left), tender lateral (upper left cervical paraspinal ms....moderate TTP) Cardiovascular: regular rate, rhythm, no edema, no JVD Respiratory: chest non-tender, lungs clear, normal breath sounds, no respiratory distress, no accessory muscle use Gastrointestinal: non tender, soft; No distended, No guarding, No rebound, No tenderness Shoulder: normal inspection, non-tender, no evidence of injury, normal ROM; No asymmetry, No bone tenderness, No deformity, No ecchymosis, No limited ROM, No pain, No soft tissue tenderness, No swelling Elbow/Forearm: normal inspection, non-tender, no evidence of injury, normal ROM Wrist: Yes normal inspection, Yes non-tender, Yes no evidence of injury, Yes normal ROM Hand: normal inspection, non-tender, no evidence of injury, normal ROM Neurologic/Tendon: normal motor functions, normal tendon functions, responds to pain, sensory deficit (numbness LUE ) Neurologic/Psychiatric: alert, normal mood/affect, oriented x 3 Progress/Results/Core Measures Results/Orders Lab Results Laboratory Tests Test 04/14/20 16:10 Range/Units White Blood Count 7.4 4.3-11.0 10^3/uL Red Blood Count 4.09 L 4.35-5.85 10^6/uL Hemoglobin 12.2 11.5-16.0 G/DL Hematocrit 37 35-52 % Mean Corpuscular Volume 91 80-99 FL Mean Corpuscular Hemoglobin 30 25-34 PG Mean Corpuscular Hemoglobin Concent 33 32-36 G/DL Red Cell Distribution Width 14.5 10.0-14.5 % Platelet Count 226 130-400 10^3/uL Mean Platelet Volume 11.4 H 7.4-10.4 FL Immature Granulocyte % (Auto) 1 % Neutrophils (%) (Auto) 83 H 42-75 % Lymphocytes (%) (Auto) 7 L 12-44 % Monocytes (%) (Auto) 5 0-12 % Eosinophils (%) (Auto) 3 0-10 % Basophils (%) (Auto) 1 0-10 % Neutrophils # (Auto) 6.1 1.8-7.8 X 10^3 Lymphocytes # (Auto) 0.5 L 1.0-4.0 X 10^3 Monocytes # (Auto) 0.4 0.0-1.0 X 10^3 Eosinophils # (Auto) 0.2 0.0-0.3 10^3/uL Basophils # (Auto) 0.0 0.0-0.1 10^3/uL Immature Granulocyte # (Auto) 0.1 0.0-0.1 10^3/uL Sodium Level 138 135-145 MMOL/L Potassium Level 4.1 3.6-5.0 MMOL/L Chloride Level 107 98-107 MMOL/L Carbon Dioxide Level 20 L 21-32 MMOL/L Anion Gap 11 5-14 MMOL/L Blood Urea Nitrogen 14 7-18 MG/DL Creatinine 1.03 0.60-1.30 MG/DL Estimat Glomerular Filtration Rate 54 BUN/Creatinine Ratio 14 Glucose Level 102 70-105 MG/DL Calcium Level 9.7 8.5-10.1 MG/DL Corrected Calcium 9.4 8.5-10.1 MG/DL Total Bilirubin 0.3 0.1-1.0 MG/DL Aspartate Amino Transf (AST/SGOT) 12 5-34 U/L Alanine Aminotransferase (ALT/SGPT) 5 0-55 U/L Alkaline Phosphatase 127 40-136 U/L Troponin I < 0.30 <0.30 NG/ML Total Protein 7.0 6.4-8.2 GM/DL Albumin 4.4 3.2-4.5 GM/DL My Orders Orders - ROVENSTINECELESTINE L DO Ed Iv/Invasive Line Start (04/14/20 16:00) Chest 1 View Ap/Pa Only (04/14/20 16:00) Ekg Tracing (04/14/20 16:00) Troponin I Fs (04/14/20 16:00) Cbc With Automated Diff (04/14/20 16:00) Comprehensive Metabolic Panel (04/14/20 16:00) Manual Differential (04/14/20 16:10) Vital Signs/I&O 04/14/20 15:50 Temp 36.8 Pulse 80 Resp 16 B/P (MAP) 148/75 (99) Pulse Ox 100 Blood Pressure Mean: 99 Initial ECG Impression Date: Apr 14, 2020 Initial ECG Impression Time: 16:10 Initial ECG Rhythm: Normal Sinus Initial ECG Intervals: Normal Initial ECG Impression: Normal Initial ECG Comparisson: No Previous ECG Available Diagnostic Imaging Diagonstic Imaging: Xray Comments FINDINGS: The lungs are clear without edema or pneumonia. No pleural effusion or pneumothorax. Heart size is normal. IMPRESSION: Clear lungs. Dictated on workstation # [id number] Dict: 04/14/20 1624 Trans: 04/14/20 162 PJE [id number] Interpreted by: FAITH RODRÍGUEZ MD Electronically signed by: Departure Impression Primary Impression: Cervical radiculopathy, acute Disposition: 01 HOME, SELF-CARE Condition: Stable Departure-Patient Inst. Decision time for Depature: 16:46 Referrals: SELFCHIQUI MD (PCP/Family) Primary Care Physician Patient Instructions: Radiculopathy (DC) Scripts Cyclobenzaprine HCl (Cyclobenzaprine HCl) 10 Mg Tablet 5 MG PO Q8H PRN for SPASMS, #15 TAB 0 Refills Prov: CELESTINE PEREZ DO 04/14/20 CELESTINE PEREZ DO Apr 14, 2020 16:07
--- NOTE | 2020-04-14 16:26 | Diagnostic Imaging Report ---
EXAMINATION: Chest, 1 view. HISTORY: Left upper extremity and neck pain. COMPARISON: 01/31/2020. FINDINGS: The lungs are clear without edema or pneumonia. No pleural effusion or pneumothorax. Heart size is normal. IMPRESSION: Clear lungs. Dictated by: Dictated on workstation # [id number]
[2020-04-14 16:32] LABS: HEMATOCRIT 37 % (35-52); HEMOGLOBIN 12.2 G/DL (11.5-16.0); MEAN CORPUSCULAR HEMOGLOBIN 30 PG (25-34); MEAN CORPUSCULAR HGB CONC 33 G/DL (32-36); MEAN CORPUSCULAR VOLUME 91 FL (80-99); MEAN PLATELET VOLUME 11.4 FL (7.4-10.4); PLATELET COUNT 226 10^3/uL (130-400); WHITE BLOOD COUNT 7.4 10^3/uL (4.3-11.0)
[2020-04-14 16:33] LABS: BASOPHILS % (AUTO) 1 % (0-10); EOSINOPHILS # (AUTO) 0.2 10^3/uL (0.0-0.3); EOSINOPHILS % (AUTO) 3 % (0-10); LYMPHOCYTES # (AUTO) 0.5 X 10^3 (1.0-4.0); LYMPHOCYTES % (AUTO) 7 % (12-44); MONOCYTES # (AUTO) 0.4 X 10^3 (0.0-1.0); MONOCYTES % (AUTO) 5 % (0-12); NEUTROPHILS # (AUTO) 6.1 X 10^3 (1.8-7.8); NEUTROPHILS % (AUTO) 83 % (42-75)
[2020-04-14 16:41] LABS: ALKALINE PHOSPHATASE 127 U/L (40-136); BILIRUBIN,TOTAL 0.3 MG/DL (0.1-1.0); BUN/CREATININE RATIO 14; CALCIUM 9.7 MG/DL (8.5-10.1); CARBON DIOXIDE 20 MMOL/L (21-32); CHLORIDE 107 MMOL/L (98-107); CREATININE SERUM 1.03 MG/DL (0.60-1.30); GFR ESTIMATED 54; GLUCOSE 102 MG/DL (70-105); POTASSIUM 4.1 MMOL/L (3.6-5.0); SODIUM 138 MMOL/L (135-145)
[2020-04-14 16:42] LABS: ALANINE AMINOTRANSFERASE 5 U/L (0-55); ALBUMIN 4.4 GM/DL (3.2-4.5)
[2020-04-14] MEDS ORDERED: CYCL10TA9 PO (16:47)
[2020-04-14 16:49] VITALS: BP 129/70
[2020-04-14 16:49] LABS: ATYPICAL LYMPHOCYTES 1 %; BAND NEUTROPHILS 4 %; EOSINOPHILS % (MANUAL) 4 %; LYMPHOCYTES % (MANUAL) 6 %; MONOCYTES % (MANUAL) 6 %; NEUTROPHILS % (MANUAL) 79 %; RBC MORPH NORMAL
== END 2020-04-14 16:51 | disposition home or self-care (01) ==
LOC: EDUNIT# 15:41 → ER FS 15:43
DX: M54.12 Radiculopathy, cervical region (principal); G40.909 Epilepsy, unspecified, not intractable, without status epilepticus; E03.9 Hypothyroidism, unspecified; K21.9 Gastro-esophageal reflux disease without esophagitis; F41.9 Anxiety disorder, unspecified; F32.9 Major depressive disorder, single episode, unspecified; I10 Essential (primary) hypertension; F17.210 Nicotine dependence, cigarettes, uncomplicated; Z88.5 Allergy status to narcotic agent; Z88.2 Allergy status to sulfonamides; Z88.6 Allergy status to analgesic agent; Z88.8 Allergy status to other drugs, medicaments and biological substances; Z85.3 Personal history of malignant neoplasm of breast; Z85.41 Personal history of malignant neoplasm of cervix uteri; Z79.82 Long term (current) use of aspirin; Z79.890 Hormone replacement therapy
CPT/HCPCS: 36415; 71045; 80053; 84484; 85007; 85027; 93005

== ENCOUNTER → 2020-04-18 | Outpatient (CLI) | payer MEDICARE, MEDICAID ==
[~2020-04-18] MED LIST changes: +BARIUM for suspension 96% w/w (Vanilla Silq Medium Density) PO ONE; +BARIUM for suspension 98% w/w (Vanilla Silq High Density) PO ONE; +CATHETER FLUSH 10 ML SYR IV PRN; +HOLD METFORMIN - RECEIVED CONTRAST 20 ML VIAL IV SCH; +IOHEXOL 350 MG/ML 100 ML (OMNIPAQUE 350) VIAL IV ONE; +NS 100 ML (IVPB) BAG IV ONE
[2020-04-18 09:05] LABS: BUN/CREATININE RATIO 20; CREATININE SERUM 0.82 MG/DL (0.60-1.30); GFR ESTIMATED > 60
--- NOTE | 2020-04-18 10:02 | Diagnostic Imaging Report ---
INDICATION: HOARSENESS, GLOBUS SENSATION. TECHNIQUE: Two view chest 9:27 AM CORRELATION STUDY: 04/06/2020 FINDINGS: The heart size, mediastinal configuration and pulmonary vasculature are within normal limits. Plantar appearance but the hilar markings, generally stable. The lungs are clear with no consolidating infiltrate. There is no significant pleural effusion or pneumothorax. Mild thoracic spine degenerative change. Asymmetric eventration lateral left diaphragm. IMPRESSION: 1. Negative for acute abnormality of the chest. Dictated by: Dictated on workstation # [id number]
--- NOTE | 2020-04-18 10:16 | Diagnostic Imaging Report ---
PROCEDURE: CT neck soft tissue with contrast. TECHNIQUE: Multiple contiguous axial images were obtained through the neck after the administration of contrast. Auto Exposure Controls were utilized during the CT exam to meet ALARA standards for radiation dose reduction. INDICATION: Hoarseness. Globus sensation. COMPARISON: None. FINDINGS: The pharyngeal and laryngeal soft tissues are symmetric bilaterally with no suspicious mass or enhancement identified. No retropharyngeal fluid. No mass or fluid collection in the neck. No cervical lymphadenopathy. The thyroid and major salivary glands are negative. Normal floor of the mouth, tongue base and epiglottis. Moderate atherosclerotic calcifications in the carotid bifurcations. Emphysematous changes in the lung apices. Mild spondylotic changes in the cervical spine. No acute osseous findings. Visualized intracranial contents and orbits are unremarkable. IMPRESSION: No mass, fluid collection or lymphadenopathy in the neck. No acute findings. Dictated by: Dictated on workstation # [id number]
--- NOTE | 2020-04-18 10:58 | Diagnostic Imaging Report ---
INDICATION: Hoarseness and globus sensation. TECHNIQUE: The patient ingested effervescent crystals as well as thin and thick barium and imaging over the esophagus was performed in multiple obliquities. A total of 1 minute and 5 seconds of fluoroscopic time was utilized. FINDINGS: The esophagus has a smooth contour. No mass or stricture is identified. There is a very small hiatal hernia present. No gastroesophageal reflux was demonstrated. IMPRESSION: Small hiatal hernia. The study is otherwise unremarkable. Dictated by: Dictated on workstation # [id number]
== END ==
LOC: RAD 09:45
PROVIDERS: ATTEND Otolaryngology Otolaryngology/Facial Plastic Surgery
DX: R49.0 Dysphonia (principal); R09.89 Other specified symptoms and signs involving the circulatory and respiratory systems
CPT/HCPCS: 36415; 70491; 71046; 74220; 82565; 84520

== ENCOUNTER 2020-05-02 05:36 | Outpatient (RCR) | payer MEDICARE, MEDICAID ==
[~2020-05-02] VITALS: Ht 165 cm; Wt 72.0 kg
[~2020-05-02 05:36] MED LIST changes: -BARIUM for suspension 96% w/w (Vanilla Silq Medium Density) PO ONE; -BARIUM for suspension 98% w/w (Vanilla Silq High Density) PO ONE; -CATHETER FLUSH 10 ML SYR IV PRN; -HOLD METFORMIN - RECEIVED CONTRAST 20 ML VIAL IV SCH; -IOHEXOL 350 MG/ML 100 ML (OMNIPAQUE 350) VIAL IV ONE; -NS 100 ML (IVPB) BAG IV ONE
[2020-05-02] MEDS ORDERED: VNL75T PO (09:09)
[2020-05-02] MEDS ORDERED: SUCR1TAB36 PO (09:09)
[2020-05-02] MEDS ORDERED: ACHD5005 PO (09:09)
[2020-05-02] MEDS ORDERED: MULT-1136 PO (09:09)
[2020-05-02 09:13] VITALS: BP 134/72
[2020-05-02 09:54] LABS: BASOPHILS % (AUTO) 0 % (0-10); EOSINOPHILS # (AUTO) 0.4 10^3/uL (0.0-0.3); EOSINOPHILS % (AUTO) 7 % (0-10); HEMATOCRIT 37 % (35-52); HEMOGLOBIN 11.8 g/dL (11.5-16.0); LYMPHOCYTES # (AUTO) 0.5 X 10^3 (1.0-4.0); LYMPHOCYTES % (AUTO) 9 % (12-44); MEAN CORPUSCULAR HEMOGLOBIN 30 pg (25-34); MEAN CORPUSCULAR HGB CONC 32 g/dL (32-36); MEAN CORPUSCULAR VOLUME 92 fL (80-99); MEAN PLATELET VOLUME 11.1 fL (9.0-12.2); MONOCYTES # (AUTO) 0.4 X 10^3 (0.0-1.0); MONOCYTES % (AUTO) 7 % (0-12); NEUTROPHILS % (AUTO) 76 % (42-75); PLATELET COUNT 179 10^3/uL (130-400); WHITE BLOOD COUNT 5.2 10^3/uL (4.3-11.0)
[2020-05-02 10:11] LABS: BUN/CREATININE RATIO 17; CARBON DIOXIDE 19 MMOL/L (21-32); CHLORIDE 112 MMOL/L (98-107); CREATININE SERUM 0.81 MG/DL (0.60-1.30); GFR ESTIMATED > 60; GLUCOSE 94 MG/DL (70-105); POTASSIUM 4.2 MMOL/L (3.6-5.0); SODIUM 139 MMOL/L (135-145)
[2020-05-03] MEDS ORDERED: LEVO5TAB12 PO (15:44)
== END 2020-05-02 10:47 | disposition home or self-care (01) ==
LOC: PREOP 05:36
PROVIDERS: ATTEND Otolaryngology Otolaryngology/Facial Plastic Surgery
DX: Z01.812 Encounter for preprocedural laboratory examination (principal); R09.89 Other specified symptoms and signs involving the circulatory and respiratory systems; R49.0 Dysphonia; Z20.828 Contact with and (suspected) exposure to other viral communicable diseases; Z72.0 Tobacco use
CPT/HCPCS: 80048; 85025; 87081; U0002; 36415; 87635

== ENCOUNTER 2020-05-04 06:58 | Day surgery (SDC) | payer MEDICARE, MEDICAID ==
[~2020-05-04] VITALS: Ht 165 cm; Wt 72.0 kg
[2020-05-04] VITALS (9 sets, daily range): BP systolic 122–146; BP diastolic 57–69
[~2020-05-04 06:58] MED LIST changes: +MULT-1136 PO; +SUCR1TAB36 PO; +VNL75T PO
[2020-05-04] MEDS ORDERED: LACTATED RINGERS 1,000 ML IV PRN (07:30)
[2020-05-04] MEDS ORDERED: FAMOTIDINE 20MG/2ML IV (PEPCID) ONE (08:08)
[2020-05-04] MEDS ORDERED: FAMOTIDINE 20MG/2ML IV (PEPCID) IV ONE (08:15)
--- NOTE | 2020-05-04 08:40 | Progress Note-Pre Operative ---
Pre-Operative Progress Note H&P Reviewed The H&P was reviewed, patient examined and no changes noted. Date Seen by Provider: May 04, 2020 Time Seen by Provider: 08:30 Date H&P Reviewed: May 04, 2020 Time H&P Reviewed: 08:30 Pre-Operative Diagnosis: Laryngeal Lesion-left pyriform sinus ROSINA KENT MD May 04, 2020 08:40
[2020-05-04] MEDS ORDERED: proPOfol 200 MG/20 ML (DIPRIVAN) VIAL IV ONE (08:53)
[2020-05-04] MEDS ORDERED: ROCURONIUM 10 MG/ML 5 ML SYRINGE IV ONE (08:53)
[2020-05-04] MEDS ORDERED: fentaNYL INJECTION 250 MCG/5 ML AMP ONE (08:53)
[2020-05-04] MEDS ORDERED: LIDOCAINE PF 2% 5 ML (XYLOCAINE) VIAL ONE (08:53)
[2020-05-04] MEDS ORDERED: ONDANSETRON 4 MG/2 ML (SDV) Z0FRAN ONE (08:53)
[2020-05-04] MEDS ORDERED: MIDAZOLAM 2 MG/2 ML (VERSED) VIAL ONE (08:54)
[2020-05-04] MEDS ORDERED: fentaNYL INJECTION 100 MCG/2 ML AMP ONE (08:55)
[2020-05-04] MEDS ORDERED: LIDOCAINE/EPI 1%-1:100,000 (XYLOCAINE) 50 ML ONE (08:57)
[2020-05-04] MEDS ORDERED: SEVOFLURANE (ULTANE) 15 ML INHAL SOLN ONE (09:35)
--- NOTE | 2020-05-04 09:38 | Progress Note-Post Operative ---
Post-Operative Progess Note Surgeon (s)/Entry Level Business Analyst (s) Surgeon ROSINA KENT MD Entry Level Business Analyst n/a Pre-Operative Diagnosis Laryngeal Lesion-left pyriform sinus Post-Operative Diagnosis same Post-Op Procedure Note Date of Procedure: May 04, 2020 Name of Procedure Performed: Direct LRyngosocpy with Rmoval of Left Pyriform Sinus Lesion Description & Findings Description and Findings: n/a Anesthesia Type get Estimated Blood Loss minimal Packing none. Specimen(s) collected/removed left pyriform sinus lesion ROSINA KENT MD May 04, 2020 09:38
[2020-05-04] MEDS ORDERED: PROMETHAZINE INJ 25 MG/ML (PHENERGAN) AMP IV PRN (09:45)
[2020-05-04] MEDS ORDERED: HYDROcodone/APAP 5 MG/325 MG (LORTAB) TAB PO PRN (09:45)
[2020-05-04] MEDS ORDERED: ACETAMINOPHEN 325 MG TABLET PO PRN (09:45)
--- NOTE | 2020-05-04 10:21 | Anesthesia-General Post-Op ---
General Patient Condition Mental Status/LOC: Same as Preop Cardiovascular: Satisfactory Nausea/Vomiting: Absent Respiratory: Satisfactory Pain: Controlled Complications: Absent Post Op Complications Complications None Follow Up Care/Instructions Patient Instructions None needed. Anesthesia/Patient Condition Patient Condition Patient is doing well, no complaints, stable vital signs, no apparent adverse anesthesia problems. No complications reported per nursing. EDWIN DIAZ CRNA May 04, 2020 10:21
[2020-05-04] MEDS ORDERED: ACHD5005 PO (10:50)
== END 2020-05-04 11:50 | disposition home or self-care (01) ==
LOC: SDC 06:58
PROVIDERS: ATTEND Otolaryngology Otolaryngology/Facial Plastic Surgery
DX: J38.7 Other diseases of larynx (principal); I10 Essential (primary) hypertension; J44.9 Chronic obstructive pulmonary disease, unspecified; F32.9 Major depressive disorder, single episode, unspecified; E03.9 Hypothyroidism, unspecified; K21.9 Gastro-esophageal reflux disease without esophagitis; K44.9 Diaphragmatic hernia without obstruction or gangrene; F41.9 Anxiety disorder, unspecified; Z79.899 Other long term (current) drug therapy; Z88.2 Allergy status to sulfonamides; Z91.048 Other nonmedicinal substance allergy status; Z88.5 Allergy status to narcotic agent; Z88.8 Allergy status to other drugs, medicaments and biological substances

== ENCOUNTER → 2020-06-11 | Outpatient (CLI) | payer MEDICARE, MEDICAID ==
[~2020-06-11] MED LIST changes: -ESCI20TA45 PO; +ESCI20TA56 PO
--- NOTE | 2020-06-11 15:56 | Diagnostic Imaging Report ---
EXAMINATION: Magnetic resonance imaging of the pelvis and bilateral hips without contrast. DATE: June 11, 2020. COMPARISON: CT abdomen/pelvis April 13, 2020. INDICATION: 65-year-old female, low back pain. Difficulty walking. Urinary incontinence. TECHNIQUE: Magnetic Resonance Imaging sequences were performed of the pelvis and bilateral hips without contrast. FINDINGS: TENDONS AND MUSCLES: The gluteus nohemi muscles and their origins and insertions are intact bilaterally. The tendons and muscles of the greater trochanter - gluteus minimus, piriformis and gluteus medius - are intact bilaterally. Both common hamstring attachments on the ischial tuberosities are intact and the extensor muscles of the thigh are intact. The visualized portions of the flexors and adductor muscles of the thigh and their attachments on the pelvis and hips are intact. Both iliopsoas and iliacus muscles are intact. The bilateral iliopsoas tendons are intact. HIPS AND SACROILIAC JOINTS: The contours of the femoral heads and acetabuli are smooth and symmetric. There is no hip joint effusion. There is no identified fluid-filled labral tear or paralabral cyst. There is no pronounced joint space loss of either hip. The sacroiliac joints are unremarkable. LUMBAR SPINE: Please see the separately dictated same day MRI lumbar spine report. BONE: The bones all have normal configuration. The bone marrow signal is within normal limits. Specifically, negative for fracture, osteomyelitis, osteonecrosis, or marrow replacing process. BURSAE AND SOFT TISSUES: The bursae and soft tissues surrounding the pelvis and hips are within normal limits. IMPRESSION: 1. Unremarkable musculoskeletal evaluation at the level of the pelvis and bilateral hips. 2. Please see the separately dictated MRI lumbar spine report for detailed evaluation of the lumbar spine. Dictated by: Dictated on workstation # [id number]
--- NOTE | 2020-06-11 16:18 | Diagnostic Imaging Report ---
PROCEDURE: MRI lumbar spine. TECHNIQUE: Multiplanar, multisequence MRI of the lumbar spine was performed without contrast. INDICATION: Back pain, difficulty walking, urinary incontinence. COMPARISON: The study is interpreted in correlation with an abdominal/pelvic CT of 04/13/2020. That exam included sagittal and coronal reconstructions. FINDINGS: There is normal dispersal of the nerves of the cauda equina. The conus is normal in location. The spinal canal is widely patent at each vertebral body and disc space level. At L4-L5, there is very mild disc desiccation and diffuse bulge which mildly narrows the right greater than left neural foramen and minimally stenose the thecal sac, likely insignificant. The lateral recess is patent throughout. The lumbar statures are normal. The alignment is anatomic. The marrow signal intensity is normal. IMPRESSION: There is very mild degenerative change at L4-L5 resulting in mild right greater than left foraminal stenosis but no substantial canal narrowing. Normal alignment. No acute appearing abnormality. Dictated by: Dictated on workstation # [id number]
== END ==
LOC: RAD 14:45
PROVIDERS: ATTEND Family Medicine
DX: M53.3 Sacrococcygeal disorders, not elsewhere classified (principal); N39.42 Incontinence without sensory awareness; R29.6 Repeated falls; M47.26 Other spondylosis with radiculopathy, lumbar region; M48.061 Spinal stenosis, lumbar region without neurogenic claudication
CPT/HCPCS: 72148; 72195

== ENCOUNTER 2020-07-05 14:30 | Emergency (ER) | payer MEDICARE, MEDICAID ==
[~2020-07-05] VITALS: Ht 165.1 cm; Wt 74.1 kg
[~2020-07-05 14:30] MED LIST changes: +ESCI20TA39 PO; -ESCI20TA56 PO
[2020-07-05] MEDS ORDERED: NS IV 1000 ML 1,000 ML IV SCH ×2 (14:45→16:00)
--- NOTE | 2020-07-05 14:49 | ED Chest Pain ---
General Chief Complaint: Cardiac/General Problems Stated Complaint: CHEST PAIN History of Present Illness Date Seen by Provider: Jul 05, 2020 Time Seen by Provider: 14:40 Initial Comments 65-year-old female presents with onset of chest pain just prior to arrival less than 1 hour ago. States she was painting some "knickknacks" and started to have chest pain. Denies any associated illness, denies fever chills, cough or shortness of air. Denies abdominal pain or vomiting. Allergies and Home Medications Allergies Coded Allergies: morphine (Verified Allergy, Severe, CONFUSION, 09/26/19) tramadol (Verified Allergy, Severe, CONFUSION, 09/26/19) varenicline (Verified Allergy, Intermediate, NAUSEA/VOMITTING, 09/26/19) ibuprofen (Unverified Adverse Reaction, Mild, gi upset, 05/02/20) Sulfa (Sulfonamide Antibiotics) (Unverified Adverse Reaction, Unknown, 09/29/19) oseltamivir (Unverified Adverse Reaction, Unknown, 09/29/19) sumatriptan (Unverified Adverse Reaction, Unknown, 09/29/19) Uncoded Allergies: TAPE (Allergy, Mild, 09/22/05) Home Medications Aspirin 81 Mg Tab.chew, 81 MG PO DAILY, (Reported) Cholecalciferol (Vitamin D3) 1,250 Mcg Capsule, 1,250 MCG PO DAILY, (Reported) Clonazepam 0.5 Mg Tablet, 0.5 MG PO BID PRN for ANXIETY, (Reported) Cyclobenzaprine HCl 10 Mg Tablet, 5 MG PO Q8H PRN for SPASMS Prescribed by: CELESTINE PEREZ on 04/14/20 1647 Hydrocodone/Acetaminophen 1 Each Tablet, 1 EACH PO PRN, (Reported) Hydrocodone/Acetaminophen 1 Each Tablet, 1 TAB PO Q4H PRN for PAIN-MODERATE (5- 7) Prescribed by: SAVANAH BAIRD on 05/04/20 1050 Lactobacillus Acidophilus 1 Each Tablet, 1 EACH PO DAILY, (Reported) Levocetirizine Dihydrochloride 5 Mg Tablet, 5 MG PO DAILY, (Reported) Levothyroxine Sodium 25 Mcg Tablet, 25 MCG PO DAILY, (Reported) Foraker Carbonate 300 Mg Tablet, 300 MG PO TID, (Reported) Metoprolol Succinate 25 Mg Tab.er.24h, 12.5 MG PO DAILY, (Reported) take 1/2 of 25mg tab Multivitamin 1 Each Tablet, 1 EACH PO DAILY, (Reported) Pierson 3 Polyunsat Fatty Acids 1,000 Mg Cap, 1,000 MG PO DAILY, (Reported) Pantoprazole Sodium 40 Mg Tablet.dr, 40 MG PO BID, (Reported) Sucralfate 1 Gm Tablet, 1 GM PO PRN, (Reported) Topiramate 100 Mg Tablet, 100 MG PO BID, (Reported) Venlafaxine HCl 75 Mg Tab, 150 MG PO DAILY, (Reported) Patient Home Medication List Home Medication List Reviewed: Yes Review of Systems Review of Systems Constitutional: No dizziness, No fever, No malaise, No weakness EENTM: No Symptoms Reported Respiratory: Denies Cough, Denies Shortness of Air Cardiovascular: Chest Pain; Denies Edema, Denies Lightheadedness, Denies Palpitations, Denies Syncope Gastrointestinal: Denies Abdominal Pain, Denies Constipated, Denies Diarrhea, Denies Nausea, Denies Vomiting Musculoskeletal: No back pain, No joint pain Psychiatric/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: Denies Numbness, Denies Paresthesia Past Pbclplr-Hhwqda-Izpiqc Hx Past Med/Social Hx: Reviewed Nursing Past Med/Soc Hx Patient Social History Alcohol Beverage of Choice: Rum Type Used: Cigarettes Former Smoker, Quit: Jan 29, 2020 2nd Hand Smoke Exposure: Yes Recent Hopitalizations: No Immunizations Up To Date Tetanus Booster (TDap): Unknown PED Vaccines UTD: No Date of Pneumonia Vaccine: Feb 20, 2020 Date of Influenza Vaccine: Feb 20, 2020 Seasonal Allergies Seasonal Allergies: Yes Past Medical History Surgeries: Yes (Gastrectomy, bladder sling, Nerve stim/removal, DEBRA ELBOW, BMT, HERNIA X7) Bladder Surgery, Section, Gallbladder, Hysterectomy, Orthopedic Respiratory: Yes (O2 2L AT NIGHT) COPD Currently Using CPAP: No Currently Using BIPAP: No Cardiac: Yes High Cholesterol, Hypertension 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: Yes (HX ONE SEIZURE) 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 Sexually Transmitted Disease: No HIV/AIDS: No Genitourinary: Yes Bladder Infection, Renal Failure, UTI-Chronic Gastrointestinal: Yes Gastroesophageal Reflux, Hiatal Hernia Musculoskeletal: Yes Chronic Back Pain Endocrine: Yes Hypothyroidsim HEENT: Yes Cataract Loss of Vision: Denies Hearing Impairment: Hard of Hearing, Bilateral Hearing Aide Cancer: No ("PRECANCEROUS CELLS" ON PAP) Breast, Cervical Did You Recieve Any Treatments: No What Type of Treatment Did You: Chemotherapy, Surgical Intervention Psychosocial: Yes Anxiety, Bipolar, Depression Integumentary: No Blood Disorders: No Adverse Reaction/Blood Tranf: No (HAS HAD BLOOD WITH NO REACTION) Physical Exam Vital Signs Vital Signs - First Documented 07/05/20 14:30 Temp 36.4 Pulse 57 Resp 16 B/P (MAP) 135/49 (77) Pulse Ox 100 O2 Delivery Room Air Capillary Refill : Height, Weight, BMI Height: 5'5.00" Weight: 134lbs. 0.0oz. 60.985199ub; 26.44 BMI Method:Stated General Appearance: No Apparent Distress, WD/WN HEENT: PERRL/EOMI, Normal ENT Inspection Neck: Normal Inspection, Non Tender Respiratory: Chest Non Tender, Lungs Clear, Normal Breath Sounds, No Accessory Muscle Use, No Respiratory Distress Cardiovascular: Regular Rate, Rhythm, No Edema, No JVD, Normal Peripheral Pulses Gastrointestinal: Non Tender, Soft Extremity: Normal Capillary Refill, Non Tender Neurologic/Psychiatric: Alert, Oriented x3, No Motor/Sensory Deficits, Normal Mood/Affect Progress/Results/Core Measures Results/Orders Lab Results Laboratory Tests Test 07/05/20 14:38 07/05/20 16:40 Range/Units White Blood Count 6.2 4.3-11.0 10^3/uL Red Blood Count 4.06 L 4.35-5.85 10^6/uL Hemoglobin 12.3 11.5-16.0 G/DL Hematocrit 37 35-52 % Mean Corpuscular Volume 91 80-99 FL Mean Corpuscular Hemoglobin 30 25-34 PG Mean Corpuscular Hemoglobin Concent 33 32-36 G/DL Red Cell Distribution Width 15.6 H 10.0-14.5 % Platelet Count 195 130-400 10^3/uL Mean Platelet Volume 11.0 H 7.4-10.4 FL Immature Granulocyte % (Auto) 1 % Neutrophils (%) (Auto) 78 H 42-75 % Lymphocytes (%) (Auto) 9 L 12-44 % Monocytes (%) (Auto) 6 0-12 % Eosinophils (%) (Auto) 6 0-10 % Basophils (%) (Auto) 1 0-10 % Neutrophils # (Auto) 4.9 1.8-7.8 X 10^3 Lymphocytes # (Auto) 0.6 L 1.0-4.0 X 10^3 Monocytes # (Auto) 0.4 0.0-1.0 X 10^3 Eosinophils # (Auto) 0.4 H 0.0-0.3 10^3/uL Basophils # (Auto) 0.0 0.0-0.1 10^3/uL Immature Granulocyte # (Auto) 0.0 0.0-0.1 10^3/uL Sodium Level 140 135-145 MMOL/L Potassium Level 4.2 3.6-5.0 MMOL/L Chloride Level 108 H 98-107 MMOL/L Carbon Dioxide Level 24 21-32 MMOL/L Anion Gap 8 5-14 MMOL/L Blood Urea Nitrogen 19 H 7-18 MG/DL Creatinine 0.89 0.60-1.30 MG/DL Estimat Glomerular Filtration Rate > 60 BUN/Creatinine Ratio 21 Glucose Level 101 70-105 MG/DL Calcium Level 9.7 8.5-10.1 MG/DL Corrected Calcium 9.4 8.5-10.1 MG/DL Total Bilirubin 0.4 0.1-1.0 MG/DL Aspartate Amino Transf (AST/SGOT) 16 5-34 U/L Alanine Aminotransferase (ALT/SGPT) 11 0-55 U/L Alkaline Phosphatase 118 40-136 U/L Troponin I < 0.30 < 0.30 <0.30 NG/ML Total Protein 7.0 6.4-8.2 GM/DL Albumin 4.4 3.2-4.5 GM/DL My Orders Orders - CELESTINE PEREZ DO Ed Iv/Invasive Line Start (07/05/20 14:45) Comprehensive Metabolic Panel (07/05/20 14:45) Cbc With Automated Diff (07/05/20 14:45) Troponin I Fs (07/05/20 14:45) Ekg Tracing (07/05/20 14:45) Chest 1 View Ap/Pa Only (07/05/20 14:45) Ns Iv 1000 Ml (Sodium Chloride 0.9%) (07/05/20 14:45) Acetaminophen Tablet/Caplet (Tylenol T (07/05/20 15:15) Troponin I Fs (07/05/20 16:30) Ns Iv 1000 Ml (Sodium Chloride 0.9%) (07/05/20 16:00) Famotidine Injection (Pepcid Injection) (07/05/20 16:00) Aspirin Chewable Tablet (Baby Aspirin Ch (07/05/20 16:00) Ketamine Injection (Ketalar Injection) (07/05/20 17:37) Medications Given in ED Current Medications Medications Dose Ordered Sig/Renay Route Start Time Stop Time Status Last Admin Dose Admin Acetaminophen 650 mg ONCE ONCE PO 07/05/20 15:15 07/05/20 15:16 DC 07/05/20 15:24 650 MG Aspirin 324 mg ONCE ONCE PO 07/05/20 16:00 07/05/20 16:01 DC 07/05/20 16:11 324 MG Famotidine 20 mg ONCE ONCE IVP 07/05/20 16:00 07/05/20 16:01 DC 07/05/20 16:11 20 MG Vital Signs/I&O 07/05/20 14:30 Temp 36.4 Pulse 57 Resp 16 B/P (MAP) 135/49 (77) Pulse Ox 100 O2 Delivery Room Air Initial ECG Impression Date: Jul 05, 2020 Initial ECG Impression Time: 14:35 Initial ECG Rate: 56 Initial ECG Rhythm: Normal Sinus Initial ECG Intervals: Normal Initial ECG Impression: Normal Diagnostic Imaging Diagonstic Imaging: Xray Plain Films/CT/US/NM/MRI: chest Comments COMPARISON: 04/18/2020. FINDINGS: Single frontal view of the chest demonstrates normal heart size and pulmonary vascularity. The lungs are well aerated and clear. No large pleural effusion or pneumothorax is seen. The visualized osseous structures show no acute abnormalities. Note is made of calcified aortic atherosclerosis. IMPRESSION: 1. No acute cardiopulmonary process. Dictated on workstation # [id number] Dict: 07/05/20 1503 Trans: 07/05/20 1505 [id number] Interpreted by: NESHA GUPTA MD Electronically signed by: Departure Impression Primary Impression: Chest pain Qualified Codes: R07.9 - Chest pain, unspecified Disposition: 01 HOME, SELF-CARE Condition: Improved Departure-Patient Inst. Decision time for Depature: 18:15 Referrals: CHIQUI NEAL MD (PCP/Family) Primary Care Physician Patient Instructions: Chest Pain (DC) Add. Discharge Instructions: follow up with Dr Neal in 1 to 2 days if not improving, ER sooner if worse All discharge instructions reviewed with patient and/or family. Voiced understanding. CELESTINE PEREZ DO Jul 05, 2020 14:49
[2020-07-05 14:59] LABS: HEMATOCRIT 37 % (35-52); HEMOGLOBIN 12.3 G/DL (11.5-16.0); MEAN CORPUSCULAR HEMOGLOBIN 30 PG (25-34); MEAN CORPUSCULAR HGB CONC 33 G/DL (32-36); MEAN CORPUSCULAR VOLUME 91 FL (80-99); PLATELET COUNT 195 10^3/uL (130-400); WHITE BLOOD COUNT 6.2 10^3/uL (4.3-11.0)
[2020-07-05 15:00] LABS: BASOPHILS % (AUTO) 1 % (0-10); EOSINOPHILS # (AUTO) 0.4 10^3/uL (0.0-0.3); EOSINOPHILS % (AUTO) 6 % (0-10); LYMPHOCYTES # (AUTO) 0.6 X 10^3 (1.0-4.0); LYMPHOCYTES % (AUTO) 9 % (12-44); MONOCYTES # (AUTO) 0.4 X 10^3 (0.0-1.0); MONOCYTES % (AUTO) 6 % (0-12); NEUTROPHILS # (AUTO) 4.9 X 10^3 (1.8-7.8); NEUTROPHILS % (AUTO) 78 % (42-75)
--- NOTE | 2020-07-05 15:05 | Diagnostic Imaging Report ---
INDICATION: Chest pain. COMPARISON: 04/18/2020. FINDINGS: Single frontal view of the chest demonstrates normal heart size and pulmonary vascularity. The lungs are well aerated and clear. No large pleural effusion or pneumothorax is seen. The visualized osseous structures show no acute abnormalities. Note is made of calcified aortic atherosclerosis. IMPRESSION: 1. No acute cardiopulmonary process. Dictated by: Dictated on workstation # [id number]
[2020-07-05 15:11] LABS: ALANINE AMINOTRANSFERASE 11 U/L (0-55); ALKALINE PHOSPHATASE 118 U/L (40-136); BILIRUBIN,TOTAL 0.4 MG/DL (0.1-1.0); BUN/CREATININE RATIO 21; CALCIUM 9.7 MG/DL (8.5-10.1); CARBON DIOXIDE 24 MMOL/L (21-32); CHLORIDE 108 MMOL/L (98-107); CREATININE SERUM 0.89 MG/DL (0.60-1.30); GFR ESTIMATED > 60; GLUCOSE 101 MG/DL (70-105); POTASSIUM 4.2 MMOL/L (3.6-5.0); SODIUM 140 MMOL/L (135-145)
[2020-07-05 15:12] LABS: ALBUMIN 4.4 GM/DL (3.2-4.5)
[2020-07-05] MEDS ORDERED: ACETAMINOPHEN 325 MG TABLET PO ONE (15:15)
[2020-07-05] MEDS ORDERED: ASPIRIN 81 MG CHEW (CHILDREN'S ASA) PO ONE (16:00)
[2020-07-05] MEDS ORDERED: FAMOTIDINE 20MG/2ML IV (PEPCID) IVP ONE (16:00)
[2020-07-05] MEDS ORDERED: KETAMINE HCL 100 MG/ML 5 ML VIAL ONE (17:37)
[2020-07-05 18:25] VITALS: BP 127/75
== END 2020-07-05 18:18 | disposition home or self-care (01) ==
LOC: EDUNIT# 14:30 → ER FS 14:31
DX: R07.9 Chest pain, unspecified (principal); F41.9 Anxiety disorder, unspecified; K21.9 Gastro-esophageal reflux disease without esophagitis; G40.909 Epilepsy, unspecified, not intractable, without status epilepticus; F32.9 Major depressive disorder, single episode, unspecified; I10 Essential (primary) hypertension; G89.29 Other chronic pain; M54.9 Dorsalgia, unspecified; E03.9 Hypothyroidism, unspecified; Z88.5 Allergy status to narcotic agent; Z88.6 Allergy status to analgesic agent; Z88.2 Allergy status to sulfonamides; Z88.8 Allergy status to other drugs, medicaments and biological substances; Z85.41 Personal history of malignant neoplasm of cervix uteri; Z85.3 Personal history of malignant neoplasm of breast; Z87.891 Personal history of nicotine dependence; Z79.82 Long term (current) use of aspirin; Z79.890 Hormone replacement therapy; Z79.891 Long term (current) use of opiate analgesic
CPT/HCPCS: 36415; 71045; 80053; 84484; 85025; 93005

== ENCOUNTER → 2020-08-06 | Outpatient (CLI) | payer MEDICARE, MEDICAID ==
[~2020-08-06] MED LIST changes: +CATHETER FLUSH 10 ML SYR IV PRN; +HOLD METFORMIN - RECEIVED CONTRAST 20 ML VIAL IV SCH; +IOHEXOL 350 MG/ML 100 ML (OMNIPAQUE 350) VIAL IV ONE; +NS 100 ML (IVPB) BAG IV ONE
[2020-08-06 12:28] LABS: BUN/CREATININE RATIO 20; CREATININE SERUM 0.85 MG/DL (0.60-1.30); GFR ESTIMATED > 60
--- NOTE | 2020-08-06 14:31 | Diagnostic Imaging Report ---
EXAMINATION: CT Chest with intravenous contrast. TECHNIQUE: Multiple contiguous axial images were obtained through the chest after the uneventful administration of intravenous contrast. All CT scans use one or more of the following dose optimizing techniques: automated exposure control, MA and/or KvP adjustment based on a patient size and exam type, or iterative reconstruction. HISTORY: COUGH COMPARISON: CT chest 12/12/2019 FINDINGS: Thyroid: The thyroid is normal. Mediastinum: Heart size is normal without significant pericardial effusion. Calcifications of the aorta and coronary vessels. Thoracic aorta is normal in caliber. No suspicious lymphadenopathy. Lungs and airways: Mild emphysematous changes of the lungs. There is a 1.2 cm right lower lobe pulmonary nodule with surrounding groundglass consolidation (series 3 image 109). No pleural effusion or pneumothorax. The airways are normal. Upper abdomen: The gallbladder is surgically absent. Musculoskeletal: No suspicious osseous lesion or compression fracture. IMPRESSION: 1. A 1.2 cm right lower lobe pulmonary nodule with surrounding groundglass consolidation. This finding has been present from prior CT on 12/12/2019. Consider further evaluation with PET/CT or CT guided biopsy. 2. No other acute abnormality in the chest. Dictated by: Dictated on workstation # [id number]
== END ==
LOC: RAD 13:45
PROVIDERS: ATTEND Nurse Practitioner Family
DX: R91.1 Solitary pulmonary nodule (principal)
CPT/HCPCS: 36415; 71260; 82565; 84520

== ENCOUNTER → 2020-08-21 | Outpatient (CLI) | payer MEDICARE, MEDICAID ==
[~2020-08-21] MED LIST changes: -CATHETER FLUSH 10 ML SYR IV PRN; -HOLD METFORMIN - RECEIVED CONTRAST 20 ML VIAL IV SCH; -IOHEXOL 350 MG/ML 100 ML (OMNIPAQUE 350) VIAL IV ONE; -NS 100 ML (IVPB) BAG IV ONE
--- NOTE | 2020-08-21 14:42 | Diagnostic Imaging Report ---
INDICATION: Right lower lobe lung mass. TECHNIQUE: The serum blood glucose level at the time of injection was 108 mg/dL. The patient was administered 14.7 mCi of F-18 FDG intravenously in the left antecubital location and PET imaging was performed from the top of the skull to the mid thighs. Noncontrast CT was also performed for attenuation correction and anatomic correlation. COMPARISON: No prior PET/CT study is available for comparison. Correlation is made with the recent CT chest study from 08/06/2020. FINDINGS: There is symmetric activity throughout the brain. Physiologic activity in the soft tissues of the neck is noted. No mediastinal or hilar hypermetabolism is identified. No pulmonary parenchymal hypermetabolism is identified. Specifically, the area of nodularity in the right lower lobe posteriorly on the recent CT appears much less prominent on today's study. No hypermetabolism in this location is identified on today's exam. There is physiologic activity throughout the GI and tracts of the abdomen and pelvis. No suspicious hypermetabolism is identified. IMPRESSION: Essentially unremarkable PET/CT study. No suspicious hypermetabolism is identified. Continued chest CT followup to confirm stability is recommended. Dictated by: Dictated on workstation # [id number]
== END ==
LOC: RAD 09:31
PROVIDERS: ATTEND Internal Medicine Critical Care Medicine
DX: R91.8 Other nonspecific abnormal finding of lung field (principal)
CPT/HCPCS: 78815; A9552

== ENCOUNTER 2020-09-03 20:28 | Emergency (ER) | payer MEDICARE, MEDICAID ==
[~2020-09-03] VITALS: Ht 165.1 cm; Wt 73.0 kg
[2020-09-03] MEDS ORDERED: NS IV 1000 ML 1,000 ML IV STA (20:46)
[2020-09-03] MEDS ORDERED: KETOROLAC 30 MG/ML VIAL IVP STA (20:46)
[2020-09-03] MEDS ORDERED: ONDANSETRON 4 MG/2 ML (SDV) Z0FRAN IVP STA ×2 (20:46→21:43)
[2020-09-03] MEDS ORDERED: diphenhydrAMINE 50 MG/ML INJ (BENADRYL) IVP STA (20:46)
--- NOTE | 2020-09-03 21:08 | ED Headache ---
General Chief Complaint: Head/Cervical Problems Stated Complaint: HEADACHE,NAUSEA Source: patient History of Present Illness Date Seen by Provider: Sep 03, 2020 Time Seen by Provider: 20:29 Initial Comments 65 yo female presenting with complaints of frontal and facial headache since having Covid Vaccination on August 03. She does have a history of migraine headaches. She states this feels somewhat similar to those. However she stopped taking any of her migraine headache medications at home until she could see Dr. Neal on Thursday the . She denies any head or neck trauma. She has nausea and reflux symptoms that are flared up as well. She has not been drinking as much fluid due to nausea and lack of appetite. She denies any fever or chills. She states it feels like she is got a throbbing sensation in her head and face. However there is no pain or change in the headache with palpation over her sinuses. She does have a lot of sinus drainage and congestion. She also reports being able to push on her posterior cervical spine and it makes the headache go away while she is holding pressure. Timing/Duration: waxing and waning (Since August 03) Severity/Quality: severe, throbbing Location: frontal (And facial) Prior Headaches/Recent Trauma: no recent headache/trauma, chronic headaches (History of chronic migraines) Associated Symptoms: No confusion, No fatigue; facial pain; No fever/chills, No flushing, No loss of consciousness; nausea/vomiting, nasal congestion, nasal drainage; No numbness in legs/feet, No rash, No seizures, No sinus infection, No stiff neck, No vision changes, No weakness Allergies and Home Medications Allergies Coded Allergies: morphine (Verified Allergy, Severe, CONFUSION, 09/26/19) tramadol (Verified Allergy, Severe, CONFUSION, 09/26/19) varenicline (Verified Allergy, Intermediate, NAUSEA/VOMITTING, 09/26/19) ibuprofen (Unverified Adverse Reaction, Mild, gi upset, 05/02/20) Sulfa (Sulfonamide Antibiotics) (Unverified Adverse Reaction, Unknown, 09/29/19) oseltamivir (Unverified Adverse Reaction, Unknown, 09/29/19) sumatriptan (Unverified Adverse Reaction, Unknown, 09/29/19) Uncoded Allergies: TAPE (Allergy, Mild, 09/22/05) Home Medications Aspirin 81 Mg Tab.chew, 81 MG PO DAILY, (Reported) Cholecalciferol (Vitamin D3) 1,250 Mcg Capsule, 1,250 MCG PO DAILY, (Reported) Clonazepam 0.5 Mg Tablet, 0.5 MG PO BID PRN for ANXIETY, (Reported) Cyclobenzaprine HCl 10 Mg Tablet, 5 MG PO Q8H PRN for SPASMS Prescribed by: CELESTINE PEREZ on 04/14/20 1647 Hydrocodone/Acetaminophen 1 Each Tablet, 1 EACH PO PRN, (Reported) Hydrocodone/Acetaminophen 1 Each Tablet, 1 TAB PO Q4H PRN for PAIN-MODERATE (5- 7) Prescribed by: SAVANAH BAIRD on 05/04/20 1050 Lactobacillus Acidophilus 1 Each Tablet, 1 EACH PO DAILY, (Reported) Levocetirizine Dihydrochloride 5 Mg Tablet, 5 MG PO DAILY, (Reported) Levothyroxine Sodium 25 Mcg Tablet, 25 MCG PO DAILY, (Reported) Dequincy Carbonate 300 Mg Tablet, 300 MG PO TID, (Reported) Metoprolol Succinate 25 Mg Tab.er.24h, 12.5 MG PO DAILY, (Reported) take 1/2 of 25mg tab Multivitamin 1 Each Tablet, 1 EACH PO DAILY, (Reported) [place] 3 Polyunsat Fatty Acids 1,000 Mg Cap, 1,000 MG PO DAILY, (Reported) Pantoprazole Sodium 40 Mg Tablet.dr, 40 MG PO BID, (Reported) Prednisone 20 Mg Tab, 40 MG PO DAILY Prescribed by: MARIO CHAN on 09/03/202145 Sucralfate 1 Gm Tablet, 1 GM PO PRN, (Reported) Topiramate 100 Mg Tablet, 100 MG PO BID, (Reported) Venlafaxine HCl 75 Mg Tab, 150 MG PO DAILY, (Reported) Patient Home Medication List Home Medication List Reviewed: Yes Review of Systems Review of Systems Constitutional: No chills, No diaphoresis, No fever Eyes: Denies Blurred Vision, Denies Photophobia Ears, Nose, Mouth, Throat: denies ear pain, denies ear discharge, denies nose p ain, denies epistaxis Respiratory: cough (Primarily smoker's cough) Cardiovascular: no symptoms reported Gastrointestinal: see HPI Genitourinary: decreased output Musculoskeletal: see HPI Skin: No rash Psychiatric/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: Headache; Denies Numbness, Denies Paresthesia Past Aabjkyu-Ooltqn-Xlkdzi Hx Past Med/Social Hx: Reviewed Nursing Past Med/Soc Hx Patient Social History Alcohol Beverage of Choice: Rum Type Used: Cigarettes Former Smoker, Quit: Jan 29, 2020 2nd Hand Smoke Exposure: Yes Recent Hopitalizations: No Immunizations Up To Date Tetanus Booster (TDap): Unknown PED Vaccines UTD: No Date of Pneumonia Vaccine: Feb 20, 2020 Date of Influenza Vaccine: Feb 20, 2020 Seasonal Allergies Seasonal Allergies: Yes Past Medical History Surgeries: Yes (Gastrectomy, bladder sling, Nerve stim/removal, DEBRA ELBOW, BMT, HERNIA X7) Bladder Surgery, Section, Gallbladder, Hysterectomy, Orthopedic Respiratory: Yes (O2 2L AT NIGHT) COPD Currently Using CPAP: No Currently Using BIPAP: No Cardiac: Yes High Cholesterol, Hypertension 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: Yes (HX ONE SEIZURE) 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, 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 Sexually Transmitted Disease: No HIV/AIDS: No Genitourinary: Yes Bladder Infection, Renal Failure, UTI-Chronic Gastrointestinal: Yes Gastroesophageal Reflux, Hiatal Hernia Musculoskeletal: Yes Chronic Back Pain Endocrine: Yes Hypothyroidsim HEENT: Yes Cataract Loss of Vision: Denies Hearing Impairment: Hard of Hearing, Bilateral Hearing Aide Cancer: No ("PRECANCEROUS CELLS" ON PAP) Breast, Cervical Did You Recieve Any Treatments: No What Type of Treatment Did You: Chemotherapy, Surgical Intervention Psychosocial: Yes Anxiety, Bipolar, Depression Integumentary: No Blood Disorders: No Adverse Reaction/Blood Tranf: No (HAS HAD BLOOD WITH NO REACTION) Physical Exam Vital Signs Vital Signs - First Documented 09/03/20 20:35 Temp 36.3 Pulse 72 Resp 18 B/P (MAP) 146/105 (119) Pulse Ox 100 O2 Delivery Room Air Capillary Refill : Height, Weight, BMI Height: 5'5.00" Weight: 134lbs. 0.0oz. [id number]; 27.00 BMI Method:Stated General Appearance: WD/WN, no apparent distress HEENT: PERRL/EOMI, pharynx normal Neck: non-tender, full range of motion, supple, normal inspection Cardiovascular: normal peripheral pulses, regular rate, rhythm Respiratory: chest non-tender, lungs clear, normal breath sounds Gastrointestinal: normal bowel sounds, soft, no pulsatile mass Extremities: normal range of motion, normal capillary refill Psychiatric: alert, oriented x 3 Crainal Nerves: normal hearing, normal speech, PERRL Coordination/Gait: normal gait Skin: normal color, warm/dry Progress/Results/Core Measures Results/Orders My Orders Orders - MARIO CHAN MD Ed Iv/Invasive Line Start (09/03/20 20:46) Ct Head/Sinuses Wo (09/03/20 20:46) Ns Iv 1000 Ml (Sodium Chloride 0.9%) (09/03/20 20:46) Ketorolac Injection (Toradol Injection) (09/03/20 20:46) Ondansetron Injection (Zofran Injectio (09/03/20 20:46) Diphenhydramine Injection (Benadryl Inje (09/03/20 20:46) Fentanyl Inj (Sublimaze Injection) (09/03/20 21:43) Ondansetron Injection (Zofran Injectio (09/03/20 21:43) Dexamethasone Injection (Decadron Inje (09/03/20 21:43) Diphenhydramine Tablet (Benadryl Tablet) (09/03/20 21:43) Vital Signs/I&O 09/03/20 20:35 Temp 36.3 Pulse 72 Resp 18 B/P (MAP) 146/105 (119) Pulse Ox 100 O2 Delivery Room Air Progress Progress Note #1: Progress Note Patient reports that in the past when this was Ivet she used to get Toradol and Zofran to help with her migraine headaches. Since she states that she has had decreased urine output will also give her a liter of fluid in addition to Toradol, Zofran, Benadryl. Ordered a CT scan of her head and sinuses since she was having throbbing pain in her head and face. Anticipate discharge to home to follow-up with Dr. Neal on Thursday as scheduled. If she has any abnormality on the CT scan that requires treatment will address that tonight as well. Differential diagnosis includes migraine headache, sinus headache, allergic rhinitis, migraine variant after vaccination Progress Note #2: Time: 21:[address] head/sinuses shows no acute intracranial process. She has mild mucosal thickening in maxillary sinuses but no air fluid levels. Will plan to discharge to home with continued medicines for migraine and headaches. Consider steroid to help with sinus mucosal thickening. Progress Note #3: Time: 21:43 Progress Note Patient updated on results and she reports she has no significant improvement in her headache. Will add on steroid to help with sinus congestion and pressure, Fentanyl for pain since she already takes hydrocodone, repeat Zofran to help with nausea, add on benadryl pill to help her rest once she gets home. rest in cool dark room. Follow up with Dr. Neal Thursday as scheduled or sooner if more problems/concerns Progress Note #4: Time: 22:29 Progress Note Headache symptoms improved but not completely resolved. Advised to go home and rest in cool dark room. continue home medicine for migraines and check with Dr. Neal in clinic for continued concerns/problems. Diagnostic Imaging Diagonstic Imaging: CT Plain Films/CT/US/NM/MRI: facial bones, head Comments NAME: ANKIT FELIPE [facility] REC#: [id number] PT STATUS: REG ER : 1955 PHYSICIAN: MARIO CHAN MD ADMIT DATE: 09/03/20/ER FS Draft Date of Exam:09/03/20 CT HEAD/SINUSES WO PROCEDURE: CT head without contrast and CT sinuses with contrast. TECHNIQUE: Routine noncontrast CT images were obtained through the head and sinuses. Coronal reformats of the sinuses were also performed and reviewed. Auto Exposure Controls were utilized during the CT exam to meet ALARA standards for radiation dose reduction. INDICATION: Severe frontal headache. Nausea. COMPARISON: None. FINDINGS: No large acute territorial ischemia, mass, or hemorrhage. No midline shift or mass effect. The ventricles, cortical sulci, and basilar cisterns are patent and unremarkable. The calvarium is intact. The globes and orbits demonstrate no acute abnormalities. Mucosal thickening is seen in the right maxillary, left sphenoid, and left ethmoid sinuses. No fluid levels are visualized. No evidence of sinus wall thickening. The nasal septum is slightly deviated to the left with a prominent nasal spur contacting the left inferior turbinate. No evidence of acute facial fractures. The maxillary sinuses are well pneumatized. IMPRESSION: 1. No large acute territorial ischemia, mass, or hemorrhage. 2. Retained secretions in the right maxillary, left sphenoid, and left ethmoid sinuses. No fluid levels are present. Dictated on workstation # [id number] Dict: 09/03/202120 Trans: 09/03/202125 [facility] [id number] Interpreted by: ADRIANNE MYERS DO Electronically signed by: Departure Impression Primary Impression: Severe frontal headaches Additional Impression: Migraine headache without aura Qualified Codes: G43.009 - Migraine without aura, not intractable, without status migrainosus Disposition: HOME, SELF-CARE Condition: Improved Departure-Patient Inst. Decision time for Depature: 21:47 Referrals: CHIQUI NEAL MD (PCP/Family) Primary Care Physician Patient Instructions: Headache, Adult ED, Home Headache Remedies, Migraines in Adults Add. Discharge Instructions: Stay well-hydrated and rest in a quiet dark room. Continue on your regular medications for migraines at home. Follow-up with Dr. Neal on Thursday as scheduled or sooner if more concerns/problems All discharge instructions reviewed with patient and/or family. Voiced understanding. Scripts Prednisone (Prednisone) 20 Mg Tab 40 MG PO DAILY for sinus pressure for 3 Days, #6 TAB 0 Refills Prov: MARIO CHAN MD 09/03/20 MARIO CHAN MD Sep 03, 2020 21:07
--- NOTE | 2020-09-03 21:26 | Diagnostic Imaging Report ---
PROCEDURE: CT head without contrast and CT sinuses with contrast. TECHNIQUE: Routine noncontrast CT images were obtained through the head and sinuses. Coronal reformats of the sinuses were also performed and reviewed. Auto Exposure Controls were utilized during the CT exam to meet ALARA standards for radiation dose reduction. INDICATION: Severe frontal headache. Nausea. COMPARISON: None. FINDINGS: No large acute territorial ischemia, mass, or hemorrhage. No midline shift or mass effect. The ventricles, cortical sulci, and basilar cisterns are patent and unremarkable. The calvarium is intact. The globes and orbits demonstrate no acute abnormalities. Mucosal thickening is seen in the right maxillary, left sphenoid, and left ethmoid sinuses. No fluid levels are visualized. No evidence of sinus wall thickening. The nasal septum is slightly deviated to the left with a prominent nasal spur contacting the left inferior turbinate. No evidence of acute facial fractures. The maxillary sinuses are well pneumatized. IMPRESSION: 1. No large acute territorial ischemia, mass, or hemorrhage. 2. Retained secretions in the right maxillary, left sphenoid, and left ethmoid sinuses. No fluid levels are present. Dictated by: Dictated on workstation # [id number]
[2020-09-03] MEDS ORDERED: diphenhydrAMINE 25 MG TAB (BENADRYL) PO STA (21:43)
[2020-09-03] MEDS ORDERED: fentaNYL INJ 100 MCG/2 ML AMP IVP STA (21:43)
[2020-09-03] MEDS ORDERED: PRD20T PO (21:46)
[2020-09-03 22:30] VITALS: BP 118/57
== END 2020-09-03 22:30 | disposition home or self-care (01) ==
LOC: EDUNIT# 20:28 → ER FS 20:29
DX: G43.709 Chronic migraine without aura, not intractable, without status migrainosus (principal); I10 Essential (primary) hypertension; E78.00 Pure hypercholesterolemia, unspecified; F41.9 Anxiety disorder, unspecified; F31.9 Bipolar disorder, unspecified; K21.9 Gastro-esophageal reflux disease without esophagitis; G40.909 Epilepsy, unspecified, not intractable, without status epilepticus; J44.9 Chronic obstructive pulmonary disease, unspecified; Z99.81 Dependence on supplemental oxygen; Z91.14 Patient's other noncompliance with medication regimen; Z85.3 Personal history of malignant neoplasm of breast; Z85.41 Personal history of malignant neoplasm of cervix uteri; Z87.891 Personal history of nicotine dependence; Z77.22 Contact with and (suspected) exposure to environmental tobacco smoke (acute) (chronic); Z79.52 Long term (current) use of systemic steroids; Z79.890 Hormone replacement therapy; Z79.82 Long term (current) use of aspirin; Z88.2 Allergy status to sulfonamides; Z88.5 Allergy status to narcotic agent; Z88.8 Allergy status to other drugs, medicaments and biological substances; Z88.6 Allergy status to analgesic agent; Z91.048 Other nonmedicinal substance allergy status
CPT/HCPCS: 70450; 70486

== ENCOUNTER 2020-09-14 05:38 | Outpatient (CLI) | payer MEDICARE, MEDICAID ==
[~2020-09-14] VITALS: Ht 165.1 cm; Wt 73.2 kg
[~2020-09-14 05:38] MED LIST changes: +PRD20T PO
[2020-09-14] MEDS ORDERED: MONT10TA32 PO (14:15)
[2020-09-14] MEDS ORDERED: VENL75CA93 PO (14:15)
== END 2020-09-14 14:16 | disposition home or self-care (01) ==
LOC: PREOP 05:38
PROVIDERS: ATTEND Otolaryngology Otolaryngology/Facial Plastic Surgery
DX: Z01.818 Encounter for other preprocedural examination (principal)

== ENCOUNTER 2020-09-21 06:24 | Day surgery (SDC) | payer MEDICARE, MEDICAID ==
[2020-09-21] VITALS (9 sets, daily range): BP systolic 105–135; BP diastolic 52–85
[~2020-09-21] VITALS: Ht 165.1 cm; Wt 73.2 kg
[~2020-09-21 06:24] MED LIST changes: +MONT10TA32 PO; +VENL75CA93 PO
[2020-09-21] MEDS ORDERED: proPOfol 200 MG/20 ML (DIPRIVAN) VIAL IV ONE (06:45)
[2020-09-21] MEDS ORDERED: ONDANSETRON 4 MG/2 ML (SDV) Z0FRAN ONE (06:45)
[2020-09-21] MEDS ORDERED: MIDAZOLAM 2 MG/2 ML (VERSED) VIAL ONE (06:45)
[2020-09-21] MEDS ORDERED: LIDOCAINE PF 2% 5 ML (XYLOCAINE) VIAL ONE (06:45)
[2020-09-21] MEDS ORDERED: fentaNYL INJ 100 MCG/2 ML AMP ONE (06:46)
[2020-09-21] MEDS ORDERED: LACTATED RINGERS 1,000 ML IV PRN (07:00)
[2020-09-21] MEDS ORDERED: lexapro (07:56)
[2020-09-21] MEDS ORDERED: CYCL5TAB PO (07:56)
--- NOTE | 2020-09-21 08:34 | Progress Note-Pre Operative ---
Pre-Operative Progress Note H&P Reviewed The H&P was reviewed, patient examined and no changes noted. Date Seen by Provider: September 21, 2020 Time Seen by Provider: 08:00 Date H&P Reviewed: September 21, 2020 Time H&P Reviewed: 08:00 Pre-Operative Diagnosis: Plugged Left Tube and possible plugged left tube ROSINA KENT MD September 21, 2020 08:34
[2020-09-21] MEDS ORDERED: LIDOCAINE/EPI 1%-1:100,000 (XYLOCAINE) 20ML ONE ×2 (08:37→08:41)
[2020-09-21] MEDS ORDERED: MUPIROCIN 2% OINT 22 GM (BACTROBAN) TUBE ONE (08:41)
--- NOTE | 2020-09-21 08:56 | Progress Note-Post Operative ---
Post-Operative Progess Note Surgeon (s)/Bass Viol Repairer (s) Surgeon ROSINA KENT MD Bass Viol Repairer n/a Pre-Operative Diagnosis Plugged Left Tube and possible plugged left tube Post-Operative Diagnosis same Post-Op Procedure Note Date of Procedure: September 21, 2020 Name of Procedure Performed: BMT Description & Findings Description and Findings: n/a Anesthesia Type mask Estimated Blood Loss minimal Packing none. Specimen(s) collected/removed none ROSINA KENT MD September 21, 2020 08:56
[2020-09-21] MEDS ORDERED: SEVOFLURANE (ULTANE) 15 ML INHAL SOLN ONE (08:58)
[2020-09-21] MEDS ORDERED: APAP 325 MG/10.15 ML LIQ (TYLENOL) UDC PO PRN (09:00)
--- NOTE | 2020-09-21 09:32 | Anesthesia-General Post-Op ---
General Patient Condition Mental Status/LOC: Same as Preop Cardiovascular: Satisfactory Nausea/Vomiting: Absent Respiratory: Satisfactory Pain: Controlled Complications: Absent Post Op Complications Complications None Follow Up Care/Instructions Patient Instructions None needed. Anesthesia/Patient Condition Patient Condition Patient is doing well, no complaints, stable vital signs, no apparent adverse anesthesia problems. No complications reported per nursing. EDWIN DIAZ CRNA September 21, 2020 09:32
[2020-09-21] MEDS ORDERED: ACETAMINOPHEN 500 MG TAB (TYLENOL) ONE (09:45)
[2020-09-21] MEDS ORDERED: ACETAMINOPHEN 500 MG TAB (TYLENOL) PO ONE (10:00)
[2020-09-21] MEDS ORDERED: ACHD5005 PO (10:02)
[2020-09-21] MEDS ORDERED: GENTAMICIN OU (10:02)
== END 2020-09-21 10:50 | disposition home or self-care (01) ==
LOC: SDC 06:24
PROVIDERS: ATTEND Otolaryngology Otolaryngology/Facial Plastic Surgery
DX: H66.93 Otitis media, unspecified, bilateral (principal); T85.698A Other mechanical complication of other specified internal prosthetic devices, implants and grafts, initial encounter; I10 Essential (primary) hypertension; F41.9 Anxiety disorder, unspecified; F32.9 Major depressive disorder, single episode, unspecified; J44.9 Chronic obstructive pulmonary disease, unspecified; K21.9 Gastro-esophageal reflux disease without esophagitis; Z79.890 Hormone replacement therapy; Z79.899 Other long term (current) drug therapy
CPT/HCPCS: 87081

== ENCOUNTER 2021-01-20 19:12 | Emergency (ER) | payer MEDICARE, MEDICAID ==
[~2021-01-20] VITALS: Ht 165.1 cm; Wt 70.3 kg
[~2021-01-20 19:12] MED LIST changes: +CYCL5TAB PO; +GENTAMICIN OU; +lexapro
--- OUTSIDE RECORDS SUMMARY | 2021-01-20 19:20 | XMS REPORT | Clinical Summary ---
Author Author [facility] Organization [facility] Address Unknown Phone Unavailable Care Team Providers Care Chair Name Role Phone Hansel Peter MD PCP Unavailable Source Comments Some departments are not documenting in the electronic medical record. If you d o not see the information that you expected, contact Release of Information in [facility] [employer] Information Management department at [phone] for further assistan ce in locating additional records.[facility] Allergies Not on File Medications Not on file Active Problems Not on file Social History Date Tobacco Use Types Packs/Day Years Used Never Assessed Sex Assigned at Date Recorded Not on file Last Filed Vital Signs Not on file Plan of Treatment Health Maintenance Due Date Last Done Comments HIV SCREENING 02/01/1972 DTAP/TDAP VACCINES (1 - 1975 Tdap) HEPATITIS C SCREENING 1975 PHYSICAL (COMPREHENSIVE) 1975 EXAM CERVICAL CANCER SCREENING 1978 BREAST CANCER SCREENING 1997 COLORECTAL CANCER 2007 SCREENING SHINGLES RECOMBINANT 2007 VACCINE (1 of 2) INFLUENZA VACCINE 02/15/2021 Results Not on filefrom Last 3 Months
--- OUTSIDE RECORDS SUMMARY | 2021-01-20 19:20 | XMS REPORT | Clinical Summary ---
Author Author [facility] Organization [facility] Address Unknown Phone Unavailable Care Team Providers Care Rf Test Technician Name Role Phone PCP Unavailable Allergies Not on File Medications Not on file Active Problems Not on file Social History Date Tobacco Use Types Packs/Day Years Used Never Assessed Sex Assigned at Date Recorded Not on file Last Filed Vital Signs Not on file Plan of Treatment Not on file Results Not on filefrom Last 3 Months
[2021-01-20] MEDS ORDERED: ASPIRIN 81 MG CHEW (CHILDREN'S ASA) PO ONE (19:45)
[2021-01-20] MEDS ORDERED: ANTACID SUSP 30 ML UDC (MYLANTA) PO ONE (19:45)
[2021-01-20 19:46] LABS: BASOPHILS % (AUTO) 1 % (0-10); EOSINOPHILS # (AUTO) 0.2 10^3/uL (0.0-0.3); EOSINOPHILS % (AUTO) 4 % (0-10); HEMATOCRIT 41 % (35-52); HEMOGLOBIN 13.2 g/dL (11.5-16.0); LYMPHOCYTES # (AUTO) 0.5 X 10^3 (1.0-4.0); LYMPHOCYTES % (AUTO) 9 % (12-44); MEAN CORPUSCULAR HEMOGLOBIN 30 pg (25-34); MEAN CORPUSCULAR HGB CONC 32 g/dL (32-36); MEAN CORPUSCULAR VOLUME 95 fL (80-99); MEAN PLATELET VOLUME 10.6 fL (9.0-12.2); MONOCYTES # (AUTO) 0.5 X 10^3 (0.0-1.0); MONOCYTES % (AUTO) 8 % (0-12); NEUTROPHILS # (AUTO) 4.7 X 10^3 (1.8-7.8); NEUTROPHILS % (AUTO) 78 % (42-75); PLATELET COUNT 182 10^3/uL (130-400)
[2021-01-20 19:57] LABS: PROTHROMBIN TIME PATIENT 13.2 SEC (12.2-14.7)
--- NOTE | 2021-01-20 19:57 | Diagnostic Imaging Report ---
CHEST 1 VIEW AP/PA ONLY Indication: Chest pain. Comparison: 07/05/2020 Findings: No focal airspace disease in the visualized lungs. Please note that the posterior lower lobes are poorly evaluated by portable radiography. No pleural effusion or pneumothorax. Normal cardiomediastinal silhouette. Impression: 1. No acute cardiopulmonary process by portable radiography. Dictated by: Dictated on workstation # [id number]
[2021-01-20 20:05] LABS: ALBUMIN 4.3 GM/DL (3.2-4.5); BILIRUBIN,TOTAL 0.4 MG/DL (0.1-1.0); CALCIUM 9.4 MG/DL (8.5-10.1); CREATININE SERUM 0.9 MG/DL (0.60-1.30); POTASSIUM 4.1 MMOL/L (3.6-5.0); TOTAL PROTEIN 7.1 GM/DL (6.4-8.2)
--- NOTE | 2021-01-20 20:37 | ED Chest Pain ---
General Chief Complaint: Chest Pain Stated Complaint: CHEST PAIN Nursing Triage Note: PT AMBULATE TO ROOM FS01 WITHOUT DIFFICULTY WITH C/O CHEST PAIN X1 WEEK. Source: patient Exam Limitations: no limitations History of Present Illness Date Seen by Provider: Jan 20, 2021 Time Seen by Provider: 19:15 Initial Comments 65-year-old female with past medical history of hypertension, thyroid disease, smoker coming in due to moderate constant throbbing chest pain in the center of her chest going to her right arm. It has been constant since she woke up this morning with no change. Worse when she is resting and no change when she is exerting herself. She says she has had cardiac work-ups in the past and they have been clean with no previous heart attacks. Also denies any prior history of DVT or PE. No recent surgery. No cough or hemoptysis. No fever, vomiting, abdominal pain, diaphoresis, weakness, numbness, or any other concerns. She did take her baby aspirin this morning. She says this pain has really been ongoing constantly for a couple weeks but was getting worse this morning and continues to be constant. Allergies and Home Medications Allergies Coded Allergies: morphine (Verified Allergy, Severe, CONFUSION, 09/21/20) tramadol (Verified Allergy, Severe, CONFUSION, 09/21/20) varenicline (Verified Allergy, Intermediate, NAUSEA/VOMITTING, 09/21/20) ibuprofen (Unverified Adverse Reaction, Mild, gi upset, 09/21/20) Sulfa (Sulfonamide Antibiotics) (Unverified Adverse Reaction, Unknown, 09/21/20) oseltamivir (Unverified Adverse Reaction, Unknown, 09/21/20) sumatriptan (Unverified Adverse Reaction, Unknown, 09/21/20) Uncoded Allergies: TAPE (Allergy, Mild, 09/22/05) Patient Home Medication List Home Medication List Reviewed: Yes Aspirin (Aspirin) 81 Mg Tab.chew, 81 MG PO DAILY, (Reported) Entered as Reported by: NICCI LUCIO on 09/26/191516 Cholecalciferol (Vitamin D3) (Vitamin D3) 1,250 Mcg Capsule, 1,250 MCG PO DAILY, (Reported) Entered as Reported by: NICCI LUCIO on 09/26/19 533 Clonazepam (Klonopin) 0.5 Mg Tablet, 0.5 MG PO BID PRN for ANXIETY, (Reported) Entered as Reported by: FELICITAS FISHER on 05/25/19 1000 Cyclobenzaprine HCl (Cyclobenzaprine HCl) 5 Mg Tablet, 5 MG PO Q8H, (Reported) Entered as Reported by: PHIL ARVIZU on 09/21/20 0756 Hydrocodone/Acetaminophen (Hydrocodone-Acetamin 5-325 mg) 1 Each Tablet, 1 EACH PO PRN, (Reported) Entered as Reported by: NICCI LUCIO on 05/02/20 0909 Hydrocodone/Acetaminophen (Hydrocodone-Acetamin 5-325 mg) 1 Each Tablet, 1 TAB PO Q4H PRN for PAIN-MODERATE (5-7) Prescribed by: PHIL ARVIZU on 09/21/20 1002 Lactobacillus Acidophilus (Probiotic Acidophilus) 1 Each Tablet, 1 EACH PO DAILY, (Reported) Entered as Reported by: FELICITAS FISHER on 05/25/19 1000 Levocetirizine Dihydrochloride (Levocetirizine Dihydrochloride) 5 Mg Tablet, 5 MG PO DAILY, (Reported) Entered as Reported by: NICCI LUCIO on 05/03/20 1544 Levothyroxine Sodium (Levothyroxine Sodium) 25 Mcg Tablet, 25 MCG PO DAILY, (Reported) Entered as Reported by: MARIANNA HUYNH on 11/25/18 1623 Pantops Carbonate (Pantops Carbonate) 300 Mg Tablet, 300 MG PO TID, (Reported) Entered as Reported by: SHABBIR TAMEZ on 05/14/18 0910 Metoprolol Succinate (Metoprolol Succinate) 25 Mg Tab.er.24h, 12.5 MG PO DAILY, (Reported) Entered as Reported by: MARIANNA HUYNH on 11/25/18 1623 Montelukast Sodium (Montelukast Sodium) 10 Mg Tablet, 10 MG PO HS, (Reported) Entered as Reported by: MARIANNA HUYNH on 09/14/20 1415 Multivitamin (Multivitamin) 1 Each Tablet, 1 EACH PO DAILY, (Reported) Entered as Reported by: NICCI LUCIO on 05/02/20 0909 Pantoprazole Sodium (Pantoprazole Sodium) 40 Mg Tablet.dr, 40 MG PO BID, (Reported) Entered as Reported by: SHABBIR TAMEZ on 05/14/18 0910 Sucralfate (Carafate) 1 Gm Tablet, 1 GM PO PRN, (Reported) Entered as Reported by: NICCI LUCIO on 05/02/20 0909 Topiramate (Topiramate) 100 Mg Tablet, 100 MG PO BID, (Reported) Entered as Reported by: SHABBIR TAMEZ on 05/14/18 0910 [gentamicin drops] , 3 DROPS OU BID Prescribed by: PHIL ARVIZU on 09/21/20 1002 [lexapro] , DAILY, (Reported) Entered as Reported by: PHIL ARVIZU on 09/21/20 0756 Review of Systems Review of Systems Constitutional: No chills, No fever EENTM: No Blurred Vision Respiratory: Denies Cough, Denies Shortness of Air Cardiovascular: Chest Pain Gastrointestinal: Denies Abdominal Pain, Denies Diarrhea, Denies Nausea, Denies Vomiting Genitourinary: Denies Frequency Musculoskeletal: No back pain Skin: No rash Psychiatric/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: Denies Anxiety Endocrine: No Symptoms Reported Hematologic/Lymphatic: No Symptoms Reported All Other Systems Reviewed Negative Unless Noted: Yes Past Ceusimh-Ajxcjb-Ufxbej Hx Patient Social History Tobacco Use?: Yes Tobacco type used: Cigarettes Smoking Status: Current Everyday Smoker Substance use?: No Alcohol Use?: No Immunizations Up To Date Tetanus Booster (TDap): Unknown PED Vaccines UTD: No First/Initial COVID19 Vaccinat: 07/25/20 Second COVID19 Vaccination Gabriele: 08/22/20 COVID19 Vaccine Repairer: PRABHU Seasonal Allergies Seasonal Allergies: Yes Past Medical History Surgeries: Yes (Gastrectomy, bladder sling, Nerve stim/removal, DEBRA ELBOW, BMT, HERNIA X7) Bladder Surgery, Section, Gallbladder, Hysterectomy, Orthopedic Respiratory: Yes (O2 2L AT NIGHT) COPD Currently Using CPAP: No Currently Using BIPAP: No Cardiac: Yes (increased heart rate) High Cholesterol 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: Yes (HX ONE SEIZURE adult (3 yrs ago) unknown, febrile seizure infant) 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 RN ICU History: Hysterectomy Sexually Transmitted Disease: No HIV/AIDS: No Genitourinary: Yes Bladder Infection, Renal Failure, UTI-Chronic Gastrointestinal: Yes Gastroesophageal Reflux, Hiatal Hernia Musculoskeletal: Yes Chronic Back Pain Endocrine: Yes Hypothyroidsim HEENT: Yes Cataract Loss of Vision: Denies Hearing Impairment: Hard of Hearing, Bilateral Hearing Aide Cancer: No ("PRECANCEROUS CELLS" ON PAP) Breast, Cervical Did You Recieve Any Treatments: No What Type of Treatment Did You: Chemotherapy, Surgical Intervention Psychosocial: Yes Anxiety, Bipolar, Depression Integumentary: No Blood Disorders: No Adverse Reaction/Blood Tranf: No (HAS HAD BLOOD WITH NO REACTION) Physical Exam Vital Signs Vital Signs - First Documented 01/20/21 19:15 Temp 35.8 Pulse 55 Resp 17 B/P (MAP) 147/60 (89) O2 Delivery Room Air Capillary Refill : Less Than 3 Seconds Height, Weight, BMI Height: 5'5.00" Weight: 134lbs. 0.0oz. 60.166610gr; 25.00 BMI Method:Stated General Appearance: No Apparent Distress HEENT: PERRL/EOMI, Normal ENT Inspection, Pharynx Normal Neck: Full Range of Motion, Normal Inspection, Non Tender, Supple Respiratory: Chest Non Tender, Lungs Clear, Normal Breath Sounds, No Accessory Muscle Use Cardiovascular: Regular Rate, Rhythm, No Edema, No Murmur, Normal Peripheral Pulses Gastrointestinal: Normal Bowel Sounds, Non Tender, Soft; No Distended, No Guarding, No Rebound Extremity: Normal Capillary Refill, Normal Inspection, Normal Range of Motion, Non Tender, No Calf Tenderness, No Pedal Edema Neurologic/Psychiatric: Alert, No Motor/Sensory Deficits, Normal Mood/Affect Skin: Normal Color, Warm/Dry Lymphatic: No Adenopathy Progress/Results/Core Measures Results/Orders Lab Results Laboratory Tests Test 01/20/21 19:40 01/20/21 21:28 Range/Units White Blood Count 6.0 4.3-11.0 10^3/uL Red Blood Count 4.33 3.80-5.11 10^6/uL Hemoglobin 13.2 11.5-16.0 g/dL Hematocrit 41 35-52 % Mean Corpuscular Volume 95 80-99 fL Mean Corpuscular Hemoglobin 30 25-34 pg Mean Corpuscular Hemoglobin Concent 32 32-36 g/dL Red Cell Distribution Width 14.8 H 10.0-14.5 % Platelet Count 182 130-400 10^3/uL Mean Platelet Volume 10.6 9.0-12.2 fL Immature Granulocyte % (Auto) 0 % Neutrophils (%) (Auto) 78 H 42-75 % Lymphocytes (%) (Auto) 9 L 12-44 % Monocytes (%) (Auto) 8 0-12 % Eosinophils (%) (Auto) 4 0-10 % Basophils (%) (Auto) 1 0-10 % Neutrophils # (Auto) 4.7 1.8-7.8 X 10^3 Lymphocytes # (Auto) 0.5 L 1.0-4.0 X 10^3 Monocytes # (Auto) 0.5 0.0-1.0 X 10^3 Eosinophils # (Auto) 0.2 0.0-0.3 10^3/uL Basophils # (Auto) 0.0 0.0-0.1 10^3/uL Immature Granulocyte # (Auto) 0.0 0.0-0.1 10^3/uL Prothrombin Time 13.2 12.2-14.7 SEC INR Comment 1.0 0.8-1.4 Activated Partial Thromboplast Time 29 24-35 SEC Sodium Level 138 135-145 MMOL/L Potassium Level 4.1 3.6-5.0 MMOL/L Chloride Level 106 98-107 MMOL/L Carbon Dioxide Level 23 21-32 MMOL/L Anion Gap 9 5-14 MMOL/L Blood Urea Nitrogen 13 7-18 MG/DL Creatinine 0.90 0.60-1.30 MG/DL Estimat Glomerular Filtration Rate 63 BUN/Creatinine Ratio 14 Glucose Level 94 70-105 MG/DL Calcium Level 9.4 8.5-10.1 MG/DL Corrected Calcium 9.2 8.5-10.1 MG/DL Total Bilirubin 0.4 0.1-1.0 MG/DL Aspartate Amino Transf (AST/SGOT) 16 5-34 U/L Alanine Aminotransferase (ALT/SGPT) 8 0-55 U/L Alkaline Phosphatase 114 40-136 U/L Troponin I < 0.30 < 0.30 <0.30 NG/ML Total Protein 7.1 6.4-8.2 GM/DL Albumin 4.3 3.2-4.5 GM/DL My Orders Orders - TENISHA ORTIZ MD Cbc With Automated Diff (01/20/21 19:34) Chest 1 View Ap/Pa Only (01/20/21 19:34) Ekg Tracing (01/20/21 19:34) Comprehensive Metabolic Panel (01/20/21 19:34) Protime With Inr (01/20/21 19:34) Partial Thromboplastin Time (01/20/21 19:34) O2 (01/20/21 19:34) Monitor-Rhythm Ecg Trace Only (01/20/21 19:34) Aspirin Chewable Tablet (Baby Aspirin Ch (01/20/21 19:45) Ed Iv/Invasive Line Start (01/20/21 19:34) Troponin I Fs (01/20/21 19:34) Troponin I Fs (01/20/21 21:34) Antacid Suspension (Mylanta Suspension (01/20/21 19:45) Ketorolac Injection (Toradol Injection) (01/20/21 20:45) Medications Given in ED Current Medications Medications Dose Ordered Sig/Renay Route Start Time Stop Time Status Last Admin Dose Admin Al Hydrox/Mg Hydrox/Simethicone 30 ml ONCE ONCE PO 01/20/21 19:45 01/20/21 19:46 DC 01/20/21 19:53 30 ML Aspirin 243 mg ONCE ONCE PO 01/20/21 19:45 01/20/21 19:46 DC 01/20/21 19:54 243 MG Ketorolac Tromethamine 15 mg ONCE ONCE IVP 01/20/21 20:45 01/20/21 20:46 DC 01/20/21 20:43 15 MG Vital Signs/I&O 01/20/21 19:15 Temp 35.8 Pulse 55 Resp 17 B/P (MAP) 147/60 (89) O2 Delivery Room Air Blood Pressure Mean: 89 Progress Progress Note : Progress Note 65-year-old female with above history coming in due to weeks of constant chest pain that worsened this morning. ABCs were intact and vitals were stable on presentation. Physical exam reassuring with no focal abnormalities. EKG sinus with a rate of 58, narrow QRS, normal axis, no significant ST changes or T wave abnormalities, there is baseline wander and motion artifact making it more difficult to interpret however. Basic labs including troponin x2 drawn and both negative. Chest x-ray without any acute abnormalities. She is not tachycardic, not short of breath, and I have any other signs of a PE. She is too well appearing to be having an aortic dissection for several weeks with no vital sign changes or lab abnormalities. She improved after Toradol. Her story is not really consistent with ACS given the constant pain for weeks with a negative troponin and it is not worse with exertion. I believe she is stable for discharge with outpatient follow-up. She was sent home with strict return precautions. Initial ECG Impression Date: Jan 20, 2021 Initial ECG Impression Time: 19:17 Initial ECG Rate: 58 Initial ECG Rhythm: Normal Sinus Comment Neuro QRS, normal axis, no significant ST changes, motion artifact and baseline wander Diagnostic Imaging Diagonstic Imaging: Xray Plain Films/CT/US/NM/MRI: chest Comments [facility] [employer] [place], [place] NAME: ANKIT FELIPE [facility] REC#: [id number] PT STATUS: REG ER : 1955 PHYSICIAN: TENISHA ORTIZ MD ADMIT DATE: 01/20/21/ER FS Signed Date of Exam:01/20/21 CHEST 1 VIEW AP/PA ONLY CHEST 1 VIEW AP/PA ONLY Indication: Chest pain. Comparison: 07/05/2020 Findings: No focal airspace disease in the visualized lungs. Please note that the posterior lower lobes are poorly evaluated by portable radiography. No pleural effusion or pneumothorax. Normal cardiomediastinal silhouette. Impression: 1. No acute cardiopulmonary process by portable radiography. Dictated by: Dictated on workstation # [id number] Dict: 01/20/211954 Trans: 01/20/211954 [facility] [id number] Interpreted by: LUZ MARIA MCNAMARA MD Electronically signed by: LUZ MARIA MCNAMARA MD 01/20/211954 Departure Impression Primary Impression: Chest pain Qualified Codes: R07.9 - Chest pain, unspecified Disposition: 01 HOME, SELF-CARE Condition: Stable Departure-Patient Inst. Decision time for Depature: 22:03 Referrals: CHIQUI BERMAN MD (PCP/Family) Primary Care Physician Patient Instructions: Chest Pain (DC) Add. Discharge Instructions: You were seen in the emergency department for your chest pain. Your labs and imaging appear normal. Your EKG also looks good. Please follow-up with your primary doctor within the next week or so. If you have any other concerns then please come back to the ER. All discharge instructions reviewed with patient and/or family. Voiced understanding. TENISHA ORTIZ MD Jan 20, 2021 20:37
[2021-01-20] MEDS ORDERED: KETOROLAC 30 MG/ML VIAL IVP ONE (20:45)
[2021-01-20 22:14] VITALS: BP 126/74
== END 2021-01-20 22:14 | disposition home or self-care (01) ==
LOC: EDUNIT# 19:12 → ER FS 19:15
DX: R07.9 Chest pain, unspecified (principal); J44.9 Chronic obstructive pulmonary disease, unspecified; K21.9 Gastro-esophageal reflux disease without esophagitis; F41.9 Anxiety disorder, unspecified; E03.9 Hypothyroidism, unspecified; G89.29 Other chronic pain; M54.9 Dorsalgia, unspecified; I10 Essential (primary) hypertension; F17.210 Nicotine dependence, cigarettes, uncomplicated; Z79.82 Long term (current) use of aspirin; Z79.899 Other long term (current) drug therapy; Z79.890 Hormone replacement therapy; Z79.891 Long term (current) use of opiate analgesic
CPT/HCPCS: 36415; 71045; 80053; 84484; 85025; 85610; 85730; 93005; 93041

== ENCOUNTER → 2021-02-11 | Outpatient (CLI) | payer MEDICARE, MEDICAID ==
[~2021-02-11] MED LIST changes: +CATHETER FLUSH 10 ML SYR IV PRN; +HOLD METFORMIN - RECEIVED CONTRAST 20 ML VIAL IV SCH; +IOHEXOL 350 MG/ML 100 ML (OMNIPAQUE 350) VIAL IV ONE; +NS 100 ML (IVPB) BAG IV ONE
--- NOTE | 2021-02-11 12:20 | Diagnostic Imaging Report ---
PROCEDURE: CT chest with contrast only. TECHNIQUE: Multiple contiguous axial images were obtained through the chest after administration of intravenous contrast. Auto Exposure Controls were utilized during the CT exam to meet ALARA standards for radiation dose reduction. INDICATION: Lung nodule Compared with exam 08/06/2020. Also correlated with a metabolic PET CT performed August 2020. FINDINGS: Subpleural right lower lobe groundglass nodule shows persistent peripheral groundglass density however its central nodular component has since resolved. It is felt to be a favorable change and given the interval negative PET strongly suggests benignity. Additional follow-up in 6-[address] suggested. No new lung nodule. There is symmetrical air trapping as well as some paraseptal cyst formation in the apices chronic. There is no thoracic lymphadenopathy. The aorta is nonaneurysmal. The visualized upper abdomen shows some stable thickening of the adrenal glands previously non-metabolically active. There is a cyst in the left hepatic in the left and right hepatic lobes stable, simple and benign. IMPRESSION: The nodule in the right lower lobe subpleural distribution shows resolution of its central soft tissue like component but otherwise unchanged peripheral groundglass density. There has been an interval negative PET scan. Findings are felt to suggest benignity at least one additional CT follow-up however between 6 and 12 months suggested. No adverse development. Additional stable chronic findings as above. Dictated by: Dictated on workstation # [id number]
== END ==
LOC: RAD FS 09:55
PROVIDERS: ATTEND Nurse Practitioner Family
DX: R91.8 Other nonspecific abnormal finding of lung field (principal)
CPT/HCPCS: 71260

== ENCOUNTER 2021-02-17 16:51 | Emergency (ER) | payer MEDICARE, MEDICAID ==
[~2021-02-17] VITALS: Ht 165.1 cm; Wt 70.3 kg
[~2021-02-17 16:51] MED LIST changes: -CATHETER FLUSH 10 ML SYR IV PRN; -HOLD METFORMIN - RECEIVED CONTRAST 20 ML VIAL IV SCH; -IOHEXOL 350 MG/ML 100 ML (OMNIPAQUE 350) VIAL IV ONE; -NS 100 ML (IVPB) BAG IV ONE
--- NOTE | 2021-02-17 17:07 | ED Back Pain ---
General Chief Complaint: Back Problems Stated Complaint: LWR BACK PAIN Source of Information: Patient History of Present Illness Date Seen by Provider: Feb 17, 2021 Time Seen by Provider: 17:00 Initial Comments 66-year-old female presenting with complaints of spasm and severe back pain to her left side. It wraps around her hip. She did fall backward into an cardboard box full of plastic bags. She states she was not having any pain at that moment but she has had spasms and pain ever since. She has no pain shooting down her leg. She denies any numbness or tingling. She has no loss of bowel or bladder control. There is no pain over the spine directly. She does have increased pain with palpation and with certain movements of the left lower back and hip. She denies having symptoms like this before. There is no rash or bruising to this area. Location: Lumbar Spine, Paraspinous Muscles Timing/Duration: 1-2 Days Severity: Severe Pain/Injury Location: Lower Extremity (left hip) Method of Injury: Fall Associated Symptoms: muscle spasms; No fever, No weakness, No numbness in legs/feet, No tingling in legs/feet, No sensory/motor loss; lower back pain; No loss of bladder control, No loss of bowel control Allergies and Home Medications Allergies Coded Allergies: morphine (Verified Allergy, Severe, CONFUSION, 09/21/20) tramadol (Verified Allergy, Severe, CONFUSION, 09/21/20) varenicline (Verified Allergy, Intermediate, NAUSEA/VOMITTING, 09/21/20) ibuprofen (Unverified Adverse Reaction, Mild, gi upset, 09/21/20) Sulfa (Sulfonamide Antibiotics) (Unverified Adverse Reaction, Unknown, 09/21/20) oseltamivir (Unverified Adverse Reaction, Unknown, 09/21/20) sumatriptan (Unverified Adverse Reaction, Unknown, 09/21/20) Uncoded Allergies: TAPE (Allergy, Mild, 09/22/05) Patient Home Medication List Home Medication List Reviewed: Yes Aspirin (Aspirin) 81 Mg Tab.chew, 81 MG PO DAILY, (Reported) Entered as Reported by: NICCI LUCIO on 09/26/19 2821 Cholecalciferol (Vitamin D3) (Vitamin D3) 1,250 Mcg Capsule, 1,250 MCG PO DAILY, (Reported) Entered as Reported by: NICCI LUCIO on 09/26/19 1517 Clonazepam (Klonopin) 0.5 Mg Tablet, 0.5 MG PO BID PRN for ANXIETY, (Reported) Entered as Reported by: FELICITAS FISHER on 05/25/19 1000 Cyclobenzaprine HCl (Cyclobenzaprine HCl) 5 Mg Tablet, 5 MG PO Q8H Prescribed by: MARIO CHAN on 02/17/21 1842 Hydrocodone/Acetaminophen (Hydrocodone-Acetamin 5-325 mg) 1 Each Tablet, 1 EACH PO PRN, (Reported) Entered as Reported by: NICCI LUCIO on 05/02/20 0909 Hydrocodone/Acetaminophen (Hydrocodone-Acetamin 5-325 mg) 1 Each Tablet, 1 TAB PO Q4H PRN for PAIN-MODERATE (5-7) Prescribed by: PHIL ARVIZU on 09/21/20 1002 Hydrocodone/Acetaminophen (Hydrocodone-Acetamin 5-325 mg) 1 Each Tablet, 1 TAB PO Q8H PRN for PAIN-SEVERE (8-10) Prescribed by: MARIO CHAN on 02/17/21 184 Lactobacillus Acidophilus (Probiotic Acidophilus) 1 Each Tablet, 1 EACH PO DAILY, (Reported) Entered as Reported by: FELICITAS FISHER on 05/25/19 1000 Levocetirizine Dihydrochloride (Levocetirizine Dihydrochloride) 5 Mg Tablet, 5 MG PO DAILY, (Reported) Entered as Reported by: NICCI LUCIO on 05/03/20 1544 Levothyroxine Sodium (Levothyroxine Sodium) 25 Mcg Tablet, 25 MCG PO DAILY, (Reported) Entered as Reported by: MARIANNA HUYNH on 11/25/18 1623 Nitro Carbonate (Nitro Carbonate) 300 Mg Tablet, 300 MG PO TID, (Reported) Entered as Reported by: SHABBIR TAMEZ on 05/14/18 0910 Metoprolol Succinate (Metoprolol Succinate) 25 Mg Tab.er.24h, 12.5 MG PO DAILY, (Reported) Entered as Reported by: MARIANNA HUYNH on 11/25/18 1623 Montelukast Sodium (Montelukast Sodium) 10 Mg Tablet, 10 MG PO HS, (Reported) Entered as Reported by: MARIANNA HUYNH on 09/14/20 1415 Multivitamin (Multivitamin) 1 Each Tablet, 1 EACH PO DAILY, (Reported) Entered as Reported by: NICCI LUCIO on 05/02/20 0909 Pantoprazole Sodium (Pantoprazole Sodium) 40 Mg Tablet.dr, 40 MG PO BID, (Reported) Entered as Reported by: SHABBIR TAMEZ on 05/14/18 0910 Pantoprazole Sodium (Pantoprazole Sodium) 40 Mg Tablet.dr, 40 MG PO DAILY Prescribed by: MARIO CHAN on 02/17/21 1842 Sucralfate (Carafate) 1 Gm Tablet, 1 GM PO PRN, (Reported) Entered as Reported by: NICCI LUCIO on 05/02/20 0909 Topiramate (Topiramate) 100 Mg Tablet, 100 MG PO BID, (Reported) Entered as Reported by: SHABBIR TAMEZ on 05/14/18 0910 [gentamicin drops] , 3 DROPS OU BID Prescribed by: PHIL ARVIZU on 09/21/20 1002 [lexapro] , DAILY, (Reported) Entered as Reported by: PHIL ARVIZU on 09/21/20 0756 Review of Systems Constitutional: No chills, No fever EENTM: no symptoms reported Respiratory: no symptoms reported Cardiovascular: no symptoms reported Gastrointestinal: no symptoms reported Genitourinary: no symptoms reported Musculoskeletal: see HPI, back pain Skin: No change in color, No rash Psychiatric/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: Denies Numbness, Denies Paresthesia Past Suqhrdg-Wsvrwk-Sgwprl Hx Immunizations Up To Date Tetanus Booster (TDap): Unknown PED Vaccines UTD: No First/Initial COVID19 Vaccinat: 07/25/20 Second COVID19 Vaccination Gabriele: 08/22/20 Seasonal Allergies Seasonal Allergies: Yes Past Medical History Surgeries: Yes (Gastrectomy, bladder sling, Nerve stim/removal, DEBRA ELBOW, BMT, HERNIA X7) Bladder Surgery, Section, Gallbladder, Hysterectomy, Orthopedic Respiratory: Yes (O2 2L AT NIGHT) COPD Currently Using CPAP: No Currently Using BIPAP: No Cardiac: Yes (increased heart rate) High Cholesterol 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: Yes (HX ONE SEIZURE adult (3 yrs ago) unknown, febrile seizure ) 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 Sexually Transmitted Disease: No HIV/AIDS: No Genitourinary: Yes Bladder Infection, Renal Failure, UTI-Chronic Gastrointestinal: Yes Gastroesophageal Reflux, Hiatal Hernia Musculoskeletal: Yes Chronic Back Pain Endocrine: Yes Hypothyroidsim HEENT: Yes Cataract Loss of Vision: Denies Hearing Impairment: Hard of Hearing, Bilateral Hearing Aide Cancer: No ("PRECANCEROUS CELLS" ON PAP) Breast, Cervical Did You Recieve Any Treatments: No What Type of Treatment Did You: Chemotherapy, Surgical Intervention Psychosocial: Yes Anxiety, Bipolar, Depression Integumentary: No Blood Disorders: No Adverse Reaction/Blood Tranf: No (HAS HAD BLOOD WITH NO REACTION) Physical Exam Vital Signs Vital Signs - First Documented 02/17/21 16:55 Temp 37.0 Pulse 61 Resp 18 B/P (MAP) 136/70 (92) Pulse Ox 98 O2 Delivery Room Air Capillary Refill : Height, Weight, BMI Height: 5'5.00" Weight: 134lbs. 0.0oz. 60.093062xb; 25.00 BMI Method:Stated General Appearance: Chronically ill, Mild Distress Neck: Full Range of Motion, Normal Inspection, Non Tender, Supple Cardiovascular: Regular Rate, Rhythm, Normal Peripheral Pulses Respiratory: Chest Non Tender, Lungs Clear, Normal Breath Sounds Gastrointestinal: Normal Bowel Sounds, No Pulsatile Mass, Non Tender, Soft Back: No CVA Tenderness, No Vertebral Tenderness, Muscle Spasm (left lower back and paraspinal muscles) Extremity: Normal Capillary Refill, Normal Inspection, Normal Range of Motion, No Pedal Edema Neurologic/Psychiatric: Alert, Oriented x3, No Motor/Sensory Deficits, Normal 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, 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 Norm as Tested Skin: Normal Color, Warm/Dry; No Rash Progress/Results/Core Measures Results/Orders My Orders Orders - MARIO CHAN MD Ct Lumbar Spine Wo (02/17/21 17:25) Ct Pelvis Wo (02/17/21 17:25) Ketorolac Injection (Toradol Injection) (02/17/21 17:27) Orphenadrine Inj (Ed Only) (Norflex Inje (02/17/21 17:27) Rx-Hydrocodone/Apap 5-325 Mg (Rx-Vicodin (02/17/21 18:45) Rx-Cyclobenzaprine Tablet (Rx-Flexeril T (02/17/21 18:45) Medications Given in ED Current Medications Medications Dose Ordered Sig/Renay Route Start Time Stop Time Status Last Admin Dose Admin Acetaminophen/ Hydrocodone Bitart 1 ea Q8H PRN PO 02/17/21 18:45 02/17/21 18:59 DC 02/17/21 18:59 1 EA Cyclobenzaprine HCl 5 mg TID PRN PO 02/17/21 18:45 02/17/21 18:59 DC 02/17/21 18:59 5 MG Vital Signs/I&O 02/17/21 02/17/21 16:55 19:03 Temp 37.0 37.0 Pulse 61 61 Resp 18 18 B/P (MAP) 136/70 (92) 136/70 Pulse Ox 98 98 O2 Delivery Room Air Room Air Progress Progress Note #1: Progress Note Try Toradol formation and spasms. Obtain a CT scan of the lumbar spine and pelvis to ensure that there is no compression fracture, kidney stone, pubic ramus fracture, pelvic fracture, intra-abdominal inflammatory process to cause her pain and symptoms. Progress Note #2: Progress Note CT scan does not show any fractures or dislocation. There is no acute process to explain her symptoms. Patient states that she is not having any improved pain control but she is moving in the room better. Will prescribe Flexeril, hydrocodone and Protonix to help with indigestion from the medications. She states that she is not allergic to pain medicine and anti-inflammatories but they cause indigestion. Counseled to follow-up with her primary provider if not improving. May alternate ice and heat to the back as well. Diagnostic Imaging Diagonstic Imaging: CT Plain Films/CT/US/NM/MRI: pelvis (And lumbar spine) Comments [facility], [place] NAME: ANKIT FELIPE [facility] REC#: [id number] PT STATUS: REG ER : 1955 PHYSICIAN: MARIO CHAN MD ADMIT DATE: 02/17/21/ER FS Signed Date of Exam:02/17/21 CT PELVIS WO PROCEDURE: CT pelvis without contrast. TECHNIQUE: Multiple contiguous axial images were obtained through the pelvis without the use of intravenous contrast. Sagittal and coronal reformations were performed. Auto Exposure Controls were utilized during the CT exam to meet ALARA standards for radiation dose reduction. INDICATION: Back and left hip pain following a fall. FINDINGS: Femoral heads directed into the acetabula, bilaterally. The femoral heads, necks, trochanters and visualized subtrochanteric shafts intact. No acetabular fractures. Arthritic changes mildly involving the bilateral hips, symmetric. There are mild degenerative changes to the pubic symphysis without its diastasis. Sacrococcygeal segments unremarkable. There are mild degenerative changes to the SI joints without diastasis. The bony sacrum and coccygeal segments intact. No presacral or precoccygeal edema or hemorrhage. No intraperitoneal or extraperitoneal pelvic hemorrhage. No free fluid. The unopacified pelvic hollow viscera unremarkable. The superior and inferior pubic rami intact. No obvious joint effusion or bursal collection. No soft tissue hemorrhage. IMPRESSION: Mild pelvic arthritic changes but no fracture, hemorrhage or acute appearing abnormality. Dictated by: Dictated on workstation # [id number] Dict: 02/17/21 1748 Trans: 02/17/211821 PJ [id number] Interpreted by: ALEXANDRIA HERZOG Electronically signed by: ALEXANDRIA HERZOG 02/17/211821 [facility] [place] NAME: ANKIT FELIPE [facility] REC#: [id number] PT STATUS: REG ER : 1955 PHYSICIAN: MARIO CHAN MD ADMIT DATE: 02/17/21/ER FS Signed Date of Exam:02/17/21 CT LUMBAR SPINE WO PROCEDURE: CT lumbar spine without contrast. TECHNIQUE: Multiple contiguous axial images were obtained through the lumbar spine without the use of intravenous contrast. Sagittal and coronal reformations were then performed. Auto Exposure Controls were utilized during the CT exam to meet ALARA standards for radiation dose reduction. INDICATION: Back and left hip pain following fall. FINDINGS: Lumbar statures are normal. The alignment is anatomic. No acute or suspect endplate irregularity. The pedicles and pars are intact. No fracture or paraspinal hemorrhage. No substantial canal stenosis. IMPRESSION: Unremarkable CT lumbar spine. Dictated by: Dictated on workstation # [id number] Dict: 02/17/21 175 Trans: 02/17/211821 PJE [id number] Interpreted by: ALEXANDRIA HERZOG Electronically signed by: ALEXANDRIA HERZOG 02/17/21 1822 Reviewed: Reviewed by Me Departure Impression Primary Impression: Lumbar back sprain Qualified Codes: S33.5XXA - Sprain of ligaments of lumbar spine, initial encounter Additional Impressions: Fall Qualified Codes: W19.XXXA - Unspecified fall, initial encounter Left hip pain Disposition: 01 HOME, SELF-CARE Condition: Stable Departure-Patient Inst. Decision time for Depature: 18:39 Referrals: CHIQUI BERMAN MD (PCP/Family) Primary Care Physician Patient Instructions: Preventing Falls ED, Hip Pain ED, Opioids for Short-Term Treatment of Pain ED, Back Muscle Strain Add. Discharge Instructions: Try using ice alternating with heat for muscle spasm and back pain into your hip. Use the muscle relaxer to help with muscle spasms. For severe pain use the narcotic pain medicine. Check back with clinic if not improving in next few days All discharge instructions reviewed with patient and/or family. Voiced understanding. Scripts Pantoprazole Sodium (Pantoprazole Sodium) 40 Mg Tablet.dr 40 MG PO DAILY for 30 Days, #30 TAB 0 Refills Prov: MARIO CHAN MD 02/17/21 Hydrocodone/Acetaminophen (Hydrocodone-Acetamin 5-325 mg) 1 Each Tablet 1 TAB PO Q8H PRN for PAIN-SEVERE (8-10) for 5 Days, #15 TAB 0 Refills Prov: MARIO CHAN MD 02/17/21 Cyclobenzaprine HCl (Cyclobenzaprine HCl) 5 Mg Tablet 5 MG PO Q8H for Muscle Spasms for 7 Days, #21 TAB 0 Refills Prov: MARIO CHAN MD 02/17/21 MARIO CHAN MD Feb 17, 2021 17:07
[2021-02-17] MEDS ORDERED: ORPHENADRINE 60 MG/2 ML (NORFLEX) AMP (ED ONLY) IM STA (17:27)
[2021-02-17] MEDS ORDERED: KETOROLAC 60 MG/2 ML VIAL IM STA (17:27)
--- NOTE | 2021-02-17 18:19 | Diagnostic Imaging Report ---
PROCEDURE: CT pelvis without contrast. TECHNIQUE: Multiple contiguous axial images were obtained through the pelvis without the use of intravenous contrast. Sagittal and coronal reformations were performed. Auto Exposure Controls were utilized during the CT exam to meet ALARA standards for radiation dose reduction. INDICATION: Back and left hip pain following a fall. FINDINGS: Femoral heads directed into the acetabula, bilaterally. The femoral heads, necks, trochanters and visualized subtrochanteric shafts intact. No acetabular fractures. Arthritic changes mildly involving the bilateral hips, symmetric. There are mild degenerative changes to the pubic symphysis without its diastasis. Sacrococcygeal segments unremarkable. There are mild degenerative changes to the SI joints without diastasis. The bony sacrum and coccygeal segments intact. No presacral or precoccygeal edema or hemorrhage. No intraperitoneal or extraperitoneal pelvic hemorrhage. No free fluid. The unopacified pelvic hollow viscera unremarkable. The superior and inferior pubic rami intact. No obvious joint effusion or bursal collection. No soft tissue hemorrhage. IMPRESSION: Mild pelvic arthritic changes but no fracture, hemorrhage or acute appearing abnormality. Dictated by: Dictated on workstation # [id number]
--- NOTE | 2021-02-17 18:20 | Diagnostic Imaging Report ---
PROCEDURE: CT lumbar spine without contrast. TECHNIQUE: Multiple contiguous axial images were obtained through the lumbar spine without the use of intravenous contrast. Sagittal and coronal reformations were then performed. Auto Exposure Controls were utilized during the CT exam to meet ALARA standards for radiation dose reduction. INDICATION: Back and left hip pain following fall. FINDINGS: Lumbar statures are normal. The alignment is anatomic. No acute or suspect endplate irregularity. The pedicles and pars are intact. No fracture or paraspinal hemorrhage. No substantial canal stenosis. IMPRESSION: Unremarkable CT lumbar spine. Dictated by: Dictated on workstation # [id number]
[2021-02-17] MEDS ORDERED: ACHD5005 PO (18:42)
[2021-02-17] MEDS ORDERED: PANT40TA52 PO (18:42)
[2021-02-17] MEDS ORDERED: CYCL5TAB PO (18:42)
[2021-02-17] MEDS ORDERED: RX-CYCLOBENZAPRINE 10 MG (FLEXERIL) TAB PPK#3 PO PRN (18:45)
[2021-02-17 19:03] VITALS: BP 136/70
== END 2021-02-17 18:59 | disposition home or self-care (01) ==
LOC: EDUNIT# 16:51 → ER FS 16:53
DX: S33.5XXA Sprain of ligaments of lumbar spine, initial encounter (principal); M25.552 Pain in left hip; J44.9 Chronic obstructive pulmonary disease, unspecified; E03.9 Hypothyroidism, unspecified; K21.9 Gastro-esophageal reflux disease without esophagitis; G89.29 Other chronic pain; M54.9 Dorsalgia, unspecified; Z79.899 Other long term (current) drug therapy; Z79.890 Hormone replacement therapy; Z79.82 Long term (current) use of aspirin; F41.9 Anxiety disorder, unspecified; W18.30XA Fall on same level, unspecified, initial encounter
CPT/HCPCS: 72131; 72192; 99281

== ENCOUNTER 2021-05-20 16:53 | Emergency (ER) | payer MEDICARE, MEDICAID ==
[~2021-05-20] VITALS: Ht 165.1 cm; Wt 70.3 kg
[~2021-05-20 16:53] MED LIST changes: +CYCL10TA25 PO; -CYCL10TA9 PO; +DICY20TA PO; -DICY20TA10 PO; -LEVO500T80 PO; +LEVO500T81 PO; +MONT-40 PO; -MONT10TA32 PO
[2021-05-20 17:49] LABS: BILIRUBIN,URINE NEGATIVE (NEGATIVE); CLARITY,URINE TURBID; COLOR,URINE YELLOW; GLUCOSE, URINE (UA) NEGATIVE (NEGATIVE); KETONES,URINE NEGATIVE (NEGATIVE); LEUKOCYTE ESTERASE ,URINE TRACE (NEGATIVE); NITRITE,URINE POSITIVE (NEGATIVE); PROTEIN,URINE NEGATIVE (NEGATIVE)
[2021-05-20] MEDS ORDERED: fentaNYL INJ 100 MCG/2 ML AMP IVP STA (18:05)
[2021-05-20] MEDS ORDERED: NS IV 1000 ML 1,000 ML IV STA (18:05)
[2021-05-20] MEDS ORDERED: ORPHENADRINE 60 MG/2 ML (NORFLEX) AMP (ED ONLY) IVP STA (18:05)
--- NOTE | 2021-05-20 18:07 | ED Back Pain ---
General Chief Complaint: Back Problems Stated Complaint: LOWER BACK PAIN,HEADACHE Nursing Triage Note: Patient presents to the ED with c/o lower back pain. Reports pain is worse when she bends or sits. Has been taking hydrocodone with no relief. Reports pain began 1 week ago. Source of Information: Patient History of Present Illness Date Seen by Provider: May 20, 2021 Time Seen by Provider: 17:41 Initial Comments 66-year-old female presenting with complaints of low back pain and left flank pain. She denied fever or chills. She has had no vomiting, diarrhea, constipation, vaginal discharge, vaginal bleeding, blood in her stools, blood in her urine. She states that she has not been taking her chronic hydrocodone that she uses for pain but no significant improvement. Her pain started a week ago and has not been improving. The pain is worsened whenever she tries to bend over or sit down. She had not tried to get in with the clinic to have this evaluated but the primary care provider. She denies any trauma or injury to the make the pain start. She does have a history of back pain in the past. Location: Lumbar Spine, Other (Left flank pain) Timing/Duration: 1 Week Severity: Severe Method of Injury: Unknown Modifying Factors: Worse With Movement Associated Symptoms: muscle spasms; No fever, No weakness, No numbness in legs/feet, No tingling in legs/feet, No sensory/motor loss, No lower back pain, No loss of bladder control, No loss of bowel control Allergies and Home Medications Allergies Coded Allergies: morphine (Verified Allergy, Severe, CONFUSION, 09/21/20) tramadol (Verified Allergy, Severe, CONFUSION, 09/21/20) varenicline (Verified Allergy, Intermediate, NAUSEA/VOMITTING, 09/21/20) ibuprofen (Unverified Adverse Reaction, Mild, gi upset, 09/21/20) Sulfa (Sulfonamide Antibiotics) (Unverified Adverse Reaction, Unknown, 09/21/20) oseltamivir (Unverified Adverse Reaction, Unknown, 09/21/20) sumatriptan (Unverified Adverse Reaction, Unknown, 09/21/20) Uncoded Allergies: TAPE (Allergy, Mild, 09/22/05) Patient Home Medication List Home Medication List Reviewed: Yes Aspirin (Aspirin) 81 Mg Tab.chew, 81 MG PO DAILY, (Reported) Entered as Reported by: NICCI LUCIO on 09/26/19 1517 Cholecalciferol (Vitamin D3) (Vitamin D3) 1,250 Mcg Capsule, 1,250 MCG PO DAILY, (Reported) Entered as Reported by: NICCI LUCIO on 09/26/19 1517 Ciprofloxacin HCl (Ciprofloxacin HCl) 500 Mg Tablet, 500 MG PO BID Prescribed by: MARIO CHAN on 05/20/21 2020 Clonazepam (Klonopin) 0.5 Mg Tablet, 0.5 MG PO BID PRN for ANXIETY, (Reported) Entered as Reported by: FELICITAS FISHER on 05/25/19 1000 Cyclobenzaprine HCl (Cyclobenzaprine HCl) 5 Mg Tablet, 5 MG PO Q8H Prescribed by: MARIO CHAN on 02/17/21 1842 Hydrocodone/Acetaminophen (Hydrocodone-Acetamin 5-325 mg) 1 Each Tablet, 1 EACH PO PRN, (Reported) Entered as Reported by: NICCI LUCIO on 05/02/20 0909 Hydrocodone/Acetaminophen (Hydrocodone-Acetamin 5-325 mg) 1 Each Tablet, 1 TAB PO Q4H PRN for PAIN-MODERATE (5-7) Prescribed by: PHIL ARVIZU on 09/21/20 1002 Hydrocodone/Acetaminophen (Hydrocodone-Acetamin 5-325 mg) 1 Each Tablet, 1 TAB PO Q8H PRN for PAIN-SEVERE (8-10) Prescribed by: MARIO CHAN on 02/17/21 1843 Lactobacillus Acidophilus (Probiotic Acidophilus) 1 Each Tablet, 1 EACH PO DAILY, (Reported) Entered as Reported by: FELICITAS FISHER on 05/25/19 1000 Levocetirizine Dihydrochloride (Levocetirizine Dihydrochloride) 5 Mg Tablet, 5 MG PO DAILY, (Reported) Entered as Reported by: NICCI LUCIO on 05/03/20 1544 Levothyroxine Sodium (Levothyroxine Sodium) 25 Mcg Tablet, 25 MCG PO DAILY, (Reported) Entered as Reported by: MARIANNA HUYNH on 11/25/18 1623 [place] Carbonate ([place] Carbonate) 300 Mg Tablet, 300 MG PO TID, (Reported) Entered as Reported by: SHABBIR TAMEZ on 05/14/18 0910 Methocarbamol (Methocarbamol) 750 Mg Tablet, 750 MG PO Q6H PRN for back pain/spasm Prescribed by: MARIO CHAN on 05/20/212019 Metoprolol Succinate (Metoprolol Succinate) 25 Mg Tab.er.24h, 12.5 MG PO DAILY, (Reported) Entered as Reported by: MARIANNA HUYNH on 11/25/18 1623 Montelukast Sodium (Montelukast Sodium) 10 Mg Tablet, 10 MG PO HS, (Reported) Entered as Reported by: MARIANNA HUYNH on 09/14/20 1415 Multivitamin (Multivitamin) 1 Each Tablet, 1 EACH PO DAILY, (Reported) Entered as Reported by: NICCI LUCIO on 05/02/20 0909 Pantoprazole Sodium (Pantoprazole Sodium) 40 Mg Tablet.dr, 40 MG PO BID, (Reported) Entered as Reported by: SHABBIR TAMEZ on 05/14/18 0910 Pantoprazole Sodium (Pantoprazole Sodium) 40 Mg Tablet.dr, 40 MG PO DAILY Prescribed by: MARIO CHAN on 02/17/21 1842 Sucralfate (Carafate) 1 Gm Tablet, 1 GM PO PRN, (Reported) Entered as Reported by: NICCI LUCIO on 05/02/20 0909 Topiramate (Topiramate) 100 Mg Tablet, 100 MG PO BID, (Reported) Entered as Reported by: SHABBIR TAMEZ on 05/14/18 0910 [gentamicin drops] , 3 DROPS OU BID Prescribed by: PHIL ARVIZU on 09/21/20 1002 [lexapro] , DAILY, (Reported) Entered as Reported by: PHIL ARVIZU on 09/21/20 0756 Review of Systems Constitutional: see HPI EENTM: no symptoms reported Respiratory: no symptoms reported Cardiovascular: no symptoms reported Gastrointestinal: see HPI Genitourinary: see HPI Musculoskeletal: see HPI Skin: No rash Psychiatric/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: Headache; Denies Tremors Past Hnipqbk-Bdmbhk-Rfnhui Hx Patient Social History Tobacco Use?: Yes Tobacco type used: Cigarettes Smoking Status: Current Everyday Smoker Use of E-Cig and/or Vaping dev: No Substance use?: No Alcohol Use?: No Pt feels they are or have been: No Immunizations Up To Date Tetanus Booster (TDap): Unknown PED Vaccines UTD: No First/Initial COVID19 Vaccinat: 07/25/20 Second COVID19 Vaccination Gabriele: 08/22/20 COVID19 Vaccine Green Promotions Specialist: Catalina Seasonal Allergies Seasonal Allergies: Yes Past Medical History Surgeries: Yes (Gastrectomy, bladder sling, Nerve stim/removal, DEBRA ELBOW, BMT, HERNIA X7) Bladder Surgery, Section, Gallbladder, Hysterectomy, Orthopedic Respiratory: Yes (O2 2L AT NIGHT) COPD Currently Using CPAP: No Currently Using BIPAP: No Cardiac: Yes (increased heart rate) High Cholesterol 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: Yes (HX ONE SEIZURE adult (3 yrs ago) unknown, febrile seizure infant) 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 Sexually Transmitted Disease: No HIV/AIDS: No Genitourinary: Yes Bladder Infection, Renal Failure, UTI-Chronic Gastrointestinal: Yes Gastroesophageal Reflux, Hiatal Hernia Musculoskeletal: Yes Chronic Back Pain Endocrine: Yes Hypothyroidsim HEENT: Yes Cataract Loss of Vision: Denies Hearing Impairment: Hard of Hearing, Bilateral Hearing Aide Cancer: No ("PRECANCEROUS CELLS" ON PAP) Breast, Cervical Did You Recieve Any Treatments: No What Type of Treatment Did You: Chemotherapy, Surgical Intervention Psychosocial: Yes Anxiety, Bipolar, Depression Integumentary: No Blood Disorders: No Adverse Reaction/Blood Tranf: No (HAS HAD BLOOD WITH NO REACTION) Physical Exam Vital Signs Vital Signs - First Documented 05/20/21 17:00 Temp 36.6 Pulse 60 Resp 14 B/P (MAP) 142/46 (78) Pulse Ox 100 O2 Delivery Room Air Capillary Refill : Less Than 3 Seconds Height, Weight, BMI Height: 5'5.00" Weight: 134lbs. 0.0oz. 60.348417ol; 25.00 BMI Method:Stated General Appearance: Chronically ill (Appears older than stated age) HEENT: Moist Mucous Membranes Neck: Non Tender, Supple Cardiovascular: Regular Rate, Rhythm, Normal Peripheral Pulses Respiratory: Chest Non Tender, Lungs Clear, Normal Breath Sounds, No Accessory Muscle Use, No Respiratory Distress Gastrointestinal: Normal Bowel Sounds, No Pulsatile Mass, Soft; No Guarding, No Rebound; Tenderness (Left flank) Back: Muscle Spasm, Vertebral Tenderness (Lumbar) Extremity: Normal Capillary Refill, Normal Inspection, No Pedal Edema Neurologic/Psychiatric: Alert, Oriented x3, bunch breaker II-XII Norm as Tested Skin: Normal Color, Warm/Dry Progress/Results/Core Measures Results/Orders Lab Results Laboratory Tests Test 05/20/21 17:05 05/20/21 18:20 Range/Units Urine Color YELLOW Urine Clarity TURBID Urine pH 5.0 5-9 Urine Specific [place] >=1.030 1.016-1.022 Urine Protein NEGATIVE NEGATIVE Urine Glucose (UA) NEGATIVE NEGATIVE Urine Ketones NEGATIVE NEGATIVE Urine Nitrite POSITIVE H NEGATIVE Urine Bilirubin NEGATIVE NEGATIVE Urine Urobilinogen 0.2 < = 1.0 MG/DL Urine Leukocyte Esterase TRACE H NEGATIVE Urine RBC (Auto) NEGATIVE NEGATIVE Urine RBC NONE /HPF Urine WBC 5-10 H /HPF Urine Squamous Epithelial Cells 5-10 /HPF Urine Crystals NONE /LPF Urine Bacteria LARGE H /HPF Urine Casts PRESENT /LPF Urine Hyaline Casts 0-2 H /LPF Urine Mucus LARGE H /LPF Urine Other CLUE CELLS PRESENT /HPF Urine Culture Indicated YES Urine Opiates Screen NEGATIVE NEGATIVE Urine Oxycodone Screen NEGATIVE NEGATIVE Urine Methadone Screen NEGATIVE NEGATIVE Urine Propoxyphene Screen NEGATIVE NEGATIVE Urine Barbiturates Screen NEGATIVE NEGATIVE Ur Tricyclic Antidepressants Screen NEGATIVE NEGATIVE Urine Phencyclidine Screen NEGATIVE NEGATIVE Urine Amphetamines Screen NEGATIVE NEGATIVE Urine Methamphetamines Screen NEGATIVE NEGATIVE Urine Benzodiazepines Screen NEGATIVE NEGATIVE Urine Cocaine Screen NEGATIVE NEGATIVE Urine Cannabinoids Screen NEGATIVE NEGATIVE White Blood Count 5.9 4.3-11.0 10^3/uL Red Blood Count 4.33 3.80-5.11 10^6/uL Hemoglobin 13.2 11.5-16.0 g/dL Hematocrit 40 35-52 % Mean Corpuscular Volume 92 80-99 fL Mean Corpuscular Hemoglobin 30 25-34 pg Mean Corpuscular Hemoglobin Concent 33 32-36 g/dL Red Cell Distribution Width 14.3 10.0-14.5 % Platelet Count 179 130-400 10^3/uL Mean Platelet Volume 11.3 9.0-12.2 fL Immature Granulocyte % (Auto) 0 % Neutrophils (%) (Auto) 75 42-75 % Lymphocytes (%) (Auto) 12 12-44 % Monocytes (%) (Auto) 7 0-12 % Eosinophils (%) (Auto) 4 0-10 % Basophils (%) (Auto) 1 0-10 % Neutrophils # (Auto) 4.4 1.8-7.8 X 10^3 Lymphocytes # (Auto) 0.7 L 1.0-4.0 X 10^3 Monocytes # (Auto) 0.4 0.0-1.0 X 10^3 Eosinophils # (Auto) 0.3 0.0-0.3 10^3/uL Basophils # (Auto) 0.0 0.0-0.1 10^3/uL Immature Granulocyte # (Auto) 0.0 0.0-0.1 10^3/uL Sodium Level 136 135-145 MMOL/L Potassium Level 4.3 3.6-5.0 MMOL/L Chloride Level 103 98-107 MMOL/L Carbon Dioxide Level 24 21-32 MMOL/L Anion Gap 9 5-14 MMOL/L Blood Urea Nitrogen 19 H 7-18 MG/DL Creatinine 0.95 0.60-1.30 MG/DL Estimat Glomerular Filtration Rate 59 BUN/Creatinine Ratio 20 Glucose Level 93 70-105 MG/DL Calcium Level 9.7 8.5-10.1 MG/DL Corrected Calcium 9.4 8.5-10.1 MG/DL Total Bilirubin 0.6 0.1-1.0 MG/DL Aspartate Amino Transf (AST/SGOT) 17 5-34 U/L Alanine Aminotransferase (ALT/SGPT) 18 0-55 U/L Alkaline Phosphatase 120 40-136 U/L Total Protein 7.2 6.4-8.2 GM/DL Albumin 4.4 3.2-4.5 GM/DL Lipase 36 8-78 U/L My Orders Orders - MARIO CHAN MD Ua Culture If Indicated (05/20/21 17:05) Drug Screen Stat (Urine) (05/20/21 17:05) Comprehensive Metabolic Panel (05/20/21 18:05) Lipase (05/20/21 18:05) Ed Iv/Invasive Line Start (05/20/21 18:05) Cbc With Automated Diff (05/20/21 18:05) Ct Abdomen/Pelvis Wo (05/20/21 18:05) Fentanyl Inj (Sublimaze Injection) (05/20/21 18:05) Orphenadrine Inj (Ed Only) (Norflex Inje (05/20/21 18:05) Ns Iv 1000 Ml (Sodium Chloride 0.9%) (05/20/21 18:05) Urine Culture (05/20/21 17:05) Ceftriaxone 1 Gm Pre-Mix (Rocephin 1 Gm (05/20/21 18:18) Vital Signs/I&O 05/20/21 05/20/21 17:00 20:22 Temp 36.6 Pulse 60 68 Resp 14 16 B/P (MAP) 142/46 (78) 136/64 Pulse Ox 100 100 O2 Delivery Room Air Room Air 05/21/21 00:00 Intake Total 1050 ml Balance 1050 ml Blood Pressure Mean: 78 Progress Progress Note #1: Progress Note Obtain blood work and urinalysis. In case she needed additional narcotic or pa in medication will obtain a urine drug screen. CT scan of the abdomen and pelvis to look for causes of her left flank pain and pain across her lower back. Try IV fluids for hydration, Norflex for muscle relaxer, fentanyl for pain. Progress Note #2: Progress Note The labs appear stable without acute significant normality. Her urine does show signs of urinary tract infection and a culture will be performed. The drug screen was negative. Her CT scan of the abdomen pelvis showed no signs of kidney stones or bowel obstruction or blockage. There is no definite diverticulitis or diverticulosis. On review of results with the patient she was having improvement with treatment. She had been given a gram of Rocephin IV for urinary tract infection in addition to the IV fluids. Will continue with antibiotics at home. Encouraged to push fluids and stay well-hydrated. In addition to her chronic hydrocodone pain medication will add on muscle relaxer and the antibiotic. Diagnostic Imaging Diagonstic Imaging: CT Plain Films/CT/US/NM/MRI: abdomen, pelvis Comments [facility], [place] NAME: ANKIT FELIPE Scout [facility] REC#: [id number] PT STATUS: REG ER : 1955 PHYSICIAN: MARIO CHAN MD ADMIT DATE: 05/20/21/ER FS Signed Date of Exam:05/20/21 CT ABDOMEN/PELVIS WO PROCEDURE: CT abdomen and pelvis without contrast. TECHNIQUE: Multiple contiguous axial images were obtained through the abdomen and pelvis without the use of intravenous contrast. Auto Exposure Controls were utilized during the CT exam to meet ALARA standards for radiation dose reduction. INDICATION: Left flank and low back pain There is an approximately 1 cm cyst in the anterior aspect of the lateral segment of the left hepatic lobe. Additional smaller cysts are also seen elsewhere in the right hepatic parenchyma. There is mild splenomegaly. Surgical findings are seen along the anterior stomach. Gallbladder is surgically absent without significant biliary ductal dilatation. There is no evidence of pancreatic lesion. There is enlargement of the left adrenal gland which may represent adenoma. Right adrenal gland is unremarkable. There are nonobstructing calculi in the left kidney with left cortical renal cyst noted. Lipoma is seen at the level of the ileocecal valve. There is moderate aortoiliac atherosclerotic calcification. The appendix has a normal appearance. There is no evidence of free fluid within the abdomen or pelvis. There is no evidence of organized fluid collection. IMPRESSION: 1. Splenomegaly and probable left adrenal gland adenoma without evidence of acute abnormality seen within the abdomen or pelvis. Dictated by: Dictated on workstation # [id number] Dict: 05/20/21 184 Trans: 05/20/211852 [facility] [id number] Interpreted by: ALEXANDRIA HARMON MD Electronically signed by: ALEXANDRIA HARMON MD 05/20/211852 Reviewed: Reviewed by Me Departure Impression Primary Impression: Cystitis without hematuria Additional Impressions: Acute left flank pain Low back pain Qualified Codes: M54.50 - Low back pain, unspecified Adenoma of left adrenal gland Disposition: HOME, SELF-CARE Condition: Improved Departure-Patient Inst. Decision time for Depature: 20:18 Referrals: CHIQUI BERMAN MD (PCP/Family) Primary Care Physician Patient Instructions: Flank Pain ED, Urinary Tract Infection, Adult ED, Low Back Pain ED Add. Discharge Instructions: Make sure to stay well-hydrated. Take the full course of antibiotics to treat for the urine infection Use the pain medicine and muscle relaxer to help with the back pain. Check back through the clinic for continued symptoms or if not improving with the medications. All discharge instructions reviewed with patient and/or family. Voiced understanding. Scripts Ciprofloxacin HCl (Ciprofloxacin HCl) 500 Mg Tablet 500 MG PO BID for UTI for 7 Days, #14 TAB 0 Refills Prov: MARIO CHAN MD 05/20/21 Methocarbamol (Methocarbamol) 750 Mg Tablet 750 MG PO Q6H PRN for back pain/spasm for 7 Days, #28 TAB 0 Refills Prov: MARIO CHAN MD 05/20/21 MARIO CHAN MD May 20, 2021 18:07
[2021-05-20 18:09] LABS: BACTERIA,URINE LARGE /HPF; HYALINE CASTS, URINE 0-2 /LPF
[2021-05-20 18:10] LABS: URINE OTHER CLUE CELLS PRESENT /HPF
[2021-05-20 18:11] LABS: AMPHETAMINE SCREEN, URINE NEGATIVE (NEGATIVE); BARBITURATE SCREEN URINE NEGATIVE (NEGATIVE); BENZODIAZEPINES SCREEN URINE NEGATIVE (NEGATIVE); CANNABINOID SCREEN, URINE NEGATIVE (NEGATIVE); COCAINE SCREEN URINE NEGATIVE (NEGATIVE); METHADONE STAT NEGATIVE (NEGATIVE); METHAMPHETAMINE SCREEN URINE S NEGATIVE (NEGATIVE); OPIATE SCREEN URINE NEGATIVE (NEGATIVE); OXYCODONE STAT NEGATIVE (NEGATIVE); PROPOXYPHENE STAT NEGATIVE (NEGATIVE); TRICYCLIC ANTIDEPRESSANTS SCRE NEGATIVE (NEGATIVE)
[2021-05-20] MEDS ORDERED: cefTRIAXone 1 GM PRE-MIX 50 ML IV STA (18:18)
--- NOTE | 2021-05-20 18:51 | Diagnostic Imaging Report ---
PROCEDURE: CT abdomen and pelvis without contrast. TECHNIQUE: Multiple contiguous axial images were obtained through the abdomen and pelvis without the use of intravenous contrast. Auto Exposure Controls were utilized during the CT exam to meet ALARA standards for radiation dose reduction. INDICATION: Left flank and low back pain There is an approximately 1 cm cyst in the anterior aspect of the lateral segment of the left hepatic lobe. Additional smaller cysts are also seen elsewhere in the right hepatic parenchyma. There is mild splenomegaly. Surgical findings are seen along the anterior stomach. Gallbladder is surgically absent without significant biliary ductal dilatation. There is no evidence of pancreatic lesion. There is enlargement of the left adrenal gland which may represent adenoma. Right adrenal gland is unremarkable. There are nonobstructing calculi in the left kidney with left cortical renal cyst noted. Lipoma is seen at the level of the ileocecal valve. There is moderate aortoiliac atherosclerotic calcification. The appendix has a normal appearance. There is no evidence of free fluid within the abdomen or pelvis. There is no evidence of organized fluid collection. IMPRESSION: 1. Splenomegaly and probable left adrenal gland adenoma without evidence of acute abnormality seen within the abdomen or pelvis. Dictated by: Dictated on workstation # [id number]
[2021-05-20 19:03] LABS: HEMATOCRIT 40 % (35-52); HEMOGLOBIN 13.2 g/dL (11.5-16.0); MEAN CORPUSCULAR HEMOGLOBIN 30 pg (25-34); MEAN CORPUSCULAR HGB CONC 33 g/dL (32-36); MEAN CORPUSCULAR VOLUME 92 fL (80-99); PLATELET COUNT 179 10^3/uL (130-400); WHITE BLOOD COUNT 5.9 10^3/uL (4.3-11.0)
[2021-05-20 19:04] LABS: BASOPHILS % (AUTO) 1 % (0-10); EOSINOPHILS # (AUTO) 0.3 10^3/uL (0.0-0.3); EOSINOPHILS % (AUTO) 4 % (0-10); LYMPHOCYTES # (AUTO) 0.7 X 10^3 (1.0-4.0); LYMPHOCYTES % (AUTO) 12 % (12-44); MEAN PLATELET VOLUME 11.3 fL (9.0-12.2); MONOCYTES # (AUTO) 0.4 X 10^3 (0.0-1.0); MONOCYTES % (AUTO) 7 % (0-12); NEUTROPHILS # (AUTO) 4.4 X 10^3 (1.8-7.8); NEUTROPHILS % (AUTO) 75 % (42-75)
[2021-05-20 19:36] LABS: CREATININE SERUM 0.95 MG/DL (0.60-1.30); POTASSIUM 4.3 MMOL/L (3.6-5.0)
[2021-05-20 19:37] LABS: ALBUMIN 4.4 GM/DL (3.2-4.5); BILIRUBIN,TOTAL 0.6 MG/DL (0.1-1.0); CALCIUM 9.7 MG/DL (8.5-10.1); TOTAL PROTEIN 7.2 GM/DL (6.4-8.2)
[2021-05-20] MEDS ORDERED: CIPR500T5 PO (20:20)
[2021-05-20] MEDS ORDERED: METH-732 PO (20:20)
[2021-05-20 20:22] VITALS: BP 136/64
== END 2021-05-20 20:23 | disposition home or self-care (01) ==
LOC: EDUNIT# 16:53 → ER FS 16:54
DX: D35.02 Benign neoplasm of left adrenal gland (principal); N30.90 Cystitis, unspecified without hematuria; M54.50 Low back pain, unspecified; J44.9 Chronic obstructive pulmonary disease, unspecified; K21.9 Gastro-esophageal reflux disease without esophagitis; E03.9 Hypothyroidism, unspecified; G89.29 Other chronic pain; M54.9 Dorsalgia, unspecified; F41.9 Anxiety disorder, unspecified; F32.9 Major depressive disorder, single episode, unspecified; F17.210 Nicotine dependence, cigarettes, uncomplicated; Z79.890 Hormone replacement therapy; Z79.891 Long term (current) use of opiate analgesic; Z79.899 Other long term (current) drug therapy; Z79.82 Long term (current) use of aspirin
CPT/HCPCS: 36415; 74176; 80053; 80306; 81000; 83690; 85025; 87077; 87088; 87186

== ENCOUNTER 2021-08-22 05:39 | Outpatient (CLI) | payer MEDICARE, MEDICAID ==
[~2021-08-22] VITALS: Ht 165.1 cm; Wt 71.4 kg
[~2021-08-22 05:39] MED LIST changes: +CIPR500T5 PO; +METH-732 PO
[2021-08-22] MEDS ORDERED: RT-ALBUINH IH (11:01)
[2021-08-22] MEDS ORDERED: ESCI20TA PO (11:01)
[2021-08-22] MEDS ORDERED: CHOL20002 PO (11:01)
== END 2021-08-22 11:12 | disposition home or self-care (01) ==
LOC: PREOP 05:39
PROVIDERS: ATTEND Surgery
DX: Z01.818 Encounter for other preprocedural examination (principal)

== ENCOUNTER → 2021-08-29 | Outpatient (CLI) | payer MEDICARE, MEDICAID ==
[~2021-08-29] MED LIST changes: +CHOL20002 PO; +ESCI20TA PO; +RT-ALBUINH IH
--- NOTE | 2021-08-29 11:50 | Diagnostic Imaging Report ---
INDICATION: Pain FINDINGS: Two-view sternal radiograph showed no displaced sternal manubrial deformity. No abnormal retrosternal density. The sternoclavicular relationships unremarkable. IMPRESSION: Unremarkable 2 view sternal radiographic series. Dictated by: Dictated on workstation # [id number]
== END ==
LOC: RAD FS 10:46
PROVIDERS: ATTEND Nurse Practitioner
DX: R07.89 Other chest pain (principal)
CPT/HCPCS: 71120

== ENCOUNTER 2021-09-02 08:26 | Day surgery (SDC) | payer MEDICARE, MEDICAID ==
[~2021-09-02] VITALS: Ht 165.1 cm; Wt 71.4 kg
--- NOTE | 2021-09-02 08:37 | Progress Note-Pre Operative ---
Pre-Operative Progress Note H&P Reviewed The H&P was reviewed, patient examined and no changes noted. Time Seen by Provider: 08:35 Date H&P Reviewed: Sep 02, 2021 Time H&P Reviewed: 08:35 Pre-Operative Diagnosis: Epigastric pain BRI FULLER DO Sep 02, 2021 08:37
[2021-09-02] MEDS ORDERED: LACTATED RINGERS 1,000 ML IV ONE (08:40)
[2021-09-02 08:59] VITALS: BP 132/60
[2021-09-02] MEDS ORDERED: LACTATED RINGERS 1,000 ML IV STA (08:59)
[2021-09-02] MEDS ORDERED: HURRICAINE EXT TUBE (BENZOCAINE) XX PRN (09:00)
[2021-09-02] MEDS ORDERED: proPOfol 200 MG/20 ML (DIPRIVAN) VIAL IV ONE (10:09)
[2021-09-02] MEDS ORDERED: MIDAZOLAM 2 MG/2 ML (VERSED) VIAL ONE (10:09)
[2021-09-02 10:25] VITALS: BP 104/53
[2021-09-02 10:30] VITALS: BP 117/56
[2021-09-02 10:35] VITALS: BP 123/57
--- NOTE | 2021-09-02 11:15 | Progress Note-Post Operative ---
Post-Operative Progess Note Surgeon (s)/Keeler Polygraph Operator (s) Surgeon BRI FULLER DO Keeler Polygraph Operator: none Pre-Operative Diagnosis Epigastric pain Post-Operative Diagnosis mild esophagitis Procedure & Operative Findings Date of Procedure 09/02/21 Procedure Performed/Findings EGD with bx PROCEDURE NOTE: After informed consent was obtained, the patient was brought to the endoscopy suite, placed in bed in left lateral decubitus position. She was administered IV sedation by the COMPLAINT EVALUATION SUPERVISOR who then monitored vitals the entire time, heart rate, blood pressure and pulse ox and the scope was inserted down the mouth through the esophagus into the stomach. On the way down, noted some mild esophagitis, took a picture, pushed into the stomach and were already into the duodenum. Duodenum looked good. Pt has had a gastro-jejunostomy, did not see any ulcers. Pulled back and did a biopsy of the GE junction, took another picture of the esophagitis and then pushed the scope back into the stomach, suctioned all the air out of the stomach. At this point pulled the scope up the esophagus and out the mouth. The patient tolerated the procedure, and she recovered in endoscopy suite. Anesthesia Type IV sedation by anesthesia Estimated Blood Loss Estimated blood loss (mL): scant Specimens/Packing Specimens Removed GE jxn bx BRI FULLER DO Sep 02, 2021 11:15
--- NOTE | 2021-09-02 11:17 | Endoscopy Discharge Instruct ---
Endo Procedure/Findings Findings 1.: Other Findings (esophagitis - mild) Discharge Instructions - Activity: You might feel a little sleepy until tomorrow. This is due to the medicine you received to relax you. Until tomorrow, you should: NOT drive a car, operate machinery or power tools. NOT drink any alcoholic beverages. NOT make any important decisions or sign importortant papers. Do not return to work until tomorrow, unless otherwise instructed. Resume previous activities tomorrow. Diet: Start by taking liquids. If you tolerate liquids, advance to solid food. 1.: EGD in 3 years Notify Physician - If you experience excessive bleeding, unusual abdominal pain, fever, or chest pain, contact your doctor immediately. BRI FULLER DO Sep 02, 2021 11:17
[2021-09-02 11:35] VITALS: BP 141/83
--- NOTE | 2021-09-02 14:15 | Anesthesia-General Post-Op ---
MAC Patient Condition Mental Status/LOC: Same as Preop Cardiovascular: Satisfactory Nausea/Vomiting: Absent Respiratory: Satisfactory Pain: Controlled Complications: Absent Post Op Complications Complications None Follow Up Care/Instructions Patient Instructions None needed. Anesthesiology Discharge Order Discharge Order Patient was doing well this morning with no complaints, stable vital signs, no apparent adverse anesthesia problems. RUSSELL MANZANO DO Sep 02, 2021 14:15
== END 2021-09-02 10:50 | disposition home or self-care (01) ==
LOC: ENDO 08:26
PROVIDERS: ATTEND Surgery
DX: K21.00 Gastro-esophageal reflux disease with esophagitis, without bleeding (principal); K29.50 Unspecified chronic gastritis without bleeding; F17.210 Nicotine dependence, cigarettes, uncomplicated; Z79.82 Long term (current) use of aspirin; Z79.899 Other long term (current) drug therapy; Z90.3 Acquired absence of stomach [part of]

== ENCOUNTER → 2021-10-22 | Outpatient (CLI) | payer MEDICARE, MEDICAID ==
[~2021-10-22] MED LIST changes: +RT-ALBUTEROL SULF 2.5 MG/3 ML PRE-MIX VIAL INH ONE
== END ==
LOC: RT 10:41
PROVIDERS: ATTEND Nurse Practitioner Family
DX: J98.4 Other disorders of lung (principal); R93.89 Abnormal findings on diagnostic imaging of other specified body structures; R91.1 Solitary pulmonary nodule
CPT/HCPCS: 94060; 94726; 94729

== ENCOUNTER → 2022-02-20 | Outpatient (CLI) | payer MEDICARE, MEDICAID ==
[~2022-02-20] MED LIST changes: +LEVO-55 PO; -LEVO500T81 PO; -RT-ALBUTEROL SULF 2.5 MG/3 ML PRE-MIX VIAL INH ONE
== END ==
LOC: CARD 12:00
PROVIDERS: ATTEND Physician Assistant
DX: I08.3 Combined rheumatic disorders of mitral, aortic and tricuspid valves (principal); I10 Essential (primary) hypertension; I25.10 Atherosclerotic heart disease of native coronary artery without angina pectoris
CPT/HCPCS: 93306

== ENCOUNTER 2022-02-22 14:23 | Emergency (ER) | payer OTHER, MEDICAID ==
[~2022-02-22] VITALS: Ht 165.1 cm; Wt 71.2 kg
[2022-02-22] MEDS ORDERED: ORPHENADRINE 60 MG/2 ML (NORFLEX) AMP (ED ONLY) IM STA (14:53)
[2022-02-22] MEDS ORDERED: KETOROLAC 30 MG/ML VIAL IM STA (14:53)
--- NOTE | 2022-02-22 15:01 | ED Upper Extremity ---
General Chief Complaint: Upper Extremity Stated Complaint: LT ARM PAIN Nursing Triage Note: PT AMBULATE TO ROOM FS02 WITH C/O LEFT ARM PAIN X5 MONTHS. PT STATES SHE WAS MOVING SOMETHING X5 MONTHS AGO AND IT HAS HURT SINCE THEN. PT STATES THAT NOW SHE IS UNABLE TO RAISE HER ARM. PT STATES THAT SHE HAS CONTACTED HER PCP FOR THIS C/O AND "HE DOESN'T WANT TO TALK ABOUT IT." Source: patient History of Present Illness Date Seen by Provider: Feb 22, 2022 Time Seen by Provider: 14:25 Initial Comments 67-year-old female presenting with complaints of left upper arm pain and shoulder pain for 5 months. She states that she had been moving some boxes of furniture and thinks she initially hurt it then. She was opening his head and that door at their house and thinks that that may have aggravated things recently as well. She denies any new fall or injury. She has no numbness or weakness in the arm. She has increased pain when she tries to reach behind her back. She has tried taking hydrocodone and Tylenol for the pain without improvement. Severity: moderate Pain/Injury Location: left arm Method of Injury: unknown Modifying Factors: Worse With Movement Allergies and Home Medications Allergies Coded Allergies: morphine (Verified Allergy, Severe, CONFUSION, 09/21/20) tramadol (Verified Allergy, Severe, CONFUSION, 09/21/20) varenicline (Verified Allergy, Intermediate, NAUSEA/VOMITTING, 09/21/20) ibuprofen (Unverified Adverse Reaction, Mild, gi upset, 09/21/20) Sulfa (Sulfonamide Antibiotics) (Unverified Adverse Reaction, Unknown, 09/21/20) oseltamivir (Unverified Adverse Reaction, Unknown, 09/21/20) sumatriptan (Unverified Adverse Reaction, Unknown, 09/21/20) Uncoded Allergies: TAPE (Allergy, Mild, 09/22/05) Patient Home Medication List Home Medication List Reviewed: Yes Albuterol Sulfate (Proair Hfa) 1 Puff Puff, 2 PUFF IH Q4H PRN for WHEEZING, (Reported) Entered as Reported by: MARIANNA HUYNH on 08/22/21 1101 Aspirin (Aspirin) 81 Mg Tab.chew, 81 MG PO DAILY, (Reported) Entered as Reported by: NICCI LUCIO on 09/26/19 1517 Cholecalciferol (Vitamin D3) (Vitamin D3) 50 Mcg Capsule, 50 MCG PO BID, (Reported) Entered as Reported by: MARIANNA HUYNH on 08/22/21 1101 Escitalopram Oxalate (Lexapro) 20 Mg Tablet, 20 MG PO DAILY, (Reported) Entered as Reported by: MARIANNA HUYNH on 08/22/21 1101 Hydrocodone/Acetaminophen (Hydrocodone-Acetamin 5-325 mg) 1 Each Tablet, 1 EACH PO Q4H PRN for PAIN-MILD (1-4), (Reported) Entered as Reported by: NICCI LUCIO on 05/02/20 0909 Levocetirizine Dihydrochloride (Levocetirizine Dihydrochloride) 5 Mg Tablet, 5 MG PO DAILY, (Reported) Entered as Reported by: NICCI LUCIO on 05/03/20 1544 Levothyroxine Sodium (Levothyroxine Sodium) 25 Mcg Tablet, 25 MCG PO DAILY, (Reported) Entered as Reported by: MARIANNA HUYHN on 11/25/18 1623 [place] Carbonate ([place] Carbonate) 300 Mg Tablet, 300 MG PO TID, (Reported) Entered as Reported by: SHABBIR TAMEZ on 05/14/18 0910 Methocarbamol (Methocarbamol) 750 Mg Tablet, 750 MG PO Q8H PRN for muscle pain/spasms Prescribed by: MARIO CHAN on 02/22/22 1524 Metoprolol Succinate (Metoprolol Succinate) 25 Mg Tab.er.24h, 12.5 MG PO DAILY, (Reported) Entered as Reported by: MARIANNA HUYNH on 11/25/18 1623 Montelukast Sodium (Montelukast Sodium) 10 Mg Tablet, 10 MG PO HS, (Reported) Entered as Reported by: MARIANNA HUYNH on 09/14/20 1415 Multivitamin (Multivitamin) 1 Each Tablet, 1 EACH PO DAILY, (Reported) Entered as Reported by: NICCI LUCIO on 05/02/20 0909 Pantoprazole Sodium (Pantoprazole Sodium) 40 Mg Tablet.dr, 40 MG PO BID, (Reported) Entered as Reported by: SHABBIR TAMEZ on 05/14/18 0910 Topiramate (Topiramate) 100 Mg Tablet, 100 MG PO BID, (Reported) Entered as Reported by: SHABBIR TAMEZ on 05/14/18 0910 Review of Systems Constitutional: No chills, No fever EENTM: no symptoms reported Respiratory: no symptoms reported Cardiovascular: no symptoms reported Gastrointestinal: no symptoms reported Genitourinary: no symptoms reported Musculoskeletal: see HPI Skin: No change in color, No rash Psychiatric/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: Denies Numbness, Denies Paresthesia Past Okarrsa-Ranpfs-Pyowcy Hx Patient Social History Tobacco Use?: Yes Smoking Status: Heavy Tobacco Smoker Smokeless Tobacco Frequency: Never a User Use of E-Cig and/or Vaping dev: No Use of E-Cig and/or Vaping Adeel: Never a User Substance use?: No Alcohol Use?: No Pt feels they are or have been: No Immunizations Up To Date Tetanus Booster (TDap): Unknown PED Vaccines UTD: No First/Initial COVID19 Vaccinat: 07/25/20 Second COVID19 Vaccination Gabriele: 08/22/20 Third COVID19 Vaccination Date: NO COVID19 Vaccine 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[employer] Seasonal Allergies Seasonal Allergies: Yes Past Medical History Surgeries: Yes (Gastrectomy, bladder sling, Nerve stim/removal 3, DEBRA ELBOW, BMT, HERNIA X7) Bladder Surgery, Section, Gallbladder, Hysterectomy, Orthopedic Respiratory: Yes (O2 2L AT NIGHT) COPD Currently Using CPAP: No Currently Using BIPAP: No Cardiac: Yes (increased heart rate) High Cholesterol 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: Yes (HX ONE SEIZURE adult (3 yrs ago) unknown, febrile seizure infant) 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 Sexually Transmitted Disease: No HIV/AIDS: No Genitourinary: Yes Bladder Infection, Renal Failure, UTI-Chronic Gastrointestinal: Yes Gastroesophageal Reflux, Hiatal Hernia Musculoskeletal: Yes Chronic Back Pain Endocrine: Yes Hypothyroidsim HEENT: Yes Cataract Loss of Vision: Denies Hearing Impairment: Hard of Hearing, Bilateral Hearing Aide Cancer: No ("PRECANCEROUS CELLS" ON PAP) Breast, Cervical Did You Recieve Any Treatments: No What Type of Treatment Did You: Chemotherapy, Surgical Intervention Psychosocial: Yes Anxiety, Bipolar, Depression Integumentary: No Blood Disorders: No Adverse Reaction/Blood Tranf: No (HAS HAD BLOOD WITH NO REACTION) Physical Exam Vital Signs Vital Signs - First Documented 02/22/22 14:42 Temp 37.0 Pulse 63 Resp 18 B/P (MAP) 136/66 (89) O2 Delivery Room Air Capillary Refill : Less Than 3 Seconds Height, Weight, BMI Height: 5'5.00" Weight: 134lbs. 0.0oz. 60.292748mn; 26.00 BMI Method:Stated General Appearance: WD/WN, no apparent distress HEENT: PERRL/EOMI, pharynx normal Neck: non-tender, full range of motion, supple, normal inspection Cardiovascular: normal peripheral pulses Shoulder: limited ROM (due to pain in left shoulder with movement behind her back or abducting her arm), soft tissue tenderness (left upper arm without crepitus, induration, swelling) Elbow/Forearm: normal inspection, non-tender, no evidence of injury, normal ROM Wrist: Yes normal inspection, Yes non-tender, Yes no evidence of injury, Yes normal ROM Hand: normal inspection, non-tender, no evidence of injury, normal ROM, Bilateral Neurologic/Tendon: normal sensation, normal motor functions, normal tendon functions Neurologic/Psychiatric: alert, oriented x 3 Skin: normal color, warm/dry Progress/Results/Core Measures Results/Orders My Orders Orders - MARIO CHAN MD Ketorolac Injection (Toradol Injection) (02/22/22 14:53) Orphenadrine Inj (Ed Only) (Norflex Inje (02/22/22 14:53) Humerus 2 View Left (02/22/22 14:54) Vital Signs/I&O 02/22/22 14:42 Temp 37.0 Pulse 63 Resp 18 B/P (MAP) 136/66 (89) O2 Delivery Room Air Blood Pressure Mean: 89 Progress Progress Note #1: Progress Note Order Toradol and Norflex for her left upper arm pain. Xrays of the left humerus to look at shoulder and humerus. I personally reviewed her previous visits and she has had medicine for inflammation/pain and muscle spasms in the past. Will try that again and see if anything acute shows on imaging. Advised she may need MRI of shoulder. Progress Note #2: Time: 15:19 Progress Note No acute findings on x-ray. Will treat with muscle relaxer and check back with primary care provider for continued concerns. If not improving she may need an MRI to look at her rotator cuff and shoulder. Diagnostic Imaging Diagonstic Imaging: Xray Plain Films/CT/US/NM/MRI: other (humerus) Comments [facility]. [place], [place] NAME: ANKIT FELIPE [facility] REC#: [id number] PT STATUS: REG ER : 1955 PHYSICIAN: MARIO CHAN MD ADMIT DATE: 02/22/22/ER FS Draft Date of Exam:02/22/22 HUMERUS 2 VIEW LEFT INDICATION: Left arm pain x 5 months. No known injury. EXAMINATION: Left humerus, 02/22/2022. FINDINGS: 2 views of the left humerus. There is no evidence for an acute fracture or dislocation. The joint spaces are well maintained. There is no significant soft tissue swelling. IMPRESSION: No acute process. Dictated on workstation # [id number] Dict: 02/22/22 1504 Trans: 02/22/22 1508 [id number] Interpreted by: ANDRE CONTRERAS MD Electronically signed by: Reviewed: Reviewed by Me Departure Impression Primary Impression: Strain of upper arm, left Qualified Codes: S46.912A - Strain of unspecified muscle, fascia and tendon at shoulder and upper arm level, left arm, initial encounter Additional Impression: Left arm pain Disposition: 01 HOME, SELF-CARE Condition: Stable Departure-Patient Inst. Decision time for Depature: 15:22 Referrals: CHIQUI BERMAN MD (PCP/Family) Primary Care Physician Patient Instructions: Muscle Strain ED, Using Cold for Pain, Muscle and Bone Pain (DC) Add. Discharge Instructions: Try taking the muscle relaxer to help with pain and inflammation of your upper arm If that is not helping then you may need to see your primary care provider and they may need to order an MRI or have you see Orthopedics about the arm pain. It is possible you have a strain or injury to rotator cuff that is giving you pain but no acute findings on xrays. All discharge instructions reviewed with patient and/or family. Voiced understanding. Scripts Methocarbamol (Methocarbamol) 750 Mg Tablet 750 MG PO Q8H PRN for muscle pain/spasms for 7 Days, #21 TAB 0 Refills Prov: MARIO CHAN MD 02/22/22 MARIO CHAN MD Feb 22, 2022 15:01
--- NOTE | 2022-02-22 15:09 | Diagnostic Imaging Report ---
INDICATION: Left arm pain x 5 months. No known injury. EXAMINATION: Left humerus, 02/22/2022. FINDINGS: 2 views of the left humerus. There is no evidence for an acute fracture or dislocation. The joint spaces are well maintained. There is no significant soft tissue swelling. IMPRESSION: No acute process. Dictated by: Dictated on workstation # [id number]
[2022-02-22] MEDS ORDERED: METH-732 PO (15:24)
[2022-02-22 15:32] VITALS: BP 141/66
== END 2022-02-22 15:32 | disposition home or self-care (01) ==
LOC: EDUNIT# 14:23 → ER FS 14:25
DX: S46.912A Strain of unspecified muscle, fascia and tendon at shoulder and upper arm level, left arm, initial encounter (principal); Z88.5 Allergy status to narcotic agent; F17.200 Nicotine dependence, unspecified, uncomplicated; X50.0XXA Overexertion from strenuous movement or load, initial encounter; Y92.009 Unspecified place in unspecified non-institutional (private) residence as the place of occurrence of the external cause
CPT/HCPCS: 73060

== ENCOUNTER 2022-08-21 16:09 | Emergency (ER) | payer OTHER, MEDICAID ==
[~2022-08-21] VITALS: Ht 165 cm; Wt 75.0 kg
[~2022-08-21 16:09] MED LIST changes: +ALBU8.5H6 IH; -RT-ALBUINH IH
--- NOTE | 2022-08-21 16:12 | ED Upper Extremity ---
General Chief Complaint: Upper Extremity Stated Complaint: SWOLLEN ELBOW, PAIN, HARD TO MOVE History of Present Illness Date Seen by Provider: Aug 21, 2022 Time Seen by Provider: 16:12 Initial Comments 67-year-old female with swollen left elbow. She reports has been there for about a week. Patient denies any trauma. No erythema or warmth to the area is mildly painful. No other complaints. Allergies and Home Medications Allergies Coded Allergies: morphine (Verified Allergy, Severe, CONFUSION, 09/21/20) tramadol (Verified Allergy, Severe, CONFUSION, 09/21/20) varenicline (Verified Allergy, Intermediate, NAUSEA/VOMITTING, 09/21/20) ibuprofen (Unverified Adverse Reaction, Mild, gi upset, 09/21/20) Sulfa (Sulfonamide Antibiotics) (Unverified Adverse Reaction, Unknown, 09/21/20) oseltamivir (Unverified Adverse Reaction, Unknown, 09/21/20) sumatriptan (Unverified Adverse Reaction, Unknown, 09/21/20) Uncoded Allergies: TAPE (Allergy, Mild, 09/22/05) Patient Home Medication List Home Medication List Reviewed: Yes Albuterol Sulfate (Ventolin Hfa) 1 Puff Puff, 2 PUFF IH Q4H PRN for WHEEZING, (Reported) Entered as Reported by: MARIANNA HUYNH on 08/22/21 1101 Aspirin (Aspirin) 81 Mg Tab.chew, 81 MG PO DAILY, (Reported) Entered as Reported by: NICCI LUCIO on 09/26/19 1517 Cholecalciferol (Vitamin D3) (Vitamin D3) 50 Mcg Capsule, 50 MCG PO BID, (Reported) Entered as Reported by: MARIANNA HUYNH on 08/22/21 1101 Escitalopram Oxalate (Lexapro) 20 Mg Tablet, 20 MG PO DAILY, (Reported) Entered as Reported by: MARIANNA HUYNH on 08/22/21 1101 Hydrocodone/Acetaminophen (Hydrocodone-Acetamin 5-325 mg) 1 Each Tablet, 1 EACH PO Q4H PRN for PAIN-MILD (1-4), (Reported) Entered as Reported by: NICCI LUCIO on 05/02/20 0909 Levocetirizine Dihydrochloride (Levocetirizine Dihydrochloride) 5 Mg Tablet, 5 MG PO DAILY, (Reported) Entered as Reported by: NICCI LUCIO on 05/03/20 1544 Levothyroxine Sodium (Levothyroxine Sodium) 25 Mcg Tablet, 25 MCG PO DAILY, (Reported) Entered as Reported by: MARIANNA HUYNH on 11/25/18 1623 [place] Carbonate ([place] Carbonate) 300 Mg Tablet, 300 MG PO TID, (Reported) Entered as Reported by: SHABBIR TAMEZ on 05/14/18 0910 Methocarbamol (Methocarbamol) 750 Mg Tablet, 750 MG PO Q8H PRN for muscle pain/spasms Prescribed by: MARIO CHAN on 02/22/22 1524 Metoprolol Succinate (Metoprolol Succinate) 25 Mg Tab.er.24h, 12.5 MG PO DAILY, (Reported) Entered as Reported by: MARIANNA HUYNH on 11/25/18 1623 Montelukast Sodium (Montelukast Sodium) 10 Mg Tablet, 10 MG PO HS, (Reported) Entered as Reported by: MARIANNA HUYNH on 09/14/20 1415 Multivitamin (Multivitamin) 1 Each Tablet, 1 EACH PO DAILY, (Reported) Entered as Reported by: NICCI LUCIO on 05/02/20 0909 Pantoprazole Sodium (Pantoprazole Sodium) 40 Mg Tablet.dr, 40 MG PO BID, (Reported) Entered as Reported by: SHABBIR TAMEZ on 05/14/18 0910 Topiramate (Topiramate) 100 Mg Tablet, 100 MG PO BID, (Reported) Entered as Reported by: SHABBIR TAMEZ on 05/14/18 0910 Review of Systems Constitutional: no symptoms reported EENTM: no symptoms reported Respiratory: no symptoms reported Cardiovascular: no symptoms reported Gastrointestinal: no symptoms reported Musculoskeletal: see HPI Skin: no symptoms reported Psychiatric/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: No Symptoms Reported Physical Exam Vital Signs Capillary Refill : Height, Weight, BMI Height: '" Weight: lbs. oz. kg; BMI Method: General Appearance: WD/WN, no apparent distress Cardiovascular: normal peripheral pulses, regular rate, rhythm Respiratory: lungs clear, normal breath sounds Shoulder: normal inspection Elbow/Forearm: swelling (Left olecranon bursitis) Wrist: Yes normal inspection Hand: normal inspection Progress/Results/Core Measures Progress Progress Note : Progress Note Patient with a left olecranon bursitis. Will prescribe her Naprosyn. Discussed supportive care including to protect the elbow from further trauma. Patient was stable and discharged home. Patient's treatment is limited due to social determinants of health including but not limited to access to healthcare, limited education and finances Departure Impression Primary Impression: Olecranon bursitis of left elbow Disposition: HOME, SELF-CARE Condition: Stable Departure-Patient Inst. Patient Instructions: Olecranon Bursitis, Olecranon Bursitis Exercises Add. Discharge Instructions: Please be cautious about resting your elbows on any hard surface without padding. Please follow-up with your primary care provider in 7 to 10 days if your symptoms or not improving with treatment please review your educational material provided to help provide you with some further treatment options for All discharge instructions reviewed with patient and/or family. Voiced understanding. Scripts Naproxen (Naprosyn) 500 Mg Tablet 500 MG PO BID, #30 TAB 0 Refills Prov: ELROY SCHULZ DO 08/21/22 ELROY SCHULZ DO Aug 21, 2022 16:12
[2022-08-21] MEDS ORDERED: NAPR-1071 PO (16:25)
[2022-08-21 16:27] VITALS: BP 158/61
== END 2022-08-21 16:28 | disposition home or self-care (01) ==
LOC: EDUNIT# 16:09 → ER FS 16:12
DX: M70.22 Olecranon bursitis, left elbow (principal); Z88.6 Allergy status to analgesic agent
CPT/HCPCS: 99281

== ENCOUNTER 2022-10-04 16:37 | Emergency (ER) | payer OTHER, MEDICAID ==
[~2022-10-04 16:37] MED LIST changes: +NAPR-1071 PO
--- NOTE | 2022-10-04 16:45 | ED Integumentary General ---
General Chief Complaint: Bite-Animal/Human/Insect Stated Complaint: DOG BITE LT LEG History of Present Illness Date Seen by Provider: October 04, 2022 Time Seen by Provider: 16:40 Initial Comments 67-year-old female presents with multiple dog bites to left leg. Patient reports that she went to the neighbor where she was bit. They are unsure of the rabies status however they do know the dog. She is not up-to-date on her tetanus. She is has no other reported injuries. Allergies and Home Medications Allergies Coded Allergies: morphine (Verified Allergy, Severe, CONFUSION, 09/21/20) tramadol (Verified Allergy, Severe, CONFUSION, 09/21/20) varenicline (Verified Allergy, Intermediate, NAUSEA/VOMITTING, 09/21/20) ibuprofen (Unverified Adverse Reaction, Mild, gi upset, 09/21/20) Sulfa (Sulfonamide Antibiotics) (Unverified Adverse Reaction, Unknown, 09/21/20) oseltamivir (Unverified Adverse Reaction, Unknown, 09/21/20) sumatriptan (Unverified Adverse Reaction, Unknown, 09/21/20) Uncoded Allergies: TAPE (Allergy, Mild, 09/22/05) Patient Home Medication List Home Medication List Reviewed: Yes Albuterol Sulfate (Ventolin Hfa) 1 Puff Puff, 2 PUFF IH Q4H PRN for WHEEZING, (Reported) Entered as Reported by: MARIANNA HUYNH on 08/22/21 1101 Amoxicillin/Potassium Clav (Amox Tr-K Clv 875-125 mg Tab) 875 Mg-125 Mg Tablet, 1 EACH PO BID Prescribed by: ELROY SCHULZ on 10/04/22 1712 Aspirin (Aspirin) 81 Mg Tab.chew, 81 MG PO DAILY, (Reported) Entered as Reported by: NICCI LUCIO on 09/26/19 1517 Cholecalciferol (Vitamin D3) (Vitamin D3) 50 Mcg Capsule, 50 MCG PO BID, (Reported) Entered as Reported by: MARIANNA HUYNH on 08/22/21 1101 Escitalopram Oxalate (Lexapro) 20 Mg Tablet, 20 MG PO DAILY, (Reported) Entered as Reported by: MARIANNA HUYNH on 08/22/21 1101 Hydrocodone/Acetaminophen (Hydrocodone-Acetamin 5-325 mg) 1 Each Tablet, 1 EACH PO Q4H PRN for PAIN-MILD (1-4), (Reported) Entered as Reported by: NICCI LUCIO on 05/02/20 0909 Levocetirizine Dihydrochloride (Levocetirizine Dihydrochloride) 5 Mg Tablet, 5 MG PO DAILY, (Reported) Entered as Reported by: NICCI LUCIO on 05/03/20 1544 Levothyroxine Sodium (Levothyroxine Sodium) 25 Mcg Tablet, 25 MCG PO DAILY, (Reported) Entered as Reported by: MARIANNA HUYNH on 11/25/18 1623 [place] Carbonate ([place] Carbonate) 300 Mg Tablet, 300 MG PO TID, (Reported) Entered as Reported by: SHABBIR TAMEZ on 05/14/18 0910 Methocarbamol (Methocarbamol) 750 Mg Tablet, 750 MG PO Q8H PRN for muscle pain/spasms Prescribed by: MARIO CHAN on 02/22/22 1524 Metoprolol Succinate (Metoprolol Succinate) 25 Mg Tab.er.24h, 12.5 MG PO DAILY, (Reported) Entered as Reported by: MARIANNA HUYNH on 11/25/18 1623 Montelukast Sodium (Montelukast Sodium) 10 Mg Tablet, 10 MG PO HS, (Reported) Entered as Reported by: MARIANNA HUYNH on 09/14/20 1415 Multivitamin (Multivitamin) 1 Each Tablet, 1 EACH PO DAILY, (Reported) Entered as Reported by: NICCI LUCIO on 05/02/20 0909 Naproxen (Naprosyn) 500 Mg Tablet, 500 MG PO BID Prescribed by: ELROY SCHULZ on 08/21/22 1625 Pantoprazole Sodium (Pantoprazole Sodium) 40 Mg Tablet.dr, 40 MG PO BID, (Reported) Entered as Reported by: SHABBIR TAMEZ on 05/14/18 09 Topiramate (Topiramate) 100 Mg Tablet, 100 MG PO BID, (Reported) Entered as Reported by: SHABBIR TAMEZ on 05/14/18 09 Review of Systems Review of Systems Constitutional: see HPI EENTM: no symptoms reported Respiratory: no symptoms reported Cardiovascular: no symptoms reported Musculoskeletal: see HPI Skin: see HPI Past Pchdrob-Bsapdj-Dvgjxe Hx Immunizations Up To Date Tetanus Booster (TDap): Unknown PED Vaccines UTD: No First/Initial COVID19 Vaccinat: 07/25/20 Second COVID19 Vaccination Gabriele: 08/22/20 Third COVID19 Vaccination Date: NO Seasonal Allergies Seasonal Allergies: Yes Past Medical History Surgeries: Yes (Gastrectomy, bladder sling, Nerve stim/removal 3, DEBRA ELBOW, BMT, HERNIA X7) Bladder Surgery, Section, Gallbladder, Hysterectomy, Orthopedic Respiratory: Yes (O2 2L AT NIGHT) COPD Currently Using CPAP: No Currently Using BIPAP: No Cardiac: Yes (increased heart rate) High Cholesterol 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: Yes (HX ONE SEIZURE adult (3 yrs ago) unknown, febrile seizure in ramses) 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 Sexually Transmitted Disease: No HIV/AIDS: No Genitourinary: Yes Bladder Infection, Renal Failure, UTI-Chronic Gastrointestinal: Yes Gastroesophageal Reflux, Hiatal Hernia Musculoskeletal: Yes Chronic Back Pain Endocrine: Yes Hypothyroidsim HEENT: Yes Cataract Loss of Vision: Denies Hearing Impairment: Hard of Hearing, Bilateral Hearing Aide Cancer: No ("PRECANCEROUS CELLS" ON PAP) Breast, Cervical Did You Recieve Any Treatments: No What Type of Treatment Did You: Chemotherapy, Surgical Intervention Psychosocial: Yes Anxiety, Bipolar, Depression Integumentary: No Blood Disorders: No Adverse Reaction/Blood Tranf: No (HAS HAD BLOOD WITH NO REACTION) Physical Exam Vital Signs Vital Signs - First Documented 10/04/22 16:40 Temp 36.4 Pulse 84 Resp 16 B/P (MAP) 139/74 (95) Pulse Ox 94 O2 Delivery Room Air Capillary Refill : General Appearance: no apparent distress Cardiovascular: normal peripheral pulses, regular rate, rhythm Respiratory: lungs clear, normal breath sounds Extremities: normal range of motion 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 Patient tolerated well with no immediate complications. Progress/Results/Core Measures Results/Orders My Orders Orders - ELROY SCHULZ DO Dipht,Pertuss(Acell),Tet Adult (Boostrix (10/04/22 17:15) Medications Given in ED Current Medications Medications Dose Ordered Sig/Renay Route Start Time Stop Time Status Last Admin Dose Admin Diphtheria/ Tetanus/Acell Pertussis 0.5 ml ONCE ONCE IM 10/04/22 17:15 10/04/22 17:15 DC 10/04/22 17:14 0.5 ML Vital Signs/I&O 10/04/22 10/04/22 16:40 17:15 Temp 36.4 36.4 Pulse 84 84 Resp 16 16 B/P (MAP) 139/74 (95) 139/74 Pulse Ox 94 94 O2 Delivery Room Air Room Air Progress Progress Note : Progress Note Patient with dog bite with multiple puncture wounds and incisions. There was 3 small puncture wounds/lacerations that were closed to help with wound healing. Patient was started on Augmentin for empiric treatment. Patient was provided a tetanus. was notified and they will check rabies status for the dog. Patient was stable and discharged Departure Impression Primary Impression: Dog bite Qualified Codes: W54.0XXA - Bitten by dog, initial encounter Disposition: 01 HOME, SELF-CARE Condition: Stable Departure-Patient Inst. Referrals: SELF,CHIQUI JUNIOR (PCP/Family) Primary Care Physician Patient Instructions: Animal Bites (DC) Add. Discharge Instructions: Keep wounds clean with warm soapy water. Sutures can be removed within 7 to 10 days. Please take prescribed antibiotics. Follow-up with your primary care provider if any concerns for infection such as drainage, increasing redness and warmth. Ice to the bruised areas 2-3 times daily for 24 hours. Tylenol or ibuprofen as needed for pain. All discharge instructions reviewed with patient and/or family. Voiced understanding. Scripts Amoxicillin/Potassium Clav (Amox Tr-K Clv 875-125 mg Tab) 875 Mg-125 Mg Tablet 1 EACH PO BID, #14 TAB Prov: ELROY SCHULZ DO 10/04/22 ELROY SCHULZ DO October 04, 2022 16:45
[2022-10-04] MEDS ORDERED: AMOX1TAB12 PO (17:12)
[2022-10-04 17:15] VITALS: BP 139/74
[2022-10-04] MEDS ORDERED: TETANUS,DIPTH,PERTUSS P/F (BOOSTRIX) 0.5 ML VIAL IM ONE (17:15)
== END 2022-10-04 17:15 | disposition home or self-care (01) ==
LOC: EDUNIT# 16:37 → ER FS 16:38
DX: S81.832A Puncture wound without foreign body, left lower leg, initial encounter (principal); J44.9 Chronic obstructive pulmonary disease, unspecified; Z99.81 Dependence on supplemental oxygen; Z23 Encounter for immunization; Z88.6 Allergy status to analgesic agent; Z88.2 Allergy status to sulfonamides; W54.0XXA Bitten by dog, initial encounter
CPT/HCPCS: 12002; 90715

== ENCOUNTER 2022-10-22 19:17 | Emergency (ER) | payer OTHER, MEDICAID ==
[~2022-10-22] VITALS: Ht 167.6 cm; Wt 68.0 kg
[~2022-10-22 19:17] MED LIST changes: +AMOX1TAB12 PO
[2022-10-22] MEDS ORDERED: FAMOTIDINE 20 MG (PEPCID) TABLET PO STA (19:25)
[2022-10-22] MEDS ORDERED: LIDOCAINE 2% VISCOUS 15 ML UDC PO ONE (19:30)
[2022-10-22] MEDS ORDERED: ANTACID SUSP 30 ML UDC (MYLANTA) PO ONE (19:30)
[2022-10-22] MEDS ORDERED: ASPIRIN 81 MG CHEW (CHILDREN'S ASA) PO ONE (19:30)
[2022-10-22] MEDS ORDERED: NITROGLYCERIN 2% OINT 1 GM UNIT DOSE PACKET TOP ONE (19:30)
--- NOTE | 2022-10-22 19:31 | ED Chest Pain ---
General Chief Complaint: Chest Pain Stated Complaint: CHEST PAIN Source: patient, old records Exam Limitations: no limitations History of Present Illness Date Seen by Provider: Oct 22, 2022 Time Seen by Provider: 19:19 Initial Comments 67-year-old female with past medical history of hypertension, hyperlipidemia, and tobacco use coming in due to chest pain. Started just over an hour ago, it is in the right side of her chest, constant, feels like something is coming out of her body she states. She says she has had pain like this in the past and sometimes it was related to GERD. Did not eat anything prior to the pain. Did take a baby aspirin this morning but does not take any blood thinners. Denies any significant cardiac history, no stents, no history of DVT or PE, no recent surgeries, no leg swelling or pain, no hemoptysis, no fever, cough, shortness of breath, nausea, vomiting, diarrhea, weakness, numbness, rash, or any other concerns. Allergies and Home Medications Allergies Coded Allergies: morphine (Verified Allergy, Severe, CONFUSION, 09/21/20) tramadol (Verified Allergy, Severe, CONFUSION, 09/21/20) varenicline (Verified Allergy, Intermediate, NAUSEA/VOMITTING, 09/21/20) ibuprofen (Unverified Adverse Reaction, Mild, gi upset, 09/21/20) Sulfa (Sulfonamide Antibiotics) (Unverified Adverse Reaction, Unknown, 09/21/20) oseltamivir (Unverified Adverse Reaction, Unknown, 09/21/20) sumatriptan (Unverified Adverse Reaction, Unknown, 09/21/20) Uncoded Allergies: TAPE (Allergy, Mild, 09/22/05) Patient Home Medication List Home Medication List Reviewed: Yes Albuterol Sulfate (Ventolin Hfa) 1 Puff Puff, 2 PUFF IH Q4H PRN for WHEEZING, (Reported) Entered as Reported by: MARIANNA HUYNH on 08/22/21 1101 Amoxicillin/Potassium Clav (Amox Tr-K Clv 875-125 mg Tab) 875 Mg-125 Mg Tablet, 1 EACH PO BID Prescribed by: ELROY SCHULZ on 10/04/22 1712 Aspirin (Aspirin) 81 Mg Tab.chew, 81 MG PO DAILY, (Reported) Entered as Reported by: NICCI LUCIO on 09/26/19 1517 Cholecalciferol (Vitamin D3) (Vitamin D3) 50 Mcg Capsule, 50 MCG PO BID, (Reported) Entered as Reported by: MARIANNA HUYNH on 08/22/21 1101 Escitalopram Oxalate (Lexapro) 20 Mg Tablet, 20 MG PO DAILY, (Reported) Entered as Reported by: MARIANNA HUYNH on 08/22/21 1101 Hydrocodone/Acetaminophen (Hydrocodone-Acetamin 5-325 mg) 1 Each Tablet, 1 EACH PO Q4H PRN for PAIN-MILD (1-4), (Reported) Entered as Reported by: NICCI LUCIO on 05/02/20 0909 Levocetirizine Dihydrochloride (Levocetirizine Dihydrochloride) 5 Mg Tablet, 5 M G PO DAILY, (Reported) Entered as Reported by: NICCI LUCIO on 05/03/20 1544 Levothyroxine Sodium (Levothyroxine Sodium) 25 Mcg Tablet, 25 MCG PO DAILY, (Reported) Entered as Reported by: MARIANNA HUYNH on 11/25/18 1623 [place] Carbonate ([place] Carbonate) 300 Mg Tablet, 300 MG PO TID, (Reported) Entered as Reported by: SHABBIR TAMEZ on 05/14/18 0910 Methocarbamol (Methocarbamol) 750 Mg Tablet, 750 MG PO Q8H PRN for muscle pain/spasms Prescribed by: MARIO CHAN on 02/22/22 1524 Metoprolol Succinate (Metoprolol Succinate) 25 Mg Tab.er.24h, 12.5 MG PO DAILY, (Reported) Entered as Reported by: MARIANNA HUYNH on 11/25/18 1623 Montelukast Sodium (Montelukast Sodium) 10 Mg Tablet, 10 MG PO HS, (Reported) Entered as Reported by: MARIANNA HUYNH on 09/14/20 1415 Multivitamin (Multivitamin) 1 Each Tablet, 1 EACH PO DAILY, (Reported) Entered as Reported by: NICCI LUCIO on 05/02/20 0909 Naproxen (Naprosyn) 500 Mg Tablet, 500 MG PO BID Prescribed by: ELROY SCHULZ on 08/21/22 1625 Pantoprazole Sodium (Pantoprazole Sodium) 40 Mg Tablet.dr, 40 MG PO BID, (Reported) Entered as Reported by: SHABBIR TAMEZ on 05/14/18909 Topiramate (Topiramate) 100 Mg Tablet, 100 MG PO BID, (Reported) Entered as Reported by: SHABBIR TAMEZ on 05/14/18909 Review of Systems Review of Systems Constitutional: No fever EENTM: No Symptoms Reported Respiratory: No Symptoms Reported Cardiovascular: See HPI Gastrointestinal: No Symptoms Reported Genitourinary: No Symptoms Reported Musculoskeletal: no symptoms reported Skin: no symptoms reported Psychiatric/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: No Symptoms Reported Endocrine: No Symptoms Reported Hematologic/Lymphatic: No Symptoms Reported Past Pblaomk-Esdluy-Khhxuu Hx Patient Social History Tobacco Use?: Yes Tobacco type used: Cigarettes Substance use?: No Alcohol Use?: No Immunizations Up To Date Tetanus Booster (TDap): Unknown PED Vaccines UTD: No First/Initial COVID19 Vaccinat: 07/25/20 Second COVID19 Vaccination Gabriele: 08/22/20 Third COVID19 Vaccination Date: NO Seasonal Allergies Seasonal Allergies: Yes Past Medical History Surgeries: Yes (Gastrectomy, bladder sling, Nerve stim/removal 3, DEBRA ELBOW, BMT, HERNIA X7) Bladder Surgery, Section, Gallbladder, Hysterectomy, Orthopedic Respiratory: Yes (O2 2L AT NIGHT) COPD Currently Using CPAP: No Currently Using BIPAP: No Cardiac: Yes (increased heart rate) High Cholesterol 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: Yes (HX ONE SEIZURE adult (3 yrs ago) unknown, febrile seizure infant) 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 Transmitted Disease: No HIV/AIDS: No Genitourinary: Yes Bladder Infection, Renal Failure, UTI-Chronic Gastrointestinal: Yes Gastroesophageal Reflux, Hiatal Hernia Musculoskeletal: Yes Chronic Back Pain Endocrine: Yes Hypothyroidsim HEENT: Yes Cataract Loss of Vision: Denies Hearing Impairment: Hard of Hearing, Bilateral Hearing Aide Cancer: No ("PRECANCEROUS CELLS" ON PAP) Breast, Cervical Did You Recieve Any Treatments: No What Type of Treatment Did You: Chemotherapy, Surgical Intervention Psychosocial: Yes Anxiety, Bipolar, Depression Integumentary: No Blood Disorders: No Adverse Reaction/Blood Tranf: No (HAS HAD BLOOD WITH NO REACTION) Physical Exam Vital Signs Vital Signs - First Documented 10/22/22 19:20 Temp 36.7 Pulse 78 Resp 18 B/P (MAP) 125/59 (81) Pulse Ox 95 O2 Delivery Room Air Capillary Refill : Height, Weight, BMI Height: 5'5.00" Weight: 134lbs. 0.0oz. 60.399192uo; 27.00 BMI Method:Stated General Appearance: No Apparent Distress, WD/WN HEENT: PERRL/EOMI, Normal ENT Inspection, Pharynx Normal Neck: Full Range of Motion, Normal Inspection, Non Tender, Supple Respiratory: Chest Non Tender, Lungs Clear, Normal Breath Sounds, No Accessory Muscle Use, No Respiratory Distress Cardiovascular: Regular Rate, Rhythm, No Edema, Normal Peripheral Pulses Gastrointestinal: Normal Bowel Sounds, Non Tender, Soft; No Distended, No Guarding Extremity: Normal Capillary Refill, Normal Inspection, Normal Range of Motion, Non Tender, No Calf Tenderness, No Pedal Edema Neurologic/Psychiatric: Alert, No Motor/Sensory Deficits, Normal Mood/Affect Skin: Normal Color, Warm/Dry Procedures/Interventions Suture Size: 4-0 Progress/Results/Core Measures Results/Orders Lab Results Laboratory Tests Test 10/22/22 19:24 10/22/22 20:55 Range/Units White Blood Count 8.7 4.3-11.0 10^3/uL Red Blood Count 4.18 3.80-5.11 10^6/uL Hemoglobin 12.1 11.5-16.0 g/dL Hematocrit 39 35-52 % Mean Corpuscular Volume 93 80-99 fL Mean Corpuscular Hemoglobin 29 25-34 pg Mean Corpuscular Hemoglobin Concent 31 L 32-36 g/dL Red Cell Distribution Width 14.5 10.0-14.5 % Platelet Count 207 130-400 10^3/uL Mean Platelet Volume 11.2 9.0-12.2 fL Immature Granulocyte % (Auto) 0 % Neutrophils (%) (Auto) 80 H 42-75 % Lymphocytes (%) (Auto) 10 L 12-44 % Monocytes (%) (Auto) 5 0-12 % Eosinophils (%) (Auto) 5 0-10 % Basophils (%) (Auto) 1 0-10 % Neutrophils # (Auto) 6.9 1.8-7.8 10^3/uL Lymphocytes # (Auto) 0.8 L 1.0-4.0 10^3/uL Monocytes # (Auto) 0.4 0.0-1.0 10^3/uL Eosinophils # (Auto) 0.4 H 0.0-0.3 10^3/uL Basophils # (Auto) 0.0 0.0-0.1 10^3/uL Immature Granulocyte # (Auto) 0.0 0.0-0.1 10^3/uL Prothrombin Time 13.5 12.2-14.7 SEC INR Comment 1.0 0.8-1.4 Activated Partial Thromboplast Time 26 24-35 SEC Sodium Level 141 135-145 MMOL/L Potassium Level 4.1 3.6-5.0 MMOL/L Chloride Level 111 H 98-107 MMOL/L Carbon Dioxide Level 20 L 21-32 MMOL/L Anion Gap 10 5-14 MMOL/L Blood Urea Nitrogen 17 7-18 MG/DL Creatinine 0.80 0.60-1.30 MG/DL Estimat Glomerular Filtration Rate 82 BUN/Creatinine Ratio 21 Glucose Level 143 H 70-105 MG/DL Calcium Level 9.5 8.5-10.1 MG/DL Corrected Calcium 9.5 8.5-10.1 MG/DL Magnesium Level 2.0 1.6-2.4 MG/DL Total Bilirubin 0.4 0.1-1.0 MG/DL Aspartate Amino Transf (AST/SGOT) 18 5-34 U/L Alanine Aminotransferase (ALT/SGPT) 9 0-55 U/L Alkaline Phosphatase 135 40-136 U/L Troponin I < 0.30 <0.30 NG/ML Pro-B-Type Natriuretic Peptide 242.2 H <125.0 PG/ML Total Protein 6.9 6.4-8.2 GM/DL Albumin 4.0 3.2-4.5 GM/DL Lipase 33 8-78 U/L My Orders Orders - TENISHA ORTIZ MD Cbc With Automated Diff (10/22/22 19:25) Magnesium (10/22/22 19:25) Chest 1 View Ap/Pa Only (10/22/22 19:25) Ekg Tracing (10/22/22 19:25) Comprehensive Metabolic Panel (10/22/22 19:25) Protime With Inr (10/22/22 19:25) Partial Thromboplastin Time (10/22/22 19:25) O2 (10/22/22 19:25) Monitor-Rhythm Ecg Trace Only (10/22/22 19:25) Aspirin Chewable Tablet (Baby Aspirin Ch (10/22/22 19:30) Ed Iv/Invasive Line Start (10/22/22 19:25) Lipase (10/22/22 19:25) Troponin I Fs (10/22/22 19:25) Probnp Fs (10/22/22 19:25) Lidocaine 2% Viscous 15 Ml (Xylocaine Vi (10/22/22 19:30) Famotidine Tablet (Pepcid Tablet) (10/22/22 19:25) Antacid Suspension (Mylanta Suspension (10/22/22 19:30) Nitroglycerin Ointment (Nitrobid Ointme (10/22/22 19:30) Troponin I Fs (10/22/22 20:50) Fentanyl Inj (Sublimaze Injection) (10/22/22 20:00) Medications Given in ED Current Medications Medications Dose Ordered Sig/Renay Route Start Time Stop Time Status Last Admin Dose Admin Al Hydrox/Mg Hydrox/Simethicone 30 ml ONCE ONCE PO 10/22/22 19:30 10/22/22 19:31 DC 10/22/22 19:38 30 ML Aspirin 243 mg ONCE ONCE PO 10/22/22 19:30 10/22/22 19:31 DC 10/22/22 19:37 243 MG Fentanyl Citrate 50 mcg ONCE ONCE IVP 10/22/22 20:00 10/22/22 20:01 DC 10/22/22 20:11 50 MCG Lidocaine HCl 15 ml ONCE ONCE PO 10/22/22 19:30 10/22/22 19:31 DC 10/22/22 19:38 15 ML Nitroglycerin 1 inch ONCE ONCE TOP 10/22/22 19:30 10/22/22 19:31 DC 10/22/22 19:39 1 INCH Vital Signs/I&O 10/22/22 19:20 Temp 36.7 Pulse 78 Resp 18 B/P (MAP) 125/59 (81) Pulse Ox 95 O2 Delivery Room Air Progress Progress Note : Progress Note 67yoF with above history coming in due to chest pain. ABCs intact and VSS on presentation. Differential includes ACS versus PE versus pneumonia versus costochondritis versus GERD versus some other etiology. EKG ordered and interpreted by me showing no acute ischemic changes. An IV was placed and basic labs were obtained including cardiac biomarkers. The patient was given a GI cocktail, aspirin, nitro. On reassessment, pain slightly improved. She was later given fentanyl for pain control. Creatinine is normal, white blood cell count normal, troponin negative. Repeat troponin ordered since she presented less than 2 hours after the pain started. This was also negative. Her heart rate is normal, she is not hypoxic, and she is overall low risk for PE per [place] criteria. Chest x-ray ordered and interpreted by me showing no obvious pneumonia, no pneumothorax, normal cardiac silhouette. I reviewed the patient's medical history, including her echo report and cardiac catheterization. She had no interventions done relatively recently with her cath and she had no obstruct betito disease in her heart. Patient continues to be well appearing on reassessment. Clinically not consistent with ACS given the constant pain for hours with negative trop x2. Upon further questioning she admits to leaning over a large metal trashcan and hitting her ribs where she is having pain onto the bin. No obvious fracture on XR. Possible she bruised her ribs. I believe she is stable for discharge with outpatient follow-up. She was sent home with strict return precautions. Initial ECG Impression Date: Oct 22, 2022 Initial ECG Impression Time: 19:24 Initial ECG Rate: 71 Initial ECG Rhythm: Normal Sinus Comment Narrow QRS, normal axis, no significant ST changes or T wave abnormalities Diagnostic Imaging Diagonstic Imaging: Xray (chest) Comments NAME: ANKIT FELIPE [facility] REC#: [id number] PT STATUS: REG ER : 1955 PHYSICIAN: TENISHA ORTIZ MD ADMIT DATE: 10/22/22/ER FS Draft Date of Exam:10/22/22 CHEST 1 VIEW AP/PA ONLY INDICATION: chest pain COMPARISON: 01/20/2021 FINDINGS: Single frontal view of the chest demonstrates normal heart size and pulmonary vascularity. The lungs are well aerated and clear. No large pleural effusion or pneumothorax is seen. The visualized osseous structures show no acute abnormalities. IMPRESSION: 1. No acute cardiopulmonary process. Dictated on workstation # [id number] Dict: 10/22/221942 Trans: 10/22/221945 MANJEET [id number] Interpreted by: NESHA GUPTA MD Electronically signed by: Departure Impression Primary Impression: Chest pain Qualified Codes: R07.82 - Intercostal pain Disposition: 01 HOME, SELF-CARE Condition: Stable Departure-Patient Inst. Decision time for Depature: 21:30 Referrals: AGUSTIN GRIJALVA MD SELF,CHIQUI JUNIOR (PCP/Family) Primary Care Physician Patient Instructions: Chest Pain Add. Discharge Instructions: Please follow back up with Dr. Grijalva the pharmacovigilance specialist since you are having chest pain again. Please also follow back up with your regular doctor. Of course if you have any concerns or things change, then you can come back to the ER. TENISHA ORTIZ MD Oct 22, 2022 19:31
[2022-10-22 19:32] LABS: BASOPHILS % (AUTO) 1 % (0-10); EOSINOPHILS # (AUTO) 0.4 10^3/uL (0.0-0.3); EOSINOPHILS % (AUTO) 5 % (0-10); HEMATOCRIT 39 % (35-52); HEMOGLOBIN 12.1 g/dL (11.5-16.0); LYMPHOCYTES # (AUTO) 0.8 10^3/uL (1.0-4.0); LYMPHOCYTES % (AUTO) 10 % (12-44); MEAN CORPUSCULAR HEMOGLOBIN 29 pg (25-34); MEAN CORPUSCULAR HGB CONC 31 g/dL (32-36); MEAN CORPUSCULAR VOLUME 93 fL (80-99); MEAN PLATELET VOLUME 11.2 fL (9.0-12.2); MONOCYTES # (AUTO) 0.4 10^3/uL (0.0-1.0); MONOCYTES % (AUTO) 5 % (0-12); NEUTROPHILS # (AUTO) 6.9 10^3/uL (1.8-7.8); NEUTROPHILS % (AUTO) 80 % (42-75); PLATELET COUNT 207 10^3/uL (130-400); WHITE BLOOD COUNT 8.7 10^3/uL (4.3-11.0)
[2022-10-22 19:45] LABS: PROTHROMBIN TIME PATIENT 13.5 SEC (12.2-14.7)
--- NOTE | 2022-10-22 19:46 | Diagnostic Imaging Report ---
INDICATION: chest pain COMPARISON: 01/20/2021 FINDINGS: Single frontal view of the chest demonstrates normal heart size and pulmonary vascularity. The lungs are well aerated and clear. No large pleural effusion or pneumothorax is seen. The visualized osseous structures show no acute abnormalities. IMPRESSION: 1. No acute cardiopulmonary process. Dictated by: Dictated on workstation # [id number]
[2022-10-22 19:48] LABS: SODIUM 141 MMOL/L (135-145)
[2022-10-22 19:49] LABS: CHLORIDE 111 MMOL/L (98-107)
[2022-10-22 19:59] LABS: CARBON DIOXIDE 20 MMOL/L (21-32); GLUCOSE 143 MG/DL (70-105)
[2022-10-22] MEDS ORDERED: fentaNYL INJ 100 MCG/2 ML AMP IVP ONE (20:00)
[2022-10-22 20:04] LABS: ALKALINE PHOSPHATASE 135 U/L (40-136); BILIRUBIN,TOTAL 0.4 MG/DL (0.1-1.0); BUN/CREATININE RATIO 21; CALCIUM 9.5 MG/DL (8.5-10.1); GFR ESTIMATED 82; POTASSIUM 4.1 MMOL/L (3.6-5.0)
[2022-10-22 20:05] LABS: ALANINE AMINOTRANSFERASE 9 U/L (0-55); TOTAL PROTEIN 6.9 GM/DL (6.4-8.2)
[2022-10-22 20:07] LABS: LIPASE 33 U/L (8-78)
[2022-10-22 21:27] VITALS: BP 113/48
== END 2022-10-22 21:32 | disposition home or self-care (01) ==
LOC: EDUNIT# 19:17 → ER FS 19:18
DX: R07.89 Other chest pain (principal); J44.9 Chronic obstructive pulmonary disease, unspecified; F17.210 Nicotine dependence, cigarettes, uncomplicated; Z99.81 Dependence on supplemental oxygen
CPT/HCPCS: 36415; 71045; 80053; 83690; 83735; 83880; 84484; 85025; 85610; 85730; 93005; 93041

== ENCOUNTER 2022-10-24 21:40 | Emergency (ER) | payer MEDICARE, MEDICAID ==
[~2022-10-24] VITALS: Ht 165 cm; Wt 68.0 kg
[2022-10-24 22:42] VITALS: BP 114/60
--- NOTE | 2022-10-24 23:44 | ED Chest Pain ---
General Chief Complaint: Chest Wall Stated Complaint: UPPER ABD/RIGHT SIDE BACK PAIN Nursing Triage Note: PT STATES SHE WAS LEANING OVER A DUMPSTER TO GET CARDBOARD OUT ON 09/29 WHEN SHE INJURED HER R LOWER CHEST. SHE STATES SHE WENT TO [place] ER FOR THE PAIN ON THURSDAY AND WAS TOLD SHE WAS FINE. SHE REPORTS INCREASED PAIN WITH DEEP INSPIRATION. 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 PT ALSO REPORTS PAIN WITH COUGH Source: patient Exam Limitations: no limitations History of Present Illness Date Seen by Provider: Oct 24, 2022 Time Seen by Provider: 23:32 Initial Comments 67-year-old female presents to the ER with complaints of right rib pain for the last 2 weeks. She states the pain is intermittent. She reports that she was trying to get cardboard boxes out of a dumpster when she kind of fell forward and landed on her right ribs. She reports pain is worse when taking deep breath, coughing, and laughing. Pain is also worse when she lays on her side. She states she has tried taking hydrocodone without relief. She was seen at the [facility] emergency room on 10/22/2022 and had a full cardiac work-up which was negative. She denies abdominal pain, chest pain, shortness of air. Allergies and Home Medications Allergies Coded Allergies: morphine (Verified Allergy, Severe, CONFUSION, 09/21/20) tramadol (Verified Allergy, Severe, CONFUSION, 09/21/20) varenicline (Verified Allergy, Intermediate, NAUSEA/VOMITTING, 09/21/20) ibuprofen (Unverified Adverse Reaction, Mild, gi upset, 09/21/20) Sulfa (Sulfonamide Antibiotics) (Unverified Adverse Reaction, Unknown, 09/21/20) oseltamivir (Unverified Adverse Reaction, Unknown, 09/21/20) sumatriptan (Unverified Adverse Reaction, Unknown, 09/21/20) Uncoded Allergies: TAPE (Allergy, Mild, 09/22/05) Patient Home Medication List Home Medication List Reviewed: Yes Albuterol Sulfate (Ventolin Hfa) 1 Puff Puff, 2 PUFF IH Q4H PRN for WHEEZING, (Reported) Entered as Reported by: MARIANNA HUYNH on 08/22/21 1101 Amoxicillin/Potassium Clav (Amox Tr-K Clv 875-125 mg Tab) 875 Mg-125 Mg Tablet, 1 EACH PO BID Prescribed by: ELROY SCHULZ on 10/04/22 1712 Aspirin (Aspirin) 81 Mg Tab.chew, 81 MG PO DAILY, (Reported) Entered as Reported by: NICCI LUCIO on 09/26/19 1517 Cholecalciferol (Vitamin D3) (Vitamin D3) 50 Mcg Capsule, 50 MCG PO BID, (R eported) Entered as Reported by: MARIANNA HUYNH on 08/22/21 1101 Escitalopram Oxalate (Lexapro) 20 Mg Tablet, 20 MG PO DAILY, (Reported) Entered as Reported by: MARIANNA HUYNH on 08/22/21 1101 Hydrocodone/Acetaminophen (Hydrocodone-Acetamin 5-325 mg) 1 Each Tablet, 1 EACH PO Q4H PRN for PAIN-MILD (1-4), (Reported) Entered as Reported by: NICCI LUCIO on 05/02/20 0909 Levocetirizine Dihydrochloride (Levocetirizine Dihydrochloride) 5 Mg Tablet, 5 MG PO DAILY, (Reported) Entered as Reported by: NICCI LUCIO on 05/03/20 1544 Levothyroxine Sodium (Levothyroxine Sodium) 25 Mcg Tablet, 25 MCG PO DAILY, (Re ported) Entered as Reported by: MARIANNA HUYNH on 11/25/18 1623 [place] Carbonate ([place] Carbonate) 300 Mg Tablet, 300 MG PO TID, (Reported) Entered as Reported by: SHABBIR TAMEZ on 05/14/18 0910 Methocarbamol (Methocarbamol) 750 Mg Tablet, 750 MG PO Q8H PRN for muscle pain/spasms Prescribed by: MARIO CHAN on 02/22/22 1524 Metoprolol Succinate (Metoprolol Succinate) 25 Mg Tab.er.24h, 12.5 MG PO DAILY, (Reported) Entered as Reported by: MARIANNA HUYNH on 11/25/18 1623 Montelukast Sodium (Montelukast Sodium) 10 Mg Tablet, 10 MG PO HS, (Reported) Entered as Reported by: MARIANNA HUYNH on 09/14/20 1415 Multivitamin (Multivitamin) 1 Each Tablet, 1 EACH PO DAILY, (Reported) Entered as Reported by: NICCI LUCIO on 05/02/20 0909 Naproxen (Naprosyn) 500 Mg Tablet, 500 MG PO BID Prescribed by: ELROY SCHULZ on 08/21/22 1625 Pantoprazole Sodium (Pantoprazole Sodium) 40 Mg Tablet.dr, 40 MG PO BID, (Reported) Entered as Reported by: SHABBIR TAMEZ on 05/14/18 0910 Topiramate (Topiramate) 100 Mg Tablet, 100 MG PO BID, (Reported) Entered as Reported by: SHABBIR TAMEZ on 05/14/18 0910 Review of Systems Review of Systems Constitutional: no symptoms reported Musculoskeletal: see HPI Past Qpgjekm-Mjqvwb-Pofuwe Hx Immunizations Up To Date Tetanus Booster (TDap): Unknown PED Vaccines UTD: No First/Initial COVID19 Vaccinat: 07/25/20 Second COVID19 Vaccination Gabriele: 08/22/20 Third COVID19 Vaccination Date: NO Seasonal Allergies Seasonal Allergies: Yes Past Medical History Surgeries: Yes (Gastrectomy, bladder sling, Nerve stim/removal 3, DEBRA ELBOW, BMT, HERNIA X7) Bladder Surgery, Section, Gallbladder, Hysterectomy, Orthopedic Respiratory: Yes (O2 2L AT NIGHT) COPD Currently Using CPAP: No Currently Using BIPAP: No Cardiac: Yes (increased heart rate) High Cholesterol 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: Yes (HX ONE SEIZURE adult (3 yrs ago) unknown, febrile seizure i nfant) 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 Sexually Transmitted Disease: No HIV/AIDS: No Genitourinary: Yes Bladder Infection, Renal Failure, UTI-Chronic Gastrointestinal: Yes Gastroesophageal Reflux, Hiatal Hernia Musculoskeletal: Yes Chronic Back Pain Endocrine: Yes Hypothyroidsim HEENT: Yes Cataract Loss of Vision: Denies Hearing Impairment: Hard of Hearing, Bilateral Hearing Aide Cancer: No ("PRECANCEROUS CELLS" ON PAP) Breast, Cervical Did You Recieve Any Treatments: No What Type of Treatment Did You: Chemotherapy, Surgical Intervention Psychosocial: Yes Anxiety, Bipolar, Depression Integumentary: No Blood Disorders: No Adverse Reaction/Blood Tranf: No (HAS HAD BLOOD WITH NO REACTION) Physical Exam Vital Signs Vital Signs - First Documented 10/24/22 22:42 Temp 36.7 Pulse 60 Resp 18 B/P (MAP) 114/60 (78) Capillary Refill : Less Than 3 Seconds Height, Weight, BMI Height: 5'5.00" Weight: 134lbs. 0.0oz. 60.738067cr; 24.00 BMI Method:Stated General Appearance: No Apparent Distress, WD/WN Neck: Non Tender, Supple Respiratory: Lungs Clear, Normal Breath Sounds, No Accessory Muscle Use, No Respiratory Distress, Other (Tenderness in anterior right lower lower ribs under right breast) Cardiovascular: Regular Rate, Rhythm Gastrointestinal: Non Tender, Soft Extremity: Normal Inspection, Normal Range of Motion Neurologic/Psychiatric: Alert, Normal Mood/Affect Skin: Normal Color, Warm/Dry Procedures/Interventions Suture Size: 4-0 Progress/Results/Core Measures Results/Orders My Orders Orders - MIGUELITO COSTA APRN Ketorolac Injection (Toradol Injection) (10/24/22 23:45) Vital Signs/I&O 10/24/22 22:42 Temp 36.7 Pulse 60 Resp 18 B/P (MAP) 114/60 (78) Blood Pressure Mean: 78 Progress Progress Note : Progress Note Patient seen and evaluated, resting comfortably in recliner, no acute distress. Based on exam and symptoms, will give a shot of Toradol. I informed patient that this is likely a contusion of the ribs. We discussed medications she can take for pain at home. Patient states that ibuprofen upsets her stomach. She had a negative cardiac work-up completed 2 days ago. A chest x-ray was completed at that time as well which did not report any rib fractures. Deepali clark instructions and return precautions provided. Departure Impression Primary Impression: Rib pain Disposition: 01 HOME, SELF-CARE Condition: Stable Departure-Patient Inst. Decision time for Depature: 23:50 Referrals: SELFCHIQUI MD (PCP/Family) Primary Care Physician Patient Instructions: Bruised Rib (DC) Add. Discharge Instructions: Continue taking your hydrocodone as needed for pain. You can try taking 800 mg of ibuprofen every 8 hours with food as needed for pain. Taking it with food may prevent it from upsetting your stomach. Follow-up with your primary care provider. Return for severe shortness of breath, chest pain, or any other new, concerning, or worsening symptoms. All discharge instructions reviewed with patient and/or family. Voiced understanding. MIGUELITO COSTA APRN Oct 24, 2022 23:44
[2022-10-24] MEDS ORDERED: KETOROLAC 15 MG/ML VIAL IM ONE (23:45)
== END 2022-10-25 | disposition home or self-care (01) ==
LOC: EDUNIT# 21:40 → ER 21:42
DX: R07.81 Pleurodynia (principal); W18.30XA Fall on same level, unspecified, initial encounter
CPT/HCPCS: 99284